=== PATIENT | male | born 1965 | race Caucasian/White ===

== ENCOUNTER 2016-07-07 09:11 | Inpatient (IN) | payer MEDICARE, MEDICAID ==
[~2016-07-07] VITALS: Ht 180.3 cm; Wt 106.8 kg
[2016-07-07] VITALS (17 sets, daily range): BP systolic 130–180; BP diastolic 68–100; PULSE 86–108; RESP 18–20; TEMP 97.9; Ht 180.3 cm; Wt 106.8 kg
[2016-07-07] MEDS ORDERED: ALBUTEROL 0.5% (NEB) 2.5 MG/0.5 ML AMP INH STA (09:30)
[2016-07-07] MEDS ORDERED: ONDANSETRON 4 MG INJ IV STA ×3 (09:30→12:24)
[2016-07-07] MEDS ORDERED: IPRATROPIUM (NEB) 0.5 MG/2.5 ML AMP INH STA (09:30)
--- NOTE | 2016-07-07 09:51 | RADRPT ---
PROCEDURE: XR Chest. CLINICAL INDICATION: Abdominal pain. TECHNIQUE: Single frontal view of the chest was obtained COMPARISON: None FINDINGS: The soft tissues are normal. There are osteophytes in the thoracic spine. The heart is enlarged. cardiomediastinal silhouette and hilar structures are normal. The pulmonary vasculature is increase. Left-sided aorta is ectatic. There are bilateral mixed interstitial perihilar and basilar interstit ial and alveolar infiltrates. There are bilateral pleural effusions. There are clips in the superio r mediastinum possibly related to prior thyroidectomy. IMPRESSION: 1. Cardiomegaly with congestive heart failure and interstitial pulmonary edema with bilateral pleura l effusions. 2. Spondylosis of the thoracic spine. RPTAT:AAJJ Physician Michael Date Time Electronically viewed and signed by Physician Michael on 07/07/2016 09:51 /
[2016-07-07] MEDS ORDERED: CNC30T PO (10:19)
[2016-07-07] MEDS ORDERED: ASPI-664 PO (10:19)
[2016-07-07] MEDS ORDERED: ATOR80TA75 PO (10:19)
[2016-07-07] MEDS ORDERED: CITA10TA84 PO (10:20)
[2016-07-07] MEDS ORDERED: CLOP75TA27 PO (10:20)
[2016-07-07 10:21] LABS: ADD SCAN DIFF NO
[2016-07-07] MEDS ORDERED: DIVA250T4 PO (10:21)
[2016-07-07] MEDS ORDERED: DOCU-159 PO (10:21)
[2016-07-07] MEDS ORDERED: EPOE3000 SC (10:22)
[2016-07-07] MEDS ORDERED: HEPA500021 IJ (10:23)
[2016-07-07] MEDS ORDERED: ADV50050 INHALATION (10:23)
[2016-07-07] MEDS ORDERED: INSU100C SQ (10:25)
[2016-07-07] MEDS ORDERED: ISOS60TA PO (10:25)
[2016-07-07] MEDS ORDERED: LEVE10006 PO (10:26)
[2016-07-07] MEDS ORDERED: LOSA100T7 PO (10:26)
[2016-07-07] MEDS ORDERED: MONT10TA21 PO (10:26)
[2016-07-07] MEDS ORDERED: PANT40TA3 PO (10:27)
[2016-07-07] MEDS ORDERED: PHEN300C2 PO (10:28)
[2016-07-07] MEDS ORDERED: NEPH PO (10:29)
[2016-07-07] MEDS ORDERED: POLY17PO6 PO (10:29)
[2016-07-07] MEDS ORDERED: hydrALAzine 20 MG INJ IV ONE (10:30)
[2016-07-07] MEDS ORDERED: FOLI1CAP PO (10:30)
[2016-07-07] MEDS ORDERED: SEVE800T7 PO (10:31)
[2016-07-07] MEDS ORDERED: TRAZ50TA18 PO (10:32)
[2016-07-07 10:33] LABS: ABNORMAL IP MESSAGE 1; HEMATOCRIT 24.7 % (42.0-52.0); HEMOGLOBIN 7.7 g/dl (14.0-18.0); MEAN CORPUSCULAR HEMOGLOBIN 29.4 pg (29.0-33.0); MEAN CORPUSCULAR HGB CONC 31.2 g/dl (32.0-37.0); MEAN CORPUSCULAR VOLUME 94.3 fl (82.0-101.0); MEAN PLATELET VOLUME 10.6 fl (7.4-10.4); PLATELET COUNT 68 10^3/UL (140-415); RED BLOOD COUNT 2.62 10^6/ul (4.70-6.10); RED CELL DISTRIBUTION WIDTH 16.9 % (11.5-14.5); WHITE BLOOD COUNT 6.8 10^3/ul (4.8-10.8)
[2016-07-07 10:35] LABS: INR 1.14; PARTIAL THROMBOPLASTIN TIME 37.7 Sec (25.0-35.0); PROTIME 14.6 Sec (12.2-14.2); PT RATIO 1.1
[2016-07-07 10:35] LABS: ALBUMIN 4.3 g/dl (3.3-4.9)
[2016-07-07 10:36] LABS: POTASSIUM 5.1 mmol/L (3.5-5.1)
[2016-07-07 10:38] LABS: ALBUMIN/GLOBULIN RATIO 1.1; TOTAL PROTEIN 8.2 g/dl (6.1-8.1)
[2016-07-07] MEDS ORDERED: ACET-2047 PO (10:39)
[2016-07-07] MEDS ORDERED: BISA5TAB6 PO (10:39)
[2016-07-07] MEDS ORDERED: CLON-379 PO (10:41)
[2016-07-07] MEDS ORDERED: BEN25 PO (10:41)
[2016-07-07] MEDS ORDERED: IPRA3AMP INHALATION (10:42)
[2016-07-07] MEDS ORDERED: GLUC1KIT IJ (10:43)
[2016-07-07] MEDS ORDERED: GUAI-637 PO (10:44)
[2016-07-07] MEDS ORDERED: DEXT38GE15 PO (10:44)
[2016-07-07] MEDS ORDERED: TEARS BOTH EYES (10:45)
[2016-07-07] MEDS ORDERED: NIT4 SL (10:46)
[2016-07-07] MEDS ORDERED: LACT20SO2 PO (10:46)
[2016-07-07 10:47] LABS: CREATININE 10.34 mg/dl (0.61-1.24)
--- NOTE | 2016-07-07 10:51 | ERA ---
ER Documentation Chief Complaint Date/Time DATE: 07/07/16 TIME: 10:30 Chief Complaint sob and vomitting since last night, came from board & care HPI This is a 50-year-old -[place]ian male with a known history of end-stage renal disease on hemodialysis every Saturday and Saturday. The patient also has a history of epilepsy, insulin-dependent diabetes mellitus, hypertension and is on Dilantin to treat his diabetes. The patient was recently discharged 24 hours ago on July 05, 2016 from [facility]. He had been admitted on June 11 to [facility] and treated for status epilepticus as well as MRSA. The patient was discharged to [facility] service. The patient was brought into the emergency department today from a staff member at the independent living facility due to severe difficulty in breathing that occurred 2 hours prior to arrival. The patient also had an episode of nonbloody nonbilious emesis at 4 PM yesterday but denied any abdominal pain. 2 hours prior to arrival the patient also complained of chest pressure that was 6 out of 10 in intensity, nonradiating and no associated symptoms of diaphoresis or shortness of breath. The patient's dialysis access site is in the left femoral tunnel catheter. There is been no documentation of fever shaking or chills. The patients post discharge and notes indicate that the patient is to receive dialysis at [facility] and the last run of dialysis was on , 2 days prior to arrival the patient also take Epogen 10,000 units subcutaneously every Saturday and Saturday and the last dose was given on July 04, 2016 during his dialysis. According to medical records that were brought by the patient's independent living staff member his certified travel counselor is Dr. Ann Marie CALVO All systems reviewed and are negative except as per history of present illness. Medications Home Meds Reported Medications Nitroglycerin* (Nitrostat*) 0.4 Mg Tab.subl, 0.4 MG SL Q5MIN Y for CHEST PAIN, BOTTLE 07/07/16 Lactulose* (Lactulose*) 20 Gm/30 Ml Solution, 20 GM PO BID Y for CONSTIPATION, ML 07/07/16 Hypromellose* (Isopto Tears*) 15 Ml Drops, 2 DROP BOTH EYES Q4 Y for DRY EYES, # 1 EA 07/07/16 Guaifenesin* (Robitussin*) 100 Mg/5 Ml Syrup, 300 MG PO Q4H Y for COUGH, ML 07/07/16 Dextrose (Glucose Gel) 38 Gm Gel..gram., 38 GM PO PRN 07/07/16 Glucagon,Human Recombinant (Glucagon Emergency Kit) 1 Mg Kit, 1 MG IJ PRN, KIT 07/07/16 Ipratropium-Albuterol (Ipratropium-Albuterol) 0.5-3 Mg/3 Ml Ampul.neb, 3 ML INHALATION Q4 Y for WHEEZING AND SOB, #30 VIAL 07/07/16 Diphenhydramine Hcl* (Benadryl*) 25 Mg Cap, 25 MG PO Q6H Y for ITCHING, CAP 07/07/16 Clonidine Hcl* (Clonidine Hcl*) 0.1 Mg Tab, 0.1 MG PO Q6 Y for ELEVATED BLOOD PRESSURE, TAB NEEDED FOR BP ABOVE 170 07/07/16 Bisacodyl* (Bisacodyl*) 5 Mg Tablet.dr, 10 MG PO DAILY Y for CONSTIPATION, TAB 07/07/16 Acetaminophen* (Acetaminophen*) 650 Mg Tablet, 650 MG PO Q6H Y for PAIN AND OR ELEVATED TEMP, #30 TAB 07/07/16 Trazodone Hcl* (Trazodone Hcl*) 50 Mg Tablet, 50 MG PO QHS, #30 TAB 07/07/16 Sevelamer Carbonate* (Renvela*) 800 Mg Tablet, 0.16 GM PO WITH MEALS, TAB 07/07/16 Folic Acid/Vitamin B Comp W-C (Nephrocaps Capsule) 1 Mg Capsule, 1 MG PO DAILY, CAP 07/07/16 Multivit/Ca Carb/B Cmplx/Fa* (Etelvina-Paula*) 1 Tab Tab, 1 TAB PO DAILY, TAB 07/07/16 Polyethylene Glycol* (Miralax*) 17 Gm Powd.pack, 17 GM PO BID, #60 PACKET 07/07/16 Phenytoin* Sodium Extended (Dilantin*) 300 Mg Capsule, 300 MG PO HS, CAP 07/07/16 Pantoprazole* (Protonix*) 40 Mg Tablet.dr, 40 MG PO DAILY, TAB 07/07/16 Montelukast Sodium* (Singulair*) 10 Mg Tablet, 10 MG PO QHS, #30 TAB 07/07/16 Losartan Potassium* (Losartan Potassium*) 100 Mg Tablet, 100 MG PO DAILY, TAB 07/07/16 Levetiracetam* (Levetiracetam*) 1,000 Mg Tablet, 1000 MG PO BID, TAB 07/07/16 Isosorbide Mononitrate* (Isosorbide Mononitrate*) 60 Mg Tab.er.24h, 60 MG PO DAILY, TAB 07/07/16 Insulin Lispro (Humalog) 100 Unit/1 Ml Cartridge, 0 SQ AC MEALS AND BEDTIME SLIDING SCALE (NO SCALE GIVEN) 07/07/16 Heparin Sodium,Porcine/Pf (HEPARIN SOD 5,000 UNIT/ 0.5 ML) 5,000 Unit/0.5 Ml Vial, 5000 UNIT IJ Q12, VIAL 07/07/16 Salmeterol Xinaf-Fluticasone* (Advair*) 500/50 Diskus Inhaler, 1 INH INHALATION BID, #1 INHALER 07/07/16 Epoetin francesca* (Epogen*) 3,000 Unit/1 Ml Vial, [address] UNIT SC ENZO PRESSLEY,SAT, VIAL 07/07/16 Docusate Sodium* (Docusate Sodium*) 100 Mg Capsule, 100 MG PO BID, #60 CAP 07/07/16 Divalproex Sodium* (Divalproex Sodium*) 250 Mg Tablet.dr, 750 MG PO Q8, #120 TAB 07/07/16 Clopidogrel Bisulfate (Clopidogrel) 75 Mg Tablet, 75 MG PO DAILY, #30 TAB 07/07/16 Citalopram Hydrobromide* (Citalopram Hydrobromide*) 10 Mg Tablet, 10 MG PO DAILY , #30 TAB 07/07/16 Cinacalcet* (Sensipar*) 30 Mg Tab, 30 MG PO DAILY, TAB 07/07/16 Atorvastatin* (Atorvastatin*) 80 Mg Tablet, 80 MG PO QHS, #30 TAB 07/07/16 Aspirin (Low Dose Aspirin) 81 Mg Tablet.dr, 81 MG PO DAILY, #30 TAB 07/07/16 Allergies Allergies: Coded Allergies: iodine (Unverified Allergy, Unknown, 07/07/16) PMhx/Soc History of Surgery: Yes (DIALYSIS SHUNT PLACEMENT) Anesthesia Reaction: No Hx Neurological Disorder: No Hx Respiratory Disorders: No Hx Cardiac Disorders: Yes (HTN) Hx Psychiatric Problems: No Hx Miscellaneous Medical Probl: Yes (RENAL FAILURE, DM) Hx Alcohol Use: No Hx Substance Use: No Hx Tobacco Use: No Smoking Status: Never smoker Physical Exam Vitals Vital Signs Date Time Temp Pulse Resp B/P Pulse Ox O2 Delivery O2 Flow Rate FiO2 07/07/16 10:00 111 26 182/106 07/07/16 09:50 111 18 96 Nasal Cannula 2.0 07/07/16 09:50 2.0 07/07/16 09:30 Nasal Cannula 2 07/07/16 09:15 97.9 89 18 232/115 89 Physical Exam Constitutional:Well-developed. Well-nourished. In severe respiratory distress and actively vomiting nonbloody nonbilious emesis HEENT:Normocephalic. Atraumatic.Pupils were equal round reactive to light. Moist mucous membranes.No tonsillar exudates. Neck: No nuchal rigidity. No lymphadenopathy. No posterior cervical spine tenderness or step-offs. Respiratory: Patient using accessory muscles of respiration. Rhonchi heard bilaterally. No wheezing on end auscultation bilaterally. Cardiovascular: Regular rate regular rhythm.No murmurs. No rubs were appreciated.S1, S2 normal. Distal pulses are palpable 2+ bilaterally. GI: Abdomen was soft. Nontender. Non Distended. No pulsatile abdominal masses or bruits. No rebound. No guarding. Bowel sounds were present and normal. Muscle skeletal: Full range of motion of both the upper and lower extremities bilaterally.Normal muscle tone.No assymetrical calf tenderness or swelling. Skin: No petechia, no purpura. No lesions on the palms or the soles of the feet. No maculopapular rash. Left tunneled dialysis catheter present in the femoral vein and surrounding skin was clean dry and intact NEURO: Patient was alert, awake, orientated x3.No facial droop. Gait observed and normal with no ataxia.Speech had regular rate and rhythm. No focal neurological deficits. Result Diagram: 07/07/16 1009 07/07/16 1004 Results 24 hrs Laboratory Tests Test 07/07/16 10:04 07/07/16 10:09 Sodium Level 142mmol/L Potassium Level 5.1mmol/L Chloride Level 98mmol/L Carbon Dioxide Level 24mmol/L Anion Gap 25 Blood Urea Nitrogen 107mg/dl Creatinine 10.34mg/dl Glucose Level 98mg/dl Calcium Level 10.0mg/dl Total Bilirubin 0.0mg/dl Direct Bilirubin 0.00mg/dl Indirect Bilirubin 0.0mg/dl Aspartate Amino Transf (AST/SGOT) 46IU/L Alanine Aminotransferase (ALT/SGPT) 29IU/L Alkaline Phosphatase 233IU/L Troponin I 0.153ng/ml Total Protein 8.2g/dl Albumin 4.3g/dl Globulin 3.90g/dl Albumin/Globulin Ratio 1.10 Amylase Level 130U/L Lipase 50U/L White Blood Count 6.810^3/ul Red Blood Count 2.6210^6/ul Hemoglobin 7.7g/dl Hematocrit 24.7% Mean Corpuscular Volume 94.3fl Mean Corpuscular Hemoglobin 29.4pg Mean Corpuscular Hemoglobin Concent 31.2g/dl Red Cell Distribution Width 16.9% Platelet Count 6810^3/UL Mean Platelet Volume 10.6fl Prothrombin Time 14.6Sec Prothrombin Time Ratio 1.1 INR International Normalized Ratio 1.14 Activated Partial Thromboplast Time 37.7Sec Phenytoin (Dilantin) Level < 3.0ug/ml Current Medications Medications (Trade) Dose Ordered Sig/Shawn Route PRN Reason Start Time Stop Time Status Last Admin Dose Admin Ondansetron HCl (Zofran Inj) 4 mg ONCE STAT IV 07/07/16 09:30 07/07/16 09:33 DC 07/07/16 09:57 Albuterol (Proventil 0.5% (Neb)) 10 mg ONCE STAT INH 07/07/16 09:30 07/07/16 09:33 DC 07/07/16 09:50 Ipratropium [place] (Atrovent 0.02% (Neb)) 1 mg ONCE STAT INH 07/07/16 09:30 07/07/16 09:33 DC 07/07/16 09:50 Hydralazine HCl (Apresoline) 10 mg ONCE ONCE IV 07/07/16 10:30 07/07/16 10:31 DC 07/07/16 11:10 Morphine Sulfate (morphine) 4 mg ONCE STAT IV 07/07/16 10:53 07/07/16 10:54 DC 07/07/16 11:10 Ondansetron HCl (Zofran Inj) 4 mg ONCE STAT IV 07/07/16 10:53 07/07/16 10:54 DC 07/07/16 11:09 Ondansetron HCl (Zofran Inj) 4 mg ER BRIDGE PRN IV NAUSEA AND/OR VOMITING 07/07/16 11:30 07/08/16 11:29 Acetaminophen 650 mg 650 mg ER BRIDGE PRN PO MILD PAIN/FEVER 07/07/16 11:30 07/08/16 11:29 Phenytoin/Sodium Chloride (Dilantin/NS) 100 ml @ 200 mls/hr ONCE STAT IVPB 07/07/16 11:32 07/07/16 12:01 Cancel IV Flush (NS 3 ml) 3 ml PER PROTOCOL IV 07/07/16 12:00 Ondansetron HCl (Zofran Inj) 4 mg Q6H PRN IV NAUSEA AND/OR VOMITING 07/07/16 12:00 Acetaminophen (Tylenol Tab) 650 mg Q6H PRN PO PAIN LEVEL 1-3 OR FEVER 07/07/16 12:00 Acetaminophen/ Hydrocodone Bitart ([place] (5/325)) 1 tab Q6H PRN PO MODERATE PAIN LEVEL 4-6 07/07/16 12:00 Morphine Sulfate (morphine) 2 mg Q4H PRN IV SEVERE PAIN LEVEL 7-10 07/07/16 12:00 Docusate Sodium (Colace) 100 mg Q12H PRN PO CONSTIPATION 07/07/16 12:00 Heparin Sodium (Porcine) (Heparin (5000 Units/0.5 ml)) 5,000 unit Q12 SC 07/07/16 21:00 Aspirin (Halfprin) 81 mg DAILY PO 07/08/16 09:00 Atorvastatin Calcium (Lipitor) 80 mg QHS PO 07/07/16 21:00 Bisacodyl (Dulcolax) 10 mg DAILY PRN PO CONSTIPATION 07/07/16 12:00 Cinacalcet (Sensipar) 30 mg DAILY PO 07/08/16 09:00 Citalopram Hydrobromide (Celexa) 10 mg DAILY PO 07/08/16 09:00 Clopidogrel Bisulfate (plaVIX) 75 mg DAILY PO 07/08/16 09:00 Diphenhydramine HCl (Benadryl) 25 mg Q6H PRN PO ITCHING 07/07/16 12:00 Divalproex Sodium (Depakote) 750 mg Q8 PO 07/07/16 14:00 Docusate Sodium (Colace) 100 mg BID PO 07/07/16 21:00 Guaifenesin (Robitussin Liquid Cup) 300 mg Q4H PRN PO COUGH 07/07/16 12:00 Hypromellose (Isopto Tears) 2 drop Q4H PRN BOTH EYES DRY EYES 07/07/16 12:00 Isosorbide Mononitrate (Imdur) 60 mg DAILY PO 07/08/16 09:00 Lactulose (Enulose) 20 gm BID PRN PO CONSTIPATION 07/07/16 12:00 Levetiracetam (Keppra) 1,000 mg BID PO 07/07/16 21:00 Losartan Potassium (Cozaar) 100 mg DAILY PO 07/08/16 09:00 Montelukast Sodium (Singulair) 10 mg QHS PO 07/07/16 21:00 Multivit/Ca Carb/ B Cmplx/FA/Prenat (Etelvina-Paula) 1 tab DAILY PO 07/08/16 09:00 Nitroglycerin (Nitroglycerin (Sl Tab) 0.4 Mg) 1 tab [id number] PRN SL CHEST PAIN 07/07/16 12:00 Pantoprazole (Protonix Tab) 40 mg DAILY@06 PO 07/08/16 06:00 Phenytoin (Dilantin) 300 mg HS PO 07/07/16 21:00 Polyethylene Glycol (Miralax) 17 gm BID PO 07/07/16 21:00 Salmeterol Xinafoate/ Fluticasone (Advair 500/50 Diskus) 1 inh BID INH 07/07/16 21:00 Sevelamer Carbonate (Renvela) 1.6 gm WITH MEALS PO 07/07/16 12:00 Trazodone HCl (Desyrel) 50 mg QHS PO 07/07/16 21:00 Miscellaneous Information 1 mg DAILY PO 07/08/16 09:00 07/08/16 09:00 DC Albuterol/ Ipratropium (Duoneb) 3 ml Q4H RESP THERAPY PRN HHN SHORTNESS OF BREATH 07/07/16 12:00 Morphine Sulfate (morphine) 4 mg ONCE STAT IV 07/07/16 12:24 07/07/16 12:26 DC Ondansetron HCl (Zofran Inj) 4 mg ONCE STAT IV 07/07/16 12:24 07/07/16 12:26 DC Phenytoin (Dilantin) 500 mg ONCE STAT PO 07/07/16 12:24 4 12:26 DC Albuterol (Proventil 0.083% (Neb)) 5 mg ONCE STAT NEB 07/07/16 12:24 07/07/16 12:26 DC Ipratropium [place] (Atrovent 0.02% (Neb)) 0.5 mg ONCE STAT NEB 07/07/16 12:24 4 12:26 DC Procedures/MDM The patient presented to the emergency department with dyspnea. My differential diagnosis included but was not limited to upper airway obstruction, CHF, pulmonary embolism, cardiac ischemia, pneumonia, pneumothorax, anemia, drug overdose, pulmonary edema, COPD or asthma. The patient was in severe respiratory distress and was immediately placed on a director of software engineering continuous pulse oximetry and IV access was established by nursing staff. The patient was given continuous nebulizer treatment of albuterol and Atrovent. The patient has anuria and therefore Lasix was not given as I did feel the patient severe difficulty in breathing was a result of fluid overload at the chest radiograph had pulmonary vascular congestion bilaterally. The patient has a known history of seizure disorder on Dilantin. His Dilantin was subtherapeutic. He was given 500 mg of Dilantin p.o. in the emergency department but had no seizure activity This patient also presented to the emergency department with severely elevated blood pressure. My differential diagnosis included but was not limited to conditions that could end-organ damage such as acute coronary syndrome, acute pulmonary edema, aortic dissection, subarachnoid hemorrhage, intracerebral hemorrhage, cerebral infarction, withdrawal syndromes from beta blockers, or states of catecholamine excess such as pheochromocytoma or drug intoxication. The patient had uncontrolled hypertensive with end-organ damage to suggest hypertensive emergency. The treatment goal was immediate reduction of the mean arterial blood pressure. This was done in a controlled, graded manor, using improvement of the patient's condition as a guide. The patient's blood pressure reduction did not exceed more then a 20-25 percent reduction within the first 30 to 60 minutes. The patient was put on a director of software engineering, continuous pulse oximetry, and IV access was established by nursing staff. The antihypertensive agent used was IV hydralazine. 12 Lead EKG tracing ordered and reviewed by myself showed: Sinus tachycardia at 126 bpm and no arrhythmia. DE interval normal. QRS duration normal. No ST segment elevation No ST segment depression. No changes consistent with acute ischemia. The patient was anemic with a hemoglobin of 7.7. He had no active hemoptysis or hematemesis no melanotic stools. The patient does receive Epogen which will be given just prior to his dialysis. I spoke with Dr. De Los Santos, the admitting nurse at this time a blood transfusion was not given since he will undergo dialysis and has known history of chronic anemia. However type and screen was obtained. The patient's troponin was elevated but he did not complain of any chest pain or pressure at this time. The patient will have serial 12-lead EKG tracings and cardiac set of enzymes obtained. I felt the elevated troponin was likely due to renal failure versus myocardial ischemia therefore aspirin was not given to the patient. Of note there was questionable treatment for MRSA during his month stay at [facility], blood cultures were obtained. There is no leukocytosis no evidence of infection at this time and therefore did not administer antibiotics. The blood cultures will be followed up by the admitting physician The patient was now complaining of abdominal pain after emesis. Repeat abdominal examination showed no peritoneal signs to suggest a surgical abdomen. I did feel this was more likely muscle skeletal from the emesis. He received intravenous morphine and Zofran. His sister had now arrived at 10:39 AM. I spoke in length with her regarding the patient's care. She stated the patient has been in and out of hospitals since May due to complications with dialysis shunt sites. However his temporary placement into the left groin has not caused any recent complications. He was scheduled to receive dialysis this morning according to his sister but due to the patient's complaints he was brought to the hospital at [facility] and will require admission for emergent hemodialysis. The patient will be admitted to the hospitalist Dr. De Los Santos and will go to the telemetry service in serious condition with an anticipated stay of greater than 2 midnights. Given the patient's acute on chronic renal failure with a BUN of 107 creatinine 10.34, the patient will undergo emergent hemodialysis with his certified travel counselor Dr. Jesus. Critical Care: Time: 50 minutes Treatments/Evaluations: Close monitoring and treatment of unstable vital signs, cardiorespiratory, and neurologic status, while maintaining tight balance of fluid, respiratory, and cardiac interventions. Time does not include performing any of the above billable procedures. Departure Diagnosis: Primary Impression: Pulmonary edema with congestive heart failure Additional Impressions: Acute renal failure Qualified Code: N17.9 - Acute renal failure, unspecified acute renal failure type Hypertensive emergency Anemia Qualified Code: D64.9 - Anemia, unspecified type Condition: Serious BETHEL BARNES Jul 07, 2016 10:42
[2016-07-07 10:53] LABS: TROPONIN-I 0.153 ng/ml (0.00-0.12)
[2016-07-07] MEDS ORDERED: morphine 4 MG/ML VIAL IV STA ×2 (10:53→12:24)
[2016-07-07] MEDS ORDERED: ACETAMINOPHEN 325 MG TAB PO PRN (11:30)
[2016-07-07] MEDS ORDERED: ONDANSETRON 4 MG INJ IV PRN (11:30)
[2016-07-07] MEDS ORDERED: PHENYTOIN 1,000 MG in SOD CHLORIDE 0.9% 80 ML IVPB STA (11:32)
[2016-07-07] MEDS ORDERED: GUAIFENESIN 20 MG/ML 5ML CUP PO PRN (12:00)
[2016-07-07] MEDS ORDERED: BISACODYL (EC) 5 MG TAB PO PRN (12:00)
[2016-07-07] MEDS ORDERED: DOCUSATE SODIUM 100 MG CAP PO PRN (12:00)
[2016-07-07] MEDS ORDERED: NACL 0.9% 3 ML SYG IV SCH (12:00)
[2016-07-07] MEDS: SEVELAMER CARBONATE 0.8 GM PKT PO SCH ×2 (12:00→18:05)
[2016-07-07] MEDS ORDERED: LACTULOSE 30ML CUP PO PRN (12:00)
[2016-07-07] MEDS ORDERED: HYPROMELLOSE 0.5% 15 ML OPH BOTH EYES PRN (12:00)
--- NOTE | 2016-07-07 12:21 | HP ---
DATE OF ADMISSION: 07/07/2016 CHIEF COMPLAINT: Shortness of breath, nausea. HISTORY OF PRESENT ILLNESS: The patient is a 50-year-old male with a history of end-stage renal dis ease on dialysis for many years, with multiple issues with the fistula. The patient was living in [facility] and apparently they had issues with his fistula and recommended hospice, but the patient's si ster does not want him in hospice and brought him down to [place]. The patient has history of s eizure disorder, has not had a seizure for 1 month. He is on anti-seizure medications. He has a hi story of CHF. The patient was recently at [facility] where he did have a new fistula placed and d id get his dialysis reinitiated. He went to a board and care facility recently, but was sent over f or shortness of breath and nausea. The patient receives dialysis Tuesdays, and Saturdays and new field agronomist is Dr. Jesus. The patient's last dialysis was reportedly on Saturday. The patient's main complaints at this time are shortness of breath as well as nausea and emesis. He den ies any chest pain. History is obtained by the patient's sister who is at bedside. He has no other complaints at this time. PAST MEDICAL HISTORY: As per HPI. HOME MEDICATIONS: 1. Tylenol. 2. Clonidine. 3. Dextrose. 4. EPO. 5. Albuterol. 6. Heparin. 7. Aspirin. 8. Atorvastatin. 9. Sensipar. 10. Citalopram. 11. Plavix. 12. Benadryl. 13. Depakote. 14. Colace. 15. Imdur. 16. Lactulose. 17. Keppra. 18. Losartan. 19. Nitroglycerin p.r.n. 20. Protonix. 21. Dilantin. 22. Advair. 23. Trazodone. 24. Renvela. ALLERGIES: REPORTEDLY ARE TO IODINE. FAMILY HISTORY: Noncontributory. SOCIAL HISTORY: No alcohol abuse, substance abuse or tobacco abuse. REVIEW OF SYSTEMS: A 12-point review of systems is difficult to obtain as patient is a poor histori an and is nauseous at this time and requiring supplemental oxygen mask. PHYSICAL EXAMINATION: VITAL SIGNS: Temperature is 97.9, pulse 111, respiratory rate 26, blood pressure is 182/106, satura tion 96% on 2 liters. GENERAL: Mild distress, lethargic. HEENT: Normocephalic, atraumatic. LUNGS: Clear to auscultation. CARDIOVASCULAR: Regular rate and rhythm. ABDOMEN: Nondistended, nontender, soft. EXTREMITIES: No clubbing, cyanosis, or edema. LABORATORY DATA: White count 6.8, hemoglobin 7.7, platelets of 68. Chemistry within normal limits except for BUN of 107, creatinine 10.34, anion gap is 25. Troponin 0.153. Alkaline phosphatase 233 . Lipase is 50. Tox: Dilantin level is low at less than 3.0. INR is 1.14. DIAGNOSTIC DATA: Chest x-ray shows cardiomegaly with CHF, interstitial pulmonary edema and bilatera l pleural effusions, spondylosis of the thoracic spine. ASSESSMENT AND PLAN: 1. Acute respiratory distress secondary to pulmonary edema, likely from congestive heart failure as well as his end-stage renal disease. I have already contacted patient's field agronomist. The patient will need hemodialysis for fluid removal. Continue supplemental oxygen. Admit to telemetry. 2. End-stage renal disease. Once again, I have contacted patient's field agronomist, Dr. Zuniga, and the patient will need to have dialysis done today via his fistula. 3. History of congestive heart failure. The patient's baseline ejection fraction is unknown. We w ill obtain a 2D echo. 4. History of seizure disorder. The patient has not had a seizure for a month. We will continue h is home seizure medications. 5. Nausea, vomiting likely secondary to his comorbidities. We will give Zofran p.r.n. 6. Prophylaxis. Heparin. Dictated By: IWONA BARRIOS MD BS/NTS Conf#: [id number] DID#: [id number]
[2016-07-07] MEDS ORDERED: IPRATROPIUM (NEB) 0.5 MG/2.5 ML AMP NEB STA (12:24)
[2016-07-07] MEDS ORDERED: PHENYTOIN 100 MG CAP PO STA (12:24)
[2016-07-07] MEDS ORDERED: ALBUTEROL 0.083% (NEB) 2.5 MG/3 ML AMP NEB STA (12:24)
[2016-07-07 13:00] LABS: EOSINOPHILS # 1.6 10^3/ul (0.0-0.5); LYMPHOCYTES # 0.6 10^3/ul (0.8-2.9); MONOCYTE # 0.5 10^3/ul (0.3-0.9)
[2016-07-07 13:01] LABS: PLATELET ESTIMATE PLT APPEAR DECREASED
[2016-07-07] MEDS: morphine 2 MG INJ IV PRN ×2 (13:08→22:23)
[2016-07-07] MEDS ORDERED: LABETALOL HCL 20MG INJ IV PRN (14:30)
--- NOTE | 2016-07-07 14:38 | CONS ---
DATE OF ADMISSION: 07/07/2016 DATE OF CONSULTATION: 07/07/2016 NEPHROLOGY CONSULTATION REASON FOR CONSULTATION: End-stage renal disease, volume overload. PHYSICIAN REQUESTING CONSULT: Dr. De Los Santos. HISTORY OF PRESENT ILLNESS: This is a 50-year-old male with a past medical history of end-stage josep al disease on hemodialysis for over 10 years, access is a left lower leg AV fistula. The patient on dialysis 4 times weekly, Saturday, , Saturday, Saturday. History of seizure disorder, hist ory of coronary artery disease, history of CVA, history of CHF, history of hypertension, history of mineral bone disorder history of dyslipidemia and history of diabetes who presented to [facility] with shortness of breath and vomiting. The patient stated that he was recently ad mitted to [facility] since 06/11/2016 due to seizures. The patient also was noted to have MRSA pn eumonia. The patient was treated and was eventually discharged approximately 2 days ago to an [facility] facility. The patient since his discharge had hemodialysis on had a hemodialysi s on 07/05/2016. Since that time, the patient is complaining about nausea, nonbloody emesis and abd ominal pain and chest pressure with shortness of breath. As a result, he came into the emergency ro om for evaluation. Upon arrival to the emergency room, the patient had a chest x-ray which showed f indings of cardiomegaly, CHF, interstitial edema, bilateral pleural effusions. LABORATORY DATA: Showed sodium 142, BUN of 107, creatinine 10.34. The patient had a hemoglobin of 7.7, hematocrit 24.7, platelet count 68. In the emergency room, the patient was given Dilantin, neb ulizer therapy, placed on BiPAP. There have been no reports of hemoptysis, hematemesis or hematoch ezia. PAST MEDICAL HISTORY: As stated above, history of end-stage renal disease, history of diabetes, epi lepsy, history of coronary artery disease, history of CVA, history of anemia, mineral bone disorder, hypertension. PAST SURGICAL HISTORY: History of AV fistula placement. ALLERGIES: IODINE. FAMILY HISTORY: Noncontributory. SOCIAL HISTORY: Does not drink, smoke or do drugs. MEDICATIONS: The patient's medications have been reviewed. REVIEW OF SYSTEMS: A 14-point review of systems was conducted. Pertinent positives in HPI, otherwi se negative. PHYSICAL EXAMINATION: VITAL SIGNS: Blood pressure is 182/106, respirations 26, pulse 111, temperature 97.9. HEENT: Head is normocephalic. Pupils are reactive to light. NECK: Supple. HEART: Tachycardic. LUNGS: Show diminished breath sounds at base. Positive crackles. ABDOMEN: Soft, nontender to palpation. No rebound or guarding. EXTREMITIES: Negative for clubbing, cyanosis. Positive edema. DERMATOLOGIC: No rashes. MUSCULOSKELETAL: No joint effusions. NEUROLOGIC: No focal deficits. LABORATORY DATA: Currently shows white count 6.8, hemoglobin 7.7, hematocrit ____.7, platelet count 68, sodium 142, potassium 4.1, chloride 90, BUN 107, creatinine 2.34, troponin 0.153. Chest x-ray as stated in HPI. ASSESSMENT AND PLAN: This is a 50-year-old male who presents with: 1. End-stage renal disease. The patient is on dialysis 4 times weekly. The patient currently is i n need of urgent hemodialysis due to volume overload and respiratory failure. Plan for dialysis for 3-1/2 hours. Will dialyze on a 2K bath, calcium 2.5, ultrafiltrate goal 2 to 3 liters. Anticipate daily dialysis for solute clearance and volume removal. 2. Acute hypoxemic respiratory failure secondary to congestive heart failure. Plan is for dialysis with ultrafiltration of 2 to 3 liters as stated above. Will continue to monitor. Continue BiPAP. Continue nasal cannula supplement and nebulized therapy. 3. Anemia of chronic disease. PLAN: Is to check an iron panel, check stool for occult blood and ferritin level. Will give the pa genaro Epogen ____ following dialysis, monitor. DIAGNOSES: 1. Hypertension. Etiology is in part due to increased intravascular volume. We will continue curr ent blood pressure regimen. Continue ultrafiltration dialysis. 2. History of coronary artery disease. Continue current medical management. 3. Diabetes. Continue Accu-Cheks and sliding scale. 4. Seizure disorder. Continue current medications. 5. Nausea, vomiting. Etiology may be secondary to congestive heart failure and respiratory failure . Continue to monitor. 6. Elevated troponin, possibly due to non- ST elevation myocardial infarction type 2. Continue to monitor. Consider cardiology evaluation, check serial troponins. 7. Mineral bone disorder____ continue phosphate binders. 8. History of chronic kidney disease, medical management. Thank you, Dr. De Los Santos, for this interesting consult. It will be a pleasure to follow the patient w ith you throughout the hospital course. Dictated By: NEHEMIAS DAS/NTS Conf#: [id number] DID#: [id number] CC: IWONA DE LOS SANTOS MD;*EndCC*
[2016-07-07] MEDS: DIVALPROEX (EC) 250 MG TAB PO SCH ×2 (14:58→22:30)
[2016-07-07] MEDS: ONDANSETRON 4 MG INJ IV PRN (15:49)
[2016-07-07] MEDS: DIPHENHYDRAMINE 25 MG CAP PO PRN (17:00)
[2016-07-07 18:51] LABS: IRON 80 ug/dl (35-150)
[2016-07-07 19:00] LABS: TOTAL IRON BINDING CAPACITY 224 ug/dl (241-421)
[2016-07-07] MEDS: DOCUSATE SODIUM 100 MG CAP PO SCH (22:27)
[2016-07-07] MEDS: SALMETEROL/FLUTICASONE 500/50 INHA INH SCH (22:27)
[2016-07-07] MEDS: PHENYTOIN 100 MG CAP PO SCH (22:28)
[2016-07-07] MEDS: ATORVASTATIN 80 MG TAB PO SCH (22:28)
[2016-07-07] MEDS: LEVETIRACETAM 500 MG TAB PO SCH (22:28)
[2016-07-07] MEDS: POLYETHYLENE GLYCOL 17 GM PACKET PO SCH (22:29)
[2016-07-07] MEDS: traZODone 50 MG TAB PO SCH (22:29)
[2016-07-07] MEDS: MONTELUKAST 10 MG TAB PO SCH (22:30)
[2016-07-07] MEDS: HEPARIN 5,000 UNIT/0.5 ML VIAL SC SCH (22:31)
[2016-07-07] MEDS: EPOETIN 4000 UNITS/1 ML INJ (ESRD) SC SCH (23:06)
[2016-07-08] VITALS (19 sets, daily range): BP systolic 90–177; BP diastolic 47–91; PULSE 66–97; RESP 18–20
[2016-07-08] MEDS: DIPHENHYDRAMINE 25 MG CAP PO PRN ×4 (00:22→21:34)
[2016-07-08] MEDS: morphine 2 MG INJ IV PRN ×5 (03:03→21:34)
[2016-07-08] MEDS: DIVALPROEX (EC) 250 MG TAB PO SCH ×3 (07:09→21:34)
[2016-07-08] MEDS: PANTOPRAZOLE (EC) 40 MG TAB PO SCH (07:10)
[2016-07-08 07:35] LABS: ADD SCAN DIFF NO
[2016-07-08 07:53] LABS: ABNORMAL IP MESSAGE 1; HEMATOCRIT 21.7 % (42.0-52.0); MEAN CORPUSCULAR HEMOGLOBIN 30.6 pg (29.0-33.0); MEAN CORPUSCULAR HGB CONC 32.3 g/dl (32.0-37.0); MEAN CORPUSCULAR VOLUME 94.8 fl (82.0-101.0); MEAN PLATELET VOLUME 11.7 fl (7.4-10.4); PLATELET COUNT 58 10^3/UL (140-415); RED BLOOD COUNT 2.29 10^6/ul (4.70-6.10); RED CELL DISTRIBUTION WIDTH 17.1 % (11.5-14.5); WHITE BLOOD COUNT 3.7 10^3/ul (4.8-10.8)
[2016-07-08 08:19] LABS: POTASSIUM 4.5 mmol/L (3.5-5.1)
[2016-07-08 08:21] LABS: CREATININE 8.39 mg/dl (0.61-1.24)
[2016-07-08 08:22] LABS: CALCIUM 9.3 mg/dl (8.4-10.2); PHOSPHORUS 5.7 mg/dl (2.5-4.9)
[2016-07-08] MEDS ORDERED: ASPIRIN (EC) 81 MG TAB PO SCH (09:00)
[2016-07-08] MEDS ORDERED: NON-FORMULARY/PATIENT OWN MED (Folic Acid/Vitamin B Comp W-C (Nephrocaps Capsule) 1 MG) PO SCH (09:00)
[2016-07-08] MEDS: LOSARTAN 50 MG TAB PO SCH (09:00)
[2016-07-08] MEDS: ISOSORBIDE MONONITRATE(SR)60 MG TAB PO SCH (09:00)
[2016-07-08] MEDS: POLYETHYLENE GLYCOL 17 GM PACKET PO SCH ×2 (09:00→20:16)
[2016-07-08] MEDS: MULTIVIT/CA CARB/B CMPLX/FA TAB PO SCH (09:26)
[2016-07-08] MEDS: CINACALCET 30 MG TAB PO SCH (09:26)
[2016-07-08] MEDS: CITALOPRAM 20 MG TAB PO SCH (09:26)
[2016-07-08] MEDS: CLOPIDOGREL 75 MG TAB PO SCH (09:26)
[2016-07-08] MEDS: DOCUSATE SODIUM 100 MG CAP PO SCH ×2 (09:27→20:13)
[2016-07-08] MEDS: SALMETEROL/FLUTICASONE 500/50 INHA INH SCH ×2 (09:27→20:13)
[2016-07-08] MEDS: SEVELAMER CARBONATE 0.8 GM PKT PO SCH ×3 (09:27→17:27)
[2016-07-08] MEDS: LEVETIRACETAM 500 MG TAB PO SCH ×2 (09:28→20:15)
[2016-07-08] MEDS: HEPARIN 5,000 UNIT/0.5 ML VIAL SC SCH (09:31)
[2016-07-08 10:13] LABS: EOSINOPHILS # 0.8 10^3/ul (0.0-0.5); LYMPHOCYTES # 0.8 10^3/ul (0.8-2.9); MONOCYTE # 0.4 10^3/ul (0.3-0.9); NEUTROPHIL # 1.7 10^3/ul (1.6-7.5)
[2016-07-08 10:14] LABS: PLATELET ESTIMATE PLT APPEAR DECREASED
--- NOTE | 2016-07-08 15:11 | RADRPT ---
Echocardiogram Report Patient Name: BECKY CONNOR Gender: Male Date: 1965 Study Date: 08-Jul-2016 [employer]ry Metallurgist: KOURTNEY Location: I Ref. Physician: IWONA BARRIOS Quality: Technically Difficult Study Procedures: Transthoracic echocardiogram with complete 2D, M-Mode, and Doppler examination. Indications: Congestive Heart Failure. 2D/M Mode Doppler Measurement Value Normal Ranges Measurement Value Normal Ranges AoR Diam MM 3.7 cm MILI Vmax 1.5 cm2 LVIDd 2D 4.9 3.5 - 5.6 cm MILI VTI 1.5 cm2 LVIDs 2D 3.3 2.1 - 4.1 cm AV Mean Catalino 1.4 m/sec LVPWd 2D 1.5 0.6 - 1.1 cm AV Mean PG 8.6 mmHg IVSd 2D 1.7 0.6 - 1.1 cm AV Peak Catalino 2.0 m/sec EDV 2D 112.9 cm3 AV Peak PG 15.7 mmHg ESV 2D 34.4 cm3 AV VTI 35.3 cm LA Dimen 2D 4.4 2.3 - 4.0 cm LVOT Mean Catalino 0.7 m/sec LVOT Diam 2.0 cm LVOT Mean PG 2.2 mmHg LVOT Peak Catalino 1.0 m/sec LVOT Peak PG 3.8 mmHg LVOT VTI 21.5 cm MV E Peak Catalino 1.2 m/sec MV A Peak Catalino 1.5 m/sec MV E/A 0.8 MV Decel Time 193 msec MV Decel Jerauld 6 MV E/A 0.8 PV Peak Catalino 1.1 m/sec PV Peak PG 5.0 mmHg Findings Left Ventricle: Normal left ventricular systolic function. Normal left ventricular cavity size. Moderate concentric left ventricular hypertrophy. Ejection fraction is visually estimated at 6065 %. Tissue Doppler/Mitral Doppler indices are consistent with impaired relaxation (Stage I diastolic dysfunction). E/E`=19. Right Ventricle: Normal right ventricular size. Left Atrium: There is mild enlargement of left atrium. Right Atrium: The right atrium is normal in size. Atrial Septum: Normal atrial septum. Mitral Valve: Mild mitral leaflet calcification. Moderate mitral annular calcification. Mild mitral valve regurgitation. Aortic Valve: Aortic valve Max velocity 2.00 m/sec. Max PG 16.00 mmHg. Mean PG 9.00 mmHg. Aortic sclerosis without stenosis. Aortic cusps appear mildly calcified. Tricuspid Valve: Normal appearance of the tricuspid valve. There is trace tricuspid regurgitation. Pulmonic Valve: Normal pulmonic valve appearance. There is trace pulmonic regurgitation. Pericardium: Normal pericardium with no significant pericardial effusion. Aorta: Normal aortic root. IVC: Normal size and normal respiratory collapse consistent with normal right atrial pressure. Pulmonary Artery: Normal pulmonary artery size. Conclusions 1.The left ventricle is normal in size and systolic function. 2.Estimated left ventricular ejection fraction of 60-65%. 3.Moderate concentric left ventricular hypertrophy. Mild left ventricular diastolic dysfunction. Electronically Signed By: Emil Moralez 08-Jul-2016 15:11:17 -0700 Patient Name: BECKY CONNOR Study Date: 08-Jul-2016 [id number]
--- NOTE | 2016-07-08 17:37 | PN ---
Date/Time of Note Date/Time of Note DATE: 07/08/16 TIME: 17:34 Assessment/Plan VTE Prophylaxis VTE Prophylaxis Intervention: heparin Lines/Catheters IV [facility] [place] Assessment/Plan Chief Complaint/Hosp Course 1. Acute respiratory distress secondary to pulmonary edema from end-stage renal disease Continue HD per renal 2. End-stage renal disease HD per renal 3. History of congestive heart failure 2D echo actually shows a normal EF, patient does have some mild diastolic failure 4. History of seizure disorder The patient has not had a seizure for a month, continue home seizure medications. 5. Nausea, vomiting likely secondary to his comorbidities -Continue Zofran p.r.n. 6. Prophylaxis. Heparin. Problems: Subjective 24 Hr Interval Summary Constitutional: no complaints Exam/Review of Systems Vital Signs Vitals Vital Signs Date Time Temp Pulse Resp B/P Pulse Ox O2 Delivery O2 Flow Rate FiO2 07/08/16 16:12 97.6 92 20 152/70 98 07/08/16 08:45 Nasal Cannula 3.0 Intake and Output 07/07/16 07/07/16 07/08/16 15:00 23:00 07:00 Intake Total 300 ml 500 ml Output Total 2800 ml 2500 ml Balance -2500 ml -2000 ml Exam Constitutional: alert, oriented Respiratory: clear to auscultation Cardiovascular: regular rate and rhythm Gastrointestinal: soft, No distended Musculoskeletal: nl extremities to inspection Results Result Diagram: 07/08/16 0655 07/08/16 0655 Results 24 hrs Laboratory Tests Test 07/07/16 18:00 07/08/16 06:55 Iron Level 80 Total Iron Binding Capacity 224 L Percent Iron Saturation 36 Ferritin 953.0 H Troponin I 0.275 *H White Blood Count 3.7 #L Red Blood Count 2.29 L Hemoglobin 7.0 L Hematocrit 21.7 L Mean Corpuscular Volume 94.8 Mean Corpuscular Hemoglobin 30.6 Mean Corpuscular Hemoglobin Concent 32.3 Red Cell Distribution Width 17.1 H Platelet Count 58 L Mean Platelet Volume 11.7 H Neutrophils % 46.0 Band Neutrophils % 1.0 Lymphocytes % 21.0 Monocytes % 11.0 Eosinophils % 21.0 H Neutrophils # 1.7 Lymphocytes # 0.8 Monocytes # 0.4 Eosinophils # 0.8 H Platelet Estimate PLT APPEAR DECREASED Sodium Level 143 Potassium Level 4.5 Chloride Level 97 Carbon Dioxide Level 30 Anion Gap 21 H Blood Urea Nitrogen 77 #H Creatinine 8.39 H Glucose Level 87 Hemoglobin A1c 5.8 Calcium Level 9.3 Phosphorus Level 5.7 H Magnesium Level 2.0 Medications Medications Current Medications Ondansetron HCl (Zofran Inj) 4 mg Q6H PRN IV NAUSEA AND/OR VOMITING Last administered on 07/07/16 15:49; Admin Dose 4 MG; Start 07/07/16 at 12:00 Acetaminophen (Tylenol Tab) 650 mg Q6H PRN PO PAIN LEVEL 1-3 OR FEVER; Start at 12:00 Acetaminophen/ Hydrocodone Bitart ([place] (5/325)) 1 tab Q6H PRN PO MODERATE PAIN LEVEL 4-6; Start 07/07/16 at 12:00 Morphine Sulfate (morphine) 2 mg Q4H PRN IV SEVERE PAIN LEVEL 7-10 Last administered on 07/08/16 16:25; Admin Dose 2 MG; Start 07/07/16 at 12:00 Docusate Sodium (Colace) 100 mg Q12H PRN PO CONSTIPATION; Start 07/07/16 at 12: 00 Heparin Sodium (Porcine) (Heparin (5000 Units/0.5 ml)) 5,000 unit Q12 SC Last administered on 07/08/16 09:31; Admin Dose 5,000 UNIT; Start 07/07/16 at 21:00 Aspirin (Halfprin) 81 mg DAILY PO Last administered on 07/08/16 09:27; Admin Dose 81 MG; Start 07/08/16 at 09:00 Atorvastatin Calcium (Lipitor) 80 mg QHS PO Last administered on 07/07/16 22:28 ; Admin Dose 80 MG; Start 07/07/16 at 21:00 Bisacodyl (Dulcolax) 10 mg DAILY PRN PO CONSTIPATION; Start 07/07/16 at 12:00 Cinacalcet (Sensipar) 30 mg DAILY PO Last administered on 07/08/16 09:26; Admin Dose 30 MG; Start 07/08/16 at 09:00 Citalopram Hydrobromide (Celexa) 10 mg DAILY PO Last administered on 07/08/16 09:26; Admin Dose 10 MG; Start 07/08/16 at 09:00 Clopidogrel Bisulfate (plaVIX) 75 mg DAILY PO Last administered on 07/08/16 09: 26; Admin Dose 75 MG; Start 07/08/16 at 09:00 Diphenhydramine HCl (Benadryl) 25 mg Q6H PRN PO ITCHING Last administered on 12:08; Admin Dose 25 MG; Start 07/07/16 at 12:00 Divalproex Sodium (Depakote) 750 mg Q8 PO Last administered on 07/08/16 14:25; Admin Dose 750 MG; Start 07/07/16 at 14:00 Docusate Sodium (Colace) 100 mg BID PO Last administered on 07/08/16 09:27; Admin Dose 100 MG; Start 07/07/16 at 21:00 Guaifenesin (Robitussin Liquid Cup) 300 mg Q4H PRN PO COUGH; Start 07/07/16 at 12:00 Hypromellose (Isopto Tears) 2 drop Q4H PRN BOTH EYES DRY EYES; Start 07/07/16 at 12:00 Isosorbide Mononitrate (Imdur) 60 mg DAILY PO ; Start 07/08/16 at 09:00 Lactulose (Enulose) 20 gm BID PRN PO CONSTIPATION; Start 07/07/16 at 12:00 Levetiracetam (Keppra) 1,000 mg BID PO Last administered on 07/08/16 09:28; Admin Dose 1,000 MG; Start 07/07/16 at 21:00 Losartan Potassium (Cozaar) 100 mg DAILY PO ; Start 07/08/16 at 09:00 Montelukast Sodium (Singulair) 10 mg QHS PO Last administered on 07/07/16 22:30 ; Admin Dose 10 MG; Start 07/07/16 at 21:00 Multivit/Ca Carb/ B Cmplx/FA/Prenat (Etelv[place]-Paula) 1 tab DAILY PO Last administered on 07/08/16 09:26; Admin Dose 1 TAB; Start 07/08/16 at 09:00 Nitroglycerin (Nitroglycerin (Sl Tab) 0.4 Mg) 1 tab [id number] PRN SL CHEST PAIN ; Start 07/07/16 at 12:00 Pantoprazole (Protonix Tab) 40 mg DAILY@06 PO Last administered on 07/08/16 07: 10; Admin Dose 40 MG; Start 07/08/16 at 06:00 Phenytoin (Dilantin) 300 mg HS PO Last administered on 07/07/16 22:28; Admin Dose 300 MG; Start 07/07/16 at 21:00 Polyethylene Glycol (Miralax) 17 gm BID PO Last administered on 07/07/16 22:29 ; Admin Dose 17 GM; Start 07/07/16 at 21:00 Salmeterol Xinafoate/ Fluticasone (Advair 500/50 Diskus) 1 inh BID INH Last administered on 07/08/16 09:27; Admin Dose 1 INH; Start 07/07/16 at 21:00 Trazodone HCl (Desyrel) 50 mg QHS PO Last administered on 07/07/16 22:29; Admin Dose 50 MG; Start 07/07/16 at 21:00 Labetalol HCl (Labetalol) 20 mg Q2 PRN IV ELEVATED BLOOD PRESSURE Last administered on 07/07/16 14:33; Admin Dose 20 MG; Start 07/07/16 at 14:30 IWONA BARRIOS Jul 08, 2016 17:37
[2016-07-08] MEDS ORDERED: hydrALAzine 20 MG INJ IV PRN (18:00)
--- NOTE | 2016-07-08 18:19 | CONS ---
Date/Time of Note Date/Time of Note DATE: 07/08/16 TIME: 18:05 Assessment/Plan Assessment/Plan Chief Complaint/Hosp Course Assessment: Acute on chronic diastolic heart failure Accelerated hypertension - blood pressures improved NSTEMI - likely type 2 in setting of elevated blood pressure and renal failure Coronary artery disease - myocardial infarction and coronary stenting in 2014 Dyslipidemia End-stage renal disease - on hemodialysis Seizure disorder History of stroke Anemia - planned for pRBC transfusion Thrombocytopenia Recommendations: -echocardiogram showed normal LVEF 60-65%, moderate LVH, mild diastolic dysfunction -serial troponins until downtrending -continue clopidogrel 75mg daily -discontinue aspirin - will take off of dual-antiplatelet therapy as patient is greater than one year from coronary stenting and has thrombocytopenia -add carvedilol 6.25mg BID, up titrate as needed -continue losartan 100mg daily -volume management via hemodialysis per nephrology Problems: Consultation Date/Type/Reason Admit Date/Time Jul 07, 2016 at 11:31 Type of Consultation: Cardiology Reason for Consultation elevated troponin Hx of Present Illness The patient is a 50 year-old male with end-stage renal disease who presents with shortness of breath, nausea, and vomiting. Chest x-ray shows pulmonary edema consistent with volume overload. His initial blood pressure on presentation as elevated at 232/155. His troponin is mildly elevated up to 0.275. He has coronary artery disease and had a myocardial infarction and coronary stent implantation in 2014 up in [facility]. 14 point review of systems negative other than per HPI. Past Medical History Coronary artery disease - myocardial infarction and coronary stenting in 2014 Chronic diastolic heart failure Hypertension Dyslipidemia End-stage renal disease - on hemodialysis Seizure disorder History of stroke Past Surgical History AV fistula placement Partial right foot amputation Cholecystectomy Family History Significant Family History: no pertinent family hx Social History Alcohol Use: none Smoking Status: Never smoker Drug Use: none Exam/Review of Systems Vital Signs Vitals Vital Signs Date Time Temp Pulse Resp B/P Pulse Ox O2 Delivery O2 Flow Rate FiO2 07/08/16 16:12 97.6 92 20 152/70 98 07/08/16 08:45 Nasal Cannula 3.0 Intake and Output 07/07/16 07/07/16 07/08/16 15:00 23:00 07:00 Intake Total 300 ml 500 ml Output Total 2800 ml 2500 ml Balance -2500 ml -2000 ml Exam Constitutional: alert, well developed Psych: nl mood/affect, no complaints Head: atraumatic, normocephalic Eyes: nl conjunctiva, nl lids ENMT: nl external ears & nose, nl nasal mucosa & septum Neck: non-tender, supple Respiratory: crackles/rales, diminished breath sounds, wheezing Cardiovascular: regular rate and rhythm Gastrointestinal: non-tender, soft Musculoskeletal: nl extremities to inspection Extremities: No clubbing, No cyanosis Results Result Diagram: 07/08/16 0655 07/08/16 0655 Results 24 hrs Laboratory Tests Test 07/08/16 06:55 White Blood Count 3.7 #L Red Blood Count 2.29 L Hemoglobin 7.0 L Hematocrit 21.7 L Mean Corpuscular Volume 94.8 Mean Corpuscular Hemoglobin 30.6 Mean Corpuscular Hemoglobin Concent 32.3 Red Cell Distribution Width 17.1 H Platelet Count 58 L Mean Platelet Volume 11.7 H Neutrophils % 46.0 Band Neutrophils % 1.0 Lymphocytes % 21.0 Monocytes % 11.0 Eosinophils % 21.0 H Neutrophils # 1.7 Lymphocytes # 0.8 Monocytes # 0.4 Eosinophils # 0.8 H Platelet Estimate PLT APPEAR DECREASED Sodium Level 143 Potassium Level 4.5 Chloride Level 97 Carbon Dioxide Level 30 Anion Gap 21 H Blood Urea Nitrogen 77 #H Creatinine 8.39 H Glucose Level 87 Hemoglobin A1c 5.8 Calcium Level 9.3 Phosphorus Level 5.7 H Magnesium Level 2.0 Medications Medications Current Medications Ondansetron HCl (Zofran Inj) 4 mg Q6H PRN IV NAUSEA AND/OR VOMITING Last administered on 07/07/16 15:49; Admin Dose 4 MG; Start 07/07/16 at 12:00 Acetaminophen (Tylenol Tab) 650 mg Q6H PRN PO PAIN LEVEL 1-3 OR FEVER; Start at 12:00 Acetaminophen/ Hydrocodone Bitart ([place] (5/325)) 1 tab Q6H PRN PO MODERATE PAIN LEVEL 4-6; Start 07/07/16 at 12:00 Morphine Sulfate (morphine) 2 mg Q4H PRN IV SEVERE PAIN LEVEL 7-10 Last administered on 07/08/16 16:25; Admin Dose 2 MG; Start 07/07/16 at 12:00 Docusate Sodium (Colace) 100 mg Q12H PRN PO CONSTIPATION; Start 07/07/16 at 12: 00 Heparin Sodium (Porcine) (Heparin (5000 Units/0.5 ml)) 5,000 unit Q12 SC Last administered on 07/08/16 09:31; Admin Dose 5,000 UNIT; Start 07/07/16 at 21:00 Aspirin (Halfprin) 81 mg DAILY PO Last administered on 07/08/16 09:27; Admin Dose 81 MG; Start 07/08/16 at 09:00 Atorvastatin Calcium (Lipitor) 80 mg QHS PO Last administered on 07/07/16 22:28 ; Admin Dose 80 MG; Start 07/07/16 at 21:00 Bisacodyl (Dulcolax) 10 mg DAILY PRN PO CONSTIPATION; Start 07/07/16 at 12:00 Cinacalcet (Sensipar) 30 mg DAILY PO Last administered on 07/08/16 09:26; Admin Dose 30 MG; Start 07/08/16 at 09:00 Citalopram Hydrobromide (Celexa) 10 mg DAILY PO Last administered on 07/08/16 09:26; Admin Dose 10 MG; Start 07/08/16 at 09:00 Clopidogrel Bisulfate (plaVIX) 75 mg DAILY PO Last administered on 07/08/16 09: 26; Admin Dose 75 MG; Start 07/08/16 at 09:00 Diphenhydramine HCl (Benadryl) 25 mg Q6H PRN PO ITCHING Last administered on 12:08; Admin Dose 25 MG; Start 07/07/16 at 12:00 Divalproex Sodium (Depakote) 750 mg Q8 PO Last administered on 07/08/16 14:25; Admin Dose 750 MG; Start 07/07/16 at 14:00 Docusate Sodium (Colace) 100 mg BID PO Last administered on 07/08/16 09:27; Admin Dose 100 MG; Start 07/07/16 at 21:00 Guaifenesin (Robitussin Liquid Cup) 300 mg Q4H PRN PO COUGH; Start 07/07/16 at 12:00 Hypromellose (Isopto Tears) 2 drop Q4H PRN BOTH EYES DRY EYES; Start 07/07/16 at 12:00 Isosorbide Mononitrate (Imdur) 60 mg DAILY PO ; Start 07/08/16 at 09:00 Lactulose (Enulose) 20 gm BID PRN PO CONSTIPATION; Start 07/07/16 at 12:00 Levetiracetam (Keppra) 1,000 mg BID PO Last administered on 07/08/16 09:28; Admin Dose 1,000 MG; Start 07/07/16 at 21:00 Losartan Potassium (Cozaar) 100 mg DAILY PO ; Start 07/08/16 at 09:00 Montelukast Sodium (Singulair) 10 mg QHS PO Last administered on 07/07/16 22:30 ; Admin Dose 10 MG; Start 07/07/16 at 21:00 Multivit/Ca Carb/ B Cmplx/FA/Prenat (Etelvina-Paula) 1 tab DAILY PO Last administered on 07/08/16 09:26; Admin Dose 1 TAB; Start 07/08/16 at 09:00 Nitroglycerin (Nitroglycerin (Sl Tab) 0.4 Mg) 1 tab [id number] PRN SL CHEST PAIN ; Start 07/07/16 at 12:00 Pantoprazole (Protonix Tab) 40 mg DAILY@06 PO Last administered on 07/08/16 07: 10; Admin Dose 40 MG; Start 07/08/16 at 06:00 Phenytoin (Dilantin) 300 mg HS PO Last administered on 07/07/16 22:28; Admin Dose 300 MG; Start 07/07/16 at 21:00 Polyethylene Glycol (Miralax) 17 gm BID PO Last administered on 07/07/16 22:29 ; Admin Dose 17 GM; Start 07/07/16 at 21:00 Salmeterol Xinafoate/ Fluticasone (Advair 500/50 Diskus) 1 inh BID INH Last administered on 07/08/16 09:27; Admin Dose 1 INH; Start 07/07/16 at 21:00 Trazodone HCl (Desyrel) 50 mg QHS PO Last administered on 07/07/16 22:29; Admin Dose 50 MG; Start 07/07/16 at 21:00 Labetalol HCl (Labetalol) 20 mg Q2 PRN IV ELEVATED BLOOD PRESSURE Last administered on 07/07/16 14:33; Admin Dose 20 MG; Start 07/07/16 at 14:30 WHITNEY SCHMIDT MD Jul 08, 2016 18:16
[2016-07-08] MEDS: PHENYTOIN 100 MG CAP PO SCH (20:14)
[2016-07-08] MEDS: traZODone 50 MG TAB PO SCH (20:14)
[2016-07-08] MEDS: MONTELUKAST 10 MG TAB PO SCH (20:15)
[2016-07-08] MEDS: ATORVASTATIN 80 MG TAB PO SCH (20:15)
[2016-07-09] VITALS (12 sets, daily range): BP systolic 110–140; BP diastolic 54–76; PULSE 68–93; RESP 18–20
[2016-07-09] MEDS: morphine 2 MG INJ IV PRN ×4 (03:17→19:24)
[2016-07-09] MEDS: PANTOPRAZOLE (EC) 40 MG TAB PO SCH (05:34)
[2016-07-09] MEDS: DIVALPROEX (EC) 250 MG TAB PO SCH ×3 (05:34→21:38)
[2016-07-09 08:00] LABS: ADD SCAN DIFF NO
[2016-07-09 08:05] LABS: ABNORMAL IP MESSAGE 1; HEMATOCRIT 24.7 % (42.0-52.0); HEMOGLOBIN 7.6 g/dl (14.0-18.0); MEAN CORPUSCULAR HEMOGLOBIN 29.7 pg (29.0-33.0); MEAN CORPUSCULAR HGB CONC 30.8 g/dl (32.0-37.0); MEAN CORPUSCULAR VOLUME 96.5 fl (82.0-101.0); MEAN PLATELET VOLUME 11.1 fl (7.4-10.4); PLATELET COUNT 65 10^3/UL (140-415); RED BLOOD COUNT 2.56 10^6/ul (4.70-6.10); RED CELL DISTRIBUTION WIDTH 18.2 % (11.5-14.5); WHITE BLOOD COUNT 3.9 10^3/ul (4.8-10.8)
[2016-07-09] MEDS: SEVELAMER CARBONATE 0.8 GM PKT PO SCH ×3 (08:21→17:32)
[2016-07-09] MEDS: ISOSORBIDE MONONITRATE(SR)60 MG TAB PO SCH (08:21)
[2016-07-09] MEDS: CINACALCET 30 MG TAB PO SCH (08:22)
[2016-07-09] MEDS: LOSARTAN 50 MG TAB PO SCH (08:22)
[2016-07-09] MEDS: LEVETIRACETAM 500 MG TAB PO SCH ×2 (08:22→21:39)
[2016-07-09] MEDS: DOCUSATE SODIUM 100 MG CAP PO SCH ×2 (08:22→21:38)
[2016-07-09] MEDS: CLOPIDOGREL 75 MG TAB PO SCH (08:23)
[2016-07-09] MEDS: MULTIVIT/CA CARB/B CMPLX/FA TAB PO SCH (08:23)
[2016-07-09] MEDS: ACETAMINOPHEN 325 MG TAB PO PRN (08:23)
[2016-07-09] MEDS: POLYETHYLENE GLYCOL 17 GM PACKET PO SCH ×2 (08:24→21:37)
[2016-07-09] MEDS: SALMETEROL/FLUTICASONE 500/50 INHA INH SCH ×2 (08:24→21:37)
[2016-07-09] MEDS: CITALOPRAM 20 MG TAB PO SCH (08:24)
[2016-07-09 08:34] LABS: POTASSIUM 5.1 mmol/L (3.5-5.1)
[2016-07-09 08:37] LABS: CREATININE 7.63 mg/dl (0.61-1.24); PHOSPHORUS 5.9 mg/dl (2.5-4.9)
[2016-07-09 08:38] LABS: CALCIUM 8.9 mg/dl (8.4-10.2); MAGNESIUM 1.9 mg/dl (1.7-2.5)
--- NOTE | 2016-07-09 09:29 | PN ---
DATE: 07/08/2016 SUBJECTIVELY: The patient had hemodialysis yesterday. He tolerated it well, with approximately 2.5 liters removed. The patient continues to complain of some mild shortness of breath. No other even ts noted. OBJECTIVE VITAL SIGNS: Blood pressure is 157/87, respirations 20, pulse 90, temperature 97.6. HEAD, EARS, EYES, NOSE, AND THROAT: Head is normocephalic. NECK: Supple. HEART: Has a regular rate. LUNGS: Show diminished breath sounds at the base. ABDOMEN: Soft and nontender to palpation. No rebound or guarding. EXTREMITIES: Negative for clubbing or cyanosis. Trace edema. DERMATOLOGIC: Negative for any rashes. MUSCULOSKELETAL: No joint effusion. NEUROLOGICAL: No change in exam. MEDICATIONS: The patient's medications reviewed. LABORATORY DATA: Sodium 143, potassium , chloride 97, BUN 77, creatinine , phosphorus 5.7 . White count 3.7, hemoglobin is 7.0, hematocrit 21.7, platelet count is 58. ASSESSMENT AND PLAN 1. End-stage renal disease. The patient is on dialysis 4 times weekly with a left arteriovenous fi stula as access. Plan for dialysis again today and tomorrow for solute clearance and volume removal . 2. Acute hypoxemic respiratory failure, secondary to congestive heart failure. Continue on dialysi s with ultrafiltration. The patient is currently on nasal cannula. 3. Anemia of chronic disease. Continue to monitor hemoglobin and hematocrit levels. The patient h as been given Epogen. Iron panel has been reviewed. Iron stores are replete. Consider a blood tra nsfusion if hemoglobin levels continue to further decline. 4. Hypertension, in part due to increased intravascular volume. Continue ultrafiltration dialysis and current blood pressure regimen. 5. History of coronary artery disease. Continue medical management. 6. Diabetes. Continue Accu-Cheks and sliding scale. 7. Seizure disorder. Continue current medical management. 8. type 2. Continue to monitor. Consider cardiology evaluation. 9. phosphorus levels. Dictated By: NEHEMIAS DAS/NTS Conf#: [id number] DID#: [id number]
[2016-07-09 10:26] LABS: EOSINOPHILS # 1.4 10^3/ul (0.0-0.5); MONOCYTE # 0.2 10^3/ul (0.3-0.9); NEUTROPHIL # 1.3 10^3/ul (1.6-7.5); PLATELET ESTIMATE PLT APPEAR DECREASED
--- NOTE | 2016-07-09 11:37 | PN ---
DATE: SUBJECTIVE: The patient is stable. No acute events noted. The patient is clinically improving, bu t still has some shortness of breath. No other events noted. OBJECTIVE: VITAL SIGNS: Blood pressure 140/76, respirations 20, pulse 86, temperature 98.0. HEENT: Head is normocephalic. NECK: Supple. HEART: Regular rate. LUNGS: Show diminished breath sounds at the base. ABDOMEN: Soft, nontender to palpation without rebound or guarding. EXTREMITIES: Negative for clubbing, cyanosis. Trace edema. DERMATOLOGIC: No rashes. MUSCULOSKELETAL: No joint effusions. NEUROLOGIC: No change in exam. MEDICATIONS: The patient's medications have been reviewed. LABORATORY DATA: Shows sodium 137, potassium 5.1, BUN 69, creatinine 7.63, phosphorus 5.9. White c ount 3.9, hemoglobin 7.6, hematocrit 24.7, platelet count is 65. ASSESSMENT AND PLAN: 1. End-stage renal disease. The patient is on dialysis 4 times weekly. The patient has had 2 sess ions of dialysis to date. We will continue with dialysis again today for 3 hours 2K bath, calcium 2.5, ultrafiltrate as tolerated. 2. Acute hypoxemic respiratory failure secondary to CHF volume overload. Clinically improving. Con tinue ultrafiltration with hemodialysis. 3. Anemia of chronic disease. Continue to monitor H and H levels. Continue Epogen. 4. Hypertension. Blood pressures is improving. Continue current blood pressure regimen. Continue ultrafiltration dialysis. 5. History of coronary artery disease. Continue medical management. 6. Diabetes. Continue Accu-Cheks and sliding scale. 7. Seizure disorder. Continue current medical management. 8. Elevated troponin, possible non-ST elevation myocardial type 2. Continue medical management and follow up with Cardiology. 9. Mineral bone disorder. Continue phos binders. 10. Dyslipidemia. Continue statin therapy. Dictated By: NEHEMIAS DAS/ROSANNA Conf#: [id number] DID#: [id number]
--- NOTE | 2016-07-09 16:55 | CONS ---
Date/Time of Note Date/Time of Note DATE: 07/09/16 TIME: 16:53 Assessment/Plan Assessment/Plan Chief Complaint/Hosp Course Assessment: Acute on chronic diastolic heart failure Accelerated hypertension - blood pressures improved NSTEMI - likely type 2 in setting of elevated blood pressure and renal failure Coronary artery disease - myocardial infarction and coronary stenting in 2014 Dyslipidemia End-stage renal disease - on hemodialysis Seizure disorder History of stroke Anemia - planned for pRBC transfusion Thrombocytopenia Recommendations: -echocardiogram showed normal LVEF 60-65%, moderate LVH, mild diastolic dysfunction -continue clopidogrel 75mg daily -aspirin was discontinued - off of dual-antiplatelet therapy as patient is greater than one year from coronary stenting and has thrombocytopenia -continue carvedilol 6.25mg BID, up titrate as needed -continue losartan 100mg daily -continue atorvastatin -volume management via hemodialysis per nephrology Problems: Consultation Date/Type/Reason Admit Date/Time Jul 07, 2016 at 11:31 Initial Consult Date Type of Consultation: Cardiology 24 HR Interval Summary Free Text/Dictation Still complaining of shortness of breath. Planned for additional hemodialysis today. Detailed Summary Additional Comments 14 point review of systems without changes. Exam/Review of Systems Vital Signs Vitals Vital Signs Date Time Temp Pulse Resp B/P Pulse Ox O2 Delivery O2 Flow Rate FiO2 07/09/16 16:21 82 07/09/16 15:50 97.7 18 123/64 91 07/09/16 08:45 Nasal Cannula 3.0 Intake and Output 07/08/16 07/08/16 07/09/16 14:59 22:59 06:59 Intake Total 500 ml 720 ml 760 ml Output Total 3500 ml 3000 ml Balance -3000 ml -2280 ml 760 ml Exam Constitutional: alert, well developed Psych: nl mood/affect, no complaints Head: atraumatic, normocephalic Eyes: nl conjunctiva, nl lids ENMT: nl external ears & nose, nl nasal mucosa & septum Neck: non-tender, supple Respiratory: crackles/rales, diminished breath sounds, wheezing Cardiovascular: regular rate and rhythm Gastrointestinal: non-tender, soft Musculoskeletal: nl extremities to inspection Extremities: No clubbing, No cyanosis Results Result Diagram: 07/09/16 0658 07/09/16 0658 Results 24 hrs Laboratory Tests Test 07/09/16 06:58 White Blood Count 3.9 L Red Blood Count 2.56 L Hemoglobin 7.6 L Hematocrit 24.7 L Mean Corpuscular Volume 96.5 Mean Corpuscular Hemoglobin 29.7 Mean Corpuscular Hemoglobin Concent 30.8 L Red Cell Distribution Width 18.2 H Platelet Count 65 L Mean Platelet Volume 11.1 H Neutrophils % 33.0 L Lymphocytes % 25.0 Monocytes % 5.0 Eosinophils % 36.0 H Basophils % 1.0 Neutrophils # 1.3 L Lymphocytes # 1.0 Monocytes # 0.2 L Eosinophils # 1.4 H Basophils # 0.0 Platelet Estimate PLT APPEAR DECREASED Sodium Level 136 Potassium Level 5.1 Chloride Level 97 Carbon Dioxide Level 27 Anion Gap 17 H Blood Urea Nitrogen 69 H Creatinine 7.63 H Glucose Level 102 Calcium Level 8.9 Phosphorus Level 5.9 H Magnesium Level 1.9 Troponin I 0.092 Medications Medications Current Medications Ondansetron HCl (Zofran Inj) 4 mg Q6H PRN IV NAUSEA AND/OR VOMITING Last administered on 07/07/16 15:49; Admin Dose 4 MG; Start 07/07/16 at 12:00 Acetaminophen (Tylenol Tab) 650 mg Q6H PRN PO PAIN LEVEL 1-3 OR FEVER Last administered on 07/09/16 08:23; Admin Dose 650 MG; Start 07/07/16 at 12:00 Acetaminophen/ Hydrocodone Bitart ([place] (5/325)) 1 tab Q6H PRN PO MODERATE PAIN LEVEL 4-6; Start 07/07/16 at 12:00 Morphine Sulfate (morphine) 2 mg Q4H PRN IV SEVERE PAIN LEVEL 7-10 Last administered on 07/09/16 13:43; Admin Dose 2 MG; Start 07/07/16 at 12:00 Docusate Sodium (Colace) 100 mg Q12H PRN PO CONSTIPATION; Start 07/07/16 at 12: 00 Atorvastatin Calcium (Lipitor) 80 mg QHS PO Last administered on 07/08/16 20:15 ; Admin Dose 80 MG; Start 07/07/16 at 21:00 Bisacodyl (Dulcolax) 10 mg DAILY PRN PO CONSTIPATION; Start 07/07/16 at 12:00 Cinacalcet (Sensipar) 30 mg DAILY PO Last administered on 07/09/16 08:22; Admin Dose 30 MG; Start 07/08/16 at 09:00 Citalopram Hydrobromide (Celexa) 10 mg DAILY PO Last administered on 07/09/16 08:24; Admin Dose 10 MG; Start 07/08/16 at 09:00 Clopidogrel Bisulfate (plaVIX) 75 mg DAILY PO Last administered on 07/09/16 08: 23; Admin Dose 75 MG; Start 07/08/16 at 09:00 Diphenhydramine HCl (Benadryl) 25 mg Q6H PRN PO ITCHING Last administered on 21:34; Admin Dose 25 MG; Start 07/07/16 at 12:00 Divalproex Sodium (Depakote) 750 mg Q8 PO Last administered on 07/09/16 13:39; Admin Dose 750 MG; Start 07/07/16 at 14:00 Docusate Sodium (Colace) 100 mg BID PO Last administered on 07/09/16 08:22; Admin Dose 100 MG; Start 07/07/16 at 21:00 Guaifenesin (Robitussin Liquid Cup) 300 mg Q4H PRN PO COUGH; Start 07/07/16 at 12:00 Hypromellose (Isopto Tears) 2 drop Q4H PRN BOTH EYES DRY EYES; Start 07/07/16 at 12:00 Isosorbide Mononitrate (Imdur) 60 mg DAILY PO Last administered on 07/09/16 08: 21; Admin Dose 60 MG; Start 07/08/16 at 09:00 Lactulose (Enulose) 20 gm BID PRN PO CONSTIPATION; Start 07/07/16 at 12:00 Levetiracetam (Keppra) 1,000 mg BID PO Last administered on 07/09/16 08:22; Admin Dose 1,000 MG; Start 07/07/16 at 21:00 Losartan Potassium (Cozaar) 100 mg DAILY PO Last administered on 07/09/16 08:22 ; Admin Dose 100 MG; Start 07/08/16 at 09:00 Montelukast Sodium (Singulair) 10 mg QHS PO Last administered on 07/08/16 20:15 ; Admin Dose 10 MG; Start 07/07/16 at 21:00 Multivit/Ca Carb/ B Cmplx/FA/Prenat ([place]) 1 tab DAILY PO Last administered on 07/09/16 08:23; Admin Dose 1 TAB; Start 07/08/16 at 09:00 Nitroglycerin (Nitroglycerin (Sl Tab) 0.4 Mg) 1 tab [id number] PRN SL CHEST PAIN ; Start 07/07/16 at 12:00 Pantoprazole (Protonix Tab) 40 mg DAILY@06 PO Last administered on 07/09/16 05: 34; Admin Dose 40 MG; Start 07/08/16 at 06:00 Phenytoin (Dilantin) 300 mg HS PO Last administered on 07/08/16 20:14; Admin Dose 300 MG; Start 07/07/16 at 21:00 Polyethylene Glycol (Miralax) 17 gm BID PO Last administered on 07/09/16 08:24 ; Admin Dose 17 GM; Start 07/07/16 at 21:00 Salmeterol Xinafoate/ Fluticasone (Advair 500/50 Diskus) 1 inh BID INH Last administered on 07/09/16 08:24; Admin Dose 1 INH; Start 07/07/16 at 21:00 Trazodone HCl (Desyrel) 50 mg QHS PO Last administered on 07/08/16 20:14; Admin Dose 50 MG; Start 07/07/16 at 21:00 Carvedilol (Coreg) 6.25 mg BID PO Last administered on 07/09/16 08:23; Admin Dose 6.25 MG; Start 07/08/16 at 21:00 Hydralazine HCl (Apresoline) 10 mg Q4H PRN IV SBP>160; Start 07/08/16 at 18:00 Ferrous Sulfate (Ferrous Sulfate (Ec)) 325 mg BID PO ; Start 07/09/16 at 21:00 WHITNEY SCHMIDT MD Jul 09, 2016 16:55
--- NOTE | 2016-07-09 16:55 | PN ---
DATE: 07/09/2016 SUBJECTIVE DATA: Complains of dyspnea. Denies any chest pain. OBJECTIVE DATA: VITAL SIGNS: Temperature 97.7, pulse rate 80, respiratory rate 18, blood pressure 122/64, oxygen saturation 91% on room air. GENERAL: This is an obese -[place] male lying in bed in no apparent distress. HEENT: Head normocephalic and atraumatic. Eyes: Anicteric sclerae. Conjunctivae clear. ENT: Nasal septum is midline. Oral mucosa is moist. NECK: Supple. No JVD noticed. RESPIRATORY: Bilaterally diminished breath sounds. A few fine rales heard at the bases. Use of accessory muscles of respiration. CARDIAC: Regular rate and rhythm. S1 and S2 heard. ABDOMEN: Soft, nontender and nondistended. Bowel sounds positive in all 4 quadrants. GENITOURINARY: Deferred. EXTREMITIES: No cyanosis, no clubbing, no edema. Peripheral pulses are diminished. Right foot status post trans-metatarsal amputation. LABORATORY DATA AND DIAGNOSTIC DATA: WBC 3.9, hemoglobin 7.6, hematocrit 24.7, platelet count 65. Sodium 136, potassium 5.1, chloride 97, carbon dioxide 27, anion gap 17, BUN 69, creatinine 0.62, glucose 102, calcium 8.9, phosphorus 5.0 , magnesium 1.9. ASSESSMENT AND PLAN: 1. Acute on chronic diastolic heart failure. Continue hemodialysis as per nephrology. Continue supplemental oxygen. 2. Accelerated hypertension. Continue antihypertensives. Will adjust antihypertensives to obtain optimum blood pressure control. 3. Non-ST elevation myocardial infarction. Type II event in the setting of elevated blood pressure and renal failure. Troponins now normalized. 4. Coronary artery disease. Status post coronary artery stenting in 2014. Currently antiplatelet therapy. Dual antiplatelet therapy has been discontinued because of underlying anemia and thrombocytopenia. 5. Normocytic normochromic anemia. Iron panel showing iron deficiency. Will start the patient on iron supplements. Transfuse as needed. 6. Seizure disorder. The patient will be continued on anticonvulsants. 7. Dyslipidemia. Continue statin. 8. End-stage renal disease, on hemodialysis. Hemodialysis as per nephrology. 9. Pancytopenia. Etiology unclear. Monitor blood counts closely. Transfuse blood components as needed. 10. Fluid, electrolytes and nutrition. Renal diet. 11. Deep vein thrombosis prophylaxis. Bilateral sequential compression devices. 12. Gastrointestinal prophylaxis. Histamine 2 receptor blockers. 13. Gastroesophageal reflux disease prophylaxis with proton pump inhibitors. PLAN: Continue hemodialysis as per nephrology. Optimize cardiac medications, optimize blood pressure control. Monitor H and H closely. The case was discussed with Dr. Doran. JEAN-PAUL DORAN MD, AM/ROSANNA Conf#: [id number] DID#: [id number] MTDD
[2016-07-09] MEDS: MONTELUKAST 10 MG TAB PO SCH (21:00)
[2016-07-09] MEDS: PHENYTOIN 100 MG CAP PO SCH (21:38)
[2016-07-09] MEDS: ATORVASTATIN 80 MG TAB PO SCH (21:38)
[2016-07-09] MEDS: FERROUS SULFATE (EC) 325 MG TAB PO SCH (21:40)
[2016-07-09] MEDS: traZODone 50 MG TAB PO SCH (21:40)
[2016-07-10] VITALS (18 sets, daily range): BP systolic 90–129; BP diastolic 47–78; PULSE 70–93; RESP 17–20
[2016-07-10] MEDS: DIPHENHYDRAMINE 25 MG CAP PO PRN ×2 (00:37→10:57)
[2016-07-10] MEDS ORDERED: morphine 4 MG/ML VIAL IV PRN (01:00)
[2016-07-10] MEDS: morphine 2 MG INJ IV PRN ×3 (03:36→22:40)
[2016-07-10] MEDS: DIVALPROEX (EC) 250 MG TAB PO SCH ×3 (06:17→21:50)
[2016-07-10] MEDS: PANTOPRAZOLE (EC) 40 MG TAB PO SCH (06:17)
[2016-07-10 07:20] LABS: ADD SCAN DIFF NO
[2016-07-10 07:32] LABS: ABNORMAL IP MESSAGE 1; BASOPHILS % 0.2 % (0.0-2.0); EOSINOPHILS # 1.6 10^3/ul (0.0-0.5); EOSINOPHILS % 36.4 % (0.0-7.0); HEMATOCRIT 23.5 % (42.0-52.0); HEMOGLOBIN 7.4 g/dl (14.0-18.0); LYMPHOCYTES # 0.9 10^3/ul (0.8-2.9); LYMPHOCYTES % 20.1 % (15.0-51.0); MEAN CORPUSCULAR HGB CONC 31.5 g/dl (32.0-37.0); MEAN CORPUSCULAR VOLUME 95.1 fl (82.0-101.0); MONOCYTE # 0.5 10^3/ul (0.3-0.9); NEUTROPHIL # 1.5 10^3/ul (1.6-7.5); NEUTROPHILS % 33.1 % (39.0-77.0); PLATELET COUNT 62 10^3/UL (140-415); RED BLOOD COUNT 2.47 10^6/ul (4.70-6.10); RED CELL DISTRIBUTION WIDTH 17.4 % (11.5-14.5); WHITE BLOOD COUNT 4.5 10^3/ul (4.8-10.8)
[2016-07-10 07:54] LABS: CREATININE 9.55 mg/dl (0.61-1.24)
[2016-07-10 07:55] LABS: CALCIUM 8.8 mg/dl (8.4-10.2); PHOSPHORUS 6.3 mg/dl (2.5-4.9)
[2016-07-10 08:01] LABS: POTASSIUM 5.6 mmol/L (3.5-5.1)
[2016-07-10] MEDS: SEVELAMER CARBONATE 0.8 GM PKT PO SCH ×3 (08:03→17:47)
[2016-07-10] MEDS: POLYETHYLENE GLYCOL 17 GM PACKET PO SCH ×2 (08:03→21:47)
[2016-07-10] MEDS: CITALOPRAM 20 MG TAB PO SCH (08:03)
[2016-07-10] MEDS: MULTIVIT/CA CARB/B CMPLX/FA TAB PO SCH (08:03)
[2016-07-10] MEDS: SALMETEROL/FLUTICASONE 500/50 INHA INH SCH ×2 (08:03→21:51)
[2016-07-10] MEDS: FERROUS SULFATE (EC) 325 MG TAB PO SCH ×2 (08:03→21:49)
[2016-07-10] MEDS: CLOPIDOGREL 75 MG TAB PO SCH (08:04)
[2016-07-10] MEDS: CINACALCET 30 MG TAB PO SCH (08:04)
[2016-07-10] MEDS: LEVETIRACETAM 500 MG TAB PO SCH ×2 (08:04→21:49)
[2016-07-10] MEDS: ISOSORBIDE MONONITRATE(SR)60 MG TAB PO SCH (09:00)
[2016-07-10] MEDS: LOSARTAN 50 MG TAB PO SCH (09:00)
[2016-07-10] MEDS: DOCUSATE SODIUM 100 MG CAP PO SCH ×2 (09:00→21:49)
--- NOTE | 2016-07-10 10:01 | PN ---
DATE: 07/10/2016 SUBJECTIVE: The patient is in no acute distress. The patient is scheduled for hemodialysis today. No other events noted. OBJECTIVE: VITAL SIGNS: Blood pressure 119/64, respiration 18, pulse 77, temperature 97.8. HEENT: Head is normocephalic. NECK: Supple. HEART: Regular rate. LUNGS: Show diminished breath sounds at the base. Less crackles. ABDOMEN: Soft, nontender to palpation without rebound or guarding. EXTREMITIES: Negative for clubbing, cyanosis. Positive edema. DERMATOLOGIC: No rashes. MUSCULOSKELETAL: No joint effusions. NEUROLOGIC: No change in exam. MEDICATIONS: The patient's medications have been reviewed. LABORATORY DATA: Shows sodium 137, potassium 5.6, chloride 86, creatinine 9.55. White count 4.5, h emoglobin 7.4, hematocrit 23.5, platelet count is 62. ASSESSMENT AND PLAN: 1. End-stage renal disease. The patient is scheduled for dialysis today for 3 hours, 2K bath, calc ium 2.5. Will ultrafiltrate as tolerated. I also anticipate dialysis tomorrow. 2. Acute hypoxic respiratory failure secondary to congestive heart failure volume overload. Contin ue ultrafiltration dialysis. 3. Anemia of chronic disease. Continue to monitor hemoglobin and hematocrit levels. Continue Epog en. 4. Hypertension. Continue current blood pressure regimen. 5. Coronary artery disease. Continue medical management. 6. Diabetes. Continue Accu-Cheks and sliding scale. 7. Seizure disorder. Continue current medical management. 8. Elevated troponin, nonstemi type 2. Follow up with cardiology. Continue current medical care. 9. Mineral bone disorder. Continue to monitor calcium and phosphorus levels. 10. Dyslipidemia. Continue statin therapy. Dictated By: NEHEMIAS DAS/ROSANNA Conf#: [id number] DID#: [id number]
[2016-07-10] MEDS ORDERED: ALBUMIN HUMAN 25% 100 ML IV ONE (13:00)
[2016-07-10] MEDS: ACETAMINOPHEN 325 MG TAB PO PRN (13:22)
[2016-07-10] MEDS: ONDANSETRON 4 MG INJ IV PRN (13:28)
--- NOTE | 2016-07-10 15:00 | CONS ---
Date/Time of Note Date/Time of Note DATE: 07/10/16 TIME: 14:59 Assessment/Plan Assessment/Plan Chief Complaint/Hosp Course Assessment: Acute on chronic diastolic heart failure Accelerated hypertension - blood pressures improved NSTEMI - likely type 2 in setting of elevated blood pressure and renal failure Coronary artery disease - myocardial infarction and coronary stenting in 2014 Dyslipidemia End-stage renal disease - on hemodialysis Seizure disorder History of stroke Anemia - planned for pRBC transfusion Thrombocytopenia Recommendations: -echocardiogram showed normal LVEF 60-65%, moderate LVH, mild diastolic dysfunction -continue clopidogrel 75mg daily -aspirin was discontinued - off of dual-antiplatelet therapy as patient is greater than one year from coronary stenting and has thrombocytopenia -continue carvedilol 6.25mg BID, up titrate as needed -continue losartan 100mg daily -continue atorvastatin -volume management via hemodialysis per nephrology Problems: Consultation Date/Type/Reason Admit Date/Time Jul 07, 2016 at 11:31 Type of Consultation: Cardiology 24 HR Interval Summary Free Text/Dictation No acute events. Detailed Summary Additional Comments 14 point review of systems without changes. Exam/Review of Systems Vital Signs Vitals Vital Signs Date Time Temp Pulse Resp B/P Pulse Ox O2 Delivery O2 Flow Rate FiO2 07/10/16 12:16 98.2 67 18 124/67 97 07/10/16 08:30 Nasal Cannula 3.0 Intake and Output 07/09/16 07/09/16 07/10/16 15:00 23:00 07:00 Intake Total 1200 ml Output Total 750 ml Balance 450 ml Exam Constitutional: alert, well developed Psych: nl mood/affect, no complaints Head: atraumatic, normocephalic Eyes: nl conjunctiva, nl lids ENMT: nl external ears & nose, nl nasal mucosa & septum Neck: non-tender, supple Respiratory: crackles/rales, diminished breath sounds, wheezing Cardiovascular: regular rate and rhythm Gastrointestinal: non-tender, soft Musculoskeletal: nl extremities to inspection Extremities: No clubbing, No cyanosis Results Result Diagram: 07/10/16 0625 07/10/16 0625 Results 24 hrs Laboratory Tests Test 07/10/16 06:25 White Blood Count 4.5 L Red Blood Count 2.47 L Hemoglobin 7.4 L Hematocrit 23.5 L Mean Corpuscular Volume 95.1 Mean Corpuscular Hemoglobin 30.0 Mean Corpuscular Hemoglobin Concent 31.5 L Red Cell Distribution Width 17.4 H Platelet Count 62 L Mean Platelet Volume 10.0 Neutrophils % 33.1 L Lymphocytes % 20.1 Monocytes % 10.0 Eosinophils % 36.4 H Basophils % 0.2 Nucleated Red Blood Cells % 0.0 Neutrophils # 1.5 L Lymphocytes # 0.9 Monocytes # 0.5 Eosinophils # 1.6 H Basophils # 0.0 Nucleated Red Blood Cells # 0.0 Sodium Level 137 Potassium Level 5.6 H Chloride Level 98 Carbon Dioxide Level 26 Anion Gap 19 H Blood Urea Nitrogen 86 H Creatinine 9.55 H Glucose Level 70 Calcium Level 8.8 Phosphorus Level 6.3 H Magnesium Level 2.0 Medications Medications Current Medications Ondansetron HCl (Zofran Inj) 4 mg Q6H PRN IV NAUSEA AND/OR VOMITING Last administered on 07/10/16 13:28; Admin Dose 4 MG; Start 07/07/16 at 12:00 Acetaminophen (Tylenol Tab) 650 mg Q6H PRN PO PAIN LEVEL 1-3 OR FEVER Last administered on 07/10/16 13:22; Admin Dose 650 MG; Start 07/07/16 at 12:00 Acetaminophen/ Hydrocodone Bitart ([place] (5/325)) 1 tab Q6H PRN PO MODERATE PAIN LEVEL 4-6; Start 07/07/16 at 12:00 Morphine Sulfate (morphine) 2 mg Q4H PRN IV SEVERE PAIN LEVEL 7-10 Last administered on 07/10/16 08:05; Admin Dose 2 MG; Start 07/07/16 at 12:00 Docusate Sodium (Colace) 100 mg Q12H PRN PO CONSTIPATION; Start 07/07/16 at 12: 00 Atorvastatin Calcium (Lipitor) 80 mg QHS PO Last administered on 07/09/16 21:38 ; Admin Dose 80 MG; Start 07/07/16 at 21:00 Bisacodyl (Dulcolax) 10 mg DAILY PRN PO CONSTIPATION; Start 07/07/16 at 12:00 Cinacalcet (Sensipar) 30 mg DAILY PO Last administered on 07/10/16 08:04; Admin Dose 30 MG; Start 07/08/16 at 09:00 Citalopram Hydrobromide (Celexa) 10 mg DAILY PO Last administered on 07/10/16 08:03; Admin Dose 10 MG; Start 07/08/16 at 09:00 Clopidogrel Bisulfate (plaVIX) 75 mg DAILY PO Last administered on 07/10/16 08: 04; Admin Dose 75 MG; Start 07/08/16 at 09:00 Diphenhydramine HCl (Benadryl) 25 mg Q6H PRN PO ITCHING Last administered on 10:57; Admin Dose 25 MG; Start 07/07/16 at 12:00 Divalproex Sodium (Depakote) 750 mg Q8 PO Last administered on 07/10/16 13:22; Admin Dose 750 MG; Start 07/07/16 at 14:00 Docusate Sodium (Colace) 100 mg BID PO Last administered on 07/10/16 09:00; Admin Dose 100 MG; Start 07/07/16 at 21:00 Guaifenesin (Robitussin Liquid Cup) 300 mg Q4H PRN PO COUGH; Start 07/07/16 at 12:00 Hypromellose (Isopto Tears) 2 drop Q4H PRN BOTH EYES DRY EYES; Start 07/07/16 at 12:00 Isosorbide Mononitrate (Imdur) 60 mg DAILY PO Last administered on 07/09/16 08: 21; Admin Dose 60 MG; Start 07/08/16 at 09:00 Lactulose (Enulose) 20 gm BID PRN PO CONSTIPATION; Start 07/07/16 at 12:00 Levetiracetam (Keppra) 1,000 mg BID PO Last administered on 07/10/16 08:04; Admin Dose 1,000 MG; Start 07/07/16 at 21:00 Losartan Potassium (Cozaar) 100 mg DAILY PO Last administered on 07/09/16 08:22 ; Admin Dose 100 MG; Start 07/08/16 at 09:00 Montelukast Sodium (Singulair) 10 mg QHS PO Last administered on 07/09/16 21:00 ; Admin Dose 10 MG; Start 07/07/16 at 21:00 Multivit/Ca Carb/ B Cmplx/FA/Prenat ([place]-Pa[place]) 1 tab DAILY PO Last administered on 07/10/16 08:03; Admin Dose 1 TAB; Start 07/08/16 at 09:00 Nitroglycerin (Nitroglycerin (Sl Tab) 0.4 Mg) 1 tab [id number] PRN SL CHEST PAIN ; Start 07/07/16 at 12:00 Pantoprazole (Protonix Tab) 40 mg DAILY@06 PO Last administered on 07/10/16 06: 17; Admin Dose 40 MG; Start 07/08/16 at 06:00 Phenytoin (Dilantin) 300 mg HS PO Last administered on 07/09/16 21:38; Admin Dose 300 MG; Start 07/07/16 at 21:00 Polyethylene Glycol (Miralax) 17 gm BID PO Last administered on 07/10/16 08:03 ; Admin Dose 17 GM; Start 07/07/16 at 21:00 Salmeterol Xinafoate/ Fluticasone (Advair 500/50 Diskus) 1 inh BID INH Last administered on 07/10/16 08:03; Admin Dose 1 INH; Start 07/07/16 at 21:00 Trazodone HCl (Desyrel) 50 mg QHS PO Last administered on 07/09/16 21:40; Admin Dose 50 MG; Start 07/07/16 at 21:00 Carvedilol (Coreg) 6.25 mg BID PO Last administered on 07/09/16 21:40; Admin Dose 6.25 MG; Start 07/08/16 at 21:00 Hydralazine HCl (Apresoline) 10 mg Q4H PRN IV SBP>160; Start 07/08/16 at 18:00 Ferrous Sulfate (Ferrous Sulfate (Ec)) 325 mg BID PO Last administered on 08:03; Admin Dose 325 MG; Start 07/09/16 at 21:00 WHITNEY SCHMIDT MD Jul 10, 2016 15:00
--- NOTE | 2016-07-10 15:37 | PN ---
Date/Time of Note Date/Time of Note DATE: 07/10/16 TIME: 15:37 Assessment/Plan VTE Prophylaxis VTE Prophylaxis Intervention: SCD's Lines/Catheters IV C[facility]ter Type (from [facility] [place] Urinary Cath still in place: No Assessment/Plan Chief Complaint/Hosp Course 1. Acute on chronic diastolic heart failure. Continue hemodialysis as per nephrology. Continue supplemental oxygen. 2. Accelerated hypertension. Continue antihypertensives. Will adjust antihypertensives to obtain optimum blood pressure control. 3. Non-ST elevation myocardial infarction. Type II event in the setting of elevated blood pressure and worsening kidney function. Troponins now normalized. 4. Coronary artery disease. Status post coronary artery stenting in 2014. Currently on antiplatelet therapy. Dual antiplatelet therapy has been discontinued because of underlying anemia and thrombocytopenia. 5. Normocytic normochromic anemia. Iron panel showing iron deficiency. Continue the patient on iron supplements. Transfuse as needed. 6. Seizure disorder. The patient will be continued on anticonvulsants. 7. Dyslipidemia. Continue statins. 8. Hyperkalemia. Patient is scheduled to get hemodialysis today. Monitor cardiac rhythm. 9. End-stage renal disease, on hemodialysis. Hemodialysis as per nephrology. 10. Pancytopenia. Etiology unclear. Monitor blood counts closely. Transfuse blood components as needed. 11. Fluid, electrolytes and nutrition. Renal diet. 12. Deep vein thrombosis prophylaxis. Bilateral sequential compression devices. 13. Gastroesophageal reflux disease prophylaxis with proton pump inhibitors. PLAN: Continue hemodialysis as per nephrology. Optimize cardiac medications, optimize blood pressure control. Monitor H and H closely. Obtain physical therapy evaluation. The case was discussed with Dr. Carmona. Problems: Subjective 24 Hr Interval Summary Free Text/Dictation Had some nausea earlier today. Complains of some dyspnea and chest discomfort. Exam/Review of Systems Vital Signs Vitals Vital Signs Date Time Temp Pulse Resp B/P Pulse Ox O2 Delivery O2 Flow Rate FiO2 07/10/16 12:30 82 07/10/16 12:30 18 07/10/16 12:16 98.2 124/67 97 07/10/16 08:30 Nasal Cannula 3.0 Intake and Output 07/09/16 07/09/16 07/10/16 15:00 23:00 07:00 Intake Total 1200 ml Output Total 750 ml Balance 450 ml Exam GENERAL: This is an obese -[place]aur[place] male lying in bed in no apparent distress. HEENT: Head normocephalic and atraumatic. Eyes: Anicteric sclerae. Conjunctivae clear. ENT: Nasal septum is midline. Oral mucosa is moist. NECK: Supple. No JVD noticed. RESPIRATORY: Bilaterally diminished breath sounds. A few fine rales heard at the bases. No use of accessory muscles of respiration. CARDIAC: Regular rate and rhythm. S1 and S2 heard. ABDOMEN: Soft, nontender and nondistended. Bowel sounds positive in all 4 quadrants. GENITOURINARY: Deferred. EXTREMITIES: No cyanosis, no clubbing, no edema. Peripheral pulses are diminished. Results Result Diagram: 07/10/16 0625 07/10/16 0625 Results 24 hrs Laboratory Tests Test 07/10/16 06:25 White Blood Count 4.5 L Red Blood Count 2.47 L Hemoglobin 7.4 L Hematocrit 23.5 L Mean Corpuscular Volume 95.1 Mean Corpuscular Hemoglobin 30.0 Mean Corpuscular Hemoglobin Concent 31.5 L Red Cell Distribution Width 17.4 H Platelet Count 62 L Mean Platelet Volume 10.0 Neutrophils % 33.1 L Lymphocytes % 20.1 Monocytes % 10.0 Eosinophils % 36.4 H Basophils % 0.2 Nucleated Red Blood Cells % 0.0 Neutrophils # 1.5 L Lymphocytes # 0.9 Monocytes # 0.5 Eosinophils # 1.6 H Basophils # 0.0 Nucleated Red Blood Cells # 0.0 Sodium Level 137 Potassium Level 5.6 H Chloride Level 98 Carbon Dioxide Level 26 Anion Gap 19 H Blood Urea Nitrogen 86 H Creatinine 9.55 H Glucose Level 70 Calcium Level 8.8 Phosphorus Level 6.3 H Magnesium Level 2.0 Medications Medications Current Medications Ondansetron HCl (Zofran Inj) 4 mg Q6H PRN IV NAUSEA AND/OR VOMITING Last administered on 07/10/16 13:28; Admin Dose 4 MG; Start 07/07/16 at 12:00 Acetaminophen (Tylenol Tab) 650 mg Q6H PRN PO PAIN LEVEL 1-3 OR FEVER Last administered on 07/10/16 13:22; Admin Dose 650 MG; Start 07/07/16 at 12:00 Acetaminophen/ Hydrocodone Bitart ([place] (5/325)) 1 tab Q6H PRN PO MODERATE PAIN LEVEL 4-6; Start 07/07/16 at 12:00 Morphine Sulfate (morphine) 2 mg Q4H PRN IV SEVERE PAIN LEVEL 7-10 Last administered on 07/10/16 08:05; Admin Dose 2 MG; Start 07/07/16 at 12:00 Docusate Sodium (Colace) 100 mg Q12H PRN PO CONSTIPATION; Start 07/07/16 at 12: 00 Atorvastatin Calcium (Lipitor) 80 mg QHS PO Last administered on 07/09/16 21:38 ; Admin Dose 80 MG; Start 07/07/16 at 21:00 Bisacodyl (Dulcolax) 10 mg DAILY PRN PO CONSTIPATION; Start 07/07/16 at 12:00 Cinacalcet (Sensipar) 30 mg DAILY PO Last administered on 07/10/16 08:04; Admin Dose 30 MG; Start 07/08/16 at 09:00 Citalopram Hydrobromide (Celexa) 10 mg DAILY PO Last administered on 07/10/16 08:03; Admin Dose 10 MG; Start 07/08/16 at 09:00 Clopidogrel Bisulfate (plaVIX) 75 mg DAILY PO Last administered on 07/10/16 08: 04; Admin Dose 75 MG; Start 07/08/16 at 09:00 Diphenhydramine HCl (Benadryl) 25 mg Q6H PRN PO ITCHING Last administered on 10:57; Admin Dose 25 MG; Start 07/07/16 at 12:00 Divalproex Sodium (Depakote) 750 mg Q8 PO Last administered on 07/10/16 13:22; Admin Dose 750 MG; Start 07/07/16 at 14:00 Docusate Sodium (Colace) 100 mg BID PO Last administered on 07/10/16 09:00; Admin Dose 100 MG; Start 07/07/16 at 21:00 Guaifenesin (Robitussin Liquid Cup) 300 mg Q4H PRN PO COUGH; Start 07/07/16 at 12:00 Hypromellose (Isopto Tears) 2 drop Q4H PRN BOTH EYES DRY EYES; Start 07/07/16 at 12:00 Isosorbide Mononitrate (Imdur) 60 mg DAILY PO Last administered on 07/09/16 08: 21; Admin Dose 60 MG; Start 07/08/16 at 09:00 Lactulose (Enulose) 20 gm BID PRN PO CONSTIPATION; Start 07/07/16 at 12:00 Levetiracetam (Keppra) 1,000 mg BID PO Last administered on 07/10/16 08:04; Admin Dose 1,000 MG; Start 07/07/16 at 21:00 Losartan Potassium (Cozaar) 100 mg DAILY PO Last administered on 07/09/16 08:22 ; Admin Dose 100 MG; Start 07/08/16 at 09:00 Montelukast Sodium (Singulair) 10 mg QHS PO Last administered on 07/09/16 21:00 ; Admin Dose 10 MG; Start 07/07/16 at 21:00 Multivit/Ca Carb/ B Cmplx/FA/Prenat (Etelvina-Paula) 1 tab DAILY PO Last administered on 07/10/16 08:03; Admin Dose 1 TAB; Start 07/08/16 at 09:00 Nitroglycerin (Nitroglycerin (Sl Tab) 0.4 Mg) 1 tab [id number] PRN SL CHEST PAIN ; Start 07/07/16 at 12:00 Pantoprazole (Protonix Tab) 40 mg DAILY@06 PO Last administered on 07/10/16 06: 17; Admin Dose 40 MG; Start 07/08/16 at 06:00 Phenytoin (Dilantin) 300 mg HS PO Last administered on 07/09/16 21:38; Admin Dose 300 MG; Start 07/07/16 at 21:00 Polyethylene Glycol (Miralax) 17 gm BID PO Last administered on 07/10/16 08:03 ; Admin Dose 17 GM; Start 07/07/16 at 21:00 Salmeterol Xinafoate/ Fluticasone (Advair 500/50 Diskus) 1 inh BID INH Last administered on 07/10/16 08:03; Admin Dose 1 INH; Start 07/07/16 at 21:00 Trazodone HCl (Desyrel) 50 mg QHS PO Last administered on 07/09/16 21:40; Admin Dose 50 MG; Start 07/07/16 at 21:00 Carvedilol (Coreg) 6.25 mg BID PO Last administered on 07/09/16 21:40; Admin Dose 6.25 MG; Start 07/08/16 at 21:00 Hydralazine HCl (Apresoline) 10 mg Q4H PRN IV SBP>160; Start 07/08/16 at 18:00 Ferrous Sulfate (Ferrous Sulfate (Ec)) 325 mg BID PO Last administered on t 08:03; Admin Dose 325 MG; Start 07/09/16 at 21:00 JEAN-PAUL SALDANA NP Jul 10, 2016 15:37
[2016-07-10] MEDS: ATORVASTATIN 80 MG TAB PO SCH (21:48)
[2016-07-10] MEDS: MONTELUKAST 10 MG TAB PO SCH (21:49)
[2016-07-10] MEDS: PHENYTOIN 100 MG CAP PO SCH (21:50)
[2016-07-10] MEDS: traZODone 50 MG TAB PO SCH (21:50)
[2016-07-11] VITALS (24 sets, daily range): BP systolic 90–163; BP diastolic 50–86; PULSE 62–93; RESP 17–18
[2016-07-11] MEDS: ONDANSETRON 4 MG INJ IV PRN (00:03)
[2016-07-11] MEDS: PANTOPRAZOLE (EC) 40 MG TAB PO SCH (05:16)
[2016-07-11] MEDS: morphine 2 MG INJ IV PRN ×3 (05:16→20:38)
[2016-07-11] MEDS: DIVALPROEX (EC) 250 MG TAB PO SCH ×3 (05:16→22:17)
[2016-07-11 06:43] LABS: ADD SCAN DIFF NO
[2016-07-11 06:45] LABS: ABNORMAL IP MESSAGE 1; HEMATOCRIT 25.1 % (42.0-52.0); HEMOGLOBIN 7.8 g/dl (14.0-18.0); MEAN CORPUSCULAR HEMOGLOBIN 29.7 pg (29.0-33.0); MEAN CORPUSCULAR HGB CONC 31.1 g/dl (32.0-37.0); MEAN CORPUSCULAR VOLUME 95.4 fl (82.0-101.0); MEAN PLATELET VOLUME 9.6 fl (7.4-10.4); PLATELET COUNT 69 10^3/UL (140-415); RED BLOOD COUNT 2.63 10^6/ul (4.70-6.10); RED CELL DISTRIBUTION WIDTH 17.1 % (11.5-14.5); WHITE BLOOD COUNT 4.4 10^3/ul (4.8-10.8)
[2016-07-11 07:00] LABS: POTASSIUM 5.2 mmol/L (3.5-5.1)
[2016-07-11 07:02] LABS: CREATININE 7.77 mg/dl (0.61-1.24)
[2016-07-11 07:03] LABS: PHOSPHORUS 6.2 mg/dl (2.5-4.9)
[2016-07-11 07:04] LABS: CALCIUM 8.7 mg/dl (8.4-10.2)
[2016-07-11] MEDS: SEVELAMER CARBONATE 0.8 GM PKT PO SCH ×3 (08:33→18:05)
[2016-07-11] MEDS: POLYETHYLENE GLYCOL 17 GM PACKET PO SCH ×2 (08:33→20:36)
[2016-07-11] MEDS: SALMETEROL/FLUTICASONE 500/50 INHA INH SCH ×2 (08:33→20:36)
[2016-07-11] MEDS: DOCUSATE SODIUM 100 MG CAP PO SCH ×2 (08:34→20:37)
[2016-07-11] MEDS: CITALOPRAM 20 MG TAB PO SCH (08:34)
[2016-07-11] MEDS: HYDROCODONE/APAP (5/325) TAB PO PRN (08:34)
[2016-07-11] MEDS: CINACALCET 30 MG TAB PO SCH (08:34)
[2016-07-11] MEDS: MULTIVIT/CA CARB/B CMPLX/FA TAB PO SCH (08:34)
[2016-07-11] MEDS: FERROUS SULFATE (EC) 325 MG TAB PO SCH ×2 (08:34→20:38)
[2016-07-11] MEDS: LEVETIRACETAM 500 MG TAB PO SCH ×2 (08:34→20:37)
[2016-07-11] MEDS: CLOPIDOGREL 75 MG TAB PO SCH (08:34)
[2016-07-11] MEDS: ISOSORBIDE MONONITRATE(SR)60 MG TAB PO SCH (08:38)
[2016-07-11] MEDS: LOSARTAN 50 MG TAB PO SCH (08:38)
[2016-07-11 10:04] LABS: BURR CELLS FEW; EOSINOPHILS # 1.5 10^3/ul (0.0-0.5); LYMPHOCYTES # 1.5 10^3/ul (0.8-2.9); MONOCYTE # 0.2 10^3/ul (0.3-0.9); NEUTROPHIL # 1.3 10^3/ul (1.6-7.5); OVALOCYTES OCCASIONAL
[2016-07-11 10:05] LABS: PLATELET ESTIMATE PLT APPEAR DECREASED
--- NOTE | 2016-07-11 10:45 | PN ---
DATE: 07/11/2016 SUBJECTIVE: The patient is stable, no acute events overnight. No fevers, chills, nausea, vomiting. The patient had hemodialysis yesterday, tolerated well. OBJECTIVE: VITAL SIGNS: Blood pressure is currently 92/54, respiration 17, pulse 65, temperature 98.1. HEENT: Head is normocephalic. NECK: Supple. HEART: Regular rate. LUNGS: Show diminished breath sounds at base. ABDOMEN: Soft, nontender to palpation. No rebound or guarding. EXTREMITIES: Negative for clubbing, cyanosis. Trace edema. DERMATOLOGIC: No rashes. MUSCULOSKELETAL: No joint effusions. NEUROLOGIC: No change in exam. MEDICATIONS: The patient's medications have been reviewed. LABORATORY DATA: Shows sodium 135, potassium 5.2, chloride 95, BUN 62, creatinine 7.77, phosphorus 6.2. White count 4.4, hemoglobin 7.8, hematocrit 35.1, platelet count is 69. ASSESSMENT AND PLAN: 1. End-stage renal disease. The patient has been on daily dialysis for solute clearance and volume removal. Plan for dialysis again today for 3 hours, 2K bath, calcium 2.5, ultrafiltrate as tolerat ed. 2. Acute hypoxic respiratory failure secondary to congestive heart failure. The patient clinically improving. Continue ultrafiltration dialysis. Continue medical management. 3. Anemia of chronic disease. Continue to monitor H and H levels. Continue Epogen. 4. Hypertension, controlled. Continue current blood pressure regimen and monitor for hypertension. 5. Coronary artery disease. Continue medical management. 6. Diabetes. Continue Accu-Cheks and sliding scale. 7. Seizure disorder. Continue current medical management. 8. Elevated troponins, [id number] myocardial infarction type 2. Continue medical management a nd follow up with Cardiology. 9. Mineral bone disorder. Continue to monitor calcium and phosphorus levels. 10. Dyslipidemia. Continue statin therapy. Dictated By: NEHEMIAS DAS/ROSANNA Conf#: [id number] DID#: [id number]
--- NOTE | 2016-07-11 10:54 | PN ---
Date/Time of Note Date/Time of Note DATE: 07/11/16 TIME: 10:53 Assessment/Plan VTE Prophylaxis VTE Prophylaxis Intervention: SCD's Lines/Catheters IV [facility] (from [facility]): av shunt Urinary Cath still in place: No Assessment/Plan Chief Complaint/Hosp Course 1. Acute on chronic diastolic heart failure. Continue hemodialysis as per nephrology. Continue supplemental oxygen. 2. Accelerated hypertension. Continue antihypertensives. Will adjust antihypertensives to obtain optimum blood pressure control. 3. Non-ST elevation myocardial infarction. Type II event in the setting of elevated blood pressure and worsening kidney function. Troponins now normalized. 4. Coronary artery disease. Status post coronary artery stenting in 2014. Currently on antiplatelet therapy. Dual antiplatelet therapy has been discontinued because of underlying anemia and thrombocytopenia. 5. Normocytic normochromic anemia. Iron panel showing iron deficiency. Continue the patient on iron supplements. Transfuse as needed. 6. Seizure disorder. The patient will be continued on anticonvulsants. 7. Dyslipidemia. Continue statins. 8. Hyperkalemia. Patient is scheduled to get hemodialysis today. Monitor cardiac rhythm. 9. End-stage renal disease, on hemodialysis. Hemodialysis as per nephrology. 10. Pancytopenia. Etiology unclear. Monitor blood counts closely. Transfuse blood components as needed. 11. Fluid, electrolytes and nutrition. Renal diet. 12. Deep vein thrombosis prophylaxis. Bilateral sequential compression devices. 13. Gastroesophageal reflux disease prophylaxis with proton pump inhibitors. PLAN: Continue hemodialysis as per nephrology. Optimize cardiac medications, optimize blood pressure control. Monitor H and H closely. Obtain physical therapy evaluation. The case was discussed with Dr. Carmona. Problems: Subjective 24 Hr Interval Summary Free Text/Dictation Vital signs stable. Exam/Review of Systems Vital Signs Vitals Vital Signs Date Time Temp Pulse Resp B/P Pulse Ox O2 Delivery O2 Flow Rate FiO2 07/11/16 08:39 70 07/11/16 07:42 98.1 17 92/54 91 07/10/16 23:00 3.0 07/10/16 21:45 Nasal Cannula Intake and Output 07/10/16 07/10/16 07/11/16 15:00 23:00 07:00 Intake Total 1750 ml 250 ml 700 ml Output Total 3500 ml Balance -1750 ml 250 ml 700 ml Exam GENERAL: This is an obese -[place] male lying in bed in no apparent distress. HEENT: Head normocephalic and atraumatic. Eyes: Anicteric sclerae. Conjunctivae clear. ENT: Nasal septum is midline. Oral mucosa is moist. NECK: Supple. No JVD noticed. RESPIRATORY: Bilaterally diminished breath sounds. A few fine rales heard at the bases. No use of accessory muscles of respiration. CARDIAC: Regular rate and rhythm. S1 and S2 heard. ABDOMEN: Soft, nontender and nondistended. Bowel sounds positive in all 4 quadrants. GENITOURINARY: Deferred. EXTREMITIES: No cyanosis, no clubbing, no edema. Peripheral pulses are diminished. S/P right foot transmetatarsal amputation. NEUROLOGIC: The patient is awake, alert, and oriented. Results Result Diagram: 07/11/16 0600 07/11/16 0600 Results 24 hrs Laboratory Tests Test 07/11/16 06:00 White Blood Count 4.4 L Red Blood Count 2.63 L Hemoglobin 7.8 L Hematocrit 25.1 L Mean Corpuscular Volume 95.4 Mean Corpuscular Hemoglobin 29.7 Mean Corpuscular Hemoglobin Concent 31.1 L Red Cell Distribution Width 17.1 H Platelet Count 69 L Mean Platelet Volume 9.6 Neutrophils % 30.0 L Lymphocytes % 33.0 Monocytes % 4.0 Eosinophils % 33.0 H Neutrophils # 1.3 L Lymphocytes # 1.5 Monocytes # 0.2 L Eosinophils # 1.5 H Differential Comment MANUAL DIFF Platelet Estimate PLT APPEAR DECREASED Ovalocytes OCCASIONAL Sodium Level 135 Potassium Level 5.2 H Chloride Level 95 L Carbon Dioxide Level 28 Anion Gap 17 H Blood Urea Nitrogen 63 H Creatinine 7.77 H Glucose Level 78 Calcium Level 8.7 Phosphorus Level 6.2 H Magnesium Level 2.0 Medications Medications Current Medications Ondansetron HCl (Zofran Inj) 4 mg Q6H PRN IV NAUSEA AND/OR VOMITING Last administered on 07/11/16 00:03; Admin Dose 4 MG; Start 07/07/16 at 12:00 Acetaminophen (Tylenol Tab) 650 mg Q6H PRN PO PAIN LEVEL 1-3 OR FEVER Last administered on 07/10/16 13:22; Admin Dose 650 MG; Start 07/07/16 at 12:00 Acetaminophen/ Hydrocodone Bitart ([place] (5/325)) 1 tab Q6H PRN PO MODERATE PAIN LEVEL 4-6 Last administered on 07/11/16 08:34; Admin Dose 1 TAB; Start 07/07 at 12:00 Morphine Sulfate (morphine) 2 mg Q4H PRN IV SEVERE PAIN LEVEL 7-10 Last administered on 07/11/16 10:42; Admin Dose 2 MG; Start 07/07/16 at 12:00 Docusate Sodium (Colace) 100 mg Q12H PRN PO CONSTIPATION; Start 07/07/16 at 12: 00 Atorvastatin Calcium (Lipitor) 80 mg QHS PO Last administered on 07/10/16 21:48 ; Admin Dose 80 MG; Start 07/07/16 at 21:00 Bisacodyl (Dulcolax) 10 mg DAILY PRN PO CONSTIPATION; Start 07/07/16 at 12:00 Cinacalcet (Sensipar) 30 mg DAILY PO Last administered on 07/11/16 08:34; Admin Dose 30 MG; Start 07/08/16 at 09:00 Citalopram Hydrobromide (Celexa) 10 mg DAILY PO Last administered on 07/11/16 08:34; Admin Dose 10 MG; Start 07/08/16 at 09:00 Clopidogrel Bisulfate (plaVIX) 75 mg DAILY PO Last administered on 07/11/16 08: 34; Admin Dose 75 MG; Start 07/08/16 at 09:00 Diphenhydramine HCl (Benadryl) 25 mg Q6H PRN PO ITCHING Last administered on 10:57; Admin Dose 25 MG; Start 07/07/16 at 12:00 Divalproex Sodium (Depakote) 750 mg Q8 PO Last administered on 07/11/16 05:16; Admin Dose 750 MG; Start 07/07/16 at 14:00 Docusate Sodium (Colace) 100 mg BID PO Last administered on 07/11/16 08:34; Admin Dose 100 MG; Start 07/07/16 at 21:00 Guaifenesin (Robitussin Liquid Cup) 300 mg Q4H PRN PO COUGH; Start 07/07/16 at 12:00 Hypromellose (Isopto Tears) 2 drop Q4H PRN BOTH EYES DRY EYES; Start 07/07/16 at 12:00 Isosorbide Mononitrate (Imdur) 60 mg DAILY PO Last administered on 07/09/16 08: 21; Admin Dose 60 MG; Start 07/08/16 at 09:00 Lactulose (Enulose) 20 gm BID PRN PO CONSTIPATION; Start 07/07/16 at 12:00 Levetiracetam (Keppra) 1,000 mg BID PO Last administered on 07/11/16 08:34; Admin Dose 1,000 MG; Start 07/07/16 at 21:00 Losartan Potassium (Cozaar) 100 mg DAILY PO Last administered on 07/09/16 08:22 ; Admin Dose 100 MG; Start 07/08/16 at 09:00 Montelukast Sodium (Singulair) 10 mg QHS PO Last administered on 07/10/16 21:49 ; Admin Dose 10 MG; Start 07/07/16 at 21:00 Multivit/Ca Carb/ B Cmplx/FA/Prenat (Etelvina-Paula) 1 tab DAILY PO Last administered on 07/11/16 08:34; Admin Dose 1 TAB; Start 07/08/16 at 09:00 Nitroglycerin (Nitroglycerin (Sl Tab) 0.4 Mg) 1 tab [id number] PRN SL CHEST PAIN ; Start 07/07/16 at 12:00 Pantoprazole (Protonix Tab) 40 mg DAILY@06 PO Last administered on 07/11/16 05: 16; Admin Dose 40 MG; Start 07/08/16 at 06:00 Phenytoin (Dilantin) 300 mg HS PO Last administered on 07/10/16 21:50; Admin Dose 300 MG; Start 07/07/16 at 21:00 Polyethylene Glycol (Miralax) 17 gm BID PO Last administered on 07/11/16 08:33 ; Admin Dose 17 GM; Start 07/07/16 at 21:00 Salmeterol Xinafoate/ Fluticasone (Advair 500/50 Diskus) 1 inh BID INH Last administered on 07/11/16 08:33; Admin Dose 1 INH; Start 07/07/16 at 21:00 Trazodone HCl (Desyrel) 50 mg QHS PO Last administered on 07/10/16 21:50; Admin Dose 50 MG; Start 07/07/16 at 21:00 Carvedilol (Coreg) 6.25 mg BID PO Last administered on 07/10/16 21:51; Admin Dose 6.25 MG; Start 07/08/16 at 21:00 Hydralazine HCl (Apresoline) 10 mg Q4H PRN IV SBP>160; Start 07/08/16 at 18:00 Ferrous Sulfate (Ferrous Sulfate (Ec)) 325 mg BID PO Last administered on 08:34; Admin Dose 325 MG; Start 07/09/16 at 21:00 JEAN-PAUL SALDANA NP Jul 11, 2016 10:54
--- NOTE | 2016-07-11 12:26 | RADRPT ---
PROCEDURE: CHEST 1VW CLINICAL INDICATION: CHF TECHNIQUE: Single frontal view of the chest was obtained COMPARISON: 07/07/2016 FINDINGS: The cardiac size is moderately enlarged, stable. Aortic vascular calcifications are demonstrated. There is stable moderate interstitial edema and pulmonary vascular congestion. The lungs are otherwise clear. No consolidation, effusion, or pneumothorax. Mild degenerative changes of the visualized osseous structures are visualized. IMPRESSION: 1. Stable cardiomegaly with stable moderate pulmonary vascular congestion and interstitial edema. 2. Atherosclerosis. RPTAT:PP .Kaden Boudreaux MD, MD Date Time Electronically viewed and signed by .Kaden Boudreaux MD, MD on 07/11/2016 12:26 .V/
[2016-07-11] MEDS: DIPHENHYDRAMINE 25 MG CAP PO PRN (17:31)
[2016-07-11] MEDS: ATORVASTATIN 80 MG TAB PO SCH (20:37)
[2016-07-11] MEDS: PHENYTOIN 100 MG CAP PO SCH (20:37)
[2016-07-11] MEDS: MONTELUKAST 10 MG TAB PO SCH (20:37)
[2016-07-11] MEDS: traZODone 50 MG TAB PO SCH (20:37)
[2016-07-12] VITALS (20 sets, daily range): BP systolic 101–144; BP diastolic 55–82; PULSE 66–88; RESP 18–19
[2016-07-12] MEDS: morphine 2 MG INJ IV PRN ×4 (03:10→22:54)
[2016-07-12] MEDS: DIVALPROEX (EC) 250 MG TAB PO SCH ×3 (05:14→21:06)
[2016-07-12] MEDS: PANTOPRAZOLE (EC) 40 MG TAB PO SCH (05:14)
[2016-07-12 07:41] LABS: ADD SCAN DIFF NO
[2016-07-12 07:55] LABS: ABNORMAL IP MESSAGE 1; HEMATOCRIT 26.1 % (42.0-52.0); HEMOGLOBIN 8.2 g/dl (14.0-18.0); MEAN CORPUSCULAR HEMOGLOBIN 30.1 pg (29.0-33.0); MEAN CORPUSCULAR HGB CONC 31.4 g/dl (32.0-37.0); MEAN PLATELET VOLUME 10.9 fl (7.4-10.4); RED BLOOD COUNT 2.72 10^6/ul (4.70-6.10); WHITE BLOOD COUNT 4.9 10^3/ul (4.8-10.8)
[2016-07-12 08:03] LABS: PLATELET COUNT 86 10^3/UL (140-415)
[2016-07-12 08:05] LABS: CALCIUM 8.8 mg/dl (8.4-10.2); CREATININE 7.24 mg/dl (0.61-1.24); POTASSIUM 5.1 mmol/L (3.5-5.1)
[2016-07-12] MEDS: ALBUTEROL/IPRATROPIUM (NEB) 3 ML AMP HHN PRN ×2 (08:24→08:26)
[2016-07-12 08:37] LABS: MAGNESIUM 2.1 mg/dl (1.7-2.5); PHOSPHORUS 6.1 mg/dl (2.5-4.9)
[2016-07-12] MEDS: LOSARTAN 50 MG TAB PO SCH (09:00)
[2016-07-12] MEDS: ISOSORBIDE MONONITRATE(SR)60 MG TAB PO SCH (09:00)
[2016-07-12] MEDS: SALMETEROL/FLUTICASONE 500/50 INHA INH SCH ×2 (09:05→20:40)
[2016-07-12] MEDS: CITALOPRAM 20 MG TAB PO SCH (09:10)
[2016-07-12] MEDS: CINACALCET 30 MG TAB PO SCH (09:10)
[2016-07-12] MEDS: SEVELAMER CARBONATE 0.8 GM PKT PO SCH ×3 (09:10→18:08)
[2016-07-12] MEDS: CLOPIDOGREL 75 MG TAB PO SCH (09:10)
[2016-07-12] MEDS: DOCUSATE SODIUM 100 MG CAP PO SCH ×2 (09:10→20:42)
[2016-07-12] MEDS: LEVETIRACETAM 500 MG TAB PO SCH ×2 (09:10→20:42)
[2016-07-12] MEDS: MULTIVIT/CA CARB/B CMPLX/FA TAB PO SCH (09:10)
[2016-07-12] MEDS: FERROUS SULFATE (EC) 325 MG TAB PO SCH ×2 (09:10→20:42)
[2016-07-12] MEDS: POLYETHYLENE GLYCOL 17 GM PACKET PO SCH ×2 (09:12→20:40)
[2016-07-12] MEDS: DIPHENHYDRAMINE 25 MG CAP PO PRN (11:08)
[2016-07-12 11:54] LABS: BASOPHIL # 0.1 10^3/ul (0.0-0.1); EOSINOPHILS # 1.4 10^3/ul (0.0-0.5); LYMPHOCYTES # 1.7 10^3/ul (0.8-2.9); MONOCYTE # 0.6 10^3/ul (0.3-0.9)
[2016-07-12 11:55] LABS: PLATELET ESTIMATE PLT APPEAR DECREASED
--- NOTE | 2016-07-12 16:16 | CONS ---
Date/Time of Note Date/Time of Note DATE: 07/12/16 TIME: 16:10 Consult Date/Type/Reason Admit Date/Time Jul 07, 2016 at 11:31 Initial Consult Date Type of Consultation: neph Subjective The patient is stable, no acute events overnight. No fevers, chills, nausea, vomiting. The patient had hemodialysis yesterday, tolerated well. on hd today without complication. co fatigue after. poc reviewed with dr. hoskins. OBJECTIVE: HEENT: Head is normocephalic. NECK: Supple. HEART: Regular rate. LUNGS: Show diminished breath sounds at base. ABDOMEN: Soft, nontender to palpation. No rebound or guarding. EXTREMITIES: Negative for clubbing, cyanosis. Trace edema. DERMATOLOGIC: No rashes. MUSCULOSKELETAL: No joint effusions. NEUROLOGIC: no focal weakness Objective Vital Signs Date Time Temp Pulse Resp B/P Pulse Ox O2 Delivery O2 Flow Rate FiO2 07/12/16 15:00 98.0 76 19 102/58 94 07/12/16 08:31 2.0 07/12/16 07:40 Nasal Cannula Intake and Output 07/11/16 07/11/16 07/12/16 15:00 23:00 07:00 Intake Total 1300 ml 600 ml Output Total 2700 ml Balance -1400 ml 600 ml Results/Medications Result Diagram: 07/12/16 0654 07/12/16 0654 Results 24 hrs Laboratory Tests Test 07/12/16 06:54 White Blood Count 4.9 Red Blood Count 2.72 L Hemoglobin 8.2 L Hematocrit 26.1 L Mean Corpuscular Volume 96.0 Mean Corpuscular Hemoglobin 30.1 Mean Corpuscular Hemoglobin Concent 31.4 L Red Cell Distribution Width 17.0 H Platelet Count 86 #L Mean Platelet Volume 10.9 H Neutrophils % 20.0 L Band Neutrophils % 2.0 Lymphocytes % 35.0 Monocytes % 12.0 H Eosinophils % 29.0 H Basophils % 2.0 Neutrophils # 1.0 L Lymphocytes # 1.7 Monocytes # 0.6 Eosinophils # 1.4 H Basophils # 0.1 Platelet Estimate PLT APPEAR DECREASED Sodium Level 136 Potassium Level 5.1 Chloride Level 98 Carbon Dioxide Level 27 Anion Gap 16 Blood Urea Nitrogen 58 H Creatinine 7.24 H Glucose Level 71 Calcium Level 8.8 Phosphorus Level 6.1 H Magnesium Level 2.1 Medications Current Medications Ondansetron HCl (Zofran Inj) 4 mg Q6H PRN IV NAUSEA AND/OR VOMITING Last administered on 07/11/16 00:03; Admin Dose 4 MG; Start 07/07/16 at 12:00 Acetaminophen (Tylenol Tab) 650 mg Q6H PRN PO PAIN LEVEL 1-3 OR FEVER Last administered on 07/10/16 13:22; Admin Dose 650 MG; Start 07/07/16 at 12:00 Acetaminophen/ Hydrocodone Bitart ([place] (5/325)) 1 tab Q6H PRN PO MODERATE PAIN LEVEL 4-6 Last administered on 07/11/16 08:34; Admin Dose 1 TAB; Start 07/07 at 12:00 Morphine Sulfate (morphine) 2 mg Q4H PRN IV SEVERE PAIN LEVEL 7-10 Last administered on 07/12/16 09:13; Admin Dose 2 MG; Start 07/07/16 at 12:00 Docusate Sodium (Colace) 100 mg Q12H PRN PO CONSTIPATION; Start 07/07/16 at 12: 00 Atorvastatin Calcium (Lipitor) 80 mg QHS PO Last administered on 07/11/16 20:37 ; Admin Dose 80 MG; Start 07/07/16 at 21:00 Bisacodyl (Dulcolax) 10 mg DAILY PRN PO CONSTIPATION; Start 07/07/16 at 12:00 Cinacalcet (Sensipar) 30 mg DAILY PO Last administered on 07/12/16 09:10; Admin Dose 30 MG; Start 07/08/16 at 09:00 Citalopram Hydrobromide (Celexa) 10 mg DAILY PO Last administered on 07/12/16 09:10; Admin Dose 10 MG; Start 07/08/16 at 09:00 Clopidogrel Bisulfate (plaVIX) 75 mg DAILY PO Last administered on 07/12/16 09: 10; Admin Dose 75 MG; Start 07/08/16 at 09:00 Diphenhydramine HCl (Benadryl) 25 mg Q6H PRN PO ITCHING Last administered on 11:08; Admin Dose 25 MG; Start 07/07/16 at 12:00 Divalproex Sodium (Depakote) 750 mg Q8 PO Last administered on 07/12/16 14:24; Admin Dose 750 MG; Start 07/07/16 at 14:00 Docusate Sodium (Colace) 100 mg BID PO Last administered on 07/12/16 09:10; Admin Dose 100 MG; Start 07/07/16 at 21:00 Guaifenesin (Robitussin Liquid Cup) 300 mg Q4H PRN PO COUGH; Start 07/07/16 at 12:00 Hypromellose (Isopto Tears) 2 drop Q4H PRN BOTH EYES DRY EYES; Start 07/07/16 at 12:00 Isosorbide Mononitrate (Imdur) 60 mg DAILY PO Last administered on 07/09/16 08: 21; Admin Dose 60 MG; Start 07/08/16 at 09:00 Lactulose (Enulose) 20 gm BID PRN PO CONSTIPATION; Start 07/07/16 at 12:00 Levetiracetam (Keppra) 1,000 mg BID PO Last administered on 07/12/16 09:10; Admin Dose 1,000 MG; Start 07/07/16 at 21:00 Losartan Potassium (Cozaar) 100 mg DAILY PO Last administered on 07/09/16 08:22 ; Admin Dose 100 MG; Start 07/08/16 at 09:00 Montelukast Sodium (Singulair) 10 mg QHS PO Last administered on 07/11/16 20:37 ; Admin Dose 10 MG; Start 07/07/16 at 21:00 Multivit/Ca Carb/ B Cmplx/FA/Prenat ([place]) 1 tab DAILY PO Last administered on 07/12/16 09:10; Admin Dose 1 TAB; Start 07/08/16 at 09:00 Nitroglycerin (Nitroglycerin (Sl Tab) 0.4 Mg) 1 tab [id number] PRN SL CHEST PAIN ; Start 07/07/16 at 12:00 Pantoprazole (Protonix Tab) 40 mg DAILY@06 PO Last administered on 07/12/16 05: 14; Admin Dose 40 MG; Start 07/08/16 at 06:00 Phenytoin (Dilantin) 300 mg HS PO Last administered on 07/11/16 20:37; Admin Dose 300 MG; Start 07/07/16 at 21:00 Polyethylene Glycol (Miralax) 17 gm BID PO Last administered on 07/12/16 09:12 ; Admin Dose 17 GM; Start 07/07/16 at 21:00 Salmeterol Xinafoate/ Fluticasone (Advair 500/50 Diskus) 1 inh BID INH Last administered on 07/12/16 09:05; Admin Dose 1 INH; Start 07/07/16 at 21:00 Trazodone HCl (Desyrel) 50 mg QHS PO Last administered on 07/11/16 20:37; Admin Dose 50 MG; Start 07/07/16 at 21:00 Carvedilol (Coreg) 6.25 mg BID PO Last administered on 07/11/16 20:38; Admin Dose 6.25 MG; Start 07/08/16 at 21:00 Hydralazine HCl (Apresoline) 10 mg Q4H PRN IV SBP>160; Start 07/08/16 at 18:00 Ferrous Sulfate (Ferrous Sulfate (Ec)) 325 mg BID PO Last administered on 09:10; Admin Dose 325 MG; Start 07/09/16 at 21:00 Assessment/Plan Chief Complaint/Hosp Course ASSESSMENT AND PLAN: 1. End-stage renal disease. The patient has been on daily dialysis for solute clearance and volume removal. Plan for dialysis again today for 3 hours, 2K bath, calcium 2.5, ultrafiltrate as tolerated. 2. Acute hypoxic respiratory failure secondary to congestive heart failure. The patient clinically improving. Continue ultrafiltration dialysis. Continue medical management. 3. Anemia of chronic disease. Continue to monitor H and H levels. Continue Epogen. 4. Hypertension, controlled. Continue current blood pressure regimen and monitor for hypertension. 5. Coronary artery disease. Continue medical management. 6. Diabetes. Continue Accu-Cheks and sliding scale. 7. Seizure disorder. Continue current medical management. 8. Elevated troponins, [id number] myocardial infarction type 2. Continue medical management and follow up with Cardiology. 9. Mineral bone disorder. Continue to monitor calcium and phosphorus levels. 10. Dyslipidemia. Continue statin therapy. Problems: GONZALES PRITCHETT MD Jul 12, 2016 16:16
--- NOTE | 2016-07-12 16:37 | PN ---
Date/Time of Note Date/Time of Note DATE: 07/12/16 TIME: 16:32 Assessment/Plan VTE Prophylaxis VTE Prophylaxis Intervention: SCD's Lines/Catheters IV [facility]ter Type [facility]from [facility]): AV Shunt Urinary Cath still in place: No Assessment/Plan Chief Complaint/Hosp Course 1. Acute on chronic diastolic heart failure. Continue hemodialysis as per nephrology. Continue supplemental oxygen. 2. COPD. Continue inhaled bronchodilators. 3. Accelerated hypertension. Continue antihypertensives. Will adjust antihypertensives to obtain optimum blood pressure control. 4. Non-ST elevation myocardial infarction. Type II event in the setting of elevated blood pressure and worsening kidney function. Troponins now normalized. 5. Coronary artery disease. Status post coronary artery stenting in 2014. Currently on antiplatelet therapy. Dual antiplatelet therapy has been discontinued because of underlying anemia and thrombocytopenia. 6. Normocytic normochromic anemia. Iron panel showing iron deficiency. Continue the patient on iron supplements. Transfuse as needed. 7. Seizure disorder. The patient will be continued on anticonvulsants. 8. Dyslipidemia. Continue statins. 9. Hyperkalemia. Resolved. 10. End-stage renal disease, on hemodialysis. Hemodialysis as per nephrology. 11. Pancytopenia. Etiology unclear. Monitor blood counts closely. Transfuse blood components as needed. 12. Fluid, electrolytes and nutrition. Renal diet. 13. Deep vein thrombosis prophylaxis. Bilateral sequential compression devices. 14. Gastroesophageal reflux disease prophylaxis with proton pump inhibitors. PLAN: Continue hemodialysis as per nephrology. Optimize cardiac medications. Optimize blood pressure control. Monitor H and H closely. Add antibiotics to treat any underlying tracheobronchitis. The case was discussed with Dr. Carmona. Problems: Subjective 24 Hr Interval Summary Free Text/Dictation Complains of dyspnea and non-productive cough. Exam/Review of Systems Vital Signs Vitals Vital Signs Date Time Temp Pulse Resp B/P Pulse Ox O2 Delivery O2 Flow Rate FiO2 07/12/16 16:00 83 07/12/16 15:00 98.0 19 102/58 94 07/12/16 08:31 2.0 07/12/16 07:40 Nasal Cannula Intake and Output 07/11/16 07/11/16 07/12/16 15:00 23:00 07:00 Intake Total 1300 ml 600 ml Output Total 2700 ml Balance -1400 ml 600 ml Exam GENERAL: This is an obese -[place] male lying in bed in no apparent distress. HEENT: Head normocephalic and atraumatic. Eyes: Anicteric sclerae. Conjunctivae clear. ENT: Nasal septum is midline. Oral mucosa is moist. NECK: Supple. No JVD noticed. RESPIRATORY: Bilaterally diminished breath sounds. A few fine rales heard at the bases. No use of accessory muscles of respiration. CARDIAC: Regular rate and rhythm. S1 and S2 heard. ABDOMEN: Soft, nontender and nondistended. Bowel sounds positive in all 4 quadrants. GENITOURINARY: Deferred. EXTREMITIES: No cyanosis, no clubbing, no edema. Peripheral pulses are diminished. S/P right foot transmetatarsal amputation. NEUROLOGIC: The patient is awake, alert, and oriented. Results Result Diagram: 07/12/16 0654 07/12/16 0654 Results 24 hrs Laboratory Tests Test 07/12/16 06:54 White Blood Count 4.9 Red Blood Count 2.72 L Hemoglobin 8.2 L Hematocrit 26.1 L Mean Corpuscular Volume 96.0 Mean Corpuscular Hemoglobin 30.1 Mean Corpuscular Hemoglobin Concent 31.4 L Red Cell Distribution Width 17.0 H Platelet Count 86 #L Mean Platelet Volume 10.9 H Neutrophils % 20.0 L Band Neutrophils % 2.0 Lymphocytes % 35.0 Monocytes % 12.0 H Eosinophils % 29.0 H Basophils % 2.0 Neutrophils # 1.0 L Lymphocytes # 1.7 Monocytes # 0.6 Eosinophils # 1.4 H Basophils # 0.1 Platelet Estimate PLT APPEAR DECREASED Sodium Level 136 Potassium Level 5.1 Chloride Level 98 Carbon Dioxide Level 27 Anion Gap 16 Blood Urea Nitrogen 58 H Creatinine 7.24 H Glucose Level 71 Calcium Level 8.8 Phosphorus Level 6.1 H Magnesium Level 2.1 Medications Medications Current Medications Ondansetron HCl (Zofran Inj) 4 mg Q6H PRN IV NAUSEA AND/OR VOMITING Last administered on 07/11/16 00:03; Admin Dose 4 MG; Start 07/07/16 at 12:00 Acetaminophen (Tylenol Tab) 650 mg Q6H PRN PO PAIN LEVEL 1-3 OR FEVER Last administered on 07/10/16 13:22; Admin Dose 650 MG; Start 07/07/16 at 12:00 Acetaminophen/ Hydrocodone Bitart ([place] (5/325)) 1 tab Q6H PRN PO MODERATE PAIN LEVEL 4-6 Last administered on 07/11/16 08:34; Admin Dose 1 TAB; Start 07/07 at 12:00 Morphine Sulfate (morphine) 2 mg Q4H PRN IV SEVERE PAIN LEVEL 7-10 Last administered on 07/12/16 09:13; Admin Dose 2 MG; Start 07/07/16 at 12:00 Docusate Sodium (Colace) 100 mg Q12H PRN PO CONSTIPATION; Start 07/07/16 at 12: 00 Atorvastatin Calcium (Lipitor) 80 mg QHS PO Last administered on 07/11/16 20:37 ; Admin Dose 80 MG; Start 07/07/16 at 21:00 Bisacodyl (Dulcolax) 10 mg DAILY PRN PO CONSTIPATION; Start 07/07/16 at 12:00 Cinacalcet (Sensipar) 30 mg DAILY PO Last administered on 07/12/16 09:10; Admin Dose 30 MG; Start 07/08/16 at 09:00 Citalopram Hydrobromide (Celexa) 10 mg DAILY PO Last administered on 07/12/16 09:10; Admin Dose 10 MG; Start 07/08/16 at 09:00 Clopidogrel Bisulfate (plaVIX) 75 mg DAILY PO Last administered on 07/12/16 09: 10; Admin Dose 75 MG; Start 07/08/16 at 09:00 Diphenhydramine HCl (Benadryl) 25 mg Q6H PRN PO ITCHING Last administered on 11:08; Admin Dose 25 MG; Start 07/07/16 at 12:00 Divalproex Sodium (Depakote) 750 mg Q8 PO Last administered on 07/12/16 14:24; Admin Dose 750 MG; Start 07/07/16 at 14:00 Docusate Sodium (Colace) 100 mg BID PO Last administered on 07/12/16 09:10; Admin Dose 100 MG; Start 07/07/16 at 21:00 Guaifenesin (Robitussin Liquid Cup) 300 mg Q4H PRN PO COUGH; Start 07/07/16 at 12:00 Hypromellose (Isopto Tears) 2 drop Q4H PRN BOTH EYES DRY EYES; Start 07/07/16 at 12:00 Isosorbide Mononitrate (Imdur) 60 mg DAILY PO Last administered on 07/09/16 08: 21; Admin Dose 60 MG; Start 07/08/16 at 09:00 Lactulose (Enulose) 20 gm BID PRN PO CONSTIPATION; Start 07/07/16 at 12:00 Levetiracetam (Keppra) 1,000 mg BID PO Last administered on 07/12/16 09:10; Admin Dose 1,000 MG; Start 07/07/16 at 21:00 Losartan Potassium (Cozaar) 100 mg DAILY PO Last administered on 07/09/16 08:22 ; Admin Dose 100 MG; Start 07/08/16 at 09:00 Montelukast Sodium (Singulair) 10 mg QHS PO Last administered on 07/11/16 20:37 ; Admin Dose 10 MG; Start 07/07/16 at 21:00 Multivit/Ca Carb/ B Cmplx/FA/Prenat ([place]) 1 tab DAILY PO Last administered on 07/12/16 09:10; Admin Dose 1 TAB; Start 07/08/16 at 09:00 Nitroglycerin (Nitroglycerin (Sl Tab) 0.4 Mg) 1 tab [id number] PRN SL CHEST PAIN ; Start 07/07/16 at 12:00 Pantoprazole (Protonix Tab) 40 mg DAILY@06 PO Last administered on 07/12/16 05: 14; Admin Dose 40 MG; Start 07/08/16 at 06:00 Phenytoin (Dilantin) 300 mg HS PO Last administered on 07/11/16 20:37; Admin Dose 300 MG; Start 07/07/16 at 21:00 Polyethylene Glycol (Miralax) 17 gm BID PO Last administered on 07/12/16 09:12 ; Admin Dose 17 GM; Start 07/07/16 at 21:00 Salmeterol Xinafoate/ Fluticasone (Advair 500/50 Diskus) 1 inh BID INH Last administered on 07/12/16 09:05; Admin Dose 1 INH; Start 07/07/16 at 21:00 Trazodone HCl (Desyrel) 50 mg QHS PO Last administered on 07/11/16 20:37; Admin Dose 50 MG; Start 07/07/16 at 21:00 Carvedilol (Coreg) 6.25 mg BID PO Last administered on 07/11/16 20:38; Admin Dose 6.25 MG; Start 07/08/16 at 21:00 Hydralazine HCl (Apresoline) 10 mg Q4H PRN IV SBP>160; Start 07/08/16 at 18:00 Ferrous Sulfate (Ferrous Sulfate (Ec)) 325 mg BID PO Last administered on 09:10; Admin Dose 325 MG; Start 07/09/16 at 21:00 JEAN-PAUL SALDANA NP Jul 12, 2016 16:37
[2016-07-12] MEDS: CEFTRIAXONE 1 GM/50 ML (PMX) 50 ML IVPB SCH (17:52)
[2016-07-12] MEDS: AZITHROMYCIN 500MG/NS (PMX) 250 ML IVPB SCH (17:53)
[2016-07-12] MEDS: ONDANSETRON 4 MG INJ IV PRN (18:51)
--- NOTE | 2016-07-12 19:51 | CONS ---
Date/Time of Note Date/Time of Note DATE: 07/12/16 TIME: 19:50 Assessment/Plan Assessment/Plan Chief Complaint/Hosp Course Assessment: Acute on chronic diastolic heart failure Accelerated hypertension - blood pressures improved NSTEMI - likely type 2 in setting of elevated blood pressure and renal failure Coronary artery disease - myocardial infarction and coronary stenting in 2014 Dyslipidemia End-stage renal disease - on hemodialysis Seizure disorder History of stroke Anemia - planned for pRBC transfusion Thrombocytopenia Recommendations: -echocardiogram showed normal LVEF 60-65%, moderate LVH, mild diastolic dysfunction -continue clopidogrel 75mg daily -aspirin was discontinued - off of dual-antiplatelet therapy as patient is greater than one year from coronary stenting and has thrombocytopenia -continue carvedilol 6.25mg BID, up titrate as needed -continue losartan 100mg daily -continue atorvastatin -volume management via hemodialysis per nephrology Problems: Consultation Date/Type/Reason Admit Date/Time Jul 07, 2016 at 11:31 Type of Consultation: Cardiology 24 HR Interval Summary Free Text/Dictation No acute events. Detailed Summary Additional Comments 14 point review of systems without changes. Exam/Review of Systems Vital Signs Vitals Vital Signs Date Time Temp Pulse Resp B/P Pulse Ox O2 Delivery O2 Flow Rate FiO2 07/12/16 16:00 83 07/12/16 15:00 98.0 19 102/58 94 07/12/16 08:31 2.0 07/12/16 07:40 Nasal Cannula Intake and Output 07/11/16 07/11/16 07/12/16 15:00 23:00 07:00 Intake Total 1300 ml 600 ml Output Total 2700 ml Balance -1400 ml 600 ml Exam Constitutional: alert, well developed Psych: nl mood/affect, no complaints Head: atraumatic, normocephalic Eyes: nl conjunctiva, nl lids ENMT: nl external ears & nose, nl nasal mucosa & septum Neck: non-tender, supple Respiratory: crackles/rales, diminished breath sounds, wheezing Cardiovascular: regular rate and rhythm Gastrointestinal: non-tender, soft Musculoskeletal: nl extremities to inspection Extremities: No clubbing, No cyanosis Results Result Diagram: 07/12/16 0654 07/12/16 0654 Results 24 hrs Laboratory Tests Test 07/12/16 06:54 White Blood Count 4.9 Red Blood Count 2.72 L Hemoglobin 8.2 L Hematocrit 26.1 L Mean Corpuscular Volume 96.0 Mean Corpuscular Hemoglobin 30.1 Mean Corpuscular Hemoglobin Concent 31.4 L Red Cell Distribution Width 17.0 H Platelet Count 86 #L Mean Platelet Volume 10.9 H Neutrophils % 20.0 L Band Neutrophils % 2.0 Lymphocytes % 35.0 Monocytes % 12.0 H Eosinophils % 29.0 H Basophils % 2.0 Neutrophils # 1.0 L Lymphocytes # 1.7 Monocytes # 0.6 Eosinophils # 1.4 H Basophils # 0.1 Platelet Estimate PLT APPEAR DECREASED Sodium Level 136 Potassium Level 5.1 Chloride Level 98 Carbon Dioxide Level 27 Anion Gap 16 Blood Urea Nitrogen 58 H Creatinine 7.24 H Glucose Level 71 Calcium Level 8.8 Phosphorus Level 6.1 H Magnesium Level 2.1 Medications Medications Current Medications Ondansetron HCl (Zofran Inj) 4 mg Q6H PRN IV NAUSEA AND/OR VOMITING Last administered on 07/12/16 18:51; Admin Dose 4 MG; Start 07/07/16 at 12:00 Acetaminophen (Tylenol Tab) 650 mg Q6H PRN PO PAIN LEVEL 1-3 OR FEVER Last administered on 07/10/16 13:22; Admin Dose 650 MG; Start 07/07/16 at 12:00 Acetaminophen/ Hydrocodone Bitart ([place] (5/325)) 1 tab Q6H PRN PO MODERATE PAIN LEVEL 4-6 Last administered on 07/11/16 08:34; Admin Dose 1 TAB; Start 07/07 at 12:00 Morphine Sulfate (morphine) 2 mg Q4H PRN IV SEVERE PAIN LEVEL 7-10 Last administered on 07/12/16 18:46; Admin Dose 2 MG; Start 07/07/16 at 12:00 Docusate Sodium (Colace) 100 mg Q12H PRN PO CONSTIPATION; Start 07/07/16 at 12: 00 Atorvastatin Calcium (Lipitor) 80 mg QHS PO Last administered on 07/11/16 20:37 ; Admin Dose 80 MG; Start 07/07/16 at 21:00 Bisacodyl (Dulcolax) 10 mg DAILY PRN PO CONSTIPATION; Start 07/07/16 at 12:00 Cinacalcet (Sensipar) 30 mg DAILY PO Last administered on 07/12/16 09:10; Admin Dose 30 MG; Start 07/08/16 at 09:00 Citalopram Hydrobromide (Celexa) 10 mg DAILY PO Last administered on 07/12/16 09:10; Admin Dose 10 MG; Start 07/08/16 at 09:00 Clopidogrel Bisulfate (plaVIX) 75 mg DAILY PO Last administered on 07/12/16 09: 10; Admin Dose 75 MG; Start 07/08/16 at 09:00 Diphenhydramine HCl (Benadryl) 25 mg Q6H PRN PO ITCHING Last administered on 11:08; Admin Dose 25 MG; Start 07/07/16 at 12:00 Divalproex Sodium (Depakote) 750 mg Q8 PO Last administered on 07/12/16 14:24; Admin Dose 750 MG; Start 07/07/16 at 14:00 Docusate Sodium (Colace) 100 mg BID PO Last administered on 07/12/16 09:10; Admin Dose 100 MG; Start 07/07/16 at 21:00 Guaifenesin (Robitussin Liquid Cup) 300 mg Q4H PRN PO COUGH; Start 07/07/16 at 12:00 Hypromellose (Isopto Tears) 2 drop Q4H PRN BOTH EYES DRY EYES; Start 07/07/16 at 12:00 Isosorbide Mononitrate (Imdur) 60 mg DAILY PO Last administered on 07/09/16 08: 21; Admin Dose 60 MG; Start 07/08/16 at 09:00 Lactulose (Enulose) 20 gm BID PRN PO CONSTIPATION; Start 07/07/16 at 12:00 Levetiracetam (Keppra) 1,000 mg BID PO Last administered on 07/12/16 09:10; Admin Dose 1,000 MG; Start 07/07/16 at 21:00 Losartan Potassium (Cozaar) 100 mg DAILY PO Last administered on 07/09/16 08:22 ; Admin Dose 100 MG; Start 07/08/16 at 09:00 Montelukast Sodium (Singulair) 10 mg QHS PO Last administered on 07/11/16 20:37 ; Admin Dose 10 MG; Start 07/07/16 at 21:00 Multivit/Ca Carb/ B Cmplx/FA/Prenat ([place]) 1 tab DAILY PO Last administered on 07/12/16 09:10; Admin Dose 1 TAB; Start 07/08/16 at 09:00 Nitroglycerin (Nitroglycerin (Sl Tab) 0.4 Mg) 1 tab [id number] PRN SL CHEST PAIN ; Start 07/07/16 at 12:00 Pantoprazole (Protonix Tab) 40 mg DAILY@06 PO Last administered on 07/12/16 05: 14; Admin Dose 40 MG; Start 07/08/16 at 06:00 Phenytoin (Dilantin) 300 mg HS PO Last administered on 07/11/16 20:37; Admin Dose 300 MG; Start 07/07/16 at 21:00 Polyethylene Glycol (Miralax) 17 gm BID PO Last administered on 07/12/16 09:12 ; Admin Dose 17 GM; Start 07/07/16 at 21:00 Salmeterol Xinafoate/ Fluticasone (Advair 500/50 Diskus) 1 inh BID INH Last administered on 07/12/16 09:05; Admin Dose 1 INH; Start 07/07/16 at 21:00 Trazodone HCl (Desyrel) 50 mg QHS PO Last administered on 07/11/16 20:37; Admin Dose 50 MG; Start 07/07/16 at 21:00 Carvedilol (Coreg) 6.25 mg BID PO Last administered on 07/11/16 20:38; Admin Dose 6.25 MG; Start 07/08/16 at 21:00 Hydralazine HCl (Apresoline) 10 mg Q4H PRN IV SBP>160; Start 07/08/16 at 18:00 Ferrous Sulfate 325 mg 325 mg BID PO Last administered on 07/12/16 09:10; Admin Dose 325 MG; Start 07/09/16 at 21:00 Ceftriaxone Sodium 50 ml @ 100 mls/hr Q24H IVPB Last administered on 07/12/16 17:52; Admin Dose 100 MLS/HR; Start 07/12/16 at 17:30 Azithromycin (Zithromax 500mg/ NS (Pmx)) 250 ml @ 250 mls/hr Q24H IVPB Last administered on 07/12/16 17:53; Admin Dose 250 MLS/HR; Start 07/12/16 at 18:00 WHITNEY SCHMIDT MD Jul 12, 2016 19:50
[2016-07-12] MEDS: PHENYTOIN 100 MG CAP PO SCH (20:41)
[2016-07-12] MEDS: MONTELUKAST 10 MG TAB PO SCH (20:42)
[2016-07-12] MEDS: ATORVASTATIN 80 MG TAB PO SCH (20:42)
[2016-07-12] MEDS: traZODone 50 MG TAB PO SCH (20:42)
[2016-07-12] MEDS: ALBUTEROL/IPRATROPIUM (NEB) 3 ML AMP HHN SCH (20:58)
[2016-07-12] MEDS: EPOETIN 4000 UNITS/1 ML INJ (ESRD) SC SCH (22:46)
[2016-07-13] VITALS (18 sets, daily range): BP systolic 104–140; BP diastolic 54–68; PULSE 70–100; RESP 16–19
[2016-07-13] MEDS: DIVALPROEX (EC) 250 MG TAB PO SCH ×3 (05:20→22:45)
[2016-07-13] MEDS: PANTOPRAZOLE (EC) 40 MG TAB PO SCH (05:21)
[2016-07-13] MEDS: ALBUTEROL/IPRATROPIUM (NEB) 3 ML AMP HHN SCH ×3 (07:58→20:00)
[2016-07-13 08:24] LABS: ADD SCAN DIFF NO
[2016-07-13 08:29] LABS: ABNORMAL IP MESSAGE 1; HEMATOCRIT 24.1 % (42.0-52.0); HEMOGLOBIN 7.5 g/dl (14.0-18.0); MEAN CORPUSCULAR HEMOGLOBIN 30.6 pg (29.0-33.0); MEAN CORPUSCULAR HGB CONC 31.1 g/dl (32.0-37.0); MEAN CORPUSCULAR VOLUME 98.4 fl (82.0-101.0); MEAN PLATELET VOLUME 9.6 fl (7.4-10.4); PLATELET COUNT 86 10^3/UL (140-415); RED BLOOD COUNT 2.45 10^6/ul (4.70-6.10); RED CELL DISTRIBUTION WIDTH 16.4 % (11.5-14.5); WHITE BLOOD COUNT 4.5 10^3/ul (4.8-10.8)
[2016-07-13] MEDS: morphine 2 MG INJ IV PRN ×3 (08:37→22:48)
[2016-07-13] MEDS: SEVELAMER CARBONATE 0.8 GM PKT PO SCH ×3 (08:37→18:18)
[2016-07-13] MEDS: MULTIVIT/CA CARB/B CMPLX/FA TAB PO SCH (08:38)
[2016-07-13] MEDS: POLYETHYLENE GLYCOL 17 GM PACKET PO SCH ×2 (08:38→20:44)
[2016-07-13] MEDS: CINACALCET 30 MG TAB PO SCH (08:38)
[2016-07-13] MEDS: CITALOPRAM 20 MG TAB PO SCH (08:39)
[2016-07-13] MEDS: DOCUSATE SODIUM 100 MG CAP PO SCH ×2 (08:39→20:44)
[2016-07-13] MEDS: FERROUS SULFATE (EC) 325 MG TAB PO SCH ×2 (08:39→20:44)
[2016-07-13] MEDS: LEVETIRACETAM 500 MG TAB PO SCH ×2 (08:39→20:45)
[2016-07-13] MEDS: CLOPIDOGREL 75 MG TAB PO SCH (08:39)
[2016-07-13] MEDS: SALMETEROL/FLUTICASONE 500/50 INHA INH SCH ×2 (08:40→20:44)
[2016-07-13 08:47] LABS: CALCIUM 8.6 mg/dl (8.4-10.2); CREATININE 6.83 mg/dl (0.61-1.24); POTASSIUM 4.4 mmol/L (3.5-5.1)
[2016-07-13 08:48] LABS: PHOSPHORUS 6.3 mg/dl (2.5-4.9)
[2016-07-13] MEDS: LOSARTAN 50 MG TAB PO SCH (09:00)
[2016-07-13] MEDS: ISOSORBIDE MONONITRATE(SR)60 MG TAB PO SCH (09:00)
[2016-07-13] MEDS ORDERED: SOD CHLORIDE 0.9% 250 ML IV* ONE (11:16)
--- NOTE | 2016-07-13 11:22 | PN ---
Date/Time of Note Date/Time of Note DATE: 07/13/16 TIME: 11:20 Assessment/Plan VTE Prophylaxis VTE Prophylaxis Intervention: other Lines/Catheters IV Catheter Type (from [facility]): AV Shunt Urinary Cath still in place: No Assessment/Plan Assessment/Plan 1. End-stage renal disease. The patient has been on daily dialysis for solute clearance and volume removal. Plan for dialysis again today and tomorrow. will transfuse with hd 2. Acute hypoxic respiratory failure secondary to congestive heart failure. The patient clinically improving. Continue ultrafiltration dialysis. Continue medical management. 3. Anemia of chronic disease. will transfuse as the patient is symptomatic 4. Hypertension, controlled. Continue current blood pressure regimen and monitor for hypertension. 5. Coronary artery disease. Continue medical management. 6. Diabetes. Continue Accu-Cheks and sliding scale. 7. Seizure disorder. Continue current medical management. 8. Elevated troponins, [id number] myocardial infarction type 2. Continue medical management and follow up with Cardiology. 9. Mineral bone disorder. Continue to monitor calcium and phosphorus levels. 10. Dyslipidemia. Continue statin therapy. Subjective 24 Hr Interval Summary Free Text/Dictation The patient is stable, no acute events overnight. No fevers, chills, nausea, vomiting. Had HD yesterday without complication. co fatigue after. poc reviewed with dr. hoskins. has dyspnea no chest pain, rash, hematochezia, melena, fever I reviewed his labs, imaging studies, previous orders and meds OBJECTIVE: HEENT: Head is normocephalic. NECK: Supple. HEART: Regular rate. LUNGS: Show diminished breath sounds at base. ABDOMEN: Soft, nontender to palpation. No rebound or guarding. EXTREMITIES: Negative for clubbing, cyanosis. Trace edema. DERMATOLOGIC: No rashes. MUSCULOSKELETAL: No joint effusions. NEUROLOGIC: no focal weakness Exam/Review of Systems Vital Signs Vitals Vital Signs Date Time Temp Pulse Resp B/P Pulse Ox O2 Delivery O2 Flow Rate FiO2 07/13/16 11:18 97.9 74 16 104/59 97 07/13/16 00:52 2.0 07/12/16 20:58 Nasal Cannula 96 Intake and Output 07/12/16 07/12/16 07/13/16 15:00 23:00 07:00 Intake Total 500 ml 500 ml 480 ml Output Total 2500 ml 300 ml Balance -2000 ml 200 ml 480 ml Results Result Diagram: 07/13/16 0715 07/13/16 0715 Results 24 hrs Laboratory Tests Test 07/13/16 07:15 White Blood Count 4.5 L Red Blood Count 2.45 L Hemoglobin 7.5 L Hematocrit 24.1 L Mean Corpuscular Volume 98.4 Mean Corpuscular Hemoglobin 30.6 Mean Corpuscular Hemoglobin Concent 31.1 L Red Cell Distribution Width 16.4 H Platelet Count 86 L Mean Platelet Volume 9.6 Sodium Level 136 Potassium Level 4.4 Chloride Level 98 Carbon Dioxide Level 28 Anion Gap 14 Blood Urea Nitrogen 51 H Creatinine 6.83 H Glucose Level 74 Calcium Level 8.6 Phosphorus Level 6.3 H Magnesium Level 2.0 Medications Medications Current Medications Ondansetron HCl (Zofran Inj) 4 mg Q6H PRN IV NAUSEA AND/OR VOMITING Last administered on 07/12/16 18:51; Admin Dose 4 MG; Start 07/07/16 at 12:00 Acetaminophen (Tylenol Tab) 650 mg Q6H PRN PO PAIN LEVEL 1-3 OR FEVER Last administered on 07/10/16 13:22; Admin Dose 650 MG; Start 07/07/16 at 12:00 Acetaminophen/ Hydrocodone Bitart ([place] (5/325)) 1 tab Q6H PRN PO MODERATE PAIN LEVEL 4-6 Last administered on 07/11/16 08:34; Admin Dose 1 TAB; Start 07/07 at 12:00 Morphine Sulfate (morphine) 2 mg Q4H PRN IV SEVERE PAIN LEVEL 7-10 Last administered on 07/13/16 08:37; Admin Dose 2 MG; Start 07/07/16 at 12:00 Docusate Sodium (Colace) 100 mg Q12H PRN PO CONSTIPATION; Start 07/07/16 at 12: 00 Atorvastatin Calcium (Lipitor) 80 mg QHS PO Last administered on 07/12/16 20:42 ; Admin Dose 80 MG; Start 07/07/16 at 21:00 Bisacodyl (Dulcolax) 10 mg DAILY PRN PO CONSTIPATION; Start 07/07/16 at 12:00 Cinacalcet (Sensipar) 30 mg DAILY PO Last administered on 07/13/16 08:38; Admin Dose 30 MG; Start 07/08/16 at 09:00 Citalopram Hydrobromide (Celexa) 10 mg DAILY PO Last administered on 07/13/16 08:39; Admin Dose 10 MG; Start 07/08/16 at 09:00 Clopidogrel Bisulfate (plaVIX) 75 mg DAILY PO Last administered on 07/13/16 08: 39; Admin Dose 75 MG; Start 07/08/16 at 09:00 Diphenhydramine HCl (Benadryl) 25 mg Q6H PRN PO ITCHING Last administered on 11:08; Admin Dose 25 MG; Start 07/07/16 at 12:00 Divalproex Sodium (Depakote) 750 mg Q8 PO Last administered on 07/13/16 05:20; Admin Dose 750 MG; Start 07/07/16 at 14:00 Docusate Sodium (Colace) 100 mg BID PO Last administered on 07/13/16 08:39; Admin Dose 100 MG; Start 07/07/16 at 21:00 Guaifenesin (Robitussin Liquid Cup) 300 mg Q4H PRN PO COUGH; Start 07/07/16 at 12:00 Hypromellose (Isopto Tears) 2 drop Q4H PRN BOTH EYES DRY EYES; Start 07/07/16 at 12:00 Isosorbide Mononitrate (Imdur) 60 mg DAILY PO Last administered on 07/09/16 08: 21; Admin Dose 60 MG; Start 07/08/16 at 09:00 Lactulose (Enulose) 20 gm BID PRN PO CONSTIPATION; Start 07/07/16 at 12:00 Levetiracetam (Keppra) 1,000 mg BID PO Last administered on 07/13/16 08:39; Admin Dose 1,000 MG; Start 07/07/16 at 21:00 Losartan Potassium (Cozaar) 100 mg DAILY PO Last administered on 07/09/16 08:22 ; Admin Dose 100 MG; Start 07/08/16 at 09:00 Montelukast Sodium (Singulair) 10 mg QHS PO Last administered on 07/12/16 20:42 ; Admin Dose 10 MG; Start 07/07/16 at 21:00 Multivit/Ca Carb/ B Cmplx/FA/Prenat ([place]-Paula) 1 tab DAILY PO Last administered on 07/13/16 08:38; Admin Dose 1 TAB; Start 07/08/16 at 09:00 Nitroglycerin (Nitroglycerin (Sl Tab) 0.4 Mg) 1 tab [id number] PRN SL CHEST PAIN ; Start 07/07/16 at 12:00 Pantoprazole (Protonix Tab) 40 mg DAILY@06 PO Last administered on 07/13/16 05: 21; Admin Dose 40 MG; Start 07/08/16 at 06:00 Phenytoin (Dilantin) 300 mg HS PO Last administered on 07/12/16 20:41; Admin Dose 300 MG; Start 07/07/16 at 21:00 Polyethylene Glycol (Miralax) 17 gm BID PO Last administered on 07/13/16 08:38 ; Admin Dose 17 GM; Start 07/07/16 at 21:00 Salmeterol Xinafoate/ Fluticasone (Advair 500/50 Diskus) 1 inh BID INH Last administered on 07/13/16 08:40; Admin Dose 1 INH; Start 07/07/16 at 21:00 Trazodone HCl (Desyrel) 50 mg QHS PO Last administered on 07/12/16 20:42; Admin Dose 50 MG; Start 07/07/16 at 21:00 Carvedilol (Coreg) 6.25 mg BID PO Last administered on 07/12/16 20:42; Admin Dose 6.25 MG; Start 07/08/16 at 21:00 Hydralazine HCl (Apresoline) 10 mg Q4H PRN IV SBP>160; Start 07/08/16 at 18:00 Ferrous Sulfate 325 mg 325 mg BID PO Last administered on 07/13/16 08:39; Admin Dose 325 MG; Start 07/09/16 at 21:00 Ceftriaxone Sodium 50 ml @ 100 mls/hr Q24H IVPB Last administered on 07/12/16 17:52; Admin Dose 100 MLS/HR; Start 07/12/16 at 17:30 Azithromycin (Zithromax 500mg/ NS (Pmx)) 250 ml @ 250 mls/hr Q24H IVPB Last administered on 07/12/16 17:53; Admin Dose 250 MLS/HR; Start 07/12/16 at 18:00 SUMMER HURT DO Jul 13, 2016 11:22
[2016-07-13 12:06] LABS: BURR CELLS 1+; MONOCYTE # 0.1 10^3/ul (0.3-0.9); NEUTROPHIL # 1.4 10^3/ul (1.6-7.5)
[2016-07-13 12:07] LABS: PLATELET ESTIMATE PLT APPEAR DECREASED
--- NOTE | 2016-07-13 14:05 | PN ---
Date/Time of Note Date/Time of Note DATE: 07/13/16 TIME: 14:03 Assessment/Plan VTE Prophylaxis VTE Prophylaxis Intervention: SCD's Lines/Catheters [facility] Urinary Cath still in place: No Assessment/Plan Chief Complaint/Hosp Course 1. Acute on chronic diastolic heart failure. Continue hemodialysis as per nephrology. Continue supplemental oxygen. 2. COPD. Continue inhaled bronchodilators. 3. Accelerated hypertension. Continue antihypertensives. Will adjust antihypertensives to obtain optimum blood pressure control. 4. Non-ST elevation myocardial infarction. Type II event in the setting of elevated blood pressure and worsening kidney function. Troponins now normalized. 5. Coronary artery disease. Status post coronary artery stenting in 2014. Currently on antiplatelet therapy. Dual antiplatelet therapy has been discontinued because of underlying anemia and thrombocytopenia. 6. Normocytic normochromic anemia. Iron panel showing iron deficiency. Continue the patient on iron supplements. Transfuse as needed. 7. Seizure disorder. The patient will be continued on anticonvulsants. 8. Dyslipidemia. Continue statins. 9. Hyperkalemia. Resolved. 10. End-stage renal disease, on hemodialysis. Hemodialysis as per nephrology. 11. Pancytopenia. Etiology unclear. Monitor blood counts closely. Transfuse blood components as needed. 12. Fluid, electrolytes and nutrition. Renal diet. 13. Deep vein thrombosis prophylaxis. Bilateral sequential compression devices. 14. Gastroesophageal reflux disease prophylaxis with proton pump inhibitors. PLAN: Continue hemodialysis as per nephrology. Optimize cardiac medications. Optimize blood pressure control. Monitor H and H closely. Transfuse PRBCs with HD. The case was discussed with Dr. Carmona. Problems: Subjective 24 Hr Interval Summary Free Text/Dictation Vital signs stable. Exam/Review of Systems Vital Signs Vitals Vital Signs Date Time Temp Pulse Resp B/P Pulse Ox O2 Delivery O2 Flow Rate FiO2 07/13/16 12:29 71 07/13/16 11:18 97.9 16 104/59 97 07/13/16 00:52 2.0 07/12/16 20:58 Nasal Cannula 96 Intake and Output 07/12/16 07/12/16 07/13/16 15:00 23:00 07:00 Intake Total 500 ml 500 ml 480 ml Output Total 2500 ml 300 ml Balance -2000 ml 200 ml 480 ml Exam GENERAL: This is an obese -[place] male lying in bed in no apparent distress. HEENT: Head normocephalic and atraumatic. Eyes: Anicteric sclerae. Conjunctivae clear. ENT: Nasal septum is midline. Oral mucosa is moist. NECK: Supple. No JVD noticed. RESPIRATORY: Bilaterally diminished breath sounds. A few fine rales heard at the bases. No use of accessory muscles of respiration. CARDIAC: Regular rate and rhythm. S1 and S2 heard. ABDOMEN: Soft, nontender and nondistended. Bowel sounds positive in all 4 quadrants. GENITOURINARY: Deferred. EXTREMITIES: No cyanosis, no clubbing, no edema. Peripheral pulses are diminished. S/P right foot transmetatarsal amputation. NEUROLOGIC: The patient is awake, alert, and oriented. Results Result Diagram: 07/13/1615 07/13/1615 Results 24 hrs Laboratory Tests Test 07/13/16 07:15 White Blood Count 4.5 L Red Blood Count 2.45 L Hemoglobin 7.5 L Hematocrit 24.1 L Mean Corpuscular Volume 98.4 Mean Corpuscular Hemoglobin 30.6 Mean Corpuscular Hemoglobin Concent 31.1 L Red Cell Distribution Width 16.4 H Platelet Count 86 L Mean Platelet Volume 9.6 Neutrophils % 31.0 L Lymphocytes % 22.0 Monocytes % 3.0 Eosinophils % 44.0 H Neutrophils # 1.4 L Lymphocytes # 1.0 Monocytes # 0.1 L Eosinophils # 2.0 H Differential Comment MANUAL DIFF Platelet Estimate PLT APPEAR DECREASED Sodium Level 136 Potassium Level 4.4 Chloride Level 98 Carbon Dioxide Level 28 Anion Gap 14 Blood Urea Nitrogen 51 H Creatinine 6.83 H Glucose Level 74 Calcium Level 8.6 Phosphorus Level 6.3 H Magnesium Level 2.0 Medications Medications Current Medications Ondansetron HCl (Zofran Inj) 4 mg Q6H PRN IV NAUSEA AND/OR VOMITING Last administered on 07/12/16 18:51; Admin Dose 4 MG; Start 07/07/16 at 12:00 Acetaminophen (Tylenol Tab) 650 mg Q6H PRN PO PAIN LEVEL 1-3 OR FEVER Last administered on 07/10/16 13:22; Admin Dose 650 MG; Start 07/07/16 at 12:00 Acetaminophen/ Hydrocodone Bitart ([place] (5/325)) 1 tab Q6H PRN PO MODERATE PAIN LEVEL 4-6 Last administered on 07/11/16 08:34; Admin Dose 1 TAB; Start 07/07 at 12:00 Morphine Sulfate (morphine) 2 mg Q4H PRN IV SEVERE PAIN LEVEL 7-10 Last administered on 07/13/16 08:37; Admin Dose 2 MG; Start 07/07/16 at 12:00 Docusate Sodium (Colace) 100 mg Q12H PRN PO CONSTIPATION; Start 07/07/16 at 12: 00 Atorvastatin Calcium (Lipitor) 80 mg QHS PO Last administered on 07/12/16 20:42 ; Admin Dose 80 MG; Start 07/07/16 at 21:00 Bisacodyl (Dulcolax) 10 mg DAILY PRN PO CONSTIPATION; Start 07/07/16 at 12:00 Cinacalcet (Sensipar) 30 mg DAILY PO Last administered on 07/13/16 08:38; Admin Dose 30 MG; Start 07/08/16 at 09:00 Citalopram Hydrobromide (Celexa) 10 mg DAILY PO Last administered on 07/13/16 08:39; Admin Dose 10 MG; Start 07/08/16 at 09:00 Clopidogrel Bisulfate (plaVIX) 75 mg DAILY PO Last administered on 07/13/16 08: 39; Admin Dose 75 MG; Start 07/08/16 at 09:00 Diphenhydramine HCl (Benadryl) 25 mg Q6H PRN PO ITCHING Last administered on 11:08; Admin Dose 25 MG; Start 07/07/16 at 12:00 Divalproex Sodium (Depakote) 750 mg Q8 PO Last administered on 07/13/16 05:20; Admin Dose 750 MG; Start 07/07/16 at 14:00 Docusate Sodium (Colace) 100 mg BID PO Last administered on 07/13/16 08:39; Admin Dose 100 MG; Start 07/07/16 at 21:00 Guaifenesin (Robitussin Liquid Cup) 300 mg Q4H PRN PO COUGH; Start 07/07/16 at 12:00 Hypromellose (Isopto Tears) 2 drop Q4H PRN BOTH EYES DRY EYES; Start 07/07/16 at 12:00 Isosorbide Mononitrate (Imdur) 60 mg DAILY PO Last administered on 07/09/16 08: 21; Admin Dose 60 MG; Start 07/08/16 at 09:00 Lactulose (Enulose) 20 gm BID PRN PO CONSTIPATION; Start 07/07/16 at 12:00 Levetiracetam (Keppra) 1,000 mg BID PO Last administered on 07/13/16 08:39; Admin Dose 1,000 MG; Start 07/07/16 at 21:00 Losartan Potassium (Cozaar) 100 mg DAILY PO Last administered on 07/09/16 08:22 ; Admin Dose 100 MG; Start 07/08/16 at 09:00 Montelukast Sodium (Singulair) 10 mg QHS PO Last administered on 07/12/16 20:42 ; Admin Dose 10 MG; Start 07/07/16 at 21:00 Multivit/Ca Carb/ B Cmplx/FA/Prenat ([place]-Paula) 1 tab DAILY PO Last administered on 07/13/16 08:38; Admin Dose 1 TAB; Start 07/08/16 at 09:00 Nitroglycerin (Nitroglycerin (Sl Tab) 0.4 Mg) 1 tab [id number] PRN SL CHEST PAIN ; Start 07/07/16 at 12:00 Pantoprazole (Protonix Tab) 40 mg DAILY@06 PO Last administered on 07/13/16 05: 21; Admin Dose 40 MG; Start 07/08/16 at 06:00 Phenytoin (Dilantin) 300 mg HS PO Last administered on 07/12/16 20:41; Admin Dose 300 MG; Start 07/07/16 at 21:00 Polyethylene Glycol (Miralax) 17 gm BID PO Last administered on 07/13/16 08:38 ; Admin Dose 17 GM; Start 07/07/16 at 21:00 Salmeterol Xinafoate/ Fluticasone (Advair 500/50 Diskus) 1 inh BID INH Last administered on 07/13/16 08:40; Admin Dose 1 INH; Start 07/07/16 at 21:00 Trazodone HCl (Desyrel) 50 mg QHS PO Last administered on 07/12/16 20:42; Admin Dose 50 MG; Start 07/07/16 at 21:00 Carvedilol (Coreg) 6.25 mg BID PO Last administered on 07/12/16 20:42; Admin Dose 6.25 MG; Start 07/08/16 at 21:00 Hydralazine HCl (Apresoline) 10 mg Q4H PRN IV SBP>160; Start 07/08/16 at 18:00 Ferrous Sulfate 325 mg 325 mg BID PO Last administered on 07/13/16 08:39; Admin Dose 325 MG; Start 07/09/16 at 21:00 Ceftriaxone Sodium 50 ml @ 100 mls/hr Q24H IVPB Last administered on 07/12/16 17:52; Admin Dose 100 MLS/HR; Start 07/12/16 at 17:30 Azithromycin (Zithromax 500mg/ NS (Pmx)) 250 ml @ 250 mls/hr Q24H IVPB Last administered on 07/12/16 17:53; Admin Dose 250 MLS/HR; Start 07/12/16 at 18:00 JEAN-PAUL SALDANA NP Jul 13, 2016 14:05
--- NOTE | 2016-07-13 15:35 | CONS ---
Date/Time of Note Date/Time of Note DATE: 07/13/16 TIME: 15:33 Assessment/Plan Assessment/Plan Chief Complaint/Hosp Course Assessment: Acute on chronic diastolic heart failure Accelerated hypertension - blood pressures improved NSTEMI - likely type 2 in setting of elevated blood pressure and renal failure Coronary artery disease - myocardial infarction and coronary stenting in 2014 Dyslipidemia End-stage renal disease - on hemodialysis Seizure disorder History of stroke Anemia - planned for pRBC transfusion Thrombocytopenia Recommendations: -echocardiogram showed normal LVEF 60-65%, moderate LVH, mild diastolic dysfunction -continue clopidogrel 75mg daily -aspirin was discontinued - off of dual-antiplatelet therapy as patient is greater than one year from coronary stenting and has thrombocytopenia -continue carvedilol 6.25mg BID, up titrate as needed -continue losartan 100mg daily -continue atorvastatin -volume management via hemodialysis per nephrology Problems: Consultation Date/Type/Reason Admit Date/Time Jul 07, 2016 at 11:31 Type of Consultation: Cardiology 24 HR Interval Summary Free Text/Dictation No acute events. Detailed Summary Additional Comments 14 point review of systems without changes. Exam/Review of Systems Vital Signs Vitals Vital Signs Date Time Temp Pulse Resp B/P Pulse Ox O2 Delivery O2 Flow Rate FiO2 07/13/16 15:28 97.9 70 18 140/60 98 07/13/16 14:32 Nasal Cannula 2.0 95 Intake and Output 07/12/16 07/12/16 07/13/16 15:00 23:00 07:00 Intake Total 500 ml 500 ml 480 ml Output Total 2500 ml 300 ml Balance -2000 ml 200 ml 480 ml Exam Constitutional: alert, well developed Psych: nl mood/affect, no complaints Head: atraumatic, normocephalic Eyes: nl conjunctiva, nl lids ENMT: nl external ears & nose, nl nasal mucosa & septum Neck: non-tender, supple Respiratory: crackles/rales, diminished breath sounds, wheezing Cardiovascular: regular rate and rhythm Gastrointestinal: non-tender, soft Musculoskeletal: nl extremities to inspection Extremities: No clubbing, No cyanosis Results Result Diagram: 07/13/16 0715 07/13/16 0715 Results 24 hrs Laboratory Tests Test 07/13/16 07:15 White Blood Count 4.5 L Red Blood Count 2.45 L Hemoglobin 7.5 L Hematocrit 24.1 L Mean Corpuscular Volume 98.4 Mean Corpuscular Hemoglobin 30.6 Mean Corpuscular Hemoglobin Concent 31.1 L Red Cell Distribution Width 16.4 H Platelet Count 86 L Mean Platelet Volume 9.6 Neutrophils % 31.0 L Lymphocytes % 22.0 Monocytes % 3.0 Eosinophils % 44.0 H Neutrophils # 1.4 L Lymphocytes # 1.0 Monocytes # 0.1 L Eosinophils # 2.0 H Differential Comment MANUAL DIFF Platelet Estimate PLT APPEAR DECREASED Sodium Level 136 Potassium Level 4.4 Chloride Level 98 Carbon Dioxide Level 28 Anion Gap 14 Blood Urea Nitrogen 51 H Creatinine 6.83 H Glucose Level 74 Calcium Level 8.6 Phosphorus Level 6.3 H Magnesium Level 2.0 Medications Medications Current Medications Ondansetron HCl (Zofran Inj) 4 mg Q6H PRN IV NAUSEA AND/OR VOMITING Last administered on 07/12/16 18:51; Admin Dose 4 MG; Start 07/07/16 at 12:00 Acetaminophen (Tylenol Tab) 650 mg Q6H PRN PO PAIN LEVEL 1-3 OR FEVER Last administered on 07/10/16 13:22; Admin Dose 650 MG; Start 07/07/16 at 12:00 Acetaminophen/ Hydrocodone Bitart ([place] (5/325)) 1 tab Q6H PRN PO MODERATE PAIN LEVEL 4-6 Last administered on 07/11/16 08:34; Admin Dose 1 TAB; Start 07/07 at 12:00 Morphine Sulfate (morphine) 2 mg Q4H PRN IV SEVERE PAIN LEVEL 7-10 Last administered on 07/13/16 08:37; Admin Dose 2 MG; Start 07/07/16 at 12:00 Docusate Sodium (Colace) 100 mg Q12H PRN PO CONSTIPATION; Start 07/07/16 at 12: 00 Atorvastatin Calcium (Lipitor) 80 mg QHS PO Last administered on 07/12/16 20:42 ; Admin Dose 80 MG; Start 07/07/16 at 21:00 Bisacodyl (Dulcolax) 10 mg DAILY PRN PO CONSTIPATION; Start 07/07/16 at 12:00 Cinacalcet (Sensipar) 30 mg DAILY PO Last administered on 07/13/16 08:38; Admin Dose 30 MG; Start 07/08/16 at 09:00 Citalopram Hydrobromide (Celexa) 10 mg DAILY PO Last administered on 07/13/16 08:39; Admin Dose 10 MG; Start 07/08/16 at 09:00 Clopidogrel Bisulfate (plaVIX) 75 mg DAILY PO Last administered on 07/13/16 08: 39; Admin Dose 75 MG; Start 07/08/16 at 09:00 Diphenhydramine HCl (Benadryl) 25 mg Q6H PRN PO ITCHING Last administered on 11:08; Admin Dose 25 MG; Start 07/07/16 at 12:00 Divalproex Sodium (Depakote) 750 mg Q8 PO Last administered on 07/13/16 05:20; Admin Dose 750 MG; Start 07/07/16 at 14:00 Docusate Sodium (Colace) 100 mg BID PO Last administered on 07/13/16 08:39; Admin Dose 100 MG; Start 07/07/16 at 21:00 Guaifenesin (Robitussin Liquid Cup) 300 mg Q4H PRN PO COUGH; Start 07/07/16 at 12:00 Hypromellose (Isopto Tears) 2 drop Q4H PRN BOTH EYES DRY EYES; Start 07/07/16 at 12:00 Isosorbide Mononitrate (Imdur) 60 mg DAILY PO Last administered on 07/09/16 08: 21; Admin Dose 60 MG; Start 07/08/16 at 09:00 Lactulose (Enulose) 20 gm BID PRN PO CONSTIPATION; Start 07/07/16 at 12:00 Levetiracetam (Keppra) 1,000 mg BID PO Last administered on 07/13/16 08:39; Admin Dose 1,000 MG; Start 07/07/16 at 21:00 Losartan Potassium (Cozaar) 100 mg DAILY PO Last administered on 07/09/16 08:22 ; Admin Dose 100 MG; Start 07/08/16 at 09:00 Montelukast Sodium (Singulair) 10 mg QHS PO Last administered on 07/12/16 20:42 ; Admin Dose 10 MG; Start 07/07/16 at 21:00 Multivit/Ca Carb/ B Cmplx/FA/Prenat ([place]-Pa[place]) 1 tab DAILY PO Last administered on 07/13/16 08:38; Admin Dose 1 TAB; Start 07/08/16 at 09:00 Nitroglycerin (Nitroglycerin (Sl Tab) 0.4 Mg) 1 tab [id number] PRN SL CHEST PAIN ; Start 07/07/16 at 12:00 Pantoprazole (Protonix Tab) 40 mg DAILY@06 PO Last administered on 07/13/16 05: 21; Admin Dose 40 MG; Start 07/08/16 at 06:00 Phenytoin (Dilantin) 300 mg HS PO Last administered on 07/12/16 20:41; Admin Dose 300 MG; Start 07/07/16 at 21:00 Polyethylene Glycol (Miralax) 17 gm BID PO Last administered on 07/13/16 08:38 ; Admin Dose 17 GM; Start 07/07/16 at 21:00 Salmeterol Xinafoate/ Fluticasone (Advair 500/50 Diskus) 1 inh BID INH Last administered on 07/13/16 08:40; Admin Dose 1 INH; Start 07/07/16 at 21:00 Trazodone HCl (Desyrel) 50 mg QHS PO Last administered on 07/12/16 20:42; Admin Dose 50 MG; Start 07/07/16 at 21:00 Carvedilol (Coreg) 6.25 mg BID PO Last administered on 07/12/16 20:42; Admin Dose 6.25 MG; Start 07/08/16 at 21:00 Hydralazine HCl (Apresoline) 10 mg Q4H PRN IV SBP>160; Start 07/08/16 at 18:00 Ferrous Sulfate 325 mg 325 mg BID PO Last administered on 07/13/16 08:39; Admin Dose 325 MG; Start 07/09/16 at 21:00 Ceftriaxone Sodium 50 ml @ 100 mls/hr Q24H IVPB Last administered on 07/12/16 17:52; Admin Dose 100 MLS/HR; Start 07/12/16 at 17:30 Azithromycin (Zithromax 500mg/ NS (Pmx)) 250 ml @ 250 mls/hr Q24H IVPB Last administered on 07/12/16 17:53; Admin Dose 250 MLS/HR; Start 07/12/16 at 18:00 WHITNEY SCHMIDT MD Jul 13, 2016 15:35
[2016-07-13] MEDS: CEFTRIAXONE 1 GM/50 ML (PMX) 50 ML IVPB SCH (20:18)
[2016-07-13] MEDS: ATORVASTATIN 80 MG TAB PO SCH (20:44)
[2016-07-13] MEDS: MONTELUKAST 10 MG TAB PO SCH (20:44)
[2016-07-13] MEDS: traZODone 50 MG TAB PO SCH (20:45)
[2016-07-13] MEDS: AZITHROMYCIN 500MG/NS (PMX) 250 ML IVPB SCH (21:10)
[2016-07-13] MEDS: PHENYTOIN 100 MG CAP PO SCH (21:22)
[2016-07-13] MEDS: EPOETIN 4000 UNITS/1 ML INJ (ESRD) SC SCH (22:46)
[2016-07-14] VITALS (21 sets, daily range): BP systolic 110–166; BP diastolic 56–78; PULSE 62–90; RESP 18–20
[2016-07-14] MEDS: ONDANSETRON 4 MG INJ IV PRN (00:20)
[2016-07-14] MEDS: morphine 2 MG INJ IV PRN ×4 (02:47→20:18)
[2016-07-14] MEDS ORDERED: AL HYDROX/MG HYDROX/SIMETH 30 ML CUP PO PRN (04:30)
[2016-07-14] MEDS: PANTOPRAZOLE (EC) 40 MG TAB PO SCH (05:50)
[2016-07-14] MEDS: DIVALPROEX (EC) 250 MG TAB PO SCH ×3 (05:51→22:52)
[2016-07-14 07:36] LABS: ADD SCAN DIFF NO
[2016-07-14 07:39] LABS: ABNORMAL IP MESSAGE 1; BASOPHILS % 0.7 % (0.0-2.0); EOSINOPHILS # 1.6 10^3/ul (0.0-0.5); EOSINOPHILS % 35.1 % (0.0-7.0); HEMATOCRIT 29.4 % (42.0-52.0); LYMPHOCYTES # 0.9 10^3/ul (0.8-2.9); LYMPHOCYTES % 20.3 % (15.0-51.0); MEAN CORPUSCULAR HEMOGLOBIN 29.7 pg (29.0-33.0); MEAN CORPUSCULAR HGB CONC 30.6 g/dl (32.0-37.0); MEAN PLATELET VOLUME 9.7 fl (7.4-10.4); MONOCYTE # 0.4 10^3/ul (0.3-0.9); MONOCYTES % 8.2 % (0.0-11.0); NEUTROPHIL # 1.6 10^3/ul (1.6-7.5); NEUTROPHILS % 35.5 % (39.0-77.0); PLATELET COUNT 86 10^3/UL (140-415); RED BLOOD COUNT 3.03 10^6/ul (4.70-6.10); RED CELL DISTRIBUTION WIDTH 16.8 % (11.5-14.5); WHITE BLOOD COUNT 4.5 10^3/ul (4.8-10.8)
[2016-07-14 07:56] LABS: MAGNESIUM 2.2 mg/dl (1.7-2.5); PHOSPHORUS 5.9 mg/dl (2.5-4.9)
[2016-07-14 08:01] LABS: CALCIUM 9.2 mg/dl (8.4-10.2); CREATININE 6.68 mg/dl (0.61-1.24); POTASSIUM 4.3 mmol/L (3.5-5.1)
[2016-07-14] MEDS: ALBUTEROL/IPRATROPIUM (NEB) 3 ML AMP HHN SCH ×3 (08:41→19:30)
[2016-07-14] MEDS: POLYETHYLENE GLYCOL 17 GM PACKET PO SCH ×2 (08:48→20:20)
[2016-07-14] MEDS: SALMETEROL/FLUTICASONE 500/50 INHA INH SCH ×2 (08:48→21:00)
[2016-07-14] MEDS: SEVELAMER CARBONATE 0.8 GM PKT PO SCH ×3 (08:49→17:29)
[2016-07-14] MEDS: DOCUSATE SODIUM 100 MG CAP PO SCH ×2 (08:49→20:18)
[2016-07-14] MEDS: CINACALCET 30 MG TAB PO SCH (08:49)
[2016-07-14] MEDS: CITALOPRAM 20 MG TAB PO SCH (08:50)
[2016-07-14] MEDS: CLOPIDOGREL 75 MG TAB PO SCH (08:50)
[2016-07-14] MEDS: FERROUS SULFATE (EC) 325 MG TAB PO SCH ×2 (08:50→20:18)
[2016-07-14] MEDS: LEVETIRACETAM 500 MG TAB PO SCH ×2 (08:50→20:19)
[2016-07-14] MEDS: MULTIVIT/CA CARB/B CMPLX/FA TAB PO SCH (08:50)
[2016-07-14] MEDS: LOSARTAN 50 MG TAB PO SCH (09:00)
[2016-07-14] MEDS: ISOSORBIDE MONONITRATE(SR)60 MG TAB PO SCH (09:00)
--- NOTE | 2016-07-14 09:22 | CONS ---
Date/Time of Note Date/Time of Note DATE: 07/14/16 TIME: 09:20 Consult Date/Type/Reason Admit Date/Time Jul 07, 2016 at 11:31 Type of Consultation: neph Subjective The patient is stable, no acute events overnight. No fevers, chills, nausea, vomiting. Had HD yesterday without complication. on hd today. co fatigue after. poc reviewed with dr. hoskins. has dyspnea no chest pain, rash, hematochezia, melena, fever I reviewed his labs, imaging studies, previous orders and meds OBJECTIVE: HEENT: Head is normocephalic. NECK: Supple. HEART: Regular rate. LUNGS: Show diminished breath sounds at base. ABDOMEN: Soft, nontender to palpation. No rebound or guarding. EXTREMITIES: Negative for clubbing, cyanosis. Trace edema. DERMATOLOGIC: No rashes. MUSCULOSKELETAL: No joint effusions. NEUROLOGIC: no focal weakness Objective Vital Signs Date Time Temp Pulse Resp B/P Pulse Ox O2 Delivery O2 Flow Rate FiO2 07/14/16 08:41 78 16 96 Nasal Cannula 2.0 07/14/16 07:36 98.5 111/61 07/13/16 14:32 95 Intake and Output 07/13/16 07/13/16 07/14/16 15:00 23:00 07:00 Intake Total 1300 ml 340 ml Output Total 3400 ml Balance -2100 ml 340 ml Results/Medications Result Diagram: 07/14/16 0715 07/14/16 0715 Results 24 hrs Laboratory Tests Test 07/14/16 07:15 White Blood Count 4.5 L Red Blood Count 3.03 #L Hemoglobin 9.0 L Hematocrit 29.4 #L Mean Corpuscular Volume 97.0 Mean Corpuscular Hemoglobin 29.7 Mean Corpuscular Hemoglobin Concent 30.6 L Red Cell Distribution Width 16.8 H Platelet Count 86 L Mean Platelet Volume 9.7 Neutrophils % 35.5 L Lymphocytes % 20.3 Monocytes % 8.2 Eosinophils % 35.1 H Basophils % 0.7 Nucleated Red Blood Cells % 0.0 Neutrophils # 1.6 Lymphocytes # 0.9 Monocytes # 0.4 Eosinophils # 1.6 H Basophils # 0.0 Nucleated Red Blood Cells # 0.0 Sodium Level 138 Potassium Level 4.3 Chloride Level 100 Carbon Dioxide Level 26 Anion Gap 16 Blood Urea Nitrogen 52 H Creatinine 6.68 H Glucose Level 71 Calcium Level 9.2 Phosphorus Level 5.9 H Magnesium Level 2.2 Medications Current Medications Ondansetron HCl (Zofran Inj) 4 mg Q6H PRN IV NAUSEA AND/OR VOMITING Last administered on 07/14/16 00:20; Admin Dose 4 MG; Start 07/07/16 at 12:00 Acetaminophen (Tylenol Tab) 650 mg Q6H PRN PO PAIN LEVEL 1-3 OR FEVER Last administered on 07/10/16 13:22; Admin Dose 650 MG; Start 07/07/16 at 12:00 Acetaminophen/ Hydrocodone Bitart ([place] (5/325)) 1 tab Q6H PRN PO MODERATE PAIN LEVEL 4-6 Last administered on 07/11/16 08:34; Admin Dose 1 TAB; Start 07/07 at 12:00 Morphine Sulfate (morphine) 2 mg Q4H PRN IV SEVERE PAIN LEVEL 7-10 Last administered on 07/14/16 06:39; Admin Dose 2 MG; Start 07/07/16 at 12:00 Docusate Sodium (Colace) 100 mg Q12H PRN PO CONSTIPATION; Start 07/07/16 at 12: 00 Atorvastatin Calcium (Lipitor) 80 mg QHS PO Last administered on 07/13/16 20:44 ; Admin Dose 80 MG; Start 07/07/16 at 21:00 Bisacodyl (Dulcolax) 10 mg DAILY PRN PO CONSTIPATION; Start 07/07/16 at 12:00 Cinacalcet (Sensipar) 30 mg DAILY PO Last administered on 07/14/16 08:49; Admin Dose 30 MG; Start 07/08/16 at 09:00 Citalopram Hydrobromide (Celexa) 10 mg DAILY PO Last administered on 07/14/16 08:50; Admin Dose 10 MG; Start 07/08/16 at 09:00 Clopidogrel Bisulfate (plaVIX) 75 mg DAILY PO Last administered on 07/14/16 08: 50; Admin Dose 75 MG; Start 07/08/16 at 09:00 Diphenhydramine HCl (Benadryl) 25 mg Q6H PRN PO ITCHING Last administered on 11:08; Admin Dose 25 MG; Start 07/07/16 at 12:00 Divalproex Sodium (Depakote) 750 mg Q8 PO Last administered on 07/14/16 05:51; Admin Dose 750 MG; Start 07/07/16 at 14:00 Docusate Sodium (Colace) 100 mg BID PO Last administered on 07/14/16 08:49; Admin Dose 100 MG; Start 07/07/16 at 21:00 Guaifenesin (Robitussin Liquid Cup) 300 mg Q4H PRN PO COUGH; Start 07/07/16 at 12:00 Hypromellose (Isopto Tears) 2 drop Q4H PRN BOTH EYES DRY EYES; Start 07/07/16 at 12:00 Isosorbide Mononitrate (Imdur) 60 mg DAILY PO Last administered on 07/09/16 08: 21; Admin Dose 60 MG; Start 07/08/16 at 09:00 Lactulose (Enulose) 20 gm BID PRN PO CONSTIPATION; Start 07/07/16 at 12:00 Levetiracetam (Keppra) 1,000 mg BID PO Last administered on 07/14/16 08:50; Admin Dose 1,000 MG; Start 07/07/16 at 21:00 Losartan Potassium (Cozaar) 100 mg DAILY PO Last administered on 07/09/16 08:22 ; Admin Dose 100 MG; Start 07/08/16 at 09:00 Montelukast Sodium (Singulair) 10 mg QHS PO Last administered on 07/13/16 20:44 ; Admin Dose 10 MG; Start 07/07/16 at 21:00 Multivit/Ca Carb/ B Cmplx/FA/Prenat ([place]) 1 tab DAILY PO Last administered on 07/14/16 08:50; Admin Dose 1 TAB; Start 07/08/16 at 09:00 Nitroglycerin (Nitroglycerin (Sl Tab) 0.4 Mg) 1 tab [id number] PRN SL CHEST PAIN ; Start 07/07/16 at 12:00 Pantoprazole (Protonix Tab) 40 mg DAILY@06 PO Last administered on 07/14/16 05: 50; Admin Dose 40 MG; Start 07/08/16 at 06:00 Phenytoin (Dilantin) 300 mg HS PO Last administered on 07/13/16 21:22; Admin Dose 300 MG; Start 07/07/16 at 21:00 Polyethylene Glycol (Miralax) 17 gm BID PO Last administered on 07/14/16 08:48 ; Admin Dose 17 GM; Start 07/07/16 at 21:00 Salmeterol Xinafoate/ Fluticasone (Advair 500/50 Diskus) 1 inh BID INH Last administered on 07/14/16 08:48; Admin Dose 1 INH; Start 07/07/16 at 21:00 Trazodone HCl (Desyrel) 50 mg QHS PO Last administered on 07/13/16 20:45; Admin Dose 50 MG; Start 07/07/16 at 21:00 Carvedilol (Coreg) 6.25 mg BID PO Last administered on 07/13/16 20:45; Admin Dose 6.25 MG; Start 07/08/16 at 21:00 Hydralazine HCl (Apresoline) 10 mg Q4H PRN IV SBP>160; Start 07/08/16 at 18:00 Ferrous Sulfate 325 mg 325 mg BID PO Last administered on 07/14/16 08:50; Admin Dose 325 MG; Start 07/09/16 at 21:00 Ceftriaxone Sodium 50 ml @ 100 mls/hr Q24H IVPB Last administered on 07/13/16 20:18; Admin Dose 100 MLS/HR; Start 07/12/16 at 17:30 Azithromycin (Zithromax 500mg/ NS (Pmx)) 250 ml @ 250 mls/hr Q24H IVPB Last administered on 07/13/16 21:10; Admin Dose 250 MLS/HR; Start 07/12/16 at 18:00 Al Hydrox/Mg Hydrox/Simethicone (Mag-Al Plus) 30 ml Q4H PRN PO GASTROINTESTINAL UPSET Last administered on 07/14/16 04:38; Admin Dose 30 ML; Start 07/14/16 at 04:30 Assessment/Plan Chief Complaint/Hosp Course ASSESSMENT AND PLAN: 1. End-stage renal disease. The patient has been on daily dialysis for solute clearance and volume removal. Plan for dialysis again today for 3 hours, 2K bath, calcium 2.5, ultrafiltrate as tolerated. 2. Acute hypoxic respiratory failure secondary to congestive heart failure. The patient clinically improving. Continue ultrafiltration dialysis. Continue medical management. 3. Anemia of chronic disease. Continue to monitor H and H levels. Continue Epogen. 4. Hypertension, controlled. Continue current blood pressure regimen and monitor for hypertension. 5. Coronary artery disease. Continue medical management. 6. Diabetes. Continue Accu-Cheks and sliding scale. 7. Seizure disorder. Continue current medical management. 8. Elevated troponins, [id number] myocardial infarction type 2. Continue medical management and follow up with Cardiology. 9. Mineral bone disorder. Continue to monitor calcium and phosphorus levels. 10. Dyslipidemia. Continue statin therapy. Problems: GNOZALES PRITCHETT MD Jul 14, 2016 09:22
[2016-07-14] MEDS ORDERED: DIPHENHYDRAMINE 50 MG INJ IV ONE (10:00)
[2016-07-14] MEDS: EPOETIN 4000 UNITS/1 ML INJ (ESRD) SC SCH (10:55)
--- NOTE | 2016-07-14 11:28 | CONS ---
Date/Time of Note Date/Time of Note DATE: 07/14/16 TIME: 11:27 Assessment/Plan Assessment/Plan Chief Complaint/Hosp Course Acute on chronic diastolic heart failure: mild by exam Accelerated hypertension - blood pressures improved NSTEMI - likely type 2 in setting of elevated blood pressure and renal failure Coronary artery disease - myocardial infarction and coronary stenting in 2014 Dyslipidemia End-stage renal disease - on hemodialysis Seizure disorder History of stroke Anemia - s/p transfusion again 07/13 Thrombocytopenia -continue clopidogrel 75mg daily -aspirin was discontinued - off of dual-antiplatelet therapy as patient is greater than one year from coronary stenting and has thrombocytopenia -continue carvedilol 6.25mg BID, up titrate as needed -continue losartan 100mg daily -continue atorvastatin -volume management via hemodialysis per nephrology Problems: Consultation Date/Type/Reason Admit Date/Time Jul 07, 2016 at 11:31 Initial Consult Date Type of Consultation: Cardiology 24 HR Interval Summary Free Text/Dictation No o/n events. HD again this am. Still with SOB. Exam/Review of Systems Vital Signs Vitals Vital Signs Date Time Temp Pulse Resp B/P Pulse Ox O2 Delivery O2 Flow Rate FiO2 07/14/16 11:02 78 07/14/16 08:49 Nasal Cannula 3.0 07/14/16 08:41 16 96 07/14/16 07:36 98.5 111/61 07/13/16 14:32 95 Intake and Output 07/13/16 07/13/16 07/14/16 15:00 23:00 07:00 Intake Total 1300 ml 340 ml Output Total 3400 ml Balance -2100 ml 340 ml Exam Constitutional: alert, oriented Neck: jvd (8cm) Respiratory: No clear to auscultation (mild crackles ) Cardiovascular: edema (1+), regular rate and rhythm Neurological: nl mental status, nl speech Results Result Diagram: 07/14/1615 07/14/1615 Results 24 hrs Laboratory Tests Test 07/14/16 07:15 White Blood Count 4.5 L Red Blood Count 3.03 #L Hemoglobin 9.0 L Hematocrit 29.4 #L Mean Corpuscular Volume 97.0 Mean Corpuscular Hemoglobin 29.7 Mean Corpuscular Hemoglobin Concent 30.6 L Red Cell Distribution Width 16.8 H Platelet Count 86 L Mean Platelet Volume 9.7 Neutrophils % 35.5 L Lymphocytes % 20.3 Monocytes % 8.2 Eosinophils % 35.1 H Basophils % 0.7 Nucleated Red Blood Cells % 0.0 Neutrophils # 1.6 Lymphocytes # 0.9 Monocytes # 0.4 Eosinophils # 1.6 H Basophils # 0.0 Nucleated Red Blood Cells # 0.0 Sodium Level 138 Potassium Level 4.3 Chloride Level 100 Carbon Dioxide Level 26 Anion Gap 16 Blood Urea Nitrogen 52 H Creatinine 6.68 H Glucose Level 71 Calcium Level 9.2 Phosphorus Level 5.9 H Magnesium Level 2.2 Medications Medications Current Medications Ondansetron HCl (Zofran Inj) 4 mg Q6H PRN IV NAUSEA AND/OR VOMITING Last administered on 07/14/16 00:20; Admin Dose 4 MG; Start 07/07/16 at 12:00 Acetaminophen (Tylenol Tab) 650 mg Q6H PRN PO PAIN LEVEL 1-3 OR FEVER Last administered on 07/10/16 13:22; Admin Dose 650 MG; Start 07/07/16 at 12:00 Acetaminophen/ Hydrocodone Bitart ([place] (5/325)) 1 tab Q6H PRN PO MODERATE PAIN LEVEL 4-6 Last administered on 07/11/16 08:34; Admin Dose 1 TAB; Start 07/07 at 12:00 Morphine Sulfate (morphine) 2 mg Q4H PRN IV SEVERE PAIN LEVEL 7-10 Last administered on 07/14/16 06:39; Admin Dose 2 MG; Start 07/07/16 at 12:00 Docusate Sodium (Colace) 100 mg Q12H PRN PO CONSTIPATION; Start 07/07/16 at 12: 00 Atorvastatin Calcium (Lipitor) 80 mg QHS PO Last administered on 07/13/16 20:44 ; Admin Dose 80 MG; Start 07/07/16 at 21:00 Bisacodyl (Dulcolax) 10 mg DAILY PRN PO CONSTIPATION; Start 07/07/16 at 12:00 Cinacalcet (Sensipar) 30 mg DAILY PO Last administered on 07/14/16 08:49; Admin Dose 30 MG; Start 07/08/16 at 09:00 Citalopram Hydrobromide (Celexa) 10 mg DAILY PO Last administered on 07/14/16 08:50; Admin Dose 10 MG; Start 07/08/16 at 09:00 Clopidogrel Bisulfate (plaVIX) 75 mg DAILY PO Last administered on 07/14/16 08: 50; Admin Dose 75 MG; Start 07/08/16 at 09:00 Diphenhydramine HCl (Benadryl) 25 mg Q6H PRN PO ITCHING Last administered on 11:08; Admin Dose 25 MG; Start 07/07/16 at 12:00 Divalproex Sodium (Depakote) 750 mg Q8 PO Last administered on 07/14/16 05:51; Admin Dose 750 MG; Start 07/07/16 at 14:00 Docusate Sodium (Colace) 100 mg BID PO Last administered on 07/14/16 08:49; Admin Dose 100 MG; Start 07/07/16 at 21:00 Guaifenesin (Robitussin Liquid Cup) 300 mg Q4H PRN PO COUGH; Start 07/07/16 at 12:00 Hypromellose (Isopto Tears) 2 drop Q4H PRN BOTH EYES DRY EYES; Start 07/07/16 at 12:00 Isosorbide Mononitrate (Imdur) 60 mg DAILY PO Last administered on 07/09/16 08: 21; Admin Dose 60 MG; Start 07/08/16 at 09:00 Lactulose (Enulose) 20 gm BID PRN PO CONSTIPATION; Start 07/07/16 at 12:00 Levetiracetam (Keppra) 1,000 mg BID PO Last administered on 07/14/16 08:50; Admin Dose 1,000 MG; Start 07/07/16 at 21:00 Losartan Potassium (Cozaar) 100 mg DAILY PO Last administered on 07/09/16 08:22 ; Admin Dose 100 MG; Start 07/08/16 at 09:00 Montelukast Sodium (Singulair) 10 mg QHS PO Last administered on 07/13/16 20:44 ; Admin Dose 10 MG; Start 07/07/16 at 21:00 Multivit/Ca Carb/ B Cmplx/FA/Prenat ([place]-Pa[place]) 1 tab DAILY PO Last administered on 07/14/16 08:50; Admin Dose 1 TAB; Start 07/08/16 at 09:00 Nitroglycerin (Nitroglycerin (Sl Tab) 0.4 Mg) 1 tab [id number] PRN SL CHEST PAIN ; Start 07/07/16 at 12:00 Pantoprazole (Protonix Tab) 40 mg DAILY@06 PO Last administered on 07/14/16 05: 50; Admin Dose 40 MG; Start 07/08/16 at 06:00 Phenytoin (Dilantin) 300 mg HS PO Last administered on 07/13/16 21:22; Admin Dose 300 MG; Start 07/07/16 at 21:00 Polyethylene Glycol (Miralax) 17 gm BID PO Last administered on 07/14/16 08:48 ; Admin Dose 17 GM; Start 07/07/16 at 21:00 Salmeterol Xinafoate/ Fluticasone (Advair 500/50 Diskus) 1 inh BID INH Last administered on 07/14/16 08:48; Admin Dose 1 INH; Start 07/07/16 at 21:00 Trazodone HCl (Desyrel) 50 mg QHS PO Last administered on 07/13/16 20:45; Admin Dose 50 MG; Start 07/07/16 at 21:00 Carvedilol (Coreg) 6.25 mg BID PO Last administered on 07/13/16 20:45; Admin Dose 6.25 MG; Start 07/08/16 at 21:00 Hydralazine HCl (Apresoline) 10 mg Q4H PRN IV SBP>160; Start 07/08/16 at 18:00 Ferrous Sulfate 325 mg 325 mg BID PO Last administered on 07/14/16 08:50; Admin Dose 325 MG; Start 07/09/16 at 21:00 Ceftriaxone Sodium 50 ml @ 100 mls/hr Q24H IVPB Last administered on 07/13/16 20:18; Admin Dose 100 MLS/HR; Start 07/12/16 at 17:30 Azithromycin (Zithromax 500mg/ NS (Pmx)) 250 ml @ 250 mls/hr Q24H IVPB Last administered on 07/13/16 21:10; Admin Dose 250 MLS/HR; Start 07/12/16 at 18:00 Al Hydrox/Mg Hydrox/Simethicone (Mag-Al Plus) 30 ml Q4H PRN PO GASTROINTESTINAL UPSET Last administered on 07/14/16 04:38; Admin Dose 30 ML; Start 07/14/16 at 04:30 MADYSON SHEIKH Jul 14, 2016 11:28
--- NOTE | 2016-07-14 11:41 | PN ---
Date/Time of Note Date/Time of Note DATE: 07/14/16 TIME: 11:40 Assessment/Plan VTE Prophylaxis VTE Prophylaxis Intervention: SCD's Lines/Catheters IV [facility]ter [facility]from [facility] [place] [facility] Urinary Cath still in place: No Assessment/Plan Chief Complaint/Hosp Course 1. Acute on chronic diastolic heart failure. Continue hemodialysis as per nephrology. Continue supplemental oxygen. 2. COPD. Continue inhaled bronchodilators. 3. Accelerated hypertension. Continue antihypertensives. Will adjust antihypertensives to obtain optimum blood pressure control. 4. Non-ST elevation myocardial infarction. Type II event in the setting of elevated blood pressure and worsening kidney function. Troponins now normalized. 5. Coronary artery disease. Status post coronary artery stenting in 2014. Currently on antiplatelet therapy. Dual antiplatelet therapy has been discontinued because of underlying anemia and thrombocytopenia. 6. Normocytic normochromic anemia. Iron panel showing iron deficiency. Continue the patient on iron supplements. Transfuse as needed. Status post blood transfusion on 07/13/2016. 7. Seizure disorder. The patient will be continued on anticonvulsants. 8. Dyslipidemia. Continue statins. 9. Hyperkalemia. Resolved. 10. End-stage renal disease, on hemodialysis. Hemodialysis as per nephrology. 11. Pancytopenia. Etiology unclear. Monitor blood counts closely. Transfuse blood components as needed. 12. Fluid, electrolytes and nutrition. Renal diet. 13. Deep vein thrombosis prophylaxis. Bilateral sequential compression devices. 14. Gastroesophageal reflux disease prophylaxis with proton pump inhibitors. PLAN: Continue hemodialysis as per nephrology. Optimize cardiac medications. Optimize blood pressure control. Monitor H and H closely. Continue physical therapy. May need prison facility placement as per physical therapy. The case was discussed with Dr. Carmona. Problems: Subjective 24 Hr Interval Summary Free Text/Dictation Vital signs stable. Exam/Review of Systems Vital Signs Vitals Vital Signs Date Time Temp Pulse Resp B/P Pulse Ox O2 Delivery O2 Flow Rate FiO2 07/14/16 11:02 78 07/14/16 08:49 Nasal Cannula 3.0 07/14/16 08:41 16 96 07/14/16 07:36 98.5 111/61 07/13/16 14:32 95 Intake and Output 07/13/16 07/13/16 07/14/16 15:00 23:00 07:00 Intake Total 1300 ml 340 ml Output Total 3400 ml Balance -2100 ml 340 ml Exam GENERAL: This is an obese -Hungarian male lying in bed in no apparent distress. HEENT: Head normocephalic and atraumatic. Eyes: Anicteric sclerae. Conjunctivae clear. ENT: Nasal septum is midline. Oral mucosa is moist. NECK: Supple. No JVD noticed. RESPIRATORY: Bilaterally diminished breath sounds. A few fine rales heard at the bases. No use of accessory muscles of respiration. CARDIAC: Regular rate and rhythm. S1 and S2 heard. ABDOMEN: Soft, nontender and nondistended. Bowel sounds positive in all 4 quadrants. GENITOURINARY: Deferred. EXTREMITIES: No cyanosis, no clubbing, no edema. Peripheral pulses are diminished. S/P right foot transmetatarsal amputation. NEUROLOGIC: The patient is awake, alert, and oriented. Results Result Diagram: 07/14/16 0715 07/14/16 0715 Results 24 hrs Laboratory Tests Test 07/14/16 07:15 White Blood Count 4.5 L Red Blood Count 3.03 #L Hemoglobin 9.0 L Hematocrit 29.4 #L Mean Corpuscular Volume 97.0 Mean Corpuscular Hemoglobin 29.7 Mean Corpuscular Hemoglobin Concent 30.6 L Red Cell Distribution Width 16.8 H Platelet Count 86 L Mean Platelet Volume 9.7 Neutrophils % 35.5 L Lymphocytes % 20.3 Monocytes % 8.2 Eosinophils % 35.1 H Basophils % 0.7 Nucleated Red Blood Cells % 0.0 Neutrophils # 1.6 Lymphocytes # 0.9 Monocytes # 0.4 Eosinophils # 1.6 H Basophils # 0.0 Nucleated Red Blood Cells # 0.0 Sodium Level 138 Potassium Level 4.3 Chloride Level 100 Carbon Dioxide Level 26 Anion Gap 16 Blood Urea Nitrogen 52 H Creatinine 6.68 H Glucose Level 71 Calcium Level 9.2 Phosphorus Level 5.9 H Magnesium Level 2.2 Medications Medications Current Medications Ondansetron HCl (Zofran Inj) 4 mg Q6H PRN IV NAUSEA AND/OR VOMITING Last administered on 07/14/16 00:20; Admin Dose 4 MG; Start 07/07/16 at 12:00 Acetaminophen (Tylenol Tab) 650 mg Q6H PRN PO PAIN LEVEL 1-3 OR FEVER Last administered on 07/10/16 13:22; Admin Dose 650 MG; Start 07/07/16 at 12:00 Acetaminophen/ Hydrocodone Bitart ([place] (5/325)) 1 tab Q6H PRN PO MODERATE PAIN LEVEL 4-6 Last administered on 07/11/16 08:34; Admin Dose 1 TAB; Start 07/07 at 12:00 Morphine Sulfate (morphine) 2 mg Q4H PRN IV SEVERE PAIN LEVEL 7-10 Last administered on 07/14/16 06:39; Admin Dose 2 MG; Start 07/07/16 at 12:00 Docusate Sodium (Colace) 100 mg Q12H PRN PO CONSTIPATION; Start 07/07/16 at 12: 00 Atorvastatin Calcium (Lipitor) 80 mg QHS PO Last administered on 07/13/16 20:44 ; Admin Dose 80 MG; Start 07/07/16 at 21:00 Bisacodyl (Dulcolax) 10 mg DAILY PRN PO CONSTIPATION; Start 07/07/16 at 12:00 Cinacalcet (Sensipar) 30 mg DAILY PO Last administered on 07/14/16 08:49; Admin Dose 30 MG; Start 07/08/16 at 09:00 Citalopram Hydrobromide (Celexa) 10 mg DAILY PO Last administered on 07/14/16 08:50; Admin Dose 10 MG; Start 07/08/16 at 09:00 Clopidogrel Bisulfate (plaVIX) 75 mg DAILY PO Last administered on 07/14/16 08: 50; Admin Dose 75 MG; Start 07/08/16 at 09:00 Diphenhydramine HCl (Benadryl) 25 mg Q6H PRN PO ITCHING Last administered on 11:08; Admin Dose 25 MG; Start 07/07/16 at 12:00 Divalproex Sodium (Depakote) 750 mg Q8 PO Last administered on 07/14/16 05:51; Admin Dose 750 MG; Start 07/07/16 at 14:00 Docusate Sodium (Colace) 100 mg BID PO Last administered on 07/14/16 08:49; Admin Dose 100 MG; Start 07/07/16 at 21:00 Guaifenesin (Robitussin Liquid Cup) 300 mg Q4H PRN PO COUGH; Start 07/07/16 at 12:00 Hypromellose (Isopto Tears) 2 drop Q4H PRN BOTH EYES DRY EYES; Start 07/07/16 at 12:00 Isosorbide Mononitrate (Imdur) 60 mg DAILY PO Last administered on 07/09/16 08: 21; Admin Dose 60 MG; Start 07/08/16 at 09:00 Lactulose (Enulose) 20 gm BID PRN PO CONSTIPATION; Start 07/07/16 at 12:00 Levetiracetam (Keppra) 1,000 mg BID PO Last administered on 07/14/16 08:50; Admin Dose 1,000 MG; Start 07/07/16 at 21:00 Losartan Potassium (Cozaar) 100 mg DAILY PO Last administered on 07/09/16 08:22 ; Admin Dose 100 MG; Start 07/08/16 at 09:00 Montelukast Sodium (Singulair) 10 mg QHS PO Last administered on 07/13/16 20:44 ; Admin Dose 10 MG; Start 07/07/16 at 21:00 Multivit/Ca Carb/ B Cmplx/FA/Prenat ([place]) 1 tab DAILY PO Last administered on 07/14/16 08:50; Admin Dose 1 TAB; Start 07/08/16 at 09:00 Nitroglycerin (Nitroglycerin (Sl Tab) 0.4 Mg) 1 tab [id number] PRN SL CHEST PAIN ; Start 07/07/16 at 12:00 Pantoprazole (Protonix Tab) 40 mg DAILY@06 PO Last administered on 07/14/16 05: 50; Admin Dose 40 MG; Start 07/08/16 at 06:00 Phenytoin (Dilantin) 300 mg HS PO Last administered on 07/13/16 21:22; Admin Dose 300 MG; Start 07/07/16 at 21:00 Polyethylene Glycol (Miralax) 17 gm BID PO Last administered on 07/14/16 08:48 ; Admin Dose 17 GM; Start 07/07/16 at 21:00 Salmeterol Xinafoate/ Fluticasone (Advair 500/50 Diskus) 1 inh BID INH Last administered on 07/14/16 08:48; Admin Dose 1 INH; Start 07/07/16 at 21:00 Trazodone HCl (Desyrel) 50 mg QHS PO Last administered on 07/13/16 20:45; Admin Dose 50 MG; Start 07/07/16 at 21:00 Carvedilol (Coreg) 6.25 mg BID PO Last administered on 07/13/16 20:45; Admin Dose 6.25 MG; Start 07/08/16 at 21:00 Hydralazine HCl (Apresoline) 10 mg Q4H PRN IV SBP>160; Start 07/08/16 at 18:00 Ferrous Sulfate 325 mg 325 mg BID PO Last administered on 07/14/16 08:50; Admin Dose 325 MG; Start 07/09/16 at 21:00 Ceftriaxone Sodium 50 ml @ 100 mls/hr Q24H IVPB Last administered on 07/13/16 20:18; Admin Dose 100 MLS/HR; Start 07/12/16 at 17:30 Azithromycin (Zithromax 500mg/ NS (Pmx)) 250 ml @ 250 mls/hr Q24H IVPB Last administered on 07/13/16 21:10; Admin Dose 250 MLS/HR; Start 07/12/16 at 18:00 Al Hydrox/Mg Hydrox/Simethicone (Mag-Al Plus) 30 ml Q4H PRN PO GASTROINTESTINAL UPSET Last administered on 07/14/16 04:38; Admin Dose 30 ML; Start 07/14/16 at 04:30 JEAN-PAUL SALDANA NP Jul 14, 2016 11:41
[2016-07-14] MEDS: CEFTRIAXONE 1 GM/50 ML (PMX) 50 ML IVPB SCH (16:54)
[2016-07-14] MEDS: AZITHROMYCIN 500MG/NS (PMX) 250 ML IVPB SCH (17:32)
[2016-07-14] MEDS: ATORVASTATIN 80 MG TAB PO SCH (20:19)
[2016-07-14] MEDS: PHENYTOIN 100 MG CAP PO SCH (20:19)
[2016-07-14] MEDS: MONTELUKAST 10 MG TAB PO SCH (20:32)
[2016-07-14] MEDS: traZODone 50 MG TAB PO SCH (22:52)
[2016-07-15] VITALS (12 sets, daily range): BP systolic 89–156; BP diastolic 50–86; PULSE 69–85; RESP 18–20
[2016-07-15] MEDS: morphine 2 MG INJ IV PRN ×6 (00:07→21:49)
[2016-07-15] MEDS: PANTOPRAZOLE (EC) 40 MG TAB PO SCH (05:11)
[2016-07-15] MEDS: DIVALPROEX (EC) 250 MG TAB PO SCH ×3 (05:12→22:32)
[2016-07-15 06:50] LABS: ADD SCAN DIFF NO
[2016-07-15 06:52] LABS: ABNORMAL IP MESSAGE 1; BASOPHILS % 0.7 % (0.0-2.0); EOSINOPHILS # 1.6 10^3/ul (0.0-0.5); HEMATOCRIT 27.8 % (42.0-52.0); HEMOGLOBIN 8.7 g/dl (14.0-18.0); LYMPHOCYTES # 1.1 10^3/ul (0.8-2.9); LYMPHOCYTES % 23.4 % (15.0-51.0); MEAN CORPUSCULAR HEMOGLOBIN 30.3 pg (29.0-33.0); MEAN CORPUSCULAR HGB CONC 31.3 g/dl (32.0-37.0); MEAN CORPUSCULAR VOLUME 96.9 fl (82.0-101.0); MEAN PLATELET VOLUME 9.8 fl (7.4-10.4); MONOCYTE # 0.5 10^3/ul (0.3-0.9); MONOCYTES % 10.7 % (0.0-11.0); NEUTROPHIL # 1.3 10^3/ul (1.6-7.5); NEUTROPHILS % 28.6 % (39.0-77.0); PLATELET COUNT 87 10^3/UL (140-415); RED BLOOD COUNT 2.87 10^6/ul (4.70-6.10); RED CELL DISTRIBUTION WIDTH 16.6 % (11.5-14.5); WHITE BLOOD COUNT 4.5 10^3/ul (4.8-10.8)
[2016-07-15 06:59] LABS: EOSINOPHILS % 36.4 % (0.0-7.0)
[2016-07-15 07:08] LABS: POTASSIUM 3.9 mmol/L (3.5-5.1)
[2016-07-15 07:10] LABS: CREATININE 6.67 mg/dl (0.61-1.24)
[2016-07-15 07:11] LABS: CALCIUM 8.9 mg/dl (8.4-10.2)
[2016-07-15 07:19] LABS: MAGNESIUM 2.2 mg/dl (1.7-2.5); PHOSPHORUS 5.5 mg/dl (2.5-4.9)
[2016-07-15] MEDS: ALBUTEROL/IPRATROPIUM (NEB) 3 ML AMP HHN SCH ×4 (08:00→20:23)
[2016-07-15] MEDS: SEVELAMER CARBONATE 0.8 GM PKT PO SCH ×3 (08:26→17:23)
[2016-07-15] MEDS: CLOPIDOGREL 75 MG TAB PO SCH (08:28)
[2016-07-15] MEDS: LOSARTAN 50 MG TAB PO SCH (08:28)
[2016-07-15] MEDS: POLYETHYLENE GLYCOL 17 GM PACKET PO SCH ×2 (08:28→21:00)
[2016-07-15] MEDS: ISOSORBIDE MONONITRATE(SR)60 MG TAB PO SCH (08:28)
[2016-07-15] MEDS: MULTIVIT/CA CARB/B CMPLX/FA TAB PO SCH (08:28)
[2016-07-15] MEDS: CINACALCET 30 MG TAB PO SCH (08:29)
[2016-07-15] MEDS: DOCUSATE SODIUM 100 MG CAP PO SCH ×2 (08:29→21:00)
[2016-07-15] MEDS: LEVETIRACETAM 500 MG TAB PO SCH ×2 (08:29→22:22)
[2016-07-15] MEDS: CITALOPRAM 20 MG TAB PO SCH (08:29)
[2016-07-15] MEDS: FERROUS SULFATE (EC) 325 MG TAB PO SCH ×2 (08:31→22:23)
[2016-07-15] MEDS: SALMETEROL/FLUTICASONE 500/50 INHA INH SCH ×2 (10:08→22:20)
--- NOTE | 2016-07-15 10:21 | CONS ---
Date/Time of Note Date/Time of Note DATE: 07/15/16 TIME: 10:18 Consult Date/Type/Reason Admit Date/Time Jul 07, 2016 at 11:31 Type of Consultation: neph Subjective The patient is stable, no acute events overnight. No fevers, chills, nausea, vomiting. Had last HD without complication. co fatigue after. poc reviewed with dr. hoskins. has dyspnea no chest pain, rash, hematochezia, melena, fever I reviewed his labs, imaging studies, previous orders and meds OBJECTIVE: HEENT: Head is normocephalic. NECK: Supple. HEART: Regular rate. LUNGS: Show diminished breath sounds at base. ABDOMEN: Soft, nontender to palpation. No rebound or guarding. EXTREMITIES: Negative for clubbing, cyanosis. Trace edema. DERMATOLOGIC: No rashes. MUSCULOSKELETAL: No joint effusions. NEUROLOGIC: no focal weakness Objective Vital Signs Date Time Temp Pulse Resp B/P Pulse Ox O2 Delivery O2 Flow Rate FiO2 07/15/16 08:00 69 07/15/16 07:38 98.1 18 115/63 100 07/14/16 19:50 Nasal Cannula 3.0 07/13/16 14:32 95 Intake and Output 07/14/16 07/14/16 07/15/16 15:00 23:00 07:00 Intake Total 400 ml 1050 ml Output Total 3000 ml Balance -2600 ml 1050 ml Results/Medications Result Diagram: 07/15/16 0625 07/15/16 0625 Results 24 hrs Laboratory Tests Test 07/15/16 06:21 07/15/16 06:25 Phosphorus Level 5.5 H Magnesium Level 2.2 White Blood Count 4.5 L Red Blood Count 2.87 L Hemoglobin 8.7 L Hematocrit 27.8 L Mean Corpuscular Volume 96.9 Mean Corpuscular Hemoglobin 30.3 Mean Corpuscular Hemoglobin Concent 31.3 L Red Cell Distribution Width 16.6 H Platelet Count 87 L Mean Platelet Volume 9.8 Neutrophils % 28.6 L Lymphocytes % 23.4 Monocytes % 10.7 Eosinophils % 36.4 H Basophils % 0.7 Nucleated Red Blood Cells % 0.0 Neutrophils # 1.3 L Lymphocytes # 1.1 Monocytes # 0.5 Eosinophils # 1.6 H Basophils # 0.0 Nucleated Red Blood Cells # 0.0 Sodium Level 139 Potassium Level 3.9 Chloride Level 97 Carbon Dioxide Level 27 Anion Gap 19 H Blood Urea Nitrogen 45 H Creatinine 6.67 H Glucose Level 99 Calcium Level 8.9 Medications Current Medications Ondansetron HCl (Zofran Inj) 4 mg Q6H PRN IV NAUSEA AND/OR VOMITING Last administered on 07/14/16 00:20; Admin Dose 4 MG; Start 07/07/16 at 12:00 Acetaminophen (Tylenol Tab) 650 mg Q6H PRN PO PAIN LEVEL 1-3 OR FEVER Last administered on 07/10/16 13:22; Admin Dose 650 MG; Start 07/07/16 at 12:00 Acetaminophen/ Hydrocodone Bitart ([place] (5/325)) 1 tab Q6H PRN PO MODERATE PAIN LEVEL 4-6 Last administered on 07/11/16 08:34; Admin Dose 1 TAB; Start 07/07 at 12:00 Morphine Sulfate (morphine) 2 mg Q4H PRN IV SEVERE PAIN LEVEL 7-10 Last administered on 07/15/16 09:27; Admin Dose 2 MG; Start 07/07/16 at 12:00 Docusate Sodium (Colace) 100 mg Q12H PRN PO CONSTIPATION; Start 07/07/16 at 12: 00 Atorvastatin Calcium (Lipitor) 80 mg QHS PO Last administered on 07/14/16 20:19 ; Admin Dose 80 MG; Start 07/07/16 at 21:00 Bisacodyl (Dulcolax) 10 mg DAILY PRN PO CONSTIPATION; Start 07/07/16 at 12:00 Cinacalcet (Sensipar) 30 mg DAILY PO Last administered on 07/15/16 08:29; Admin Dose 30 MG; Start 07/08/16 at 09:00 Citalopram Hydrobromide (Celexa) 10 mg DAILY PO Last administered on 07/15/16 08:29; Admin Dose 10 MG; Start 07/08/16 at 09:00 Clopidogrel Bisulfate (plaVIX) 75 mg DAILY PO Last administered on 07/15/16 08: 28; Admin Dose 75 MG; Start 07/08/16 at 09:00 Diphenhydramine HCl (Benadryl) 25 mg Q6H PRN PO ITCHING Last administered on 11:08; Admin Dose 25 MG; Start 07/07/16 at 12:00 Divalproex Sodium (Depakote) 750 mg Q8 PO Last administered on 07/15/16 05:12; Admin Dose 750 MG; Start 07/07/16 at 14:00 Docusate Sodium (Colace) 100 mg BID PO Last administered on 07/15/16 08:29; Admin Dose 100 MG; Start 07/07/16 at 21:00 Guaifenesin (Robitussin Liquid Cup) 300 mg Q4H PRN PO COUGH; Start 07/07/16 at 12:00 Hypromellose (Isopto Tears) 2 drop Q4H PRN BOTH EYES DRY EYES; Start 07/07/16 at 12:00 Isosorbide Mononitrate (Imdur) 60 mg DAILY PO Last administered on 07/15/16 08: 28; Admin Dose 60 MG; Start 07/08/16 at 09:00 Lactulose (Enulose) 20 gm BID PRN PO CONSTIPATION; Start 07/07/16 at 12:00 Levetiracetam (Keppra) 1,000 mg BID PO Last administered on 07/15/16 08:29; Admin Dose 1,000 MG; Start 07/07/16 at 21:00 Losartan Potassium (Cozaar) 100 mg DAILY PO Last administered on 07/15/16 08:28 ; Admin Dose 100 MG; Start 07/08/16 at 09:00 Montelukast Sodium (Singulair) 10 mg QHS PO Last administered on 07/14/16 20:32 ; Admin Dose 10 MG; Start 07/07/16 at 21:00 Multivit/Ca Carb/ B Cmplx/FA/Prenat ([place]) 1 tab DAILY PO Last administered on 07/15/16 08:28; Admin Dose 1 TAB; Start 07/08/16 at 09:00 Nitroglycerin (Nitroglycerin (Sl Tab) 0.4 Mg) 1 tab [id number] PRN SL CHEST PAIN ; Start 07/07/16 at 12:00 Pantoprazole (Protonix Tab) 40 mg DAILY@06 PO Last administered on 07/15/16 05: 11; Admin Dose 40 MG; Start 07/08/16 at 06:00 Phenytoin (Dilantin) 300 mg HS PO Last administered on 07/14/16 20:19; Admin Dose 300 MG; Start 07/07/16 at 21:00 Polyethylene Glycol (Miralax) 17 gm BID PO Last administered on 07/14/16 08:48 ; Admin Dose 17 GM; Start 07/07/16 at 21:00 Salmeterol Xinafoate/ Fluticasone (Advair 500/50 Diskus) 1 inh BID INH Last administered on 07/15/16 10:08; Admin Dose 1 INH; Start 07/07/16 at 21:00 Trazodone HCl (Desyrel) 50 mg QHS PO Last administered on 07/14/16 22:52; Admin Dose 50 MG; Start 07/07/16 at 21:00 Carvedilol (Coreg) 6.25 mg BID PO Last administered on 07/15/16 08:29; Admin Dose 6.25 MG; Start 07/08/16 at 21:00 Hydralazine HCl (Apresoline) 10 mg Q4H PRN IV SBP>160; Start 07/08/16 at 18:00 Ferrous Sulfate 325 mg 325 mg BID PO Last administered on 07/15/16 08:31; Admin Dose 325 MG; Start 07/09/16 at 21:00 Ceftriaxone Sodium 50 ml @ 100 mls/hr Q24H IVPB Last administered on 07/14/16 16:54; Admin Dose 100 MLS/HR; Start 07/12/16 at 17:30 Azithromycin (Zithromax 500mg/ NS (Pmx)) 250 ml @ 250 mls/hr Q24H IVPB Last administered on 07/14/16 17:32; Admin Dose 250 MLS/HR; Start 07/12/16 at 18:00 Al Hydrox/Mg Hydrox/Simethicone (Mag-Al Plus) 30 ml Q4H PRN PO GASTROINTESTINAL UPSET Last administered on 07/14/16 04:38; Admin Dose 30 ML; Start 07/14/16 at 04:30 Assessment/Plan Chief Complaint/Hosp Course ASSESSMENT AND PLAN: 1. End-stage renal disease. The patient has been on aggressive dialysis for solute clearance and volume removal. anticipate hd in am. 2. Acute hypoxic respiratory failure secondary to congestive heart failure. The patient clinically improving. Continue ultrafiltration dialysis. Continue medical management. 3. Anemia of chronic disease. Continue to monitor H and H levels. Continue Epogen. 4. Hypertension, controlled. Continue current blood pressure regimen and monitor for hypertension. 5. Coronary artery disease. Continue medical management. 6. Diabetes. Continue Accu-Cheks and sliding scale. 7. Seizure disorder. Continue current medical management. 8. Elevated troponins, [id number] myocardial infarction type 2. Continue medical management and follow up with Cardiology. 9. Mineral bone disorder. Continue to monitor calcium and phosphorus levels. 10. Dyslipidemia. Continue statin therapy. Problems: GONZALES PRITCHETT MD Jul 15, 2016 10:21
--- NOTE | 2016-07-15 10:29 | PN ---
Date/Time of Note Date/Time of Note DATE: 07/15/16 TIME: 10:27 Assessment/Plan VTE Prophylaxis VTE Prophylaxis Intervention: heparin Lines/Catheters IV [facility]ter [facility]from [facility] fistula Urinary Cath still in place: No Assessment/Plan Chief Complaint/Hosp Course 1. Acute on chronic diastolic heart failure. Continue hemodialysis as per nephrology. Continue supplemental oxygen. 2. COPD. Continue inhaled bronchodilators. 3. Accelerated hypertension. Continue antihypertensives. Will adjust antihypertensives to obtain optimum blood pressure control. 4. Non-ST elevation myocardial infarction. Type II event in the setting of elevated blood pressure and worsening kidney function. Troponins now normalized. 5. Coronary artery disease. Status post coronary artery stenting in 2014. Currently on antiplatelet therapy. Dual antiplatelet therapy has been discontinued because of underlying anemia and thrombocytopenia. 6. Normocytic normochromic anemia. Iron panel showing iron deficiency. Continue the patient on iron supplements. Transfuse as needed. Status post blood transfusion on 07/13/2016. 7. Seizure disorder. The patient will be continued on anticonvulsants. 8. Dyslipidemia. Continue statins. 9. Hyperkalemia. Resolved. 10. End-stage renal disease, on hemodialysis. Hemodialysis as per nephrology. 11. Pancytopenia. Etiology unclear. Monitor blood counts closely. Transfuse blood components as needed. 12. Fluid, electrolytes and nutrition. Renal diet. 13. Deep vein thrombosis prophylaxis. Subcutaneous heparin. 14. Gastroesophageal reflux disease prophylaxis with proton pump inhibitors. PLAN: Continue hemodialysis as per nephrology. Optimize cardiac medications. Optimize blood pressure control. Monitor H and H closely. Continue physical therapy. Case management order put in for senior living facility placement. Send stool studies. The case was discussed with Dr. Carmona. Problems: Subjective 24 Hr Interval Summary Free Text/Dictation Complains of dyspnea and diarrhea. Exam/Review of Systems Vital Signs Vitals Vital Signs Date Time Temp Pulse Resp B/P Pulse Ox O2 Delivery O2 Flow Rate FiO2 07/15/16 08:00 69 07/15/16 07:38 98.1 18 115/63 100 07/14/16 19:50 Nasal Cannula 3.0 07/13/16 14:32 95 Intake and Output 07/14/16 07/14/16 07/15/16 15:00 23:00 07:00 Intake Total 400 ml 1050 ml Output Total 3000 ml Balance -2600 ml 1050 ml Exam GENERAL: This is an obese -[place] male lying in bed in no apparent distress. HEENT: Head normocephalic and atraumatic. Eyes: Anicteric sclerae. Conjunctivae clear. ENT: Nasal septum is midline. Oral mucosa is moist. NECK: Supple. No JVD noticed. RESPIRATORY: Bilaterally diminished breath sounds. A few fine rales heard at the bases. No use of accessory muscles of respiration. CARDIAC: Regular rate and rhythm. S1 and S2 heard. ABDOMEN: Soft, nontender and nondistended. Bowel sounds positive in all 4 quadrants. GENITOURINARY: Deferred. EXTREMITIES: No cyanosis, no clubbing, no edema. Peripheral pulses are diminished. S/P right foot transmetatarsal amputation. NEUROLOGIC: The patient is awake, alert, and oriented. Results Result Diagram: 07/15/1662407/15/16624 Results 24 hrs Laboratory Tests Test 07/15/16 06:21 07/15/16 06:25 Phosphorus Level 5.5 H Magnesium Level 2.2 White Blood Count 4.5 L Red Blood Count 2.87 L Hemoglobin 8.7 L Hematocrit 27.8 L Mean Corpuscular Volume 96.9 Mean Corpuscular Hemoglobin 30.3 Mean Corpuscular Hemoglobin Concent 31.3 L Red Cell Distribution Width 16.6 H Platelet Count 87 L Mean Platelet Volume 9.8 Neutrophils % 28.6 L Lymphocytes % 23.4 Monocytes % 10.7 Eosinophils % 36.4 H Basophils % 0.7 Nucleated Red Blood Cells % 0.0 Neutrophils # 1.3 L Lymphocytes # 1.1 Monocytes # 0.5 Eosinophils # 1.6 H Basophils # 0.0 Nucleated Red Blood Cells # 0.0 Sodium Level 139 Potassium Level 3.9 Chloride Level 97 Carbon Dioxide Level 27 Anion Gap 19 H Blood Urea Nitrogen 45 H Creatinine 6.67 H Glucose Level 99 Calcium Level 8.9 Medications Medications Current Medications Ondansetron HCl (Zofran Inj) 4 mg Q6H PRN IV NAUSEA AND/OR VOMITING Last administered on 07/14/16 00:20; Admin Dose 4 MG; Start 07/07/16 at 12:00 Acetaminophen (Tylenol Tab) 650 mg Q6H PRN PO PAIN LEVEL 1-3 OR FEVER Last administered on 07/10/16 13:22; Admin Dose 650 MG; Start 07/07/16 at 12:00 Acetaminophen/ Hydrocodone Bitart ([place] (5/325)) 1 tab Q6H PRN PO MODERATE PAIN LEVEL 4-6 Last administered on 07/11/16 08:34; Admin Dose 1 TAB; Start 07/07 at 12:00 Morphine Sulfate (morphine) 2 mg Q4H PRN IV SEVERE PAIN LEVEL 7-10 Last administered on 07/15/16 09:27; Admin Dose 2 MG; Start 07/07/16 at 12:00 Docusate Sodium (Colace) 100 mg Q12H PRN PO CONSTIPATION; Start 07/07/16 at 12: 00 Atorvastatin Calcium (Lipitor) 80 mg QHS PO Last administered on 07/14/16 20:19 ; Admin Dose 80 MG; Start 07/07/16 at 21:00 Bisacodyl (Dulcolax) 10 mg DAILY PRN PO CONSTIPATION; Start 07/07/16 at 12:00 Cinacalcet (Sensipar) 30 mg DAILY PO Last administered on 07/15/16 08:29; Admin Dose 30 MG; Start 07/08/16 at 09:00 Citalopram Hydrobromide (Celexa) 10 mg DAILY PO Last administered on 07/15/16 08:29; Admin Dose 10 MG; Start 07/08/16 at 09:00 Clopidogrel Bisulfate (plaVIX) 75 mg DAILY PO Last administered on 07/15/16 08: 28; Admin Dose 75 MG; Start 07/08/16 at 09:00 Diphenhydramine HCl (Benadryl) 25 mg Q6H PRN PO ITCHING Last administered on 11:08; Admin Dose 25 MG; Start 07/07/16 at 12:00 Divalproex Sodium (Depakote) 750 mg Q8 PO Last administered on 07/15/16 05:12; Admin Dose 750 MG; Start 07/07/16 at 14:00 Docusate Sodium (Colace) 100 mg BID PO Last administered on 07/15/16 08:29; Admin Dose 100 MG; Start 07/07/16 at 21:00 Guaifenesin (Robitussin Liquid Cup) 300 mg Q4H PRN PO COUGH; Start 07/07/16 at 12:00 Hypromellose (Isopto Tears) 2 drop Q4H PRN BOTH EYES DRY EYES; Start 07/07/16 at 12:00 Isosorbide Mononitrate (Imdur) 60 mg DAILY PO Last administered on 07/15/16 08: 28; Admin Dose 60 MG; Start 07/08/16 at 09:00 Lactulose (Enulose) 20 gm BID PRN PO CONSTIPATION; Start 07/07/16 at 12:00 Levetiracetam (Keppra) 1,000 mg BID PO Last administered on 07/15/16 08:29; Admin Dose 1,000 MG; Start 07/07/16 at 21:00 Losartan Potassium (Cozaar) 100 mg DAILY PO Last administered on 07/15/16 08:28 ; Admin Dose 100 MG; Start 07/08/16 at 09:00 Montelukast Sodium (Singulair) 10 mg QHS PO Last administered on 07/14/16 20:32 ; Admin Dose 10 MG; Start 07/07/16 at 21:00 Multivit/Ca Carb/ B Cmplx/FA/Prenat ([place]-Paual) 1 tab DAILY PO Last administered on 07/15/16 08:28; Admin Dose 1 TAB; Start 07/08/16 at 09:00 Nitroglycerin (Nitroglycerin (Sl Tab) 0.4 Mg) 1 tab [id number] PRN SL CHEST PAIN ; Start 07/07/16 at 12:00 Pantoprazole (Protonix Tab) 40 mg DAILY@06 PO Last administered on 07/15/16 05: 11; Admin Dose 40 MG; Start 07/08/16 at 06:00 Phenytoin (Dilantin) 300 mg HS PO Last administered on 07/14/16 20:19; Admin Dose 300 MG; Start 07/07/16 at 21:00 Polyethylene Glycol (Miralax) 17 gm BID PO Last administered on 07/14/16 08:48 ; Admin Dose 17 GM; Start 07/07/16 at 21:00 Salmeterol Xinafoate/ Fluticasone (Advair 500/50 Diskus) 1 inh BID INH Last administered on 07/15/16 10:08; Admin Dose 1 INH; Start 07/07/16 at 21:00 Trazodone HCl (Desyrel) 50 mg QHS PO Last administered on 07/14/16 22:52; Admin Dose 50 MG; Start 07/07/16 at 21:00 Carvedilol (Coreg) 6.25 mg BID PO Last administered on 07/15/16 08:29; Admin Dose 6.25 MG; Start 07/08/16 at 21:00 Hydralazine HCl (Apresoline) 10 mg Q4H PRN IV SBP>160; Start 07/08/16 at 18:00 Ferrous Sulfate 325 mg 325 mg BID PO Last administered on 07/15/16 08:31; Admin Dose 325 MG; Start 07/09/16 at 21:00 Ceftriaxone Sodium 50 ml @ 100 mls/hr Q24H IVPB Last administered on 07/14/16 16:54; Admin Dose 100 MLS/HR; Start 07/12/16 at 17:30 Azithromycin (Zithromax 500mg/ NS (Pmx)) 250 ml @ 250 mls/hr Q24H IVPB Last administered on 07/14/16 17:32; Admin Dose 250 MLS/HR; Start 07/12/16 at 18:00 Al Hydrox/Mg Hydrox/Simethicone (Mag-Al Plus) 30 ml Q4H PRN PO GASTROINTESTINAL UPSET Last administered on 07/14/16 04:38; Admin Dose 30 ML; Start 07/14/16 at 04:30 JEAN-PAUL SALDANA NP Jul 15, 2016 10:29
--- NOTE | 2016-07-15 11:13 | CONS ---
Date/Time of Note Date/Time of Note DATE: 07/15/16 TIME: 11:12 Assessment/Plan Assessment/Plan Chief Complaint/Hosp Course Acute on chronic diastolic heart failure: mild by exam Accelerated hypertension - blood pressures improved NSTEMI - likely type 2 in setting of elevated blood pressure and renal failure Coronary artery disease - myocardial infarction and coronary stenting in 2014 Dyslipidemia End-stage renal disease - on hemodialysis Seizure disorder History of stroke Anemia - s/p transfusion again 07/13 Thrombocytopenia -continue clopidogrel 75mg daily -aspirin was discontinued - off of dual-antiplatelet therapy as patient is greater than one year from coronary stenting and has thrombocytopenia -continue carvedilol 6.25mg BID, up titrate as needed -continue losartan 100mg daily -continue atorvastatin -volume management via hemodialysis per nephrology Problems: Consultation Date/Type/Reason Admit Date/Time Jul 07, 2016 at 11:31 Type of Consultation: Cardiology 24 HR Interval Summary Free Text/Dictation Still wheezing. No HD planned for today Exam/Review of Systems Vital Signs Vitals Vital Signs Date Time Temp Pulse Resp B/P Pulse Ox O2 Delivery O2 Flow Rate FiO2 07/15/16 11:02 89 20 100 Nasal Cannula 07/15/16 11:01 2.0 07/15/16 07:38 98.1 115/63 07/13/16 14:32 95 Intake and Output 07/14/16 07/14/16 07/15/16 15:00 23:00 07:00 Intake Total 400 ml 1050 ml Output Total 3000 ml Balance -2600 ml 1050 ml Exam Constitutional: alert, oriented Head: atraumatic, normocephalic Neck: jvd (8cm) Respiratory: wheezing, No clear to auscultation Cardiovascular: edema (trace), regular rate and rhythm, No systolic murmur Neurological: nl mental status, nl speech Results Result Diagram: 07/15/16 0625 07/15/16 0625 Results 24 hrs Laboratory Tests Test 07/15/16 06:21 07/15/16 06:25 Phosphorus Level 5.5 H Magnesium Level 2.2 White Blood Count 4.5 L Red Blood Count 2.87 L Hemoglobin 8.7 L Hematocrit 27.8 L Mean Corpuscular Volume 96.9 Mean Corpuscular Hemoglobin 30.3 Mean Corpuscular Hemoglobin Concent 31.3 L Red Cell Distribution Width 16.6 H Platelet Count 87 L Mean Platelet Volume 9.8 Neutrophils % 28.6 L Lymphocytes % 23.4 Monocytes % 10.7 Eosinophils % 36.4 H Basophils % 0.7 Nucleated Red Blood Cells % 0.0 Neutrophils # 1.3 L Lymphocytes # 1.1 Monocytes # 0.5 Eosinophils # 1.6 H Basophils # 0.0 Nucleated Red Blood Cells # 0.0 Sodium Level 139 Potassium Level 3.9 Chloride Level 97 Carbon Dioxide Level 27 Anion Gap 19 H Blood Urea Nitrogen 45 H Creatinine 6.67 H Glucose Level 99 Calcium Level 8.9 Medications Medications Current Medications Ondansetron HCl (Zofran Inj) 4 mg Q6H PRN IV NAUSEA AND/OR VOMITING Last administered on 07/14/16 00:20; Admin Dose 4 MG; Start 07/07/16 at 12:00 Acetaminophen (Tylenol Tab) 650 mg Q6H PRN PO PAIN LEVEL 1-3 OR FEVER Last administered on 07/10/16 13:22; Admin Dose 650 MG; Start 07/07/16 at 12:00 Acetaminophen/ Hydrocodone Bitart ([place] (5/325)) 1 tab Q6H PRN PO MODERATE PAIN LEVEL 4-6 Last administered on 07/11/16 08:34; Admin Dose 1 TAB; Start 07/07 at 12:00 Morphine Sulfate (morphine) 2 mg Q4H PRN IV SEVERE PAIN LEVEL 7-10 Last administered on 07/15/16 09:27; Admin Dose 2 MG; Start 07/07/16 at 12:00 Docusate Sodium (Colace) 100 mg Q12H PRN PO CONSTIPATION; Start 07/07/16 at 12: 00 Atorvastatin Calcium (Lipitor) 80 mg QHS PO Last administered on 07/14/16 20:19 ; Admin Dose 80 MG; Start 07/07/16 at 21:00 Bisacodyl (Dulcolax) 10 mg DAILY PRN PO CONSTIPATION; Start 07/07/16 at 12:00 Cinacalcet (Sensipar) 30 mg DAILY PO Last administered on 07/15/16 08:29; Admin Dose 30 MG; Start 07/08/16 at 09:00 Citalopram Hydrobromide (Celexa) 10 mg DAILY PO Last administered on 07/15/16 08:29; Admin Dose 10 MG; Start 07/08/16 at 09:00 Clopidogrel Bisulfate (plaVIX) 75 mg DAILY PO Last administered on 07/15/16 08: 28; Admin Dose 75 MG; Start 07/08/16 at 09:00 Diphenhydramine HCl (Benadryl) 25 mg Q6H PRN PO ITCHING Last administered on 11:08; Admin Dose 25 MG; Start 07/07/16 at 12:00 Divalproex Sodium (Depakote) 750 mg Q8 PO Last administered on 07/15/16 05:12; Admin Dose 750 MG; Start 07/07/16 at 14:00 Docusate Sodium (Colace) 100 mg BID PO Last administered on 07/15/16 08:29; Admin Dose 100 MG; Start 07/07/16 at 21:00 Guaifenesin (Robitussin Liquid Cup) 300 mg Q4H PRN PO COUGH; Start 07/07/16 at 12:00 Hypromellose (Isopto Tears) 2 drop Q4H PRN BOTH EYES DRY EYES; Start 07/07/16 at 12:00 Isosorbide Mononitrate (Imdur) 60 mg DAILY PO Last administered on 07/15/16 08: 28; Admin Dose 60 MG; Start 07/08/16 at 09:00 Lactulose (Enulose) 20 gm BID PRN PO CONSTIPATION; Start 07/07/16 at 12:00 Levetiracetam (Keppra) 1,000 mg BID PO Last administered on 07/15/16 08:29; Admin Dose 1,000 MG; Start 07/07/16 at 21:00 Losartan Potassium (Cozaar) 100 mg DAILY PO Last administered on 07/15/16 08:28 ; Admin Dose 100 MG; Start 07/08/16 at 09:00 Montelukast Sodium (Singulair) 10 mg QHS PO Last administered on 07/14/16 20:32 ; Admin Dose 10 MG; Start 07/07/16 at 21:00 Multivit/Ca Carb/ B Cmplx/FA/Prenat ([place]-Pa[place]) 1 tab DAILY PO Last administered on 07/15/16 08:28; Admin Dose 1 TAB; Start 07/08/16 at 09:00 Nitroglycerin (Nitroglycerin (Sl Tab) 0.4 Mg) 1 tab [id number] PRN SL CHEST PAIN ; Start 07/07/16 at 12:00 Pantoprazole (Protonix Tab) 40 mg DAILY@06 PO Last administered on 07/15/16 05: 11; Admin Dose 40 MG; Start 07/08/16 at 06:00 Phenytoin (Dilantin) 300 mg HS PO Last administered on 07/14/16 20:19; Admin Dose 300 MG; Start 07/07/16 at 21:00 Polyethylene Glycol (Miralax) 17 gm BID PO Last administered on 07/14/16 08:48 ; Admin Dose 17 GM; Start 07/07/16 at 21:00 Salmeterol Xinafoate/ Fluticasone (Advair 500/50 Diskus) 1 inh BID INH Last administered on 07/15/16 10:08; Admin Dose 1 INH; Start 07/07/16 at 21:00 Trazodone HCl (Desyrel) 50 mg QHS PO Last administered on 07/14/16 22:52; Admin Dose 50 MG; Start 07/07/16 at 21:00 Carvedilol (Coreg) 6.25 mg BID PO Last administered on 07/15/16 08:29; Admin Dose 6.25 MG; Start 07/08/16 at 21:00 Hydralazine HCl (Apresoline) 10 mg Q4H PRN IV SBP>160; Start 07/08/16 at 18:00 Ferrous Sulfate 325 mg 325 mg BID PO Last administered on 07/15/16 08:31; Admin Dose 325 MG; Start 07/09/16 at 21:00 Ceftriaxone Sodium 50 ml @ 100 mls/hr Q24H IVPB Last administered on 07/14/16 16:54; Admin Dose 100 MLS/HR; Start 07/12/16 at 17:30 Azithromycin (Zithromax 500mg/ NS (Pmx)) 250 ml @ 250 mls/hr Q24H IVPB Last administered on 07/14/16 17:32; Admin Dose 250 MLS/HR; Start 07/12/16 at 18:00 Al Hydrox/Mg Hydrox/Simethicone (Mag-Al Plus) 30 ml Q4H PRN PO GASTROINTESTINAL UPSET Last administered on 07/14/16 04:38; Admin Dose 30 ML; Start 07/14/16 at 04:30 Heparin Sodium (Porcine) (Heparin (5000 Units/0.5 ml)) 5,000 unit BID SC ; Start 07/15/16 at 21:00 MADYSON SHEIKH Jul 15, 2016 11:13
[2016-07-15] MEDS: CEFTRIAXONE 1 GM/50 ML (PMX) 50 ML IVPB SCH (17:23)
[2016-07-15] MEDS: AZITHROMYCIN 500MG/NS (PMX) 250 ML IVPB SCH (18:02)
[2016-07-15] MEDS: traZODone 50 MG TAB PO SCH (21:00)
[2016-07-15] MEDS: PHENYTOIN 100 MG CAP PO SCH (22:21)
[2016-07-15] MEDS: ATORVASTATIN 80 MG TAB PO SCH (22:22)
[2016-07-15] MEDS: MONTELUKAST 10 MG TAB PO SCH (22:23)
[2016-07-15] MEDS: HEPARIN 5,000 UNIT/0.5 ML VIAL SC SCH (22:36)
[2016-07-16] VITALS (18 sets, daily range): BP systolic 93–162; BP diastolic 51–82; PULSE 55–95; RESP 18
[2016-07-16] MEDS: ONDANSETRON 4 MG INJ IV PRN (01:47)
[2016-07-16] MEDS ORDERED: morphine 4 MG/ML VIAL IV PRN (02:30)
[2016-07-16] MEDS: PANTOPRAZOLE (EC) 40 MG TAB PO SCH (05:33)
[2016-07-16] MEDS: morphine 2 MG INJ IV PRN ×4 (05:35→20:52)
[2016-07-16] MEDS: DIVALPROEX (EC) 250 MG TAB PO SCH ×3 (05:36→22:00)
[2016-07-16 07:18] LABS: ADD SCAN DIFF NO
[2016-07-16 07:20] LABS: ABNORMAL IP MESSAGE 1; BASOPHILS % 0.4 % (0.0-2.0); EOSINOPHILS # 1.5 10^3/ul (0.0-0.5); HEMATOCRIT 27.7 % (42.0-52.0); HEMOGLOBIN 8.7 g/dl (14.0-18.0); LYMPHOCYTES # 0.9 10^3/ul (0.8-2.9); LYMPHOCYTES % 20.8 % (15.0-51.0); MEAN CORPUSCULAR HEMOGLOBIN 30.5 pg (29.0-33.0); MEAN CORPUSCULAR HGB CONC 31.4 g/dl (32.0-37.0); MEAN CORPUSCULAR VOLUME 97.2 fl (82.0-101.0); MEAN PLATELET VOLUME 9.8 fl (7.4-10.4); MONOCYTE # 0.5 10^3/ul (0.3-0.9); NEUTROPHIL # 1.6 10^3/ul (1.6-7.5); NEUTROPHILS % 34.8 % (39.0-77.0); PLATELET COUNT 99 10^3/UL (140-415); RED BLOOD COUNT 2.85 10^6/ul (4.70-6.10); RED CELL DISTRIBUTION WIDTH 16.8 % (11.5-14.5); WHITE BLOOD COUNT 4.5 10^3/ul (4.8-10.8)
[2016-07-16 07:26] LABS: EOSINOPHILS % 33.6 % (0.0-7.0)
[2016-07-16 07:37] LABS: POTASSIUM 4.4 mmol/L (3.5-5.1)
[2016-07-16 07:40] LABS: CREATININE 8.54 mg/dl (0.61-1.24)
[2016-07-16 07:41] LABS: CALCIUM 9.1 mg/dl (8.4-10.2)
[2016-07-16 07:42] LABS: MAGNESIUM 2.3 mg/dl (1.7-2.5); PHOSPHORUS 6.3 mg/dl (2.5-4.9)
[2016-07-16] MEDS: ALBUTEROL/IPRATROPIUM (NEB) 3 ML AMP HHN SCH ×3 (08:10→19:27)
[2016-07-16] MEDS: LOSARTAN 50 MG TAB PO SCH (09:00)
[2016-07-16] MEDS: ISOSORBIDE MONONITRATE(SR)60 MG TAB PO SCH (09:00)
[2016-07-16] MEDS: DOCUSATE SODIUM 100 MG CAP PO SCH (09:00)
[2016-07-16] MEDS: POLYETHYLENE GLYCOL 17 GM PACKET PO SCH ×2 (09:00→21:00)
[2016-07-16] MEDS: CINACALCET 30 MG TAB PO SCH (09:19)
[2016-07-16] MEDS: MULTIVIT/CA CARB/B CMPLX/FA TAB PO SCH (09:20)
[2016-07-16] MEDS: FERROUS SULFATE (EC) 325 MG TAB PO SCH ×2 (09:20→20:51)
[2016-07-16] MEDS: SEVELAMER CARBONATE 0.8 GM PKT PO SCH ×3 (09:20→17:21)
[2016-07-16] MEDS: CITALOPRAM 20 MG TAB PO SCH (09:20)
[2016-07-16] MEDS: CLOPIDOGREL 75 MG TAB PO SCH (09:20)
[2016-07-16] MEDS: LEVETIRACETAM 500 MG TAB PO SCH ×2 (09:20→20:51)
[2016-07-16] MEDS: HEPARIN 5,000 UNIT/0.5 ML VIAL SC SCH ×2 (09:23→21:02)
[2016-07-16] MEDS: SALMETEROL/FLUTICASONE 500/50 INHA INH SCH (09:24)
--- NOTE | 2016-07-16 10:08 | PN ---
DATE: 07/16/2016 SUBJECTIVE: The patient is stable, no acute events overnight. No fevers, chills, nausea, vomiting. OBJECTIVE: VITAL SIGNS: Blood pressure is 93/51, respiration 18, pulse 69, temperature 98.2. HEENT: Head is normocephalic. NECK: Supple. HEART: Regular rate. LUNGS: Show diminished breath sounds at base. ABDOMEN: Soft, nontender to palpation without rebound or guarding. EXTREMITIES: Negative for clubbing, cyanosis, or edema. DERMATOLOGIC: No rashes. MUSCULOSKELETAL: No joint effusions. NEUROLOGIC: No change in exam. MEDICATIONS: The patient's medications have been reviewed. LABORATORY DATA: Shows sodium 139, potassium 4.4, chloride 96, BUN 62, creatinine 8.54. White coun t 4.5, hemoglobin 8.6, hematocrit 27.7, platelet count 99. ASSESSMENT AND PLAN: 1. End-stage renal disease. The patient will receive hemodialysis today for solute clearance and v olume removal. Plan for dialysis 3 hours, K bath, calcium 2.5, ultrafiltrate as tolerated. 2. Acute hypoxemic respiratory failure secondary to congestive heart failure. The patient is clini juliana improving. Continue ultrafiltration dialysis. 3. Anemia. Continue to monitor hemoglobin and hematocrit levels. Continue Epogen. 4. Hypertension. The patient now hypotensive. Monitor closely with dialysis. Hold blood pressure medication. 5. Coronary artery disease. Continue medical management. 6. Diabetes. Continue Accu-Cheks and sliding scale. 7. Seizure disorder. Continue current medical management. 8. Elevated troponin [id number] myocardial infarction type 2. Continue to monitor. Follow u p with cardiology. 9. Mineral bone disorder, continue to monitor and calcium phosphorus levels. Continue phosphate bi nders, vitamin D analogs and Sensipar. 10. Dyslipidemia. Continue statin therapy. Dictated By: NEHEMIAS DAS/ROSANNA Conf#: [id number] DID#: [id number]
[2016-07-16] MEDS: DIPHENHYDRAMINE 25 MG CAP PO PRN (13:24)
--- NOTE | 2016-07-16 14:33 | CONS ---
Date/Time of Note Date/Time of Note DATE: 07/16/16 TIME: 14:31 Assessment/Plan Assessment/Plan Chief Complaint/Hosp Course Acute on chronic diastolic heart failure: mild by exam, ?viral or bronchitis as no improvement with daily HD Accelerated hypertension - blood pressures improved NSTEMI - likely type 2 in setting of elevated blood pressure and renal failure Coronary artery disease - myocardial infarction and coronary stenting in 2014 Dyslipidemia End-stage renal disease - on hemodialysis Seizure disorder History of stroke Anemia - s/p transfusion again 07/13 Thrombocytopenia -continue clopidogrel 75mg daily as monotherapy -continue carvedilol 6.25mg BID, up titrate as needed -continue losartan 100mg daily -continue atorvastatin -volume management via hemodialysis per nephrology Problems: Consultation Date/Type/Reason Admit Date/Time Jul 07, 2016 at 11:31 Type of Consultation: Cardiology 24 HR Interval Summary Free Text/Dictation Still wheezing. HD this afternoon. Exam/Review of Systems Vital Signs Vitals Vital Signs Date Time Temp Pulse Resp B/P Pulse Ox O2 Delivery O2 Flow Rate FiO2 07/16/16 14:17 79 20 95 Nasal Cannula 2.0 07/16/16 11:50 98.8 115/61 07/13/16 14:32 95 Intake and Output 07/15/16 07/15/16 07/16/16 15:00 23:00 07:00 Intake Total 800 ml Balance 800 ml Exam Constitutional: alert, oriented Neck: No jvd Respiratory: wheezing, No clear to auscultation Cardiovascular: edema (trace), regular rate and rhythm Gastrointestinal: non-tender, soft Neurological: nl mental status, nl speech Results Result Diagram: 07/16/16 0635 07/16/16 0635 Results 24 hrs Laboratory Tests Test 07/16/16 06:35 White Blood Count 4.5 L Red Blood Count 2.85 L Hemoglobin 8.7 L Hematocrit 27.7 L Mean Corpuscular Volume 97.2 Mean Corpuscular Hemoglobin 30.5 Mean Corpuscular Hemoglobin Concent 31.4 L Red Cell Distribution Width 16.8 H Platelet Count 99 L Mean Platelet Volume 9.8 Neutrophils % 34.8 L Lymphocytes % 20.8 Monocytes % 10.0 Eosinophils % 33.6 H Basophils % 0.4 Nucleated Red Blood Cells % 0.0 Neutrophils # 1.6 Lymphocytes # 0.9 Monocytes # 0.5 Eosinophils # 1.5 H Basophils # 0.0 Nucleated Red Blood Cells # 0.0 Sodium Level 139 Potassium Level 4.4 Chloride Level 96 L Carbon Dioxide Level 27 Anion Gap 20 H Blood Urea Nitrogen 62 H Creatinine 8.54 H Glucose Level 124 Calcium Level 9.1 Phosphorus Level 6.3 H Magnesium Level 2.3 Medications Medications Current Medications Ondansetron HCl (Zofran Inj) 4 mg Q6H PRN IV NAUSEA AND/OR VOMITING Last administered on 07/16/16 01:47; Admin Dose 4 MG; Start 07/07/16 at 12:00 Acetaminophen (Tylenol Tab) 650 mg Q6H PRN PO PAIN LEVEL 1-3 OR FEVER Last administered on 07/10/16 13:22; Admin Dose 650 MG; Start 07/07/16 at 12:00 Acetaminophen/ Hydrocodone Bitart ([place] (5/325)) 1 tab Q6H PRN PO MODERATE PAIN LEVEL 4-6 Last administered on 07/11/16 08:34; Admin Dose 1 TAB; Start 07/07 at 12:00 Morphine Sulfate (morphine) 2 mg Q4H PRN IV SEVERE PAIN LEVEL 7-10 Last administered on 07/16/16 13:23; Admin Dose 2 MG; Start 07/07/16 at 12:00 Docusate Sodium (Colace) 100 mg Q12H PRN PO CONSTIPATION; Start 07/07/16 at 12: 00 Atorvastatin Calcium (Lipitor) 80 mg QHS PO Last administered on 07/15/16 22:22 ; Admin Dose 80 MG; Start 07/07/16 at 21:00 Bisacodyl (Dulcolax) 10 mg DAILY PRN PO CONSTIPATION; Start 07/07/16 at 12:00 Cinacalcet (Sensipar) 30 mg DAILY PO Last administered on 07/16/16 09:19; Admin Dose 30 MG; Start 07/08/16 at 09:00 Citalopram Hydrobromide (Celexa) 10 mg DAILY PO Last administered on 07/16/16 09:20; Admin Dose 10 MG; Start 07/08/16 at 09:00 Clopidogrel Bisulfate (plaVIX) 75 mg DAILY PO Last administered on 07/16/16 09 :20; Admin Dose 75 MG; Start 07/08/16 at 09:00 Diphenhydramine HCl (Benadryl) 25 mg Q6H PRN PO ITCHING Last administered on 13:24; Admin Dose 25 MG; Start 07/07/16 at 12:00 Divalproex Sodium (Depakote) 750 mg Q8 PO Last administered on 07/16/16 13:24 ; Admin Dose 750 MG; Start 07/07/16 at 14:00 Docusate Sodium (Colace) 100 mg BID PO Last administered on 07/15/16 08:29; Admin Dose 100 MG; Start 07/07/16 at 21:00 Guaifenesin (Robitussin Liquid Cup) 300 mg Q4H PRN PO COUGH; Start 07/07/16 at 12:00 Hypromellose (Isopto Tears) 2 drop Q4H PRN BOTH EYES DRY EYES; Start 07/07/16 at 12:00 Isosorbide Mononitrate (Imdur) 60 mg DAILY PO Last administered on 07/15/16 08: 28; Admin Dose 60 MG; Start 07/08/16 at 09:00 Lactulose (Enulose) 20 gm BID PRN PO CONSTIPATION; Start 07/07/16 at 12:00 Levetiracetam (Keppra) 1,000 mg BID PO Last administered on 07/16/16 09:20; Admin Dose 1,000 MG; Start 07/07/16 at 21:00 Losartan Potassium (Cozaar) 100 mg DAILY PO Last administered on 07/15/16 08:28 ; Admin Dose 100 MG; Start 07/08/16 at 09:00 Montelukast Sodium (Singulair) 10 mg QHS PO Last administered on 07/15/16 22:23 ; Admin Dose 10 MG; Start 07/07/16 at 21:00 Multivit/Ca Carb/ B Cmplx/FA/Prenat ([place]-Pa[place]) 1 tab DAILY PO Last administered on 07/16/16 09:20; Admin Dose 1 TAB; Start 07/08/16 at 09:00 Nitroglycerin (Nitroglycerin (Sl Tab) 0.4 Mg) 1 tab [id number] PRN SL CHEST PAIN ; Start 07/07/16 at 12:00 Pantoprazole (Protonix Tab) 40 mg DAILY@06 PO Last administered on 07/15/16 05: 11; Admin Dose 40 MG; Start 07/08/16 at 06:00 Phenytoin (Dilantin) 300 mg HS PO Last administered on 07/15/16 22:21; Admin Dose 300 MG; Start 07/07/16 at 21:00 Polyethylene Glycol (Miralax) 17 gm BID PO Last administered on 07/14/16 08:48 ; Admin Dose 17 GM; Start 07/07/16 at 21:00 Salmeterol Xinafoate/ Fluticasone (Advair 500/50 Diskus) 1 inh BID INH Last administered on 07/16/16 09:24; Admin Dose 1 INH; Start 07/07/16 at 21:00 Trazodone HCl (Desyrel) 50 mg QHS PO Last administered on 07/14/16 22:52; Admin Dose 50 MG; Start 07/07/16 at 21:00 Carvedilol (Coreg) 6.25 mg BID PO Last administered on 07/15/16 22:23; Admin Dose 6.25 MG; Start 07/08/16 at 21:00 Hydralazine HCl (Apresoline) 10 mg Q4H PRN IV SBP>160; Start 07/08/16 at 18:00 Ferrous Sulfate 325 mg 325 mg BID PO Last administered on 07/16/16 09:20; Admin Dose 325 MG; Start 07/09/16 at 21:00 Ceftriaxone Sodium 50 ml @ 100 mls/hr Q24H IVPB Last administered on 07/15/16 17:23; Admin Dose 100 MLS/HR; Start 07/12/16 at 17:30 Azithromycin (Zithromax 500mg/ NS (Pmx)) 250 ml @ 250 mls/hr Q24H IVPB Last administered on 07/15/16 18:02; Admin Dose 250 MLS/HR; Start 07/12/16 at 18:00 Al Hydrox/Mg Hydrox/Simethicone (Mag-Al Plus) 30 ml Q4H PRN PO GASTROINTESTINAL UPSET Last administered on 07/14/16 04:38; Admin Dose 30 ML; Start 07/14/16 at 04:30 Heparin Sodium (Porcine) (Heparin (5000 Units/0.5 ml)) 5,000 unit BID SC Last administered on 4/10/17at 09:23; Admin Dose 5,000 UNIT; Start 07/15/16 at 21:00 MADYSON SHEIKH Jul 16, 2016 14:33
--- NOTE | 2016-07-16 16:53 | PN ---
Date/Time of Note Date/Time of Note DATE: 07/16/16 TIME: 16:50 Assessment/Plan VTE Prophylaxis VTE Prophylaxis Intervention: LMWH Lines/Catheters [facility] Peripheral IV Urinary Cath still in place: No Assessment/Plan Chief Complaint/Hosp Course Subjective:. Less edema. Positive cough with pleurisy. Wheezing remains. Good appetite. Objective: Vital signs stable Physical exam No pallor JVD Regular Wheezing no tachypnea Bs positive, nontender, nondistended, no RIG Minimal edema Assessment and plan 1. Dyspnea/ fluid overload. Stable cont HD. 2. Secondary [place]. False positive troponin. Stable cont medical management/asa/ statin 3. Chr seizure disorder. Nothing recently 4. Possible bronchitis/ obstructive lung disease. Add prednisone. 5. Recent MRSA pneumonia. Stable follow 6. Chr DM/metabolic syndrome 7. Anemia 8. CHF? 9. Depression chronic 10. Chr COPD 11. Chr coronary disease/PCI in 2014 12. Ho stroke? Problems: Exam/Review of Systems Vital Signs Vitals Vital Signs Date Time Temp Pulse Resp B/P Pulse Ox O2 Delivery O2 Flow Rate FiO2 07/16/16 16:45 82 07/16/16 16:45 16 07/16/16 14:17 95 Nasal Cannula 2.0 07/16/16 11:50 98.8 115/61 07/13/16 14:32 95 Intake and Output 07/15/16 07/15/16 07/16/16 15:00 23:00 07:00 Intake Total 800 ml Balance 800 ml Results Result Diagram: 07/16/16 0635 07/16/16 0635 Results 24 hrs Laboratory Tests Test 07/16/16 06:35 White Blood Count 4.5 L Red Blood Count 2.85 L Hemoglobin 8.7 L Hematocrit 27.7 L Mean Corpuscular Volume 97.2 Mean Corpuscular Hemoglobin 30.5 Mean Corpuscular Hemoglobin Concent 31.4 L Red Cell Distribution Width 16.8 H Platelet Count 99 L Mean Platelet Volume 9.8 Neutrophils % 34.8 L Lymphocytes % 20.8 Monocytes % 10.0 Eosinophils % 33.6 H Basophils % 0.4 Nucleated Red Blood Cells % 0.0 Neutrophils # 1.6 Lymphocytes # 0.9 Monocytes # 0.5 Eosinophils # 1.5 H Basophils # 0.0 Nucleated Red Blood Cells # 0.0 Sodium Level 139 Potassium Level 4.4 Chloride Level 96 L Carbon Dioxide Level 27 Anion Gap 20 H Blood Urea Nitrogen 62 H Creatinine 8.54 H Glucose Level 124 Calcium Level 9.1 Phosphorus Level 6.3 H Magnesium Level 2.3 Medications Medications Current Medications Ondansetron HCl (Zofran Inj) 4 mg Q6H PRN IV NAUSEA AND/OR VOMITING Last administered on 07/16/16 01:47; Admin Dose 4 MG; Start 07/07/16 at 12:00 Acetaminophen (Tylenol Tab) 650 mg Q6H PRN PO PAIN LEVEL 1-3 OR FEVER Last administered on 07/10/16 13:22; Admin Dose 650 MG; Start 07/07/16 at 12:00 Acetaminophen/ Hydrocodone Bitart ([place] (5/325)) 1 tab Q6H PRN PO MODERATE PAIN LEVEL 4-6 Last administered on 07/11/16 08:34; Admin Dose 1 TAB; Start 07/07 at 12:00 Morphine Sulfate (morphine) 2 mg Q4H PRN IV SEVERE PAIN LEVEL 7-10 Last administered on 07/16/16 13:23; Admin Dose 2 MG; Start 07/07/16 at 12:00 Docusate Sodium (Colace) 100 mg Q12H PRN PO CONSTIPATION; Start 07/07/16 at 12: 00 Atorvastatin Calcium (Lipitor) 80 mg QHS PO Last administered on 07/15/16 22:22 ; Admin Dose 80 MG; Start 07/07/16 at 21:00 Bisacodyl (Dulcolax) 10 mg DAILY PRN PO CONSTIPATION; Start 07/07/16 at 12:00 Cinacalcet (Sensipar) 30 mg DAILY PO Last administered on 07/16/16 09:19; Admin Dose 30 MG; Start 07/08/16 at 09:00 Citalopram Hydrobromide (Celexa) 10 mg DAILY PO Last administered on 07/16/16 09:20; Admin Dose 10 MG; Start 07/08/16 at 09:00 Clopidogrel Bisulfate (plaVIX) 75 mg DAILY PO Last administered on 07/16/16 09 :20; Admin Dose 75 MG; Start 07/08/16 at 09:00 Diphenhydramine HCl (Benadryl) 25 mg Q6H PRN PO ITCHING Last administered on 13:24; Admin Dose 25 MG; Start 07/07/16 at 12:00 Divalproex Sodium (Depakote) 750 mg Q8 PO Last administered on 07/16/16 13:24 ; Admin Dose 750 MG; Start 07/07/16 at 14:00 Guaifenesin (Robitussin Liquid Cup) 300 mg Q4H PRN PO COUGH; Start 07/07/16 at 12:00 Hypromellose (Isopto Tears) 2 drop Q4H PRN BOTH EYES DRY EYES; Start 07/07/16 at 12:00 Isosorbide Mononitrate (Imdur) 60 mg DAILY PO Last administered on 07/15/16 08: 28; Admin Dose 60 MG; Start 07/08/16 at 09:00 Lactulose (Enulose) 20 gm BID PRN PO CONSTIPATION; Start 07/07/16 at 12:00 Levetiracetam (Keppra) 1,000 mg BID PO Last administered on 07/16/16 09:20; Admin Dose 1,000 MG; Start 07/07/16 at 21:00 Losartan Potassium (Cozaar) 100 mg DAILY PO Last administered on 07/15/16 08:28 ; Admin Dose 100 MG; Start 07/08/16 at 09:00 Montelukast Sodium (Singulair) 10 mg QHS PO Last administered on 07/15/16 22:23 ; Admin Dose 10 MG; Start 07/07/16 at 21:00 Multivit/Ca Carb/ B Cmplx/FA/Prenat ([place]elvina-Paula) 1 tab DAILY PO Last administered on 07/16/16 09:20; Admin Dose 1 TAB; Start 07/08/16 at 09:00 Nitroglycerin (Nitroglycerin (Sl Tab) 0.4 Mg) 1 tab [id number] PRN SL CHEST PAIN ; Start 07/07/16 at 12:00 Phenytoin (Dilantin) 300 mg HS PO Last administered on 07/15/16 22:21; Admin Dose 300 MG; Start 07/07/16 at 21:00 Polyethylene Glycol (Miralax) 17 gm BID PO Last administered on 07/14/16 08:48 ; Admin Dose 17 GM; Start 07/07/16 at 21:00 Salmeterol Xinafoate/ Fluticasone (Advair 500/50 Diskus) 1 inh BID INH Last administered on 07/16/16 09:24; Admin Dose 1 INH; Start 07/07/16 at 21:00 Trazodone HCl (Desyrel) 50 mg QHS PO Last administered on 07/14/16 22:52; Admin Dose 50 MG; Start 07/07/16 at 21:00 Carvedilol (Coreg) 6.25 mg BID PO Last administered on 07/15/16 22:23; Admin Dose 6.25 MG; Start 07/08/16 at 21:00 Hydralazine HCl (Apresoline) 10 mg Q4H PRN IV SBP>160; Start 07/08/16 at 18:00 Ferrous Sulfate 325 mg 325 mg BID PO Last administered on 07/16/16 09:20; Admin Dose 325 MG; Start 07/09/16 at 21:00 Ceftriaxone Sodium (Rocephin) 50 ml @ 100 mls/hr Q24H IVPB Last administered on 07/15/16 17:23; Admin Dose 100 MLS/HR; Start 07/12/16 at 17:30 Al Hydrox/Mg Hydrox/Simethicone (Mag-Al Plus) 30 ml Q4H PRN PO GASTROINTESTINAL UPSET Last administered on 07/14/16 04:38; Admin Dose 30 ML; Start 07/14/16 at 04:30 Heparin Sodium (Porcine) (Heparin (5000 Units/0.5 ml)) 5,000 unit BID SC Last administered on 07/16/16 09:23; Admin Dose 5,000 UNIT; Start 07/15/16 at 21:00 Azithromycin (Zithromax) 500 mg DAILY PO ; Start 07/17/16 at 09:00 Miscellaneous Information (* Miscellaneous Pharmacy Order) HYPOGLYCEMIA PROTOCOL w... ONCE ONCE XX ; Start 07/16/16 at 17:00; Stop 07/16/16 at 17:01 Miscellaneous Information (* Miscellaneous Pharmacy Order) Discontinue Glyburide , Glipizide,... ONCE ONCE XX ; Start 07/16/16 at 17:00; Stop 07/16/16 at 17:01 Miscellaneous Information (* Miscellaneous Pharmacy Order) Discontinue all previ... ONCE ONCE XX ; Start 07/16/16 at 17:00; Stop 07/16/16 at 17:01 ARGENIS MCPHERSON MD Jul 16, 2016 16:53
[2016-07-16] MEDS: predniSONE 20 MG TAB PO SCH (17:21)
[2016-07-16] MEDS: CEFTRIAXONE 1 GM/50 ML (PMX) 50 ML IVPB SCH (17:21)
[2016-07-16] MEDS: PHENYTOIN 100 MG CAP PO SCH (20:51)
[2016-07-16] MEDS: MONTELUKAST 10 MG TAB PO SCH (20:51)
[2016-07-16] MEDS: ATORVASTATIN 80 MG TAB PO SCH (20:52)
--- NOTE | 2016-07-16 23:05 | RADRPT ---
PROCEDURE: XR Chest. CLINICAL INDICATION: Shortness of breath. TECHNIQUE: Single frontal view. COMPARISON: 07/11/2016 FINDINGS: Mild pulmonary edema is improved. The lungs are otherwise clear. The heart is enlarged. There is calcification in the aorta consistent with atherosclerosis. There is no pleural effusion. There is no pneumothorax. IMPRESSION: 1. Mild pulmonary edema, improved. 2. Cardiomegaly and atherosclerosis. RPTAT: QQ .Franco Lovett MD, MD Date Time Electronically viewed and signed by .Franco Lovett MD, MD on 07/16/2016 23:04 .R/
[2016-07-16] MEDS: HYDROCODONE/APAP (5/325) TAB PO PRN (23:12)
[2016-07-16] MEDS: traZODone 50 MG TAB PO SCH (23:12)
[2016-07-17] VITALS (13 sets, daily range): BP systolic 140–178; BP diastolic 60–89; PULSE 77–90; RESP 18–22
[2016-07-17] MEDS: SALMETEROL/FLUTICASONE 500/50 INHA INH SCH ×4 (02:50→22:33)
[2016-07-17] MEDS: morphine 2 MG INJ IV PRN ×5 (02:50→22:33)
[2016-07-17] MEDS: HYDROCODONE/APAP (5/325) TAB PO PRN (06:23)
[2016-07-17] MEDS: DIVALPROEX (EC) 250 MG TAB PO SCH ×4 (06:24→22:29)
[2016-07-17] MEDS: ALBUTEROL/IPRATROPIUM (NEB) 3 ML AMP HHN SCH ×3 (08:11→21:16)
[2016-07-17 08:21] LABS: ADD SCAN DIFF NO
[2016-07-17 08:24] LABS: ABNORMAL IP MESSAGE 1; HEMATOCRIT 29.9 % (42.0-52.0); HEMOGLOBIN 9.1 g/dl (14.0-18.0); MEAN CORPUSCULAR HGB CONC 30.4 g/dl (32.0-37.0); MEAN CORPUSCULAR VOLUME 98.7 fl (82.0-101.0); MEAN PLATELET VOLUME 9.4 fl (7.4-10.4); PLATELET COUNT 102 10^3/UL (140-415); RED BLOOD COUNT 3.03 10^6/ul (4.70-6.10); RED CELL DISTRIBUTION WIDTH 16.8 % (11.5-14.5); WHITE BLOOD COUNT 2.5 10^3/ul (4.8-10.8)
[2016-07-17] MEDS: MULTIVIT/CA CARB/B CMPLX/FA TAB PO SCH (08:35)
[2016-07-17] MEDS: predniSONE 20 MG TAB PO SCH (08:35)
[2016-07-17] MEDS: CINACALCET 30 MG TAB PO SCH (08:35)
[2016-07-17] MEDS: AZITHROMYCIN 250 MG TAB PO SCH (08:36)
[2016-07-17] MEDS: ISOSORBIDE MONONITRATE(SR)60 MG TAB PO SCH (08:36)
[2016-07-17] MEDS: FERROUS SULFATE (EC) 325 MG TAB PO SCH ×2 (08:36→21:09)
[2016-07-17] MEDS: LEVETIRACETAM 500 MG TAB PO SCH ×2 (08:36→21:09)
[2016-07-17] MEDS: SEVELAMER CARBONATE 0.8 GM PKT PO SCH ×3 (08:37→18:34)
[2016-07-17] MEDS: POLYETHYLENE GLYCOL 17 GM PACKET PO SCH ×2 (08:37→21:10)
[2016-07-17] MEDS: CITALOPRAM 20 MG TAB PO SCH (08:37)
[2016-07-17] MEDS: LOSARTAN 50 MG TAB PO SCH (08:42)
[2016-07-17] MEDS: CLOPIDOGREL 75 MG TAB PO SCH (08:42)
[2016-07-17] MEDS: HEPARIN 5,000 UNIT/0.5 ML VIAL SC SCH ×2 (08:57→21:12)
[2016-07-17 09:02] LABS: ALBUMIN 3.8 g/dl (3.3-4.9); ALBUMIN/GLOBULIN RATIO 0.92; BILIRUBIN,INDIRECT 0.1 mg/dl (0-1.1); BILIRUBIN,TOTAL 0.1 mg/dl (0.2-1.3); CALCIUM 9.3 mg/dl (8.4-10.2); CREATININE 6.83 mg/dl (0.61-1.24); MAGNESIUM 2.5 mg/dl (1.7-2.5); PHOSPHORUS 5.1 mg/dl (2.5-4.9); POTASSIUM 4.1 mmol/L (3.5-5.1); TOTAL PROTEIN 7.9 g/dl (6.1-8.1)
[2016-07-17 09:14] LABS: VALPROATE 46 ug/ml (50-100)
[2016-07-17 09:30] LABS: THYROID STIMULATING HORMONE 2.13 MIU/L (0.465-4.680)
[2016-07-17 10:44] LABS: LYMPHOCYTES # 0.5 10^3/ul (0.8-2.9); MONOCYTE # 0.3 10^3/ul (0.3-0.9); NEUTROPHIL # 1.7 10^3/ul (1.6-7.5)
--- NOTE | 2016-07-17 10:51 | PN ---
DATE: 07/17/2016 SUBJECTIVE: The patient had hemodialysis yesterday, tolerated it well with 2.5 liters removed. No other events noted. OBJECTIVE: VITAL SIGNS: Blood pressure 159/84, respirations 18, pulse 87, temperature 98.1. HEENT: Head is normocephalic. NECK: Supple. HEART: Regular rate. LUNGS: Show diminished breath sounds at the bases. ABDOMEN: Soft, nontender to palpation. No rebound or guarding. EXTREMITIES: Negative for clubbing, cyanosis. No edema. DERMATOLOGIC: No rashes. MUSCULOSKELETAL: No joint effusions. NEUROLOGIC: No change in exam. MEDICATIONS: The patient's medications have been reviewed. LABORATORY DATA: Shows sodium 142, potassium 4.1, chloride 104, BUN 46, creatinine 6.83, phosphorus 5.1. White count 2.5, hemoglobin 9.4, hematocrit 29.9, platelet count is 102. Chest x-ray on 07/16/2016 shows mild pulmonary edema, improved. ASSESSMENT AND PLAN: 1. End-stage renal disease. The patient had hemodialysis yesterday, tolerated it well. Plan for d ialysis tomorrow for 3 hours and 3 K bath, calcium 2.5, ultrafiltrate as tolerated. 2. Volume overload, clinically improving. Continue ultrafiltration with hemodialysis. 3. Acute hypoxemic respiratory failure secondary to congestive heart failure with possible reactive airway disease. The patient continues to have shortness of breath. We will continue medical manag ement, nebulizer therapy. Continue prednisone. Continue ultrafiltration with hemodialysis. 4. Anemia. Continue to monitor hemoglobin and hematocrit levels. Continue Epogen. 5. Hypertension. Blood pressure well controlled. Continue to monitor. 6. Coronary artery disease. Continue current medical regimen. 7. Diabetes. Continue Accu-Cheks and insulin sliding scale. 8. Seizure disorder. Continue current medical management. 9. Non-ST elevation myocardial infarction type 2. Continue to monitor. Follow up with cardiology. 10. Mineral bone disorder. Continue to monitor calcium and phosphorus levels. Continue phosphate b inders. 11. Dyslipidemia. Continue statin therapy. 12. Pancytopenia, unclear etiology. May consider hematologic evaluation. Dictated By: NEHEMIAS DAS/NTS Conf#: [id number] DID#: [id number]
--- NOTE | 2016-07-17 14:50 | PN ---
Date/Time of Note Date/Time of Note DATE: 07/17/16 TIME: 14:47 Assessment/Plan VTE Prophylaxis VTE Prophylaxis Intervention: LMWH Lines/Catheters [facility] AV SHUNT Urinary Cath still in place: No Assessment/Plan Chief Complaint/Hosp Course S: 07/16- less edema. Positive cough w pleurisy. Wheezing remains. Good appetite. 07/17-dyspnea with some wheezes. Fatigue. O: Vss PE No pallor JVD Reg Wheezing no tachypnea Bs positive, nt nd, no r/r/g Minimal edema A/P 1. Dyspnea/ fluid overload, stable cont HD. 2. Secondary [place]. False positive troponin. Stable cont medical mngmnt/asa/statin 3. Chr seizure disorder. Nothing recently 4. Possible bronchitis/ obstructive lung disease. Add prednisone. 5. Recent MRSA pneumonia. Stable follow 6. Chr DM/metabolic syndrome 7. Anemia 8. CHF? dd- EF=65% 9. Depression chr 10. Chr COPD 11. Chr CAD/PCI in 2014 12. Ho stroke? Problems: Exam/Review of Systems Vital Signs Vitals Vital Signs Date Time Temp Pulse Resp B/P Pulse Ox O2 Delivery O2 Flow Rate FiO2 07/17/16 13:38 2.0 07/17/16 13:38 75 18 95 Nasal Cannula 07/17/16 11:54 97.8 155/74 07/13/16 14:32 95 Intake and Output 07/16/16 07/16/16 07/17/16 15:00 23:00 07:00 Intake Total 540 ml Output Total 2800 ml Balance -2260 ml Results Result Diagram: 07/17/16 0635 07/17/16 0635 Results 24 hrs Laboratory Tests Test 07/17/16 06:35 White Blood Count 2.5 #L Red Blood Count 3.03 L Hemoglobin 9.1 L Hematocrit 29.9 L Mean Corpuscular Volume 98.7 Mean Corpuscular Hemoglobin 30.0 Mean Corpuscular Hemoglobin Concent 30.4 L Red Cell Distribution Width 16.8 H Platelet Count 102 L Mean Platelet Volume 9.4 Neutrophils % 69.0 Band Neutrophils % 1.0 Lymphocytes % 19.0 Monocytes % 10.0 Eosinophils % 1.0 Neutrophils # 1.7 Lymphocytes # 0.5 L Monocytes # 0.3 Eosinophils # 0.0 Sodium Level 142 Potassium Level 4.1 Chloride Level 104 Carbon Dioxide Level 25 Anion Gap 17 H Blood Urea Nitrogen 46 #H Creatinine 6.83 H Glucose Level 125 Hemoglobin A1c 5.5 Calcium Level 9.3 Phosphorus Level 5.1 H Magnesium Level 2.5 Total Bilirubin 0.1 L Direct Bilirubin 0.00 Indirect Bilirubin 0.1 Aspartate Amino Transf (AST/SGOT) 30 Alanine Aminotransferase (ALT/SGPT) 20 Alkaline Phosphatase 238 H Total Protein 7.9 Albumin 3.8 Globulin 4.10 H Albumin/Globulin Ratio 0.92 Thyroid Stimulating Hormone (TSH) 2.130 Phenytoin (Dilantin) Level < 3.0 L Valproic Acid (Depakene) Level 46 L Medications Medications Current Medications Ondansetron HCl (Zofran Inj) 4 mg Q6H PRN IV NAUSEA AND/OR VOMITING Last administered on 07/16/16 01:47; Admin Dose 4 MG; Start 07/07/16 at 12:00 Acetaminophen (Tylenol Tab) 650 mg Q6H PRN PO PAIN LEVEL 1-3 OR FEVER Last administered on 07/10/16 13:22; Admin Dose 650 MG; Start 07/07/16 at 12:00 Acetaminophen/ Hydrocodone Bitart ([place] (5/325)) 1 tab Q6H PRN PO MODERATE PAIN LEVEL 4-6 Last administered on 07/17/16 06:23; Admin Dose 1 TAB; Start 07/07/16 at 12:00 Morphine Sulfate (morphine) 2 mg Q4H PRN IV SEVERE PAIN LEVEL 7-10 Last administered on 07/17/16 13:06; Admin Dose 2 MG; Start 07/07/16 at 12:00 Docusate Sodium (Colace) 100 mg Q12H PRN PO CONSTIPATION; Start 07/07/16 at 12: 00 Atorvastatin Calcium (Lipitor) 80 mg QHS PO Last administered on 07/16/16 20: 52; Admin Dose 80 MG; Start 07/07/16 at 21:00 Bisacodyl (Dulcolax) 10 mg DAILY PRN PO CONSTIPATION; Start 07/07/16 at 12:00 Cinacalcet (Sensipar) 30 mg DAILY PO Last administered on 07/17/16 08:35; Admin Dose 30 MG; Start 07/08/16 at 09:00 Citalopram Hydrobromide (Celexa) 10 mg DAILY PO Last administered on 07/17/16 08:37; Admin Dose 10 MG; Start 07/08/16 at 09:00 Clopidogrel Bisulfate (plaVIX) 75 mg DAILY PO Last administered on 07/17/16 08 :42; Admin Dose 75 MG; Start 07/08/16 at 09:00 Diphenhydramine HCl (Benadryl) 25 mg Q6H PRN PO ITCHING Last administered on 13:24; Admin Dose 25 MG; Start 07/07/16 at 12:00 Divalproex Sodium (Depakote) 750 mg Q8 PO Last administered on 07/17/16 13:05 ; Admin Dose 750 MG; Start 07/07/16 at 14:00 Guaifenesin (Robitussin Liquid Cup) 300 mg Q4H PRN PO COUGH; Start 07/07/16 at 12:00 Hypromellose (Isopto Tears) 2 drop Q4H PRN BOTH EYES DRY EYES; Start 07/07/16 at 12:00 Isosorbide Mononitrate (Imdur) 60 mg DAILY PO Last administered on 07/15/16 08: 28; Admin Dose 60 MG; Start 07/08/16 at 09:00 Lactulose (Enulose) 20 gm BID PRN PO CONSTIPATION; Start 07/07/16 at 12:00 Levetiracetam (Keppra) 1,000 mg BID PO Last administered on 07/17/16 08:36; Admin Dose 1,000 MG; Start 07/07/16 at 21:00 Losartan Potassium (Cozaar) 100 mg DAILY PO Last administered on 07/15/16 08:28 ; Admin Dose 100 MG; Start 07/08/16 at 09:00 Montelukast Sodium (Singulair) 10 mg QHS PO Last administered on 07/16/16 20: 51; Admin Dose 10 MG; Start 07/07/16 at 21:00 Multivit/Ca Carb/ B Cmplx/FA/Prenat ([place]-Pa[place]) 1 tab DAILY PO Last administered on 07/17/16 08:35; Admin Dose 1 TAB; Start 07/08/16 at 09:00 Nitroglycerin (Nitroglycerin (Sl Tab) 0.4 Mg) 1 tab [id number] PRN SL CHEST PAIN ; Start 07/07/16 at 12:00 Phenytoin (Dilantin) 300 mg HS PO Last administered on 07/16/16 20:51; Admin Dose 300 MG; Start 07/07/16 at 21:00 Polyethylene Glycol (Miralax) 17 gm BID PO Last administered on 07/17/16 08:37 ; Admin Dose 17 GM; Start 07/07/16 at 21:00 Salmeterol Xinafoate/ Fluticasone (Advair 500/50 Diskus) 1 inh BID INH Last administered on 07/17/16 08:35; Admin Dose 1 INH; Start 07/07/16 at 21:00 Trazodone HCl (Desyrel) 50 mg QHS PO Last administered on 07/16/16 23:12; Admin Dose 50 MG; Start 07/07/16 at 21:00 Carvedilol (Coreg) 6.25 mg BID PO Last administered on 07/17/16 08:42; Admin Dose 6.25 MG; Start 07/08/16 at 21:00 Hydralazine HCl (Apresoline) 10 mg Q4H PRN IV SBP>160; Start 07/08/16 at 18:00 Ferrous Sulfate 325 mg 325 mg BID PO Last administered on 07/17/16 08:36; Admin Dose 325 MG; Start 07/09/16 at 21:00 Ceftriaxone Sodium (Rocephin) 50 ml @ 100 mls/hr Q24H IVPB Last administered on 07/16/16 17:21; Admin Dose 100 MLS/HR; Start 07/12/16 at 17:30 Al Hydrox/Mg Hydrox/Simethicone (Mag-Al Plus) 30 ml Q4H PRN PO GASTROINTESTINAL UPSET Last administered on 07/14/16 04:38; Admin Dose 30 ML; Start 07/14/16 at 04:30 Heparin Sodium (Porcine) (Heparin (5000 Units/0.5 ml)) 5,000 unit BID SC Last administered on 07/17/16 08:57; Admin Dose 5,000 UNIT; Start 07/15/16 at 21:00 Azithromycin (Zithromax) 500 mg DAILY PO Last administered on 07/17/16 08:36; Admin Dose 500 MG; Start 07/17/16 at 09:00 Prednisone (Prednisone) 60 mg DAILY PO Last administered on 07/17/16t 08:35; Admin Dose 60 MG; Start 07/16/16 at 17:30; Stop 07/21/16 at 17:29 ARGENIS MCPHERSON MD Jul 17, 2016 14:49
--- NOTE | 2016-07-17 16:07 | CONS ---
Date/Time of Note Date/Time of Note DATE: 07/17/16 TIME: 16:06 Assessment/Plan Assessment/Plan Chief Complaint/Hosp Course Acute on chronic diastolic heart failure: mild by exam, ?viral or bronchitis as no improvement with daily HD. Steroids started Accelerated hypertension - blood pressures improved NSTEMI - likely type 2 in setting of elevated blood pressure and renal failure Coronary artery disease - myocardial infarction and coronary stenting in 2014 Dyslipidemia End-stage renal disease - on hemodialysis Seizure disorder History of stroke Anemia - s/p transfusion again 07/13 Thrombocytopenia -continue clopidogrel 75mg daily as monotherapy -continue carvedilol 6.25mg BID, up titrate as needed -continue losartan 100mg daily -continue atorvastatin -volume management via hemodialysis per nephrology Problems: Consultation Date/Type/Reason Admit Date/Time Jul 07, 2016 at 11:31 Type of Consultation: Cardiology 24 HR Interval Summary Free Text/Dictation No o/n events. Still with wheezing Exam/Review of Systems Vital Signs Vitals Vital Signs Date Time Temp Pulse Resp B/P Pulse Ox O2 Delivery O2 Flow Rate FiO2 07/17/16 16:04 98.1 81 18 165/84 98 07/17/16 13:38 2.0 07/17/16 13:38 Nasal Cannula 07/13/16 14:32 95 Intake and Output 07/16/16 07/16/16 07/17/16 15:00 23:00 07:00 Intake Total 540 ml Output Total 2800 ml Balance -2260 ml Exam Constitutional: alert, oriented Head: atraumatic, normocephalic Neck: No jvd Respiratory: diminished breath sounds, wheezing, No clear to auscultation Cardiovascular: regular rate and rhythm, No edema Gastrointestinal: non-tender, soft Neurological: nl mental status, nl speech Results Result Diagram: 07/17/16 0635 07/17/16 0635 Results 24 hrs Laboratory Tests Test 07/17/16 06:35 White Blood Count 2.5 #L Red Blood Count 3.03 L Hemoglobin 9.1 L Hematocrit 29.9 L Mean Corpuscular Volume 98.7 Mean Corpuscular Hemoglobin 30.0 Mean Corpuscular Hemoglobin Concent 30.4 L Red Cell Distribution Width 16.8 H Platelet Count 102 L Mean Platelet Volume 9.4 Neutrophils % 69.0 Band Neutrophils % 1.0 Lymphocytes % 19.0 Monocytes % 10.0 Eosinophils % 1.0 Neutrophils # 1.7 Lymphocytes # 0.5 L Monocytes # 0.3 Eosinophils # 0.0 Sodium Level 142 Potassium Level 4.1 Chloride Level 104 Carbon Dioxide Level 25 Anion Gap 17 H Blood Urea Nitrogen 46 #H Creatinine 6.83 H Glucose Level 125 Hemoglobin A1c 5.5 Calcium Level 9.3 Phosphorus Level 5.1 H Magnesium Level 2.5 Total Bilirubin 0.1 L Direct Bilirubin 0.00 Indirect Bilirubin 0.1 Aspartate Amino Transf (AST/SGOT) 30 Alanine Aminotransferase (ALT/SGPT) 20 Alkaline Phosphatase 238 H Total Protein 7.9 Albumin 3.8 Globulin 4.10 H Albumin/Globulin Ratio 0.92 Thyroid Stimulating Hormone (TSH) 2.130 Phenytoin (Dilantin) Level < 3.0 L Valproic Acid (Depakene) Level 46 L Medications Medications Current Medications Ondansetron HCl (Zofran Inj) 4 mg Q6H PRN IV NAUSEA AND/OR VOMITING Last administered on 07/16/16 01:47; Admin Dose 4 MG; Start 07/07/16 at 12:00 Acetaminophen (Tylenol Tab) 650 mg Q6H PRN PO PAIN LEVEL 1-3 OR FEVER Last administered on 07/10/16 13:22; Admin Dose 650 MG; Start 07/07/16 at 12:00 Acetaminophen/ Hydrocodone Bitart ([place] (5/325)) 1 tab Q6H PRN PO MODERATE PAIN LEVEL 4-6 Last administered on 07/17/16 06:23; Admin Dose 1 TAB; Start 07/07/16 at 12:00 Morphine Sulfate (morphine) 2 mg Q4H PRN IV SEVERE PAIN LEVEL 7-10 Last administered on 07/17/16 13:06; Admin Dose 2 MG; Start 07/07/16 at 12:00 Docusate Sodium (Colace) 100 mg Q12H PRN PO CONSTIPATION; Start 07/07/16 at 12: 00 Atorvastatin Calcium (Lipitor) 80 mg QHS PO Last administered on 07/16/16 20: 52; Admin Dose 80 MG; Start 07/07/16 at 21:00 Bisacodyl (Dulcolax) 10 mg DAILY PRN PO CONSTIPATION; Start 07/07/16 at 12:00 Cinacalcet (Sensipar) 30 mg DAILY PO Last administered on 07/17/16 08:35; Admin Dose 30 MG; Start 07/08/16 at 09:00 Citalopram Hydrobromide (Celexa) 10 mg DAILY PO Last administered on 07/17/16 08:37; Admin Dose 10 MG; Start 07/08/16 at 09:00 Clopidogrel Bisulfate (plaVIX) 75 mg DAILY PO Last administered on 07/17/16 08 :42; Admin Dose 75 MG; Start 07/08/16 at 09:00 Divalproex Sodium (Depakote) 750 mg Q8 PO Last administered on 07/17/16 13:05 ; Admin Dose 750 MG; Start 07/07/16 at 14:00 Guaifenesin (Robitussin Liquid Cup) 300 mg Q4H PRN PO COUGH; Start 07/07/16 at 12:00 Hypromellose (Isopto Tears) 2 drop Q4H PRN BOTH EYES DRY EYES; Start 07/07/16 at 12:00 Isosorbide Mononitrate (Imdur) 60 mg DAILY PO Last administered on 07/15/16 08: 28; Admin Dose 60 MG; Start 07/08/16 at 09:00 Lactulose (Enulose) 20 gm BID PRN PO CONSTIPATION; Start 07/07/16 at 12:00 Levetiracetam (Keppra) 1,000 mg BID PO Last administered on 07/17/16 08:36; Admin Dose 1,000 MG; Start 07/07/16 at 21:00 Losartan Potassium (Cozaar) 100 mg DAILY PO Last administered on 07/15/16 08:28 ; Admin Dose 100 MG; Start 07/08/16 at 09:00 Montelukast Sodium (Singulair) 10 mg QHS PO Last administered on 07/16/16 20: 51; Admin Dose 10 MG; Start 07/07/16 at 21:00 Multivit/Ca Carb/ B Cmplx/FA/Prenat ([place]) 1 tab DAILY PO Last administered on 07/17/16 08:35; Admin Dose 1 TAB; Start 07/08/16 at 09:00 Nitroglycerin (Nitroglycerin (Sl Tab) 0.4 Mg) 1 tab [id number] PRN SL CHEST PAIN ; Start 07/07/16 at 12:00 Phenytoin (Dilantin) 300 mg HS PO Last administered on 07/16/16 20:51; Admin Dose 300 MG; Start 07/07/16 at 21:00 Polyethylene Glycol (Miralax) 17 gm BID PO Last administered on 07/17/16 08:37 ; Admin Dose 17 GM; Start 07/07/16 at 21:00 Salmeterol Xinafoate/ Fluticasone (Advair 500/50 Diskus) 1 inh BID INH Last administered on 07/17/16 08:35; Admin Dose 1 INH; Start 07/07/16 at 21:00 Carvedilol (Coreg) 6.25 mg BID PO Last administered on 07/17/16 08:42; Admin Dose 6.25 MG; Start 07/08/16 at 21:00 Hydralazine HCl (Apresoline) 10 mg Q4H PRN IV SBP>160; Start 07/08/16 at 18:00 Ferrous Sulfate 325 mg 325 mg BID PO Last administered on 07/17/16 08:36; Admin Dose 325 MG; Start 07/09/16 at 21:00 Ceftriaxone Sodium (Rocephin) 50 ml @ 100 mls/hr Q24H IVPB Last administered on 07/16/16 17:21; Admin Dose 100 MLS/HR; Start 07/12/16 at 17:30 Al Hydrox/Mg Hydrox/Simethicone (Mag-Al Plus) 30 ml Q4H PRN PO GASTROINTESTINAL UPSET Last administered on 07/14/16 04:38; Admin Dose 30 ML; Start 07/14/16 at 04:30 Heparin Sodium (Porcine) (Heparin (5000 Units/0.5 ml)) 5,000 unit BID SC Last administered on 07/17/16 08:57; Admin Dose 5,000 UNIT; Start 07/15/16 at 21:00 Azithromycin (Zithromax) 500 mg DAILY PO Last administered on 07/17/16 08:36; Admin Dose 500 MG; Start 07/17/16 at 09:00 Prednisone (Prednisone) 60 mg DAILY PO Last administered on 07/17/16 08:35; Admin Dose 60 MG; Start 07/16/16 at 17:30; Stop 07/21/16 at 17:29 Famotidine (Pepcid) 20 mg DAILY PO ; Start 07/18/16 at 09:00 MADYSON SHEIKH Jul 17, 2016 16:07
[2016-07-17] MEDS: CEFTRIAXONE 1 GM/50 ML (PMX) 50 ML IVPB SCH (18:34)
[2016-07-17] MEDS: ATORVASTATIN 80 MG TAB PO SCH (21:08)
[2016-07-17] MEDS: MONTELUKAST 10 MG TAB PO SCH (21:09)
[2016-07-17] MEDS: PHENYTOIN 100 MG CAP PO SCH (21:09)
[2016-07-18] VITALS (16 sets, daily range): BP systolic 118–171; BP diastolic 55–94; PULSE 77–90; RESP 18–20
[2016-07-18] MEDS: morphine 2 MG INJ IV PRN ×4 (03:54→22:32)
[2016-07-18] MEDS: DIVALPROEX (EC) 500 MG TAB PO SCH ×2 (06:18→15:08)
[2016-07-18] MEDS: DIVALPROEX (EC) 125 MG TAB PO SCH ×2 (06:18→15:08)
[2016-07-18] MEDS: SEVELAMER CARBONATE 0.8 GM PKT PO SCH ×3 (08:15→17:39)
[2016-07-18] MEDS: ALBUTEROL/IPRATROPIUM (NEB) 3 ML AMP HHN SCH ×3 (08:58→19:18)
[2016-07-18] MEDS: CINACALCET 30 MG TAB PO SCH (09:00)
[2016-07-18] MEDS: predniSONE 20 MG TAB PO SCH (09:00)
[2016-07-18] MEDS: CLOPIDOGREL 75 MG TAB PO SCH (09:00)
[2016-07-18] MEDS: FAMOTIDINE 20 MG TAB PO SCH (09:00)
[2016-07-18] MEDS: MULTIVIT/CA CARB/B CMPLX/FA TAB PO SCH (09:00)
[2016-07-18] MEDS: LEVETIRACETAM 500 MG TAB PO SCH ×2 (09:00→20:12)
[2016-07-18] MEDS: AZITHROMYCIN 250 MG TAB PO SCH (09:00)
[2016-07-18] MEDS: POLYETHYLENE GLYCOL 17 GM PACKET PO SCH ×2 (09:00→21:00)
[2016-07-18] MEDS: SALMETEROL/FLUTICASONE 500/50 INHA INH SCH ×2 (09:00→20:11)
[2016-07-18] MEDS: FERROUS SULFATE (EC) 325 MG TAB PO SCH ×2 (09:00→20:12)
[2016-07-18] MEDS: LOSARTAN 50 MG TAB PO SCH (09:00)
[2016-07-18] MEDS: CITALOPRAM 20 MG TAB PO SCH (09:00)
[2016-07-18] MEDS: HEPARIN 5,000 UNIT/0.5 ML VIAL SC SCH ×2 (09:00→20:22)
[2016-07-18] MEDS: ISOSORBIDE MONONITRATE(SR)60 MG TAB PO SCH (09:00)
--- NOTE | 2016-07-18 10:27 | PN ---
DATE: 07/18/2016 SUBJECTIVE: The patient continues to still have some shortness of breath. No other events noted. No hemoptysis, hematemesis, or hematochezia. OBJECTIVE: VITAL SIGNS: Blood pressure 171/80, respiration 18, pulse 79, temperature 97.6. HEENT: Head is normocephalic. NECK: Supple. HEART: Regular rate. LUNGS: Show diminished breath sounds at the base. ABDOMEN: Soft, nontender to palpation without rebound or guarding. EXTREMITIES: Negative for clubbing, cyanosis. No edema. DERMATOLOGIC: No rashes. MUSCULOSKELETAL: No joint effusions. NEUROLOGIC: No change in exam. MEDICATIONS: The patient's medications have been reviewed. LABORATORY DATA: Showed sodium 142, potassium 4.1, chloride 104, BUN 46, creatinine 6.83. White co unt 2.5, hemoglobin 9.1, hematocrit 29.9, platelet count is 102. ASSESSMENT AND PLAN: 1. End-stage renal disease. The patient is on dialysis 4 to 5 times weekly. The patient is schedu led for dialysis today for 3 hours, 3K bath, calcium 2.5. 3. Volume overload, congestive heart failure, clinically improving. Continue ultrafiltration dialy sis. 4. Acute hypoxemic respiratory failure secondary to congestive heart failure and reactive airway di sease. The patient is currently on prednisone, nebulizers, antibiotics. Will continue. Continue u ltrafiltration dialysis. 5. Anemia. Continue to monitor hemoglobin and hematocrit levels. Continue Epogen. 6. Hypertension. Continue current blood pressure regimen. 7. Coronary artery disease. Continue medical management. 8. Diabetes. Continue Accu-Cheks and sliding scale. 9. Seizure disorder. Continue current treatment plan. 10. Non-ST elevation myocardial infarction type 2. Continue to monitor. Follow up with cardiology . 11. Mineral bone disorder. Continue to monitor calcium and phosphorus levels. Continue phos binde rs. 12. Dyslipidemia. Continue statin therapy. 13. Pancytopenia, etiology unclear. Continue to monitor. Follow up with hematology. Dictated By: NEHEMIAS DAS/ROSANNA Conf#: [id number] DID#: [id number]
--- NOTE | 2016-07-18 10:54 | CONS ---
Date/Time of Note Date/Time of Note DATE: 07/18/16 TIME: 10:53 Assessment/Plan Assessment/Plan Chief Complaint/Hosp Course Acute on chronic diastolic heart failure: ~euvolemic, ?viral or bronchitis as no improvement with daily HD. Steroids started Accelerated hypertension - blood pressures improved NSTEMI - likely type 2 in setting of elevated blood pressure and renal failure Coronary artery disease - myocardial infarction and coronary stenting in 2014 Dyslipidemia End-stage renal disease - on hemodialysis Seizure disorder History of stroke Anemia - s/p transfusion again 07/13 Thrombocytopenia -continue clopidogrel 75mg daily as monotherapy -continue carvedilol 6.25mg BID -continue losartan 100mg daily -continue atorvastatin -volume management via hemodialysis per nephrology -will follow as needed Problems: Consultation Date/Type/Reason Admit Date/Time Jul 07, 2016 at 11:31 Type of Consultation: Cardiology 24 HR Interval Summary Free Text/Dictation No o/n events. Still with wheezing Exam/Review of Systems Vital Signs Vitals Vital Signs Date Time Temp Pulse Resp B/P Pulse Ox O2 Delivery O2 Flow Rate FiO2 07/18/16 09:21 2.0 07/18/16 09:18 80 20 95 Nasal Cannula 07/18/16 08:23 97.6 171/80 Intake and Output 07/17/16 07/17/16 07/18/16 15:00 23:00 07:00 Intake Total 50 ml Balance 50 ml Exam Constitutional: alert, oriented Head: atraumatic, normocephalic Neck: No jvd (difficult to examine) Respiratory: wheezing, No clear to auscultation, No crackles/rales Cardiovascular: regular rate and rhythm, No edema, No systolic murmur Gastrointestinal: non-tender, soft Neurological: nl mental status, nl speech Results Result Diagram: 07/17/16 0635 07/17/16 0635 Medications Medications Current Medications Ondansetron HCl (Zofran Inj) 4 mg Q6H PRN IV NAUSEA AND/OR VOMITING Last administered on 07/16/16 01:47; Admin Dose 4 MG; Start 07/07/16 at 12:00 Acetaminophen (Tylenol Tab) 650 mg Q6H PRN PO PAIN LEVEL 1-3 OR FEVER Last administered on 07/10/16 13:22; Admin Dose 650 MG; Start 07/07/16 at 12:00 Acetaminophen/ Hydrocodone Bitart ([place] (5/325)) 1 tab Q6H PRN PO MODERATE PAIN LEVEL 4-6 Last administered on 07/17/16 06:23; Admin Dose 1 TAB; Start 07/07/16 at 12:00 Morphine Sulfate (morphine) 2 mg Q4H PRN IV SEVERE PAIN LEVEL 7-10 Last administered on 07/18/16 08:15; Admin Dose 2 MG; Start 07/07/16 at 12:00 Docusate Sodium (Colace) 100 mg Q12H PRN PO CONSTIPATION; Start 07/07/16 at 12: 00 Atorvastatin Calcium (Lipitor) 80 mg QHS PO Last administered on 07/17/16 21: 08; Admin Dose 80 MG; Start 07/07/16 at 21:00 Bisacodyl (Dulcolax) 10 mg DAILY PRN PO CONSTIPATION; Start 07/07/16 at 12:00 Cinacalcet (Sensipar) 30 mg DAILY PO Last administered on 07/18/16 09:00; Admin Dose 30 MG; Start 07/08/16 at 09:00 Citalopram Hydrobromide (Celexa) 10 mg DAILY PO Last administered on 07/18/16 09:00; Admin Dose 10 MG; Start 07/08/16 at 09:00 Clopidogrel Bisulfate (plaVIX) 75 mg DAILY PO Last administered on 07/18/16 09 :00; Admin Dose 75 MG; Start 07/08/16 at 09:00 Guaifenesin (Robitussin Liquid Cup) 300 mg Q4H PRN PO COUGH; Start 07/07/16 at 12:00 Hypromellose (Isopto Tears) 2 drop Q4H PRN BOTH EYES DRY EYES; Start 07/07/16 at 12:00 Isosorbide Mononitrate (Imdur) 60 mg DAILY PO Last administered on 07/15/16 08: 28; Admin Dose 60 MG; Start 07/08/16 at 09:00 Lactulose (Enulose) 20 gm BID PRN PO CONSTIPATION; Start 07/07/16 at 12:00 Levetiracetam (Keppra) 1,000 mg BID PO Last administered on 07/18/16 09:00; Admin Dose 1,000 MG; Start 07/07/16 at 21:00 Losartan Potassium (Cozaar) 100 mg DAILY PO Last administered on 07/15/16 08:28 ; Admin Dose 100 MG; Start 07/08/16 at 09:00 Montelukast Sodium (Singulair) 10 mg QHS PO Last administered on 07/17/16 21: 09; Admin Dose 10 MG; Start 07/07/16 at 21:00 Multivit/Ca Carb/ B Cmplx/FA/Prenat ([place]) 1 tab DAILY PO Last administered on 07/18/16 09:00; Admin Dose 1 TAB; Start 07/08/16 at 09:00 Nitroglycerin (Nitroglycerin (Sl Tab) 0.4 Mg) 1 tab [id number] PRN SL CHEST PAIN ; Start 07/07/16 at 12:00 Phenytoin (Dilantin) 300 mg HS PO Last administered on 07/17/16 21:09; Admin Dose 300 MG; Start 07/07/16 at 21:00 Polyethylene Glycol (Miralax) 17 gm BID PO Last administered on 07/18/16 09:00 ; Admin Dose 17 GM; Start 07/07/16 at 21:00 Salmeterol Xinafoate/ Fluticasone (Advair 500/50 Diskus) 1 inh BID INH Last administered on 07/18/16 09:00; Admin Dose 1 INH; Start 07/07/16 at 21:00 Carvedilol (Coreg) 6.25 mg BID PO Last administered on 07/17/16 21:08; Admin Dose 6.25 MG; Start 07/08/16 at 21:00 Hydralazine HCl (Apresoline) 10 mg Q4H PRN IV SBP>160; Start 07/08/16 at 18:00 Ferrous Sulfate 325 mg 325 mg BID PO Last administered on 07/18/16 09:00; Admin Dose 325 MG; Start 07/09/16 at 21:00 Ceftriaxone Sodium (Rocephin) 50 ml @ 100 mls/hr Q24H IVPB Last administered on 07/17/16 18:34; Admin Dose 100 MLS/HR; Start 07/12/16 at 17:30 Al Hydrox/Mg Hydrox/Simethicone (Mag-Al Plus) 30 ml Q4H PRN PO GASTROINTESTINAL UPSET Last administered on 07/14/16 04:38; Admin Dose 30 ML; Start 07/14/16 at 04:30 Heparin Sodium (Porcine) (Heparin (5000 Units/0.5 ml)) 5,000 unit BID SC Last administered on 07/18/16 09:00; Admin Dose 5,000 UNIT; Start 07/15/16 at 21:00 Azithromycin (Zithromax) 500 mg DAILY PO Last administered on 07/18/16 09:00; Admin Dose 500 MG; Start 07/17/16 at 09:00 Prednisone (Prednisone) 60 mg DAILY PO Last administered on 07/18/16 09:00; Admin Dose 60 MG; Start 07/16/16 at 17:30; Stop 07/21/16 at 17:29 Famotidine (Pepcid) 20 mg DAILY PO Last administered on 07/18/16 09:00; Admin Dose 20 MG; Start 07/18/16 at 09:00 Divalproex Sodium (Depakote) 500 mg Q8 PO Last administered on 07/18/16 06:18 ; Admin Dose 500 MG; Start 07/18/16 at 06:00; Stop 07/18/16 at 14:01 Divalproex Sodium (Depakote) 250 mg Q8 PO Last administered on 07/18/16 06:18 ; Admin Dose 250 MG; Start 07/18/16 at 06:00; Stop 07/18/16 at 14:01 Divalproex Sodium (Depakote) 750 mg Q8 PO ; Start 07/18/16 at 22:00 MADYSON SHEIKH Jul 18, 2016 10:54
[2016-07-18] MEDS: DIPHENHYDRAMINE 25 MG CAP PO PRN (15:06)
--- NOTE | 2016-07-18 15:13 | PN ---
Date/Time of Note Date/Time of Note DATE: 07/18/16 TIME: 15:12 Assessment/Plan VTE Prophylaxis VTE Prophylaxis Intervention: heparin Lines/Catheters IV Catheter Type (from Nrsg): AV SHUNT Urinary Cath still in place: No Assessment/Plan Chief Complaint/Hosp Course S: 07/16- less edema. Positive cough w pleurisy. Wheezing remains. Good appetite. 07/17-dyspnea with some wheezes. Fatigue. 07/18 no events. No distress. Severe fatigue deconditioning. O: Vss PE No pallor JVD Reg ctab; no tachypnea Bs positive, nt nd, no r/r/g Min edema A/P 1. Dyspnea/ fluid overload, stable cont HD. 2. Secondary NM. False positive troponin. Stable cont medical mngmnt/asa/statin 3. Chr seizure disorder. Nothing recently 4. Possible bronchitis/ obstructive lung disease. Add prednisone. 5. Recent MRSA pneumonia. Stable follow 6. Chr DM/metabolic syndrome 7. Anemia 8. CHF? dd- EF=65% 9. Depression chr 10. Chr COPD 11. Chr CAD/PCI in 2014 12. Ho stroke? 13. Failure to thrive. Deconditioning. Stable discharge to snf for short- term PT OT. Problems: Exam/Review of Systems Vital Signs Vitals Vital Signs Date Time Temp Pulse Resp B/P Pulse Ox O2 Delivery O2 Flow Rate FiO2 07/18/16 14:28 2.0 07/18/16 14:26 82 20 95 07/18/16 09:18 Nasal Cannula 07/18/16 08:23 97.6 171/80 Intake and Output 07/17/16 07/17/16 07/18/16 15:00 23:00 07:00 Intake Total 50 ml Balance 50 ml Results Result Diagram: 07/17/16 0635 07/17/16 0635 Medications Medications Current Medications Ondansetron HCl (Zofran Inj) 4 mg Q6H PRN IV NAUSEA AND/OR VOMITING Last administered on 07/16/16 01:47; Admin Dose 4 MG; Start 07/07/16 at 12:00 Acetaminophen (Tylenol Tab) 650 mg Q6H PRN PO PAIN LEVEL 1-3 OR FEVER Last administered on 07/10/16 13:22; Admin Dose 650 MG; Start 07/07/16 at 12:00 Acetaminophen/ Hydrocodone Bitart ([place] (5/325)) 1 tab Q6H PRN PO MODERATE PAIN LEVEL 4-6 Last administered on 07/17/16 06:23; Admin Dose 1 TAB; Start 07/07/16 at 12:00 Morphine Sulfate (morphine) 2 mg Q4H PRN IV SEVERE PAIN LEVEL 7-10 Last administered on 07/18/16 12:29; Admin Dose 2 MG; Start 07/07/16 at 12:00 Docusate Sodium (Colace) 100 mg Q12H PRN PO CONSTIPATION; Start 07/07/16 at 12: 00 Atorvastatin Calcium (Lipitor) 80 mg QHS PO Last administered on 07/17/16 21: 08; Admin Dose 80 MG; Start 07/07/16 at 21:00 Bisacodyl (Dulcolax) 10 mg DAILY PRN PO CONSTIPATION; Start 07/07/16 at 12:00 Cinacalcet (Sensipar) 30 mg DAILY PO Last administered on 07/18/16 09:00; Admin Dose 30 MG; Start 07/08/16 at 09:00 Citalopram Hydrobromide (Celexa) 10 mg DAILY PO Last administered on 07/18/16 09:00; Admin Dose 10 MG; Start 07/08/16 at 09:00 Clopidogrel Bisulfate (plaVIX) 75 mg DAILY PO Last administered on 07/18/16 09 :00; Admin Dose 75 MG; Start 07/08/16 at 09:00 Guaifenesin (Robitussin Liquid Cup) 300 mg Q4H PRN PO COUGH; Start 07/07/16 at 12:00 Hypromellose (Isopto Tears) 2 drop Q4H PRN BOTH EYES DRY EYES; Start 07/07/16 at 12:00 Isosorbide Mononitrate (Imdur) 60 mg DAILY PO Last administered on 07/15/16 08: 28; Admin Dose 60 MG; Start 07/08/16 at 09:00 Lactulose (Enulose) 20 gm BID PRN PO CONSTIPATION; Start 07/07/16 at 12:00 Levetiracetam (Keppra) 1,000 mg BID PO Last administered on 07/18/16 09:00; Admin Dose 1,000 MG; Start 07/07/16 at 21:00 Losartan Potassium (Cozaar) 100 mg DAILY PO Last administered on 07/15/16 08:28 ; Admin Dose 100 MG; Start 07/08/16 at 09:00 Montelukast Sodium (Singulair) 10 mg QHS PO Last administered on 07/17/16 21: 09; Admin Dose 10 MG; Start 07/07/16 at 21:00 Multivit/Ca Carb/ B Cmplx/FA/Prenat ([place]) 1 tab DAILY PO Last administered on 07/18/16 09:00; Admin Dose 1 TAB; Start 07/08/16 at 09:00 Nitroglycerin (Nitroglycerin (Sl Tab) 0.4 Mg) 1 tab [id number] PRN SL CHEST PAIN ; Start 07/07/16 at 12:00 Phenytoin (Dilantin) 300 mg HS PO Last administered on 07/17/16 21:09; Admin Dose 300 MG; Start 07/07/16 at 21:00 Polyethylene Glycol (Miralax) 17 gm BID PO Last administered on 07/18/16 09:00 ; Admin Dose 17 GM; Start 07/07/16 at 21:00 Salmeterol Xinafoate/ Fluticasone (Advair 500/50 Diskus) 1 inh BID INH Last administered on 07/18/16 09:00; Admin Dose 1 INH; Start 07/07/16 at 21:00 Carvedilol (Coreg) 6.25 mg BID PO Last administered on 07/17/16 21:08; Admin Dose 6.25 MG; Start 07/08/16 at 21:00 Hydralazine HCl (Apresoline) 10 mg Q4H PRN IV SBP>160; Start 07/08/16 at 18:00 Ferrous Sulfate 325 mg 325 mg BID PO Last administered on 07/18/16 09:00; Admin Dose 325 MG; Start 07/09/16 at 21:00 Ceftriaxone Sodium (Rocephin) 50 ml @ 100 mls/hr Q24H IVPB Last administered on 07/17/16 18:34; Admin Dose 100 MLS/HR; Start 07/12/16 at 17:30 Al Hydrox/Mg Hydrox/Simethicone (Mag-Al Plus) 30 ml Q4H PRN PO GASTROINTESTINAL UPSET Last administered on 07/14/16 04:38; Admin Dose 30 ML; Start 07/14/16 at 04:30 Heparin Sodium (Porcine) (Heparin (5000 Units/0.5 ml)) 5,000 unit BID SC Last administered on 07/18/16 09:00; Admin Dose 5,000 UNIT; Start 07/15/16 at 21:00 Azithromycin (Zithromax) 500 mg DAILY PO Last administered on 07/18/16 09:00; Admin Dose 500 MG; Start 07/17/16 at 09:00 Prednisone (Prednisone) 60 mg DAILY PO Last administered on 07/18/16 09:00; Admin Dose 60 MG; Start 07/16/16 at 17:30; Stop 07/21/16 at 17:29 Famotidine (Pepcid) 20 mg DAILY PO Last administered on 07/18/16 09:00; Admin Dose 20 MG; Start 07/18/16 at 09:00 Divalproex Sodium (Depakote) 750 mg Q8 PO ; Start 07/18/16 at 22:00 Diphenhydramine HCl (Benadryl) 25 mg Q6H PRN PO ITCHING Last administered on 15:06; Admin Dose 25 MG; Start 07/18/16 at 15:00 ARGENIS MCPHERSON MD Jul 18, 2016 15:13
--- NOTE | 2016-07-18 15:18 | PDOCDIS ---
Discharge Instructions DIAGNOSIS Discharge Diagnosis: renal failure CONDITION Patient Condition: Stable HOME CARE INSTRUCTIONS: Special Diet: RENAL DIET ACTIVITY: Activity Restrictions: Slowly Increase Activity Do not Drive FOLLOW UP/APPOINTMENTS Appointments Dialysis as instructed Appt PCP 1wk Nephrology 1-2wks pt/ot eval & treat ARGENIS MCPHERSON MD Jul 18, 2016 15:18
[2016-07-18] MEDS ORDERED: PRED20TA PO (15:22)
[2016-07-18] MEDS ORDERED: HEP5KI SC (15:22)
[2016-07-18] MEDS ORDERED: FAMO20TA18 PO (15:22)
[2016-07-18] MEDS ORDERED: CARV6.2579 PO (15:22)
[2016-07-18] MEDS ORDERED: AZIT250T6 PO (15:22)
[2016-07-18] MEDS ORDERED: FER325 PO (15:22)
--- NOTE | 2016-07-18 17:01 | DS ---
DATE OF ADMISSION: 07/07/2016 DATE OF DISCHARGE: 07/18/2016 PRIMARY CARE PHYSICIAN: Unknown. KILN CAR UNLOADER: Dr. Sheikh and Dr. Miller. DIAGNOSES ON ADMISSION: 1. Acute renal failure. 2. Question dyspnea. DIAGNOSES ON DISCHARGE: 1. Dyspnea. 2. Acute renal failure. 3. Seizure disorder. 4. Deconditioning. 5. Recent methicillin-resistant Staphylococcus aureus pneumonia. 6. Recent bronchitis, obstructive lung disease. 7. Secondary myocardial infarction, false positive troponin. 8. Chronic diabetes, metabolic syndrome. 9. Anemia. 10. Depression. 11. Chronic obstructive pulmonary disease. 12. Chronic coronary artery disease, PCI status 2014. 13. Possible history of stroke. 14. Failure to thrive. HOSPITAL COURSE: This is a 50-year-old gentleman who presents from home with shortness of breath, f luid overload, on dialysis. He has had issues with his fistula in the past and access was an issue. He eventually had a new fistula placed in [facility]. He was living in a [facility] and pres ented with fluid overload. His dialysis is usually Saturday, and Saturday. The patient continued dialysis in the hospital. He was seen by cardiology and nephrology. His stat us is fairly compensated and he is stable and fit for discharge. He does have severe deconditioning and recommend to recuperate in a long term facility for juanita rt duration of time. 1. Fluid overload, dyspnea, congestive heart failure, probable diastolic. Ejection fraction is 65. Nonsmoker. Treat blood pressure. Stable, continue outpatient in the office. 2. Secondary myocardial infarction and false positive troponin. Medical management optimized. Chen s not need cardiac catheterization. 3. Chronic seizure disorder. 4. Wheezing, obstructive lung disease, initially sound. Will benefit from aerosols, supportive car e, fluid maintenance status and a short course of prednisone. Consider step up therapy and pulmonar y function tests down the line. 5. Diabetes. Metabolic syndrome, stable. Continue diabetic diet. 6. Depression. May need supportive care. LABORATORY DATA: A 2D echo read as EF of 60 to 65. Moderate concentric LVH. Last x-ray on July 07 shows cardiomegaly with improved pulmonary edema. Blood cultures and MRSA negative. White cell c ount of 2.5. H and H of 9 and 29, MCV 98, platelets of 102. INR of 1.1. Dilantin level of less th an 3, Depakote level of 46, both of which are not unusual. Sodium 142, potassium 4.0, chloride 104, bicarbonate 25, BUN 46, creatinine 6.8, glucose 120. A1c 5.5, calcium 9, magnesium 2, phosphorus 5 . AST and ALT of 30 and 20, alkaline phosphatase of 230, bilirubin 0, protein of 7, albumin of 3. TSH 2.1. Troponin down to 0.09. Iron of 80, binding capacity of 224, percent saturation of 36, jasiel ritin of 950. Troponin was as high as 0.275. TSH of 2.1. DISCHARGE PLAN: The patient will be discharged to the nursing facility. DIET: Low salt, cholesterol. 1800 ADA. ACTIVITY: As tolerated. ALLERGIES: IODINE. DURABLE MEDICAL EQUIPMENT: None. BARRIERS TO DISCHARGE: None. PENDING TESTS: None. FUNCTIONAL STATUS: The patient is awake, alert and aware of care plan and options. CONDITION: Stable. REASON FOR ADMISSION: Fluid overload. Appointment primary in [address] Miller in 1 to 2 weeks. Appointment with cardiolog y as needed. STOPPED MEDICATIONS: 1. Colace. 2. Trazodone. CONTINUED MEDICATIONS: 1. Tylenol every 6 hours as needed. 2. Aspirin 81 daily. 3. Lipitor 80 daily. 4. Dulcolax as needed. 5. Sensipar 30 mg daily. 6. Celexa 10 daily. 7. Clonidine 0.1 every 6 hours as needed. 8. Plavix 75. 9. Insta Glucose p.r.n. 10. Benadryl 25 mg q. 6 hours p.r.n. itching. 11. Depakote 750 mg 3 times daily. 12. Epogen 10,000 units with dialysis Saturday, , Saturday. 13. Folic acid, B complex 1 mg daily. 14. Robitussin 300 every four hours as needed. 15. Heparin 5000 units twice daily. 16. Artificial Tears as needed. 17. Humalog sliding scale before meals and at bedtime. 18. Atrovent every 4 hours as needed. 19. Imdur ER 60 daily. 20. Lactulose 20 grams twice daily as needed. 21. Keppra 1000 b.i.d. 22. Losartan 100 mg. 23. Singulair 10 daily. 24. Etelvina-Paula 1 tablet daily. 25. NitroQuick as needed. 26. Protonix daily. 27. ____ 28. Dilantin 300 mg at bedtime daily. 29. MiraLax 1 packet daily. 30. Advair 500/50 one puff twice daily. 31. Renvela 800 mg with meals. NEW MEDICATIONS: 1. Azithromycin 250 daily for 3 more days. 2. Coreg 6.25 twice daily. 3. Pepcid 20 daily. 4. Iron 325 b.i.d. 5. Subcutaneous heparin as directed. 6. Prednisone 60 mg daily for 3 more days. Dictated By: ARGENIS MCPHERSON MD AC/NTS Conf#: [id number] DID#: [id number] CC: NEHEMIAS MILLER DO; MADYSON SHEIKH MD;*End*
[2016-07-18] MEDS: CEFTRIAXONE 1 GM/50 ML (PMX) 50 ML IVPB SCH (17:39)
[2016-07-18] MEDS: ATORVASTATIN 80 MG TAB PO SCH (20:11)
[2016-07-18] MEDS: PHENYTOIN 100 MG CAP PO SCH (20:11)
[2016-07-18] MEDS: MONTELUKAST 10 MG TAB PO SCH (20:12)
[2016-07-18] MEDS: NITROGLYCERIN (SL) 0.4 MG TAB SL PRN ×3 (21:17→21:28)
[2016-07-18] MEDS ORDERED: LORAZEPAM 2 MG INJ IV PRN (22:00)
[2016-07-18] MEDS: DIVALPROEX (EC) 250 MG TAB PO SCH ×2 (22:00→23:53)
[2016-07-18] MEDS: ONDANSETRON 4 MG INJ IV PRN (22:32)
[2016-07-18] MEDS ORDERED: hydrALAzine 20 MG INJ IM PRN (23:22)
[2016-07-19] VITALS (9 sets, daily range): BP systolic 98–156; BP diastolic 53–88; PULSE 69–76; RESP 16
[2016-07-19] MEDS ORDERED: LORAZEPAM 2 MG INJ ZFS PRN (02:00)
[2016-07-19] MEDS: morphine 2 MG INJ IV PRN ×3 (05:48→15:11)
[2016-07-19] MEDS: DIVALPROEX (EC) 250 MG TAB PO SCH ×2 (05:48→13:43)
[2016-07-19] MEDS: ONDANSETRON 4 MG INJ IV PRN (05:50)
[2016-07-19] MEDS: SEVELAMER CARBONATE 0.8 GM PKT PO SCH ×3 (08:27→17:53)
[2016-07-19] MEDS: ISOSORBIDE MONONITRATE(SR)60 MG TAB PO SCH (08:27)
[2016-07-19] MEDS: POLYETHYLENE GLYCOL 17 GM PACKET PO SCH (08:27)
[2016-07-19] MEDS: LEVETIRACETAM 500 MG TAB PO SCH (08:28)
[2016-07-19] MEDS: MULTIVIT/CA CARB/B CMPLX/FA TAB PO SCH (08:28)
[2016-07-19] MEDS: CLOPIDOGREL 75 MG TAB PO SCH (08:28)
[2016-07-19] MEDS: LOSARTAN 50 MG TAB PO SCH (08:28)
[2016-07-19] MEDS: FERROUS SULFATE (EC) 325 MG TAB PO SCH (08:28)
[2016-07-19] MEDS: predniSONE 20 MG TAB PO SCH (08:28)
[2016-07-19] MEDS: FAMOTIDINE 20 MG TAB PO SCH (08:29)
[2016-07-19] MEDS: CITALOPRAM 20 MG TAB PO SCH (08:29)
[2016-07-19] MEDS: AZITHROMYCIN 250 MG TAB PO SCH (08:29)
[2016-07-19] MEDS: CINACALCET 30 MG TAB PO SCH (08:29)
[2016-07-19] MEDS: DIPHENHYDRAMINE 25 MG CAP PO PRN (08:30)
[2016-07-19] MEDS: SALMETEROL/FLUTICASONE 500/50 INHA INH SCH (08:30)
[2016-07-19] MEDS: HEPARIN 5,000 UNIT/0.5 ML VIAL SC SCH (08:41)
--- NOTE | 2016-07-19 10:23 | PN ---
DATE: 07/19/2016 SUBJECTIVE: The patient is stable, no acute events overnight. The patient is currently receiving h emodialysis. No other events noted. OBJECTIVE: VITAL SIGNS: Blood pressure is 156/88, respirations 18, pulse 79, temperature 97.7. HEENT: Head is normocephalic. NECK: Supple. HEART: Regular rate. LUNGS: Show diminished breath sounds at the bases. ABDOMEN: Soft, nontender to palpation. No rebound or guarding. EXTREMITIES: Negative for clubbing, cyanosis. No edema. DERMATOLOGIC: No rashes. MUSCULOSKELETAL: No joint effusions. NEUROLOGIC: No change in exam. MEDICATIONS: The patient's medications have been reviewed. LABORATORY DATA: Has been reviewed. No new labs. ASSESSMENT AND PLAN: 1. End-stage renal disease. The patient is on dialysis 4 times weekly, currently having hemodialys is. Anticipate dialysis again tomorrow if patient remains in hospital. 2. Volume overload, congestive heart failure, clinically improving. Continue ultrafiltration dialy sis. 3. Acute hypoxic respiratory failure secondary to congestive heart failure and reactive airway dise ase. The patient is improving. Continue current medical management. Continue nebulizers, antibiot ics. 4. Anemia. Continue to monitor hemoglobin and hematocrit levels. Continue Epogen. 5. Hypertension. Continue current blood pressure regimen. 6. Coronary artery disease. Continue medical management. 7. Diabetes. Continue Accu-Cheks and insulin sliding scale. 8. Seizure disorder. Continue current treatment plan. 9. Non-ST elevation myocardial infarction, type 2. Continue to monitor. Follow up with cardiology . 10. Mineral bone disorder. Continue to monitor calcium and phosphorus levels. Continue phosphate binders. 11. Dyslipidemia. Continue statin therapy. 12. Pancytopenia, etiology unclear. Defer to primary team for workup. Dictated By: NEHEMIAS DAS/NTS Conf#: [id number] DID#: [id number]
[2016-07-19] MEDS: ALBUTEROL/IPRATROPIUM (NEB) 3 ML AMP HHN SCH ×2 (10:46→14:16)
--- NOTE | 2016-07-19 14:44 | PN ---
Date/Time of Note Date/Time of Note DATE: 07/19/16 TIME: 14:41 Assessment/Plan VTE Prophylaxis VTE Prophylaxis Intervention: heparin Lines/Catheters IV C[facility]ter [facility]from [facility] Saline Lock Urinary Cath still in place: No Assessment/Plan Chief Complaint/Hosp Course S: 07/16- less edema. Positive cough w pleurisy. Wheezing remains. Good appetite. 07/17-dyspnea with some wheezes. Fatigue. 07/18 no events. No distress. Severe fatigue deconditioning. 07/22- cp/dyspnea last night. no diaphoresis/n/v. today better & no further similar issues. O: Vss; SR- ekg PE No pallor/ JVD Reg ctab; no tachypnea Bs +, nt nd, no r/r/g Min edema, no Malgorzata's A/P 1. CHF-dd; stable cont HD. DC to snf. 2. Secondary NM. False positive troponin. Stable cont medical mngmnt/asa/statin 3. Chr seizure disorder. Nothing recently 4. Possible bronchitis/ obstructive lung disease. Add prednisone. 5. Recent MRSA pneumonia. Stable follow 6. Chr DM/metabolic syndrome 7. Anemia 8. CHF? dd- EF=65% 9. Depression chr 10. Chr COPD 11. Chr CAD/PCI in 2014 12. Ho stroke? 13. Ftt/ Deconditioning. Stable dc to snf for short-term PT/OT. Problems: Exam/Review of Systems Vital Signs Vitals Vital Signs Date Time Temp Pulse Resp B/P Pulse Ox O2 Delivery O2 Flow Rate FiO2 07/19/16 14:18 80 16 90 07/19/16 10:47 Nasal Cannula 2.0 07/19/16 07:50 97.7 156/88 Intake and Output 07/18/16 07/18/16 07/19/16 14:59 22:59 06:59 Intake Total 1100 ml 650 ml 1200 ml Output Total 3500 ml Balance -2400 ml 650 ml 1200 ml Results Result Diagram: 07/17/16 0635 07/17/1635 Results 24 hrs Laboratory Tests Test 07/18/16 22:30 Troponin I 0.139 *H Medications Medications Current Medications Ondansetron HCl (Zofran Inj) 4 mg Q6H PRN IV NAUSEA AND/OR VOMITING Last administered on 07/19/16t 05:50; Admin Dose 4 MG; Start 07/07/16 at 12:00 Acetaminophen (Tylenol Tab) 650 mg Q6H PRN PO PAIN LEVEL 1-3 OR FEVER Last administered on 07/10/16 13:22; Admin Dose 650 MG; Start 07/07/16 at 12:00 Acetaminophen/ Hydrocodone Bitart (Copen (5/325)) 1 tab Q6H PRN PO MODERATE PAIN LEVEL 4-6 Last administered on 07/17/16 06:23; Admin Dose 1 TAB; Start 07/07/16 at 12:00 Morphine Sulfate (morphine) 2 mg Q4H PRN IV SEVERE PAIN LEVEL 7-10 Last administered on 07/19/16 10:29; Admin Dose 2 MG; Start 07/07/16 at 12:00 Docusate Sodium (Colace) 100 mg Q12H PRN PO CONSTIPATION; Start 07/07/16 at 12: 00 Atorvastatin Calcium (Lipitor) 80 mg QHS PO Last administered on 07/18/16 20: 11; Admin Dose 80 MG; Start 07/07/16 at 21:00 Bisacodyl (Dulcolax) 10 mg DAILY PRN PO CONSTIPATION; Start 07/07/16 at 12:00 Cinacalcet (Sensipar) 30 mg DAILY PO Last administered on 07/19/16 08:29; Admin Dose 30 MG; Start 07/08/16 at 09:00 Citalopram Hydrobromide (Celexa) 10 mg DAILY PO Last administered on 07/19/16 08:29; Admin Dose 10 MG; Start 07/08/16 at 09:00 Clopidogrel Bisulfate (plaVIX) 75 mg DAILY PO Last administered on 07/19/16 08 :28; Admin Dose 75 MG; Start 07/08/16 at 09:00 Guaifenesin (Robitussin Liquid Cup) 300 mg Q4H PRN PO COUGH; Start 07/07/16 at 12:00 Hypromellose (Isopto Tears) 2 drop Q4H PRN BOTH EYES DRY EYES; Start 07/07/16 at 12:00 Isosorbide Mononitrate (Imdur) 60 mg DAILY PO Last administered on 07/15/16 08: 28; Admin Dose 60 MG; Start 07/08/16 at 09:00 Lactulose (Enulose) 20 gm BID PRN PO CONSTIPATION; Start 07/07/16 at 12:00 Levetiracetam (Keppra) 1,000 mg BID PO Last administered on 07/19/16 08:28; Admin Dose 1,000 MG; Start 07/07/16 at 21:00 Losartan Potassium (Cozaar) 100 mg DAILY PO Last administered on 07/15/16 08:28 ; Admin Dose 100 MG; Start 07/08/16 at 09:00 Montelukast Sodium (Singulair) 10 mg QHS PO Last administered on 07/18/16 20: 12; Admin Dose 10 MG; Start 07/07/16 at 21:00 Multivit/Ca Carb/ B Cmplx/FA/Prenat (Etelvina-Paula) 1 tab DAILY PO Last administered on 07/19/16 08:28; Admin Dose 1 TAB; Start 07/08/16 at 09:00 Nitroglycerin (Nitroglycerin (Sl Tab) 0.4 Mg) 1 tab [id number] PRN SL CHEST PAIN Last administered on 07/18/16 21:28; Admin Dose 1 TAB; Start 07/07/16 at 12:00 Phenytoin (Dilantin) 300 mg HS PO Last administered on 07/18/16 20:11; Admin Dose 300 MG; Start 07/07/16 at 21:00 Polyethylene Glycol (Miralax) 17 gm BID PO Last administered on 07/19/16 08:27 ; Admin Dose 17 GM; Start 07/07/16 at 21:00 Salmeterol Xinafoate/ Fluticasone (Advair 500/50 Diskus) 1 inh BID INH Last administered on 07/19/16 08:30; Admin Dose 1 INH; Start 07/07/16 at 21:00 Carvedilol (Coreg) 6.25 mg BID PO Last administered on 07/18/16 20:12; Admin Dose 6.25 MG; Start 07/08/16 at 21:00 Ferrous Sulfate 325 mg 325 mg BID PO Last administered on 07/19/16 08:28; Admin Dose 325 MG; Start 07/09/16 at 21:00 Ceftriaxone Sodium (Rocephin) 50 ml @ 100 mls/hr Q24H IVPB Last administered on 07/18/16 17:39; Admin Dose 100 MLS/HR; Start 07/12/16 at 17:30 Al Hydrox/Mg Hydrox/Simethicone (Mag-Al Plus) 30 ml Q4H PRN PO GASTROINTESTINAL UPSET Last administered on 07/14/16 04:38; Admin Dose 30 ML; Start 07/14/16 at 04:30 Heparin Sodium (Porcine) (Heparin (5000 Units/0.5 ml)) 5,000 unit BID SC Last administered on 07/19/16 08:41; Admin Dose 5,000 UNIT; Start 07/15/16 at 21:00 Azithromycin (Zithromax) 500 mg DAILY PO Last administered on 07/19/16 08:29; Admin Dose 500 MG; Start 07/17/16 at 09:00 Prednisone (Prednisone) 60 mg DAILY PO Last administered on 07/19/16 08:28; Admin Dose 60 MG; Start 07/16/16 at 17:30; Stop 07/21/16 at 17:29 Famotidine (Pepcid) 20 mg DAILY PO Last administered on 07/19/16 08:29; Admin Dose 20 MG; Start 07/18/16 at 09:00 Divalproex Sodium (Depakote) 750 mg Q8 PO Last administered on 07/19/16 13:43 ; Admin Dose 750 MG; Start 07/18/16 at 22:00 Diphenhydramine HCl (Benadryl) 25 mg Q6H PRN PO ITCHING Last administered on 08:30; Admin Dose 25 MG; Start 07/18/16 at 15:00 Hydralazine HCl (Apresoline) 10 mg Q4H PRN IM SBP>160; Start 07/18/16 at 23:22 ARGENIS MCPHERSON MD Jul 19, 2016 14:43
[2016-07-19] MEDS ORDERED: ALBUTEROL/IPRATROPIUM (NEB) 3 ML AMP HHN SCH (16:00)
--- NOTE | 2016-07-20 08:12 | DS ---
DATE OF ADMISSION: 07/07/2016 DATE OF DISCHARGE: 07/19/2016 ADDENDUM The patient came to the hospital. Had recurrent shortness of breath and chest pain yesterday evenin g. No nausea, vomiting, diaphoresis. EKG okay; troponin, false positive. After evaluation this afternoon, it appears there are no further episodes, and additionally, he feel s better and he has earlier this week. Does not appear to be acute coronary syndrome or any acute i ntrathoracic new process at this time. He is having pleurisy from his respiratory issues, fluid ove rload. He is stable and fit for discharge. Medical management to continue for all of his comorbidi ties. Please see original discharge dictation summary. Dictated By: ARGENIS PRINCE/ROSANNA Conf#: [id number] DID#: [id number]
--- NOTE | 2016-07-20 20:53 | RADRPT ---
Vent Rate: 98 bpm RR Interval: 0 msec MN Interval: 166 msec QRS Duration: 100 msec QT Interval: 340 msec QTC Interval: 434 msec P-R-T [place]: 58 - 5 - 32 degrees Normal sinus rhythm Low voltage QRS Cannot rule out Anterior infarct , age undetermined Abnormal ECG Electronically Signed By: Mikal Kendall [id number]
== END 2016-07-19 17:45 | DRG 280 ==
LOC: E/R 09:11 → MS4 11:31 → MS2 07-17 16:40
PROVIDERS: ADMIT Internal Medicine; ATTEND Internal Medicine
PROC: 30233N1 Transfusion of Nonautologous Red Blood Cells into Peripheral Vein, Percutaneous Approach (ICD-10-PCS; principal; 2016-07-08)
DX: I13.2 Hypertensive heart and chronic kidney disease with heart failure and with stage 5 chronic kidney disease, or end stage renal disease (principal); I50.33 Acute on chronic diastolic (congestive) heart failure; I21.4 Non-ST elevation (NSTEMI) myocardial infarction; J96.01 Acute respiratory failure with hypoxia; E11.22 Type 2 diabetes mellitus with diabetic chronic kidney disease; N18.6 End stage renal disease; D61.818 Other pancytopenia; J81.0 Acute pulmonary edema; G40.909 Epilepsy, unspecified, not intractable, without status epilepticus; I25.10 Atherosclerotic heart disease of native coronary artery without angina pectoris; Z86.73 Personal history of transient ischemic attack (TIA), and cerebral infarction without residual deficits; E83.9 Disorder of mineral metabolism, unspecified; E78.5 Hyperlipidemia, unspecified; Z99.2 Dependence on renal dialysis; D63.8 Anemia in other chronic diseases classified elsewhere; F32.9 Major depressive disorder, single episode, unspecified; Z86.14 Personal history of Methicillin resistant Staphylococcus aureus infection; J44.9 Chronic obstructive pulmonary disease, unspecified; Z95.5 Presence of coronary angioplasty implant and graft; R62.7 Adult failure to thrive
CPT/HCPCS: 36430; 71010; 80048; 80053; 80164; 80185; 82150; 82306; 82728; 83036; 83540; 83690; 83735; 84100; 84443; 84484; 85025; 85610; 85730; 86850; 86900; 86901; 86920; 87040; 87081; 90935; 93005; 93306; 94640; 94644; 94664; 96374; 96375; 96376; 97116; 97162; 97530; J0360; J0456; J0696; J0886; J1165; J1200; J1644; J2270; J2405; J7040; J7512; P9016; P9047

== ENCOUNTER 2016-09-10 17:14 | Inpatient (IN) | payer MEDICARE, MEDICAID ==
[~2016-09-10] VITALS: Ht 182.9 cm; Wt 136.6 kg
[~2016-09-10 17:14] MED LIST: ACET-2047 PO; ADV50050 INHALATION; ASPI-664 PO; ATOR80TA75 PO; AZIT250T6 PO; BEN25 PO; BISA5TAB6 PO; CARV6.2579 PO; CITA10TA84 PO; CLON-379 PO; CLOP75TA27 PO; CNC30T PO; DEXT38GE15 PO; DIVA250T4 PO; EPOE3000 SC; FAMO20TA18 PO; FER325 PO; FOLI1CAP PO; GLUC1KIT IJ; GUAI-637 PO; HEP5KI SC; HEPA500021 IJ; INSU100C SQ; IPRA3AMP INHALATION; ISOS60TA PO; LACT20SO2 PO; LEVE10006 PO; LOSA100T7 PO; MONT10TA21 PO; NEPH PO; NIT4 SL; PANT40TA3 PO; PHEN300C2 PO; POLY17PO6 PO; PRED20TA PO; SEVE800T7 PO; TEARS BOTH EYES
[2016-09-10 17:35] VITALS: Ht 182.9 cm; Wt 136.6 kg
[2016-09-10] MEDS ORDERED: CEFEPIME 2GM/50 ML (PMX) 50 ML IVPB STA (19:15)
[2016-09-10] MEDS ORDERED: SODIUM CHLORIDE 0.9% 1L BAG IV* STA (19:15)
[2016-09-10] MEDS ORDERED: DICLOFENAC SODIUM 37.5 MG/ML VIAL IV STA (19:23)
[2016-09-10] MEDS ORDERED: ASPIRIN 81 MG TAB PO ONE (19:30)
[2016-09-10] MEDS ORDERED: ONDANSETRON 4 MG INJ ONE (19:47)
[2016-09-10] MEDS ORDERED: ONDANSETRON 4 MG INJ IV STA (19:52)
[2016-09-10 20:17] LABS: ADD SCAN DIFF NO
[2016-09-10 20:19] LABS: ABNORMAL IP MESSAGE 1; HEMATOCRIT 26.6 % (42.0-52.0); HEMOGLOBIN 8.5 g/dl (14.0-18.0); MEAN CORPUSCULAR HEMOGLOBIN 30.4 pg (29.0-33.0); MEAN PLATELET VOLUME 9.7 fl (7.4-10.4); PLATELET COUNT 118 10^3/UL (140-415); RED CELL DISTRIBUTION WIDTH 16.8 % (11.5-14.5); WHITE BLOOD COUNT 3.5 10^3/ul (4.8-10.8)
[2016-09-10] MEDS ORDERED: LABETALOL HCL 20MG INJ IV ONE (20:30)
[2016-09-10 20:37] LABS: INR 0.91; PROTIME 12.2 Sec (12.2-14.2)
[2016-09-10 20:38] LABS: ALBUMIN 4.2 g/dl (3.3-4.9); ALBUMIN/GLOBULIN RATIO 1.55; BILIRUBIN,INDIRECT 0.1 mg/dl (0-1.1); BILIRUBIN,TOTAL 0.1 mg/dl (0.2-1.3); CREATININE 5.67 mg/dl (0.61-1.24); PARTIAL THROMBOPLASTIN TIME 27.6 Sec (25.0-35.0); POTASSIUM 3.8 mmol/L (3.5-5.1); TOTAL PROTEIN 6.9 g/dl (6.1-8.1)
[2016-09-10 20:49] LABS: TROPONIN-I 0.062 ng/ml (0.00-0.12)
[2016-09-10] MEDS ORDERED: TRIMETHOBENZAMIDE 100 MG/ML VIAL IM ONE (21:00)
[2016-09-10] MEDS ORDERED: LORAZEPAM 2 MG INJ IV ONE (21:00)
[2016-09-10] MEDS ORDERED: morphine 10 MG INJ IM ONE (21:00)
--- NOTE | 2016-09-10 21:08 | RADRPT ---
PROCEDURE: XR Chest AP portable CLINICAL INDICATION: Possible sepsis TECHNIQUE: An AP portable radiograph of the chest was submitted. COMPARISON: 07/11/2016 FINDINGS: Support Hardware: None Cardiovascular: The heart remains mildly enlarged and the pulmonary vasculature again appears conges flaca. Lung Carmona: There is again mild interstitial prominence extending from the perihilar regions with n o alveolar infiltrate identified. Pleural Spaces: The right costophrenic angle is mildly blunted suspicious for a small right pleural fluid accumulation. Osseous Structures: Mild degenerative spine changes are noted. Soft Tissues: The soft tissues appear generous. Surgical campbell project through the neck. IMPRESSION: 1. Mild cardiomegaly with persistent pulmonary artery congestion. 2. Interstitial prominence extending from the prior L region suspicious for interstitial edema. 3. Probable small right pleural fluid accumulation, increased over the previous. 4. There is again evidence of previous neck surgery. Physician Brenda Date Time Electronically viewed and signed by Physician Brenda on 09/10/2016 21:08 /
[2016-09-10 21:19] LABS: LYMPHOCYTES # 0.5 10^3/ul (0.8-2.9); MONOCYTE # 0.1 10^3/ul (0.3-0.9); NEUTROPHIL # 2.9 10^3/ul (1.6-7.5)
[2016-09-10] MEDS ORDERED: METOCLOPRAMIDE 10 MG INJ IV ONE (21:30)
[2016-09-10] MEDS ORDERED: ACETAMINOPHEN 325 MG TAB PO PRN (21:30)
--- NOTE | 2016-09-10 22:34 | RADRPT ---
PROCEDURE: CT Abdomen and Pelvis without contrast CLINICAL INDICATION: Intractable vomiting TECHNIQUE: Transaxial images were obtained through the abdomen and pelvis on a multi-slice scanner without the intravenous contrast administration. No oral contrast had previously been given. Sagit rufus and coronal re-formations were subsequently reconstructed. One or more of the following dose reduction techniques were used: - Automated exposure control. - Adjustment of the mA and/or kV according to patient size. - Use of iterative reconstruction technique. Radiation dose: CTDIvol = 19.76 mGy; DLP = 1178.10 mGy-cm. COMPARISON: No prior studies are available for comparison. FINDINGS: Lung bases: Subsegmental atelectasis is seen at the posterior lung bases and there is mild bronchiec tasis seen in the lower lobes and right middle lobe. Coronary artery disease as noted. Liver: The liver is mildly enlarged with no focal lesion evident. Gallbladder: Surgical campbell are seen in the gallbladder fossa. Bile ducts: The intra and extrahepatic bile ducts are normal in caliber. Pancreas: Appears normal with no mass or inflammation evident. Spleen: The spleen is mildly enlarged. Adrenals: Normal with no mass identified. Kidneys, ureters and bladder: The kidneys are small with thinning of the renal cortices. There is n o hydronephrosis. A 1.3 cm cyst is seen extend laterally off the superior pole left kidney. The ure ters are normal in caliber and no ureteroliths are identified. The bladder is poorly distended. Reproductive organs: The prostate is not enlarged. Stomach and bowel: There is a small hiatal hernia and the stomach is mildly distended with fluid. T here is extensive stool seen throughout the colon particularly distally suspicious for constipation. There is no evidence of bowel obstruction or inflammation. Appendix: A normal vermiform appendix is evident. Peritoneum: No free intraperitoneal fluid or air is identified. There is a small fat containing umbi lical hernia. Aorta: There is extensive atherosclerotic vascular calcification but no abdominal aortic aneurysm is evident. There is a left iliac graft and surgical campbell are seen within the U left groin with a left femoral graft also noted. IVC: An inferior vena cava filter is seen to be in place Lymph nodes: Retroperitoneal nodes are evident up to 1 cm in short diameter. Osseous structures: Several Schmorl's nodes are seen within the lumbar spine along with mild degener ative endplate changes. There is increased sclerosis to the osseous elements which likely reflects renal osteodystrophy. Soft tissues: There is stranding within the deep and subcutaneous fat compatible with anasarca. Sup erficial varices are evident. IMPRESSION: 1. Small hiatal hernia with fluid seen within the stomach. Excessive stool is seen throughout the colon particularly distally compatible with constipation. There is no evidence of small bowel obstr uction or bowel inflammation with a normal vermiform appendix evident. 2. Small kidneys with a 1.3 cm cyst extending laterally off the superior pole left kidney. There i s no hydronephrosis compatible with medical renal disease. The bladder is poorly distended. 3. Status post cholecystectomy with no bile duct dilatation evident. 4. Extensive vascular calcification. There is a left iliac stent and a left femoral stent. 5. An inferior vena cava filter is evident. 6. Mild hepatomegaly and splenomegaly. 7. Anasarca with superficial varices noted. There is grade is superficial edema and swelling about the left lateral pelvis and proximal thigh. 8. Subsegmental atelectasis seen within the posterior lung bases with mild bronchiectasis seen in t he lower lobes and right middle lobe along with coronary artery disease. 9. Renal osteodystrophy. Several Schmorl's nodes are seen within the lumbar region along with mild anterior spondylosis. Physician Brenda Date Time Electronically viewed and signed by Physician Brenda on 09/10/2016 22:34 /
--- NOTE | 2016-09-10 23:06 | ERA ---
ER Documentation Chief Complaint Date/Time DATE: 09/10/16 TIME: 22:56 Chief Complaint ALL OVER BODY ACHES WHILE AT DIALYSIS TODAY, ONLY GOT 1/2 OF DIALYSIS TX HPI This 50-year-old male presented from dialysis after half of dialysis was finished because he had generalized body aches. Vital signs were stable at the time. Patient says that he has had chills lately as well as occasional cough. Says that in addition his whole body pain is also includes chest pain. Denies shortness of breath. Does have some nausea with no vomiting peer ROS All systems reviewed and are negative except as per history of present illness. Medications Home Meds Active Scripts Prednisone (Prednisone) 20 Mg Tab, 60 MG PO DAILY for 3 Days, #3 TAB Prov:ARGENIS MCPHERSON MD 07/18/16 Famotidine* (Famotidine*) 20 Mg Tablet, 20 MG PO DAILY for 7 Days, TAB Prov:ARGENIS MCPHERSON MD 07/18/16 Carvedilol* (Carvedilol*) 6.25 Mg Tablet, 6.25 MG PO BID for 14 Days, TAB Prov:ARGENIS MCPHERSON MD 07/18/16 Heparin Sod (Porcine)* (Heparin*) 5,000 Unit/0.5 Ml Soln, 5000 UNIT SC BID for 7 Days Prov:ARGENIS MCPHERSON MD 07/18/16 Ferrous Sulfate* (Ferrous Sulfate*) 325 Mg Tabec, 325 MG PO BID for 10 Days, TAB Prov:ARGENIS MCPHERSON MD 07/18/16 Azithromycin* (Azithromycin*) 250 Mg Tablet, 500 MG PO DAILY for 3 Days, TAB Prov:ARGENIS MCPHERSON MD 07/18/16 Reported Medications Nitroglycerin* (Nitrostat*) 0.4 Mg Tab.subl, 0.4 MG SL Q5MIN Y for CHEST PAIN, BOTTLE 07/07/16 Lactulose* (Lactulose*) 20 Gm/30 Ml Solution, 20 GM PO BID Y for CONSTIPATION, ML 07/07/16 Hypromellose* (Isopto Tears*) 15 Ml Drops, 2 DROP BOTH EYES Q4 Y for DRY EYES, # 1 EA 07/07/16 Guaifenesin* (Robitussin*) 100 Mg/5 Ml Syrup, 300 MG PO Q4H Y for COUGH, ML 07/07/16 Dextrose (Glucose Gel) 38 Gm Gel..gram., 38 GM PO PRN 07/07/16 Glucagon,Human Recombinant (Glucagon Emergency Kit) 1 Mg Kit, 1 MG IJ PRN, KIT 07/07/16 Ipratropium-Albuterol (Ipratropium-Albuterol) 0.5-3 Mg/3 Ml Ampul.neb, 3 ML INHALATION Q4 Y for WHEEZING AND SOB, #30 VIAL 07/07/16 Diphenhydramine Hcl* (Benadryl*) 25 Mg Cap, 25 MG PO Q6H Y for ITCHING, CAP 07/07/16 Clonidine Hcl* (Clonidine Hcl*) 0.1 Mg Tab, 0.1 MG PO Q6 Y for ELEVATED BLOOD PRESSURE, TAB NEEDED FOR BP ABOVE 170 07/07/16 Bisacodyl* (Bisacodyl*) 5 Mg Tablet.dr, 10 MG PO DAILY Y for CONSTIPATION, TAB 07/07/16 Acetaminophen* (Acetaminophen*) 650 Mg Tablet, 650 MG PO Q6H Y for PAIN AND OR ELEVATED TEMP, #30 TAB 07/07/16 Sevelamer Carbonate* (Renvela*) 800 Mg Tablet, 0.16 GM PO WITH MEALS, TAB 07/07/16 Folic Acid/Vitamin B Comp W-C (Nephrocaps Capsule) 1 Mg Capsule, 1 MG PO DAILY, CAP 07/07/16 Multivit/Ca Carb/B Cmplx/Fa* (Etelvina-Paula*) 1 Tab Tab, 1 TAB PO DAILY, TAB 07/07/16 Polyethylene Glycol* (Miralax*) 17 Gm Powd.pack, 17 GM PO BID, #60 PACKET 07/07/16 Phenytoin* Sodium Extended (Dilantin*) 300 Mg Capsule, 300 MG PO HS, CAP 07/07/16 Pantoprazole* (Protonix*) 40 Mg Tablet.dr, 40 MG PO DAILY, TAB 07/07/16 Montelukast Sodium* (Singulair*) 10 Mg Tablet, 10 MG PO QHS, #30 TAB 07/07/16 Losartan Potassium* (Losartan Potassium*) 100 Mg Tablet, 100 MG PO DAILY, TAB 07/07/16 Levetiracetam* (Levetiracetam*) 1,000 Mg Tablet, 1000 MG PO BID, TAB 07/07/16 Isosorbide Mononitrate* (Isosorbide Mononitrate*) 60 Mg Tab.er.24h, 60 MG PO DAILY, TAB 07/07/16 Insulin Lispro (Humalog) 100 Unit/1 Ml Cartridge, 0 SQ AC MEALS AND BEDTIME SLIDING SCALE (NO SCALE GIVEN) 07/07/16 Heparin Sodium,Porcine/Pf (HEPARIN SOD 5,000 UNIT/ 0.5 ML) 5,000 Unit/0.5 Ml Vial, 5000 UNIT IJ Q12, VIAL 07/07/16 Salmeterol Xinaf-Fluticasone* (Advair*) 500/50 Diskus Inhaler, 1 INH INHALATION BID, #1 INHALER 07/07/16 Epoetin francesca* (Epogen*) 3,000 Unit/1 Ml Vial, 68762 UNIT SC TUES,THUR,SAT, VIAL 07/07/16 Divalproex Sodium* (Divalproex Sodium*) 250 Mg Tablet.dr, 750 MG PO Q8, #120 TAB 07/07/16 Clopidogrel Bisulfate (Clopidogrel) 75 Mg Tablet, 75 MG PO DAILY, #30 TAB 07/07/16 Citalopram Hydrobromide* (Citalopram Hydrobromide*) 10 Mg Tablet, 10 MG PO DAILY , #30 TAB 07/07/16 Cinacalcet* (Sensipar*) 30 Mg Tab, 30 MG PO DAILY, TAB 07/07/16 Atorvastatin* (Atorvastatin*) 80 Mg Tablet, 80 MG PO QHS, #30 TAB 07/07/16 Aspirin (Low Dose Aspirin) 81 Mg Tablet.dr, 81 MG PO DAILY, #30 TAB 07/07/16 Allergies Allergies: Coded Allergies: erythromycin base (Verified Allergy, Intermediate, 09/10/16) vancomycin (Verified Allergy, Intermediate, 09/10/16) iodine (Unverified Allergy, Unknown, 07/07/16) PMhx/Soc History of Surgery: Yes (FISTULA INSERTION) Anesthesia Reaction: No Hx Neurological Disorder: Yes (SEIZURES, CVA (2016)) Hx Respiratory Disorders: Yes (COPD) Hx Cardiac Disorders: Yes (HTN, CHF) Hx Psychiatric Problems: No Hx Miscellaneous Medical Probl: Yes (ESRD, dialysis, fistula, CHF) Hx Alcohol Use: No Hx Substance Use: No Hx Tobacco Use: No Smoking Status: Unknown if ever smoked Physical Exam Vitals Vital Signs Date Time Temp Pulse Resp B/P Pulse Ox O2 Delivery O2 Flow Rate FiO2 09/10/16 21:22 80 16 153/85 100 Room Air 09/10/16 20:00 98.2 94 17 216/105 99 Room Air 09/10/16 17:35 97.5 90 20 142/98 98 Physical Exam Const: [] Head: Atraumatic Eyes: Normal Conjunctiva ENT: Normal External Ears, Nose and Mouth. Neck: Full range of motion..~ No meningismus. Resp: Clear to auscultation bilaterally Cardio: Regular rate and rhythm, no murmurs Abd: Soft, non tender, non distended. Normal bowel sounds Skin: No petechiae or rashes Back: No midline or flank tenderness Ext: No cyanosis, or edema Neur: Awake and alert Psych: Normal Mood and Affect Result Diagram: 09/10/16193709/10/161937 Results 24 hrs Laboratory Tests Test 09/10/16 19:38 09/10/16 21:55 White Blood Count 3.510^3/ul Red Blood Count 2.8010^6/ul Hemoglobin 8.5g/dl Hematocrit 26.6% Mean Corpuscular Volume 95.0fl Mean Corpuscular Hemoglobin 30.4pg Mean Corpuscular Hemoglobin Concent 32.0g/dl Red Cell Distribution Width 16.8% Platelet Count 43832^3/UL Mean Platelet Volume 9.7fl Neutrophils % 82.0% Lymphocytes % 13.0% Monocytes % 3.0% Eosinophils % 1.0% Basophils % 1.0% Neutrophils # 2.910^3/ul Lymphocytes # 0.510^3/ul Monocytes # 0.110^3/ul Eosinophils # 0.010^3/ul Basophils # 0.010^3/ul Prothrombin Time 12.2Sec Prothrombin Time Ratio 1.0 INR International Normalized Ratio 0.91 Activated Partial Thromboplast Time 27.6Sec Sodium Level 138mmol/L Potassium Level 3.8mmol/L Chloride Level 98mmol/L Carbon Dioxide Level 29mmol/L Anion Gap 15 Blood Urea Nitrogen 29mg/dl Creatinine 5.67mg/dl Glucose Level 109mg/dl Lactic Acid Level 1.0mmol/L 0.9mmol/L Calcium Level 9.0mg/dl Total Bilirubin 0.1mg/dl Direct Bilirubin 0.00mg/dl Indirect Bilirubin 0.1mg/dl Aspartate Amino Transf (AST/SGOT) 28IU/L Alanine Aminotransferase (ALT/SGPT) 38IU/L Alkaline Phosphatase 157IU/L Troponin I 0.062ng/ml Total Protein 6.9g/dl Albumin 4.2g/dl Globulin 2.70g/dl Albumin/Globulin Ratio 1.55 Current Medications Medications (Trade) Dose Ordered Sig/Shawn Route PRN Reason Start Time Stop Time Status Last Admin Dose Admin Sodium Chloride 4230 ml 4,230 ml BOLUS OVER 2 HOURS STAT IV* 09/10/16 19:15 09/10/16 19:18 DC 09/10/16 19:29 Cefepime HCl (Maxipime 2gm/50 ml (Pmx)) 50 ml @ 100 mls/hr ONCE STAT IVPB 09/10/16 19:15 09/10/16 19:44 DC 09/10/16 19:29 Aspirin (Aspirin) 324 mg ONCE ONCE PO 09/10/16 19:30 09/10/16 19:31 DC 09/10/16 19:28 Diclofenac Sodium (Dyloject) 37.5 mg ONCE STAT IV 09/10/16 19:23 09/10/16 19:24 DC 09/10/16 19:28 Ondansetron HCl (Zofran Inj) 4 mg STK-MED ONCE .ROUTE 09/10/16 19:47 09/10/16 19:48 DC Ondansetron HCl (Zofran Inj) 4 mg ONCE STAT IV 09/10/16 19:52 09/10/16 19:54 DC 09/10/16 19:57 Labetalol HCl (Labetalol) 25 mg ONCE ONCE IV 09/10/16 20:30 09/10/16 20:31 DC 09/10/16 20:36 Morphine Sulfate (morphine) 4 mg ONCE ONCE IM 09/10/16 21:00 09/10/16 21:01 DC 09/10/16 20:46 Lorazepam (Ativan) 1 mg ONCE ONCE IV 09/10/16 21:00 09/10/16 21:01 DC 09/10/16 20:50 Trimethobenzamide HCl (Tigan) 200 mg ONCE ONCE IM 09/10/16 21:00 09/10/16 21:01 DC 09/10/16 20:51 Metoclopramide HCl (Reglan) 10 mg ONCE ONCE IV 09/10/16 21:30 09/10/16 21:39 DC 09/10/16 22:39 Ondansetron HCl (Zofran Inj) 4 mg ER BRIDGE PRN IV NAUSEA AND/OR VOMITING 09/10/16 21:30 09/11/16 21:29 Acetaminophen (Tylenol Tab) 650 mg ER BRIDGE PRN PO MILD PAIN/FEVER 09/10/16 21:30 09/11/16 21:29 Procedures/MDM Intractable nausea vomiting with hypertensive urgency. After the patient was in the emergency room to begin vomiting and retching. This required multiple doses of nausea medication to quiet down. He still states that he has nausea after Zofran, Reglan, Ativan, Tigan. No signs of cardiac ischemia on EKG or troponin. Is a low white blood cell count with pancytopenia otherwise does not meet SIRS criteria. Was empirically given cefepime out of concern for infection from history. Was given labetalol which helped lower his severe hypertension. Given morphine for pain. Patient had been given aspirin. Chest pain resolved with morphine. Is feeling better and will be admitted for trending of troponins as well as likely dialysis as he was given IV fluids for initial concerns for severe infection. Spoke with Dr. Hernandez who agrees to the admission and requested the patient be admitted to Dr. Zuniga. Dr. Ritchie Hernandez had called to ensure that the patient does not accidentally get him admitted to a doctor outside of the group. EKG interpretation: Normal sinus rhythm rate of 91, normal axis incomplete left bundle branch block, no ST or T-wave changes concerning for acute ischemia. freight traffic consultant interpretation: Normal sinus rhythm without arrhythmia Chest x-ray interpretation: Pulmonary vascular congestion with cardiomegaly, no obvious infiltrates, no pneumothorax, no fractures CT abdomen pelvis interpretation: Constipation without other acute process, I see no obstruction, no free air, no abnormal fat stranding, atrophic kidneys, no acute fractures. Care time 31 minutes: This includes treatment of hypertensive urgency, use of vasoactive medication labetalol, very careful fluid administration and dialysis patient, multiple visits the patient's bedside to reassess status, discussion with patient and admitting doctor, chart review. This does not include billable procedures. Departure Diagnosis: Primary Impression: Intractable vomiting Additional Impressions: Hypertensive urgency Constipation Pancytopenia Condition: Stable MIRIAM HINDS DO Sep 10, 2016 23:06
[2016-09-10] MEDS ORDERED: MAGNESIUM CITRATE 300 ML BTL PO ONE (23:30)
[2016-09-11] VITALS (15 sets, daily range): BP systolic 110–205; BP diastolic 39–112; PULSE 72–97; RESP 18–20; TEMP 98.2
[2016-09-11] MEDS ORDERED: morphine 4 MG/ML VIAL IV STA (02:45)
[2016-09-11] MEDS ORDERED: ONDANSETRON 4 MG INJ IV STA (02:45)
[2016-09-11] MEDS: ONDANSETRON 4 MG INJ IV PRN ×2 (04:56→09:15)
[2016-09-11] MEDS ORDERED: morphine 2 MG INJ IV ONE (09:30)
--- NOTE | 2016-09-11 10:01 | CONS ---
Date/Time of Note Date/Time of Note DATE: 09/11/16 TIME: 09:49 Assessment/Plan Assessment/Plan Chief Complaint/Hosp Course Chest pain: Pt was resting comfortably and when I woke him up he started to scream in pain so I am not sure if there is some drug seeking behavior. He does have a h/o CAD and should be ruled out. Initial trop and EKG are unremarkable. Acute on chronic diastolic heart failure: EF normal on echo 07/23. Needs HD HTN urgency: SBP 216 on admission, now 150s. Coronary artery disease - myocardial infarction and coronary stenting in 2014 Dyslipidemia End-stage renal disease - on hemodialysis Seizure disorder History of stroke Anemia Thrombocytopenia -trend trops -continue clopidogrel 75mg daily as monotherapy -continue carvedilol 6.25mg BID -continue losartan 100mg daily -continue atorvastatin -volume management via hemodialysis per nephrology -no need to repeat echo Problems: Consultation Date/Type/Reason Admit Date/Time Date of Consultation: Sep 11, 2016 Type of Consultation: Cardiology Reason for Consultation CHF Referring Provider: NEHEMIAS MILLER DO Hx of Present Illness 50 yo M with a h/o chronic diastolic heart failure, HTN, NSTEMI s/p PCI 2014, ESRD on HD, HTN, HL, Seizure disorder, anemia, thrombocytopenia, who came in for SOB and chest pain. The pt was sleeping comfortably when I walked in but as soon as I woke him up, he started to complain of chest pain. He also notes that he has been having worsening SOB, edema, orthopnea. He last had HD yesterday. Pt has been in and out of hospitals due to his condition. per HPI Past Medical History per HPI Social History Smoking Status: Unknown if ever smoked Exam/Review of Systems Vital Signs Vitals Vital Signs Date Time Temp Pulse Resp B/P Pulse Ox O2 Delivery O2 Flow Rate FiO2 09/11/16 06:30 96 16 170/91 100 Room Air 09/11/16 05:42 98.2 Intake and Output 09/10/16 09/10/16 09/11/16 15:00 23:00 07:00 Intake Total 50 ml Balance 50 ml Exam Constitutional: alert, oriented Psych: anxiety Head: atraumatic, normocephalic Neck: jvd (9cm) Respiratory: crackles/rales, diminished breath sounds, No clear to auscultation Cardiovascular: edema (2+, worse in left leg ), regular rate and rhythm, No systolic murmur Gastrointestinal: non-tender, soft Musculoskeletal: No nl extremities to inspection Neurological: nl mental status, nl speech Skin: No rash or lesions Results sinus, no ST changes Result Diagram: 09/10/16193709/10/161937 Results 24 hrs Laboratory Tests Test 09/10/16 19:38 09/10/16 21:55 09/10/16 23:57 White Blood Count 3.5 #L Red Blood Count 2.80 L Hemoglobin 8.5 L Hematocrit 26.6 L Mean Corpuscular Volume 95.0 Mean Corpuscular Hemoglobin 30.4 Mean Corpuscular Hemoglobin Concent 32.0 Red Cell Distribution Width 16.8 H Platelet Count 118 L Mean Platelet Volume 9.7 Neutrophils % 82.0 H Lymphocytes % 13.0 L Monocytes % 3.0 Eosinophils % 1.0 Basophils % 1.0 Neutrophils # 2.9 Lymphocytes # 0.5 L Monocytes # 0.1 L Eosinophils # 0.0 Basophils # 0.0 Prothrombin Time 12.2 Prothrombin Time Ratio 1.0 INR International Normalized Ratio 0.91 Activated Partial Thromboplast Time 27.6 Sodium Level 138 Potassium Level 3.8 Chloride Level 98 Carbon Dioxide Level 29 Anion Gap 15 Blood Urea Nitrogen 29 H Creatinine 5.67 H Glucose Level 109 Lactic Acid Level 1.0 0.9 0.9 Calcium Level 9.0 Total Bilirubin 0.1 L Direct Bilirubin 0.00 Indirect Bilirubin 0.1 Aspartate Amino Transf (AST/SGOT) 28 Alanine Aminotransferase (ALT/SGPT) 38 Alkaline Phosphatase 157 H Troponin I 0.062 Total Protein 6.9 Albumin 4.2 Globulin 2.70 Albumin/Globulin Ratio 1.55 Medications Medications Current Medications Ondansetron HCl (Zofran Inj) 4 mg Q6H PRN IV NAUSEA AND/OR VOMITING; Start 09/11 at 09:00 Clonidine (Catapres) 0.1 mg Q6H PRN PO Sys > 160 or Beth > 100; Start 09/11/16 at 09:00 Clonidine (Catapres) 0.2 mg Q6 PRN PO Sys > 180; Start 09/11/16 at 09:00 MADYSON SHEIKH Sep 11, 2016 09:59
[2016-09-11] MEDS ORDERED: LACTULOSE 30ML CUP PO PRN (10:30)
[2016-09-11] MEDS ORDERED: GUAIFENESIN 20 MG/ML 5ML CUP PO PRN (10:30)
[2016-09-11] MEDS ORDERED: GLUCOSE GEL 15 GRAM TUBE BUCCAL PRN (10:30)
[2016-09-11] MEDS ORDERED: GLUCAGON 1 MG INJ IM PRN (10:30)
[2016-09-11] MEDS ORDERED: GLUCOSE GEL 15 GRAM TUBE PO SCH (10:30)
[2016-09-11] MEDS ORDERED: EPOETIN ALFA (NESRD) 3,000 UNITS/ML VIAL SC SCH (10:30)
[2016-09-11] MEDS ORDERED: DEXTROSE 50% 50 ML SYRINGE IV PRN ×2 (10:30)
[2016-09-11] MEDS ORDERED: GLUCOSE GEL 15 GRAM TUBE PO PRN ×2 (10:30)
[2016-09-11] MEDS ORDERED: DIPHENHYDRAMINE 25 MG CAP PO PRN (10:30)
[2016-09-11] MEDS ORDERED: BISACODYL (EC) 5 MG TAB PO PRN (10:30)
[2016-09-11] MEDS ORDERED: ALBUTEROL/IPRATROPIUM (NEB) 3 ML AMP NEB PRN (10:30)
[2016-09-11] MEDS ORDERED: HYPROMELLOSE 0.5% 15 ML OPH BOTH EYES PRN (11:30)
[2016-09-11 11:39] LABS: ADD SCAN DIFF NO
[2016-09-11 11:43] LABS: ABNORMAL IP MESSAGE 1; EOSINOPHILS # 0.1 10^3/ul (0.0-0.5); EOSINOPHILS % 1.7 % (0.0-7.0); HEMATOCRIT 26.5 % (42.0-52.0); HEMOGLOBIN 8.5 g/dl (14.0-18.0); LYMPHOCYTES # 0.4 10^3/ul (0.8-2.9); LYMPHOCYTES % 11.4 % (15.0-51.0); MEAN CORPUSCULAR HEMOGLOBIN 30.6 pg (29.0-33.0); MEAN CORPUSCULAR HGB CONC 32.1 g/dl (32.0-37.0); MEAN CORPUSCULAR VOLUME 95.3 fl (82.0-101.0); MEAN PLATELET VOLUME 9.6 fl (7.4-10.4); MONOCYTE # 0.4 10^3/ul (0.3-0.9); MONOCYTES % 10.2 % (0.0-11.0); NEUTROPHIL # 2.8 10^3/ul (1.6-7.5); NEUTROPHILS % 76.7 % (39.0-77.0); PLATELET COUNT 109 10^3/UL (140-415); RED BLOOD COUNT 2.78 10^6/ul (4.70-6.10); RED CELL DISTRIBUTION WIDTH 16.7 % (11.5-14.5); WHITE BLOOD COUNT 3.6 10^3/ul (4.8-10.8)
[2016-09-11] MEDS: SEVELAMER CARBONATE 0.8 GM PKT PO SCH ×2 (12:00→17:47)
[2016-09-11] MEDS: INSULIN ASPART [NOVOLOG] 3 ML PEN SC SCH ×3 (12:00→20:14)
[2016-09-11 12:12] LABS: CALCIUM 9.1 mg/dl (8.4-10.2); CREATININE 6.21 mg/dl (0.61-1.24); POTASSIUM 4.5 mmol/L (3.5-5.1)
[2016-09-11 13:50] LABS: MAGNESIUM 2.5 mg/dl (1.7-2.5); PHOSPHORUS 3.6 mg/dl (2.5-4.9)
[2016-09-11] MEDS ORDERED: DIPHENHYDRAMINE 50 MG INJ IV ONE (14:00)
[2016-09-11] MEDS: LOSARTAN 50 MG TAB PO SCH (16:12)
[2016-09-11] MEDS: EPOETIN 10000 UNITS/1 ML INJ (ESRD) SC SCH (16:36)
[2016-09-11] MEDS: morphine 2 MG INJ IV PRN ×2 (16:45→22:57)
[2016-09-11] MEDS: DIVALPROEX (EC) 250 MG TAB PO SCH ×2 (16:52→22:57)
[2016-09-11] MEDS: MULTIVIT/CA CARB/B CMPLX/FA TAB PO SCH (16:56)
[2016-09-11] MEDS: PANTOPRAZOLE (EC) 40 MG TAB PO SCH (17:47)
[2016-09-11] MEDS: SALMETEROL/FLUTICASONE 500/50 INHA INH SCH (20:13)
[2016-09-11] MEDS: PHENYTOIN 100 MG CAP PO SCH (20:15)
[2016-09-11] MEDS: ATORVASTATIN 80 MG TAB PO SCH (20:15)
[2016-09-11] MEDS: LEVETIRACETAM 500 MG TAB PO SCH (20:15)
[2016-09-11] MEDS: MONTELUKAST 10 MG TAB PO SCH (20:15)
[2016-09-11] MEDS: FERROUS SULFATE (EC) 325 MG TAB PO SCH (20:16)
[2016-09-11] MEDS: POLYETHYLENE GLYCOL 17 GM PACKET PO SCH (20:16)
[2016-09-11] MEDS: ACETAMINOPHEN 325 MG TAB PO PRN (20:24)
[2016-09-11] MEDS: NITROGLYCERIN (SL) 0.4 MG TAB SL PRN ×2 (20:24→22:56)
[2016-09-11] MEDS: HEPARIN 5,000 UNIT/0.5 ML VIAL SC SCH (20:30)
[2016-09-11] MEDS: ACCU-CHEK XX SCH (20:31)
[2016-09-11] MEDS: DIPHENHYDRAMINE 50 MG INJ IV PRN (23:45)
[2016-09-12] VITALS (19 sets, daily range): BP systolic 95–150; BP diastolic 51–85; PULSE 74–90; RESP 17–18
[2016-09-12] MEDS: DIVALPROEX (EC) 250 MG TAB PO SCH ×3 (06:04→21:30)
--- NOTE | 2016-09-12 06:41 | HP ---
DATE OF ADMISSION: 09/10/2016 CHIEF COMPLAINT: Chest pain, shortness of breath. HISTORY OF PRESENT ILLNESS: This is a 50-year-old male with a past medical history of end-stage josep al disease on dialysis 4 times weekly. The patient has access left leg AV fistula. The patient als o has history of seizure disorder, hypertension, coronary artery disease, anemia, dyslipidemia, mine ral bone disorder, history of COPD, who presents to [facility] with generalized pa in, nausea, vomiting, shortness of breath. The patient apparently was on hemodialysis when he devel oped symptoms and dialysis was held. The patient was transferred to intensive care unit. Upon arri cari to the emergency room, the patient was noted to be hypertensive, systolic pressures of 200. The patient's laboratory data also showed chest x-ray with findings of pulmonary congestion and interst itial edema. The patient had a CT scan of the abdomen and pelvis which showed small hiatal hernia, no evidence of obstruction, small kidneys, status post cholecystectomy, IVC, mild hepatomegaly, anas arca. The patient in the emergency room was given antihypertensive medications, labetalol, hydralaz ine IV, was given nebulizer therapy and started on IV antibiotics. The patient was subsequently tra nsferred to telemetry for further evaluation. Upon my evaluation, the patient at this time is currently complains of generalized pain and some juanita rtness of breath. The patient denies any hemoptysis, hematemesis or hematochezia. PAST MEDICAL HISTORY: As stated above, history of end-stage renal disease, seizure disorder, diabet es, coronary artery disease, CVA, anemia, mineral bone disorder, hypertension, COPD. PAST SURGICAL HISTORY: Status post AV fistula placement, status post IVC filter placement, status p ost cholecystectomy. ALLERGIES: IODINE. FAMILY HISTORY: Noncontributory. SOCIAL HISTORY: Does not drink, smoke or do drugs. MEDICATIONS: Patient medications have been reviewed and reconciled. REVIEW OF SYSTEMS: A 14-point review of systems was conducted. Pertinent positives in HPI, otherwi se negative. PHYSICAL EXAMINATION: VITAL SIGNS: Temperature is 179/98, respirations 22, pulse 93, temperature 98.2. HEENT: Head is normocephalic. Pupils are reactive to light. NECK: Supple. HEART: Regular rate. LUNGS: Show diminished breath sounds at base ____ crackles. ABDOMEN: Soft, nontender to palpation. No rebound or guarding. EXTREMITIES: Negative for clubbing, cyanosis. Positive edema. Positive noted lower extremity woun ds. DERMATOLOGIC: No rashes. MUSCULOSKELETAL: No joint effusions. NEUROLOGIC: No focal deficits. LABORATORY DATA: Shows white count 3.5, hemoglobin 8.5, hematocrit 26.6, platelet count 118. Sodiu m 138, potassium ____, chloride 98, BUN 29, creatinine 5.67. Troponins negative x3. IMAGING STUDIES: As stated in HPI. ASSESSMENT AND PLAN: This is a 50-year-old male who presents with: 1. Chest pain. Etiology unclear, possibly cardiac versus pulmonary versus musculoskeletal. The pl an at this point is to have the patient ruled out for acute coronary syndrome by checking serial tro ponins. We will place a cardiology consult, ____ for evaluation. We will continue the patient on current medical management and monitor closely. 2. End-stage renal disease. ____ dialysis 4 times weekly. The patient is currently decompensated. Plan for dialysis today for 3 hours, ____ potassium 2.5, ultrafiltrate as tolerated. 3. ____volume overload. 4. End-stage renal disease, acute congestive heart failure exacerbation. We will continue medical management. Will continue ultrafiltration with hemodialysis. 5. Monitor hemoglobin and hematocrit levels. Will give Epogen with hemodialysis. 6. Pancytopenia. Unclear etiology. We will continue to monitor. Consider a hematology evaluation . 7. Mineral bone disorder. Continue to monitor calcium and phosphorus levels. Continue phos binders . 8. History of recurrent disease. Continue medical management. 9. Hypertensive urgency in part due to increased intravascular volume. Plan for hemodialysis today with goal ultrafiltration 3 liters. Continue current medical management and adjust blood pressure m edications as needed. 10. History of chronic obstructive pulmonary with exacerbation. We will continue medical managemen t with nebulizer therapy, continue azithromycin. Continue prednisone, consider pulmonary evaluation . 11. Seizure disorder. Continue Dilantin and Keppra. 12. Depression. Continue Celexa. 13. Dyslipidemia. Continue statin therapy. 14. Coronary artery disease. Continue current treatment plan. Follow up with cardiology. 15. Constipation. Continue current bowel regimen. 16. Gastrointestinal and deep venous thrombosis prophylaxis. Continue proton pump inhibitor and he carlitos. Please note I spent over 25 minutes [id number] time with the patient. The patient is FULL CODE. Dictated By: NEHEMIAS DAS/ROSANNA Conf#: [id number] DID#: [id number]
--- NOTE | 2016-09-12 07:02 | CONS ---
Date/Time of Note Date/Time of Note DATE: 09/12/16 TIME: 06:59 Assessment/Plan Assessment/Plan Chief Complaint/Hosp Course Chest pain: Trops and EKG are unremarkable. ?drug seeking. May consider stress test Acute on chronic diastolic heart failure: EF normal on echo 07/23. Decompensated HTN urgency: SBP 216 on admission, now better and actually hypotensive overnight Coronary artery disease - myocardial infarction and coronary stenting in 2014 Dyslipidemia End-stage renal disease - on hemodialysis Seizure disorder History of stroke Anemia Thrombocytopenia -continue clopidogrel 75mg daily as monotherapy -continue carvedilol 6.25mg BID -continue losartan 100mg daily -continue atorvastatin -volume management via hemodialysis per nephrology -will consider stress test though doubt cardiac etiology of pain Problems: Consultation Date/Type/Reason Admit Date/Time Sep 10, 2016 at 21:32 Initial Consult Date 09/11/16 Type of Consultation: Cardiology Referring Provider: NEHEMIAS MILLER DO 24 HR Interval Summary Free Text/Dictation No o/n events. Trops negative. Again pt was sleeping comfortably but when he woke up started to complain of chest pain. Exam/Review of Systems Vital Signs Vitals Vital Signs Date Time Temp Pulse Resp B/P Pulse Ox O2 Delivery O2 Flow Rate FiO2 09/12/16 04:22 98.2 72 17 98/52 100 09/11/16 20:00 Nasal Cannula 2.0 Intake and Output 09/11/16 09/11/16 09/12/16 15:00 23:00 07:00 Intake Total 300 ml 120 ml Output Total 4300 ml Balance -4000 ml 120 ml Exam Constitutional: alert, oriented Head: atraumatic, normocephalic Neck: jvd (8cm) Respiratory: crackles/rales, diminished breath sounds, No clear to auscultation Cardiovascular: edema (1-2+), regular rate and rhythm Neurological: nl mental status, nl speech Skin: rash or lesions Results Result Diagram: 09/11/16 1123 09/11/16 1123 Results 24 hrs Laboratory Tests Test 09/11/16 11:23 09/11/16 12:04 09/11/16 12:50 09/11/16 17:46 White Blood Count 3.6 L Red Blood Count 2.78 L Hemoglobin 8.5 L Hematocrit 26.5 L Mean Corpuscular Volume 95.3 Mean Corpuscular Hemoglobin 30.6 Mean Corpuscular Hemoglobin Concent 32.1 Red Cell Distribution Width 16.7 H Platelet Count 109 L Mean Platelet Volume 9.6 Neutrophils % 76.7 Lymphocytes % 11.4 L Monocytes % 10.2 Eosinophils % 1.7 Basophils % 0.0 Nucleated Red Blood Cells % 0.0 Neutrophils # 2.8 Lymphocytes # 0.4 L Monocytes # 0.4 Eosinophils # 0.1 Basophils # 0.0 Nucleated Red Blood Cells # 0.0 Sodium Level 140 Potassium Level 4.5 Chloride Level 101 Carbon Dioxide Level 29 Anion Gap 15 Blood Urea Nitrogen 32 H Creatinine 6.21 H Glucose Level 103 Calcium Level 9.1 Bedside Glucose 102 110 Phosphorus Level 3.6 Magnesium Level 2.5 Troponin I 0.075 Test 09/11/16 18:15 09/11/16 20:14 09/12/16 01:18 Troponin I 0.068 0.067 Bedside Glucose 121 Medications Medications Current Medications Ondansetron HCl (Zofran Inj) 4 mg Q6H PRN IV NAUSEA AND/OR VOMITING; Start 09/11 at 09:00 Acetaminophen (Tylenol Tab) 650 mg Q6H PRN PO PAIN AND OR ELEVATED TEMP Last administered on 09/11/16 20:24; Admin Dose 650 MG; Start 09/11/16 at 10:30 Aspirin (Halfprin) 81 mg DAILY PO ; Start 09/12/16 at 09:00 Atorvastatin Calcium (Lipitor) 80 mg QHS PO Last administered on 09/11/16 20:15 ; Admin Dose 80 MG; Start 09/11/16 at 21:00 Azithromycin (Zithromax) 500 mg DAILY PO ; Start 09/12/16 at 09:00 Bisacodyl (Dulcolax) 10 mg DAILY PRN PO CONSTIPATION; Start 09/11/16 at 10:30 Carvedilol (Coreg) 6.25 mg BID PO Last administered on 09/11/16 20:15; Admin Dose 6.25 MG; Start 09/11/16 at 10:30 Cinacalcet (Sensipar) 30 mg DAILY PO ; Start 09/12/16 at 09:00 Citalopram Hydrobromide (Celexa) 10 mg DAILY PO ; Start 09/12/16 at 09:00 Clonidine (Catapres) 0.1 mg Q6H PRN PO SBP ABOVE 170 Last administered on 16:13; Admin Dose 0.1 MG; Start 09/11/16 at 10:30 Clopidogrel Bisulfate (plaVIX) 75 mg DAILY PO ; Start 09/12/16 at 09:00 Divalproex Sodium (Depakote) 750 mg Q8 PO Last administered on 09/12/16 06:04; Admin Dose 750 MG; Start 09/11/16 at 14:00 Famotidine (Pepcid) 20 mg DAILY PO ; Start 09/12/16 at 09:00 Ferrous Sulfate (Ferrous Sulfate (Ec)) 325 mg BID PO Last administered on 20:16; Admin Dose 325 MG; Start 09/11/16 at 21:00 Guaifenesin (Robitussin Liquid Cup) 300 mg Q4H PRN PO COUGH; Start 09/11/16 at 10:30 Heparin Sodium (Porcine) (Heparin (5000 Units/0.5 ml)) 5,000 unit BID SC Last administered on 09/11/16 20:30; Admin Dose 5,000 UNIT; Start 09/11/16 at 21:00 Hypromellose (Isopto Tears) 2 drop Q4 PRN BOTH EYES DRY EYES; Start 09/11/16 at 11:30 Albuterol/ Ipratropium (Duoneb) 3 ml Q4H PRN NEB WHEEZING AND SOB; Start at 10:30 Isosorbide Mononitrate (Imdur) 60 mg DAILY PO ; Start 09/12/16 at 09:00 Lactulose (Enulose) 20 gm BID PRN PO CONSTIPATION; Start 09/11/16 at 10:30 Levetiracetam (Keppra) 1,000 mg BID PO Last administered on 09/11/16 20:15; Admin Dose 1,000 MG; Start 09/11/16 at 21:00 Losartan Potassium (Cozaar) 100 mg DAILY PO Last administered on 09/11/16 16:12 ; Admin Dose 100 MG; Start 09/11/16 at 10:30 Montelukast Sodium (Singulair) 10 mg QHS PO Last administered on 09/11/16 20:15 ; Admin Dose 10 MG; Start 09/11/16 at 21:00 Multivit/Ca Carb/ B Cmplx/FA/Prenat (Etelvina-Paula) 1 tab DAILY PO Last administered on 09/11/16 16:56; Admin Dose 1 TAB; Start 09/11/16 at 10:30 Nitroglycerin (Nitroglycerin (Sl Tab) 0.4 Mg) 0.4 tab [id number] PRN SL CHEST PAIN Last administered on 09/11/16 22:56; Admin Dose 0.4 TAB; Start 09/11/16 at 10:30 Pantoprazole (Protonix Tab) 40 mg 18 PO Last administered on 09/11/16 17:47; Admin Dose 40 MG; Start 09/11/16 at 18:00 Phenytoin (Dilantin) 300 mg HS PO Last administered on 09/11/16 20:15; Admin Dose 300 MG; Start 09/11/16 at 21:00 Polyethylene Glycol (Miralax) 17 gm BID PO Last administered on 09/11/16 20:16 ; Admin Dose 17 GM; Start 09/11/16 at 21:00 Prednisone (Prednisone) 60 mg DAILY PO ; Start 09/12/16 at 09:00 Salmeterol Xinafoate/ Fluticasone (Advair 500/50 Diskus) 1 inh BID INH Last administered on 09/11/16 20:13; Admin Dose 1 INH; Start 09/11/16 at 21:00 Diagnostic Test (Pha) (Accu-Chek) 1 ea 02 XX ; Start 09/12/16 at 02:00 Miscellaneous Information 1 ea NOTE XX ; Start 09/11/16 at 10:30 Glucose (Glutose) 15 gm Q15M PRN PO DECREASED GLUCOSE; Start 09/11/16 at 10:30 Glucose (Glutose) 22.5 gm Q15M PRN PO DECREASED GLUCOSE; Start 09/11/16 at 10:30 Dextrose (D50w Syringe) 25 ml Q15M PRN IV DECREASED GLUCOSE; Start 09/11/16 at 10:30 Dextrose (D50w Syringe) 50 ml Q15M PRN IV DECREASED GLUCOSE; Start 09/11/16 at 10:30 Glucagon (Glucagen) 1 mg Q15M PRN IM DECREASED GLUCOSE; Start 09/11/16 at 10:30 Glucose (Glutose) 15 gm Q15M PRN BUCCAL DECREASED GLUCOSE; Start 09/11/16 at 10: 30 Morphine Sulfate (morphine) 1 mg Q6H PRN IV PAIN LEVEL 7-10 Last administered on 09/11/16 22:57; Admin Dose 1 MG; Start 09/11/16 at 17:00 Diphenhydramine HCl (Benadryl) 25 mg Q6H PRN IV ITCHING Last administered on 23:45; Admin Dose 25 MG; Start 09/11/16 at 17:30 MADYSON SHEIKH Sep 12, 2016 07:02
[2016-09-12] MEDS: INSULIN ASPART [NOVOLOG] 3 ML PEN SC SCH ×4 (08:00→20:09)
[2016-09-12] MEDS: AZITHROMYCIN 250 MG TAB PO SCH (08:21)
[2016-09-12] MEDS: POLYETHYLENE GLYCOL 17 GM PACKET PO SCH ×2 (08:21→20:10)
[2016-09-12] MEDS: SEVELAMER CARBONATE 0.8 GM PKT PO SCH ×3 (08:21→17:37)
[2016-09-12] MEDS: SALMETEROL/FLUTICASONE 500/50 INHA INH SCH ×2 (08:21→20:07)
[2016-09-12] MEDS: CINACALCET 30 MG TAB PO SCH (08:22)
[2016-09-12] MEDS: CLOPIDOGREL 75 MG TAB PO SCH (08:23)
[2016-09-12] MEDS: LEVETIRACETAM 500 MG TAB PO SCH ×2 (08:23→20:10)
[2016-09-12] MEDS: MULTIVIT/CA CARB/B CMPLX/FA TAB PO SCH (08:24)
[2016-09-12] MEDS: FAMOTIDINE 20 MG TAB PO SCH (08:24)
[2016-09-12] MEDS: CITALOPRAM 20 MG TAB PO SCH (08:24)
[2016-09-12] MEDS: FERROUS SULFATE (EC) 325 MG TAB PO SCH ×2 (08:25→20:10)
[2016-09-12] MEDS: ONDANSETRON 4 MG INJ IV PRN ×2 (08:25→14:14)
[2016-09-12] MEDS: HEPARIN 5,000 UNIT/0.5 ML VIAL SC SCH ×2 (08:26→20:21)
[2016-09-12] MEDS: ISOSORBIDE MONONITRATE(SR)60 MG TAB PO SCH (08:29)
[2016-09-12] MEDS ORDERED: ASPIRIN (EC) 81 MG TAB PO SCH (09:00)
[2016-09-12] MEDS ORDERED: NON-FORMULARY/PATIENT OWN MED (Folic Acid/Vitamin B Comp W-C (Nephrocaps Capsule) 1 MG) PO SCH (09:00)
[2016-09-12] MEDS ORDERED: predniSONE 20 MG TAB PO SCH (09:00)
--- NOTE | 2016-09-12 09:58 | PN ---
DATE: 09/12/2016 SUBJECTIVE: The patient is stable. The patient did have an episode of chest pain this morning and was given nitro with resolution of pain. No other acute events noted. No hemoptysis, hematemesis o r hematochezia. OBJECTIVE: VITAL SIGNS: Blood pressure 117/58, respiration 18, pulse 78, temperature 98.4. HEENT: Head is normocephalic. NECK: Supple. HEART: Regular rate. LUNGS: Show diminished breath sounds at base. ABDOMEN: Soft, nontender to palpation without rebound or guarding. EXTREMITIES: Negative for clubbing, cyanosis. Positive edema. Positive lower extremity wounds. DERMATOLOGIC: No rashes. MUSCULOSKELETAL: No joint effusions. NEUROLOGIC: No change in exam. MEDICATIONS: Reviewed. LABORATORY DATA: Currently pending. ASSESSMENT AND PLAN: 1. Chest pain, etiology is unclear. It does not appear to be cardiac. Other possibilities include pulmonary versus musculoskeletal versus questionable drug seeking. The patient's serial troponins have been negative. We will continue current medical management. Appreciate cardiology evaluation. Possibility of stress test if pain is ongoing. 2. End-stage renal disease. The patient is decompensated. Continue daily dialysis for volume karen cari and solute clearance. Will dialyze again today for 3 hours, 2K bath, calcium 2.5. 3. Volume overload secondary to acute congestive heart failure and end-stage renal disease. Contin ue ultrafiltration dialysis. Continue to monitor. 4. Anemia. Continue to monitor hemoglobin and hematocrit levels. Continue Epogen. 5. Pancytopenia. Etiology is unclear. We will place a hematology consult for evaluation. 6. Mineral bone disorder. Continue to monitor calcium and phosphorus levels. Continue phosphate b inders. 7. Lower extremity wounds, possible cellulitis. We will continue wound care. Place an infectious disease consult for evaluation. 8. Hypertensive urgency, in part due to increased intravascular volume. Continue ultrafiltration d ialysis. Continue current blood pressure regimen. 9. Chronic obstructive pulmonary disease exacerbation. Continue current medical management. Zheng nue nebulizers, continue azithromycin. Continue prednisone. Will place a pulmonary consult for [facility]. 10. Seizure disorder. Continue Dilantin, Keppra. 11. Depression. Continue Celexa. 12. Dyslipidemia. Continue statin therapy. 13. History of coronary artery disease. Continue medical management. 14. Constipation. Continue current bowel regimen. 15. Gastrointestinal and deep venous thrombosis prophylaxis. Continue proton pump inhibitor and he carlitos. Dictated By: NEHEMIAS DAS/ROSANNA Conf#: [id number] DID#: [id number]
[2016-09-12] MEDS: morphine 2 MG INJ IV PRN ×2 (11:34→18:01)
--- NOTE | 2016-09-12 12:55 | CONS ---
DATE OF ADMISSION: 09/10/2016 DATE OF CONSULTATION: 09/12/2016 TYPE OF CONSULTATION: Infectious Disease. REASON FOR CONSULTATION: Antibiotic management. HISTORY OF PRESENT ILLNESS: Martinez Trinh is a 50-year-old male who comes in with chest pain and shortness of breath. His past problems include: 1. End-stage renal disease on hemodialysis 4 times a week. 2. Access left leg, AV fistula. 3. Seizure disorder. 4. Hypertension. 5. Coronary artery disease. 6. Anemia. 7. Dyslipidemia. 8. Mineral bone disorder. 9. COPD. Acutely, the patient presents with generalized pain, nausea, vomiting, shortness of breath. He deve loped these symptoms while on dialysis and he was transferred to the intensive care unit. In the em ergency room, he was hypertensive with a blood pressure of 200. Chest x-ray shows findings of pulmo nary congestion and interstitial edema. A CT scan of the abdomen and pelvis showed small hiatal her sarah, no evidence of obstruction, small kidneys, status post cholecystectomy, IVC filter, mild hepato megaly and anasarca. He was placed on labetalol and hydralazine for antihypertensive medications. He was given nebulizer therapy and started on IV antibiotics. He was then transferred to telemetry for further evaluation. On admission, his white count was 3.5, H and H of 8.5 and 26.6, platelet count 118,000. BUN and cre atinine 25/5.67. Troponins were negative x3. Blood cultures are negative. Chest x-ray: Interstit ial prominence extending from the regions suspicious for interstitial edema. Evidence of prev ious neck surgery. The CT scan of the abdomen and pelvis showed status post cholecystectomy with no bile duct dilatation. There is a left iliac stent, left femoral stent, inferior vena caval filter. HOSPITAL COURSE: The patient had chest pain this morning. The chest pain does not seem to be cardi ac. He has chronic obstructive pulmonary disease. He is placed on nebulizers and azithromycin. Th e patient also has lower extremity wounds, possible cellulitis. Wound care was called and infectiou s disease consult was obtained. PAST MEDICAL HISTORY: Operations as outlined. FAMILY HISTORY: Noncontributory. SOCIAL HISTORY: He does not smoke, drink or abuse drugs. ALLERGIES: NONE TO PENICILLIN, SULFA OR FOODS, BUT HE IS ALLERGIC TO IODINE. MEDICATIONS: Per chart. REVIEW OF SYSTEMS: Noncontributory. PHYSICAL EXAMINATION: GENERAL: The patient is a well-developed, well-nourished male who is chronically ill, alert, respon sive, in no acute distress. VITAL SIGNS: Stable. He is afebrile. SKIN: Without generalized rash. HEENT: Within normal limits. NECK: Supple. LYMPH NODES: None palpable. CHEST: Decreased breath sounds at the bases. HEART: Without murmur or gallop. ABDOMEN: Soft, nontender, without organosplenomegaly or masses. EXTREMITIES: Without cyanosis or clubbing. He has edema. He has lower extremity wounds. RECTAL AND GENITAL: Deferred. NEUROLOGICAL: No focal neurological abnormalities. IMPRESSION AND PLAN: The patient is on azithromycin. We can give him 1 dose of vancomycin for his cellulitis. He has ALLERGIC REACTIONS TO ERYTHROMYCIN BASE, IODINE AND VANCOMYCIN. I think at this point we will observe him. If necessary, we will start him on Zyvox or linezolid if the cellulitis progresses. I will dictate my findings to Dr. Zuniga. Dictated By: JOSÉ MIGUEL TORRES MD, JD/ROSANNA Conf#: [id number] DID#: [id number]
[2016-09-12] MEDS: DIPHENHYDRAMINE 25 MG CAP PO PRN ×2 (15:09→21:30)
[2016-09-12] MEDS: PANTOPRAZOLE (EC) 40 MG TAB PO SCH (17:37)
[2016-09-12] MEDS: LOSARTAN 50 MG TAB PO SCH (17:38)
[2016-09-12] MEDS: MONTELUKAST 10 MG TAB PO SCH (20:10)
[2016-09-12] MEDS: ATORVASTATIN 80 MG TAB PO SCH (20:10)
[2016-09-12] MEDS: PHENYTOIN 100 MG CAP PO SCH (20:10)
[2016-09-12] MEDS: ACETAMINOPHEN 325 MG TAB PO PRN (20:10)
--- NOTE | 2016-09-12 21:57 | CONS ---
Date/Time of Note Date/Time of Note DATE: 09/12/16 TIME: 21:57 Assessment/Plan Assessment/Plan Chief Complaint/Hosp Course Thrombocytopenia per pt he had thrombocytopenia for 15 yr since he was started on HD . He never had any bleeding, never had BMBX I would cont to monitor blood count closely avoid myelosuppressive meds observe for bleeding no indications for platelet transfusion pancytopenia mild cont to monitor Anemia. monitor blood count closely Continue to monitor hemoglobin and hematocrit levels. Continue Epogen. HSM Chest pain, etiology is unclear. It does not appear to be cardiac. Other possibilities include pulmonary versus musculoskeletal versus questionable drug seeking. The patient's serial troponins have been negative. End-stage renal disease. The patient is decompensated. Continue daily dialysis for volume removal and solute clearance. Volume overload secondary to acute congestive heart failure and end-stage renal disease. Continue ultrafiltration dialysis. Continue to monitor. Mineral bone disorder. Continue to monitor calcium and phosphorus levels. Continue phosphate binders. Lower extremity wounds, possible cellulitis. We will continue wound care. Place an infectious disease consult for evaluation. Hypertensive urgency, in part due to increased intravascular volume. Continue ultrafiltration dialysis. Continue current blood pressure regimen. Chronic obstructive pulmonary disease exacerbation. Continue current medical management. Continue nebulizers, continue azithromycin. Continue prednisone. Will place a pulmonary consult for evaluation. Seizure disorder. Continue Dilantin, Keppra. Depression. Continue Celexa. Dyslipidemia. Continue statin therapy. History of coronary artery disease. Continue medical management. Constipation. Continue current bowel regimen. Gastrointestinal and deep venous thrombosis prophylaxis. Continue proton pump inhibitor and heparin. Problems: Consultation Date/Type/Reason Admit Date/Time Sep 10, 2016 at 21:32 Date of Consultation: Sep 12, 2016 [facility] Reason for Consultation thrombocytopenia Referring Provider: NEHEMIAS MILLER DO Hx of Present Illness This is a 50-year-old male with a past medical history of end-stage renal disease on dialysis 4 times weekly. The patient has access left leg AV fistula. The patient also has history of seizure disorder, hypertension, coronary artery disease, anemia, dyslipidemia, mineral bone disorder, history of COPD, who presents to [facility] with generalized pain, nausea, vomiting, shortness of breath. The patient apparently was on hemodialysis when he developed symptoms and dialysis was held. The patient was transferred to intensive care unit. Upon arrival to the emergency room, the patient was noted to be hypertensive, systolic pressures of 200. The patient's laboratory data also showed chest x-ray with findings of pulmonary congestion and interstitial edema. The patient had a CT scan of the abdomen and pelvis which showed small hiatal hernia, no evidence of obstruction, small kidneys, status post cholecystectomy, IVC, mild hepatomegaly, anasarca. The patient in the emergency room was given antihypertensive medications, labetalol, hydralazine IV, was given nebulizer therapy and started on IV antibiotics. The patient was subsequently transferred to telemetry for further evaluation. Upon my evaluation, the patient at this time is currently complains of generalized pain and some shortness of breath. The patient denies any hemoptysis, hematemesis or hematochezia. i was asked to provide [facility] consult re thrombocytopenia per pt he had thrombocytopenia for 15 yr since he was started on HD . He never had any bleeding, never had BMBX PAST MEDICAL HISTORY: As stated above, history of end-stage renal disease, seizure disorder, diabetes, coronary artery disease, CVA, anemia, mineral bone disorder, hypertension, COPD. PAST SURGICAL HISTORY: Status post AV fistula placement, status post IVC filter placement, status post cholecystectomy. ALLERGIES: IODINE. FAMILY HISTORY: Noncontributory. SOCIAL HISTORY: Does not drink, smoke or do drugs. MEDICATIONS: Patient medications have been reviewed and reconciled. REVIEW OF SYSTEMS: A 14-point review of systems was conducted. Pertinent positives in HPI, otherwise negative. Psychological: anxiety Social History Smoking Status: Unknown if ever smoked Exam/Review of Systems Vital Signs Vitals Vital Signs Date Time Temp Pulse Resp B/P Pulse Ox O2 Delivery O2 Flow Rate FiO2 09/12/16 20:20 86 09/12/16 20:00 97.9 18 150/77 100 09/12/16 07:45 Nasal Cannula 2.0 Intake and Output 09/11/16 09/11/16 09/12/16 15:00 23:00 07:00 Intake Total 300 ml 120 ml Output Total 4300 ml Balance -4000 ml 120 ml Exam PHYSICAL EXAMINATION: HEENT: Head is normocephalic. Pupils are reactive to light. NECK: Supple. HEART: Regular rate. LUNGS: Show diminished breath sounds at base ____ crackles. ABDOMEN: Soft, nontender to palpation. No rebound or guarding. EXTREMITIES: Negative for clubbing, cyanosis. Positive edema. Positive noted lower extremity wounds. DERMATOLOGIC: No rashes. MUSCULOSKELETAL: No joint effusions. NEUROLOGIC: No focal deficits. no petechia or hematoma noted Results Result Diagram: 09/11/16 1123 09/11/16 1123 Results 24 hrs Laboratory Tests Test 09/12/16 01:18 09/12/16 08:19 09/12/16 11:38 09/12/16 17:35 Troponin I 0.067 Bedside Glucose 84 107 153 Test 09/12/16 20:08 Bedside Glucose 175 Medications Medications Current Medications Ondansetron HCl (Zofran Inj) 4 mg Q6H PRN IV NAUSEA AND/OR VOMITING Last administered on 09/12/16 14:14; Admin Dose 4 MG; Start 09/11/16 at 09:00 Acetaminophen (Tylenol Tab) 650 mg Q6H PRN PO PAIN AND OR ELEVATED TEMP Last administered on 09/12/16 20:10; Admin Dose 650 MG; Start 09/11/16 at 10:30 Atorvastatin Calcium (Lipitor) 80 mg QHS PO Last administered on 09/12/16 20:10 ; Admin Dose 80 MG; Start 09/11/16 at 21:00 Azithromycin (Zithromax) 500 mg DAILY PO Last administered on 09/12/16 08:21; Admin Dose 500 MG; Start 09/12/16 at 09:00 Bisacodyl (Dulcolax) 10 mg DAILY PRN PO CONSTIPATION; Start 09/11/16 at 10:30 Carvedilol (Coreg) 6.25 mg BID PO Last administered on 09/12/16 20:11; Admin Dose 6.25 MG; Start 09/11/16 at 10:30 Cinacalcet (Sensipar) 30 mg DAILY PO Last administered on 09/12/16 08:22; Admin Dose 30 MG; Start 09/12/16 at 09:00 Citalopram Hydrobromide (Celexa) 10 mg DAILY PO Last administered on 09/12/16 08:24; Admin Dose 10 MG; Start 09/12/16 at 09:00 Clonidine (Catapres) 0.1 mg Q6H PRN PO SBP ABOVE 170 Last administered on 16:13; Admin Dose 0.1 MG; Start 09/11/16 at 10:30 Clopidogrel Bisulfate (plaVIX) 75 mg DAILY PO Last administered on 09/12/16 08: 23; Admin Dose 75 MG; Start 09/12/16 at 09:00 Divalproex Sodium (Depakote) 750 mg Q8 PO Last administered on 09/12/16 21:30; Admin Dose 750 MG; Start 09/11/16 at 14:00 Famotidine (Pepcid) 20 mg DAILY PO Last administered on 09/12/16 08:24; Admin Dose 20 MG; Start 09/12/16 at 09:00 Ferrous Sulfate (Ferrous Sulfate (Ec)) 325 mg BID PO Last administered on 20:10; Admin Dose 325 MG; Start 09/11/16 at 21:00 Guaifenesin (Robitussin Liquid Cup) 300 mg Q4H PRN PO COUGH; Start 09/11/16 at 10:30 Heparin Sodium (Porcine) (Heparin (5000 Units/0.5 ml)) 5,000 unit BID SC Last administered on 09/12/16 20:21; Admin Dose 5,000 UNIT; Start 09/11/16 at 21:00 Hypromellose (Isopto Tears) 2 drop Q4 PRN BOTH EYES DRY EYES; Start 09/11/16 at 11:30 Albuterol/ Ipratropium (Duoneb) 3 ml Q4H PRN NEB WHEEZING AND SOB; Start at 10:30 Isosorbide Mononitrate (Imdur) 60 mg DAILY PO Last administered on 09/12/16 08: 29; Admin Dose 60 MG; Start 09/12/16 at 09:00 Lactulose (Enulose) 20 gm BID PRN PO CONSTIPATION; Start 09/11/16 at 10:30 Levetiracetam (Keppra) 1,000 mg BID PO Last administered on 09/12/16 20:10; Admin Dose 1,000 MG; Start 09/11/16 at 21:00 Losartan Potassium (Cozaar) 100 mg DAILY PO Last administered on 09/12/16 17:38 ; Admin Dose 100 MG; Start 09/11/16 at 10:30 Montelukast Sodium (Singulair) 10 mg QHS PO Last administered on 09/12/16 20:10 ; Admin Dose 10 MG; Start 09/11/16 at 21:00 Multivit/Ca Carb/ B Cmplx/FA/Prenat (Etelvina-Paula) 1 tab DAILY PO Last administered on 09/12/16 08:24; Admin Dose 1 TAB; Start 09/11/16 at 10:30 Nitroglycerin (Nitroglycerin (Sl Tab) 0.4 Mg) 0.4 tab [id number] PRN SL CHEST PAIN Last administered on 09/11/16 22:56; Admin Dose 0.4 TAB; Start 09/11/16 at 10:30 Pantoprazole (Protonix Tab) 40 mg 18 PO Last administered on 09/12/16 17:37; Admin Dose 40 MG; Start 09/11/16 at 18:00 Phenytoin (Dilantin) 300 mg HS PO Last administered on 09/12/16 20:10; Admin Dose 300 MG; Start 09/11/16 at 21:00 Polyethylene Glycol (Miralax) 17 gm BID PO Last administered on 09/12/16 20:10 ; Admin Dose 17 GM; Start 09/11/16 at 21:00 Prednisone (Prednisone) 60 mg DAILY PO Last administered on 09/12/16 08:22; Admin Dose 60 MG; Start 09/12/16 at 09:00 Salmeterol Xinafoate/ Fluticasone (Advair 500/50 Diskus) 1 inh BID INH Last administered on 09/12/16 20:07; Admin Dose 1 INH; Start 09/11/16 at 21:00 Diagnostic Test (Pha) (Accu-Chek) 1 ea 02 XX ; Start 09/12/16 at 02:00 Miscellaneous Information 1 ea NOTE XX ; Start 09/11/16 at 10:30 Glucose (Glutose) 15 gm Q15M PRN PO DECREASED GLUCOSE; Start 09/11/16 at 10:30 Glucose (Glutose) 22.5 gm Q15M PRN PO DECREASED GLUCOSE; Start 09/11/16 at 10:30 Dextrose (D50w Syringe) 25 ml Q15M PRN IV DECREASED GLUCOSE; Start 09/11/16 at 10:30 Dextrose (D50w Syringe) 50 ml Q15M PRN IV DECREASED GLUCOSE; Start 09/11/16 at 10:30 Glucagon (Glucagen) 1 mg Q15M PRN IM DECREASED GLUCOSE; Start 09/11/16 at 10:30 Glucose (Glutose) 15 gm Q15M PRN BUCCAL DECREASED GLUCOSE; Start 09/11/16 at 10: 30 Morphine Sulfate (morphine) 1 mg Q6H PRN IV PAIN LEVEL 7-10 Last administered on 09/12/16 18:01; Admin Dose 1 MG; Start 09/11/16 at 17:00 Diphenhydramine HCl (Benadryl) 25 mg Q6H PRN IV ITCHING Last administered on 23:45; Admin Dose 25 MG; Start 09/11/16 at 17:30 Diphenhydramine HCl (Benadryl) 25 mg Q6H PRN PO ITCHING Last administered on 21:30; Admin Dose 25 MG; Start 09/12/16 at 07:00 Procedures Procedures [place] [address] Radiology Main Line: [phone] DIAGNOSTIC IMAGING REPORT Patient: BECKY CONNOR : 1965 Age: 50 Sex: M MR #: [id number] DOS: 09/10/16 0000 Ordering MD: MIRIAM HINDS DO Location: E/R Room/Bed: PROCEDURE: CT Abdomen and Pelvis without contrast CLINICAL INDICATION: Intractable vomiting TECHNIQUE: Transaxial images were obtained through the abdomen and pelvis on a multi-slice scanner without the intravenous contrast administration. No oral contrast had previously been given. Sagittal and coronal re-formations were subsequently reconstructed. One or more of the following dose reduction techniques were used: - Automated exposure control. - Adjustment of the mA and/or kV according to patient size. - Use of iterative reconstruction technique. Radiation dose: CTDIvol = 19.76 mGy; DLP = 1178.10 mGy-cm. COMPARISON: No prior studies are available for comparison. FINDINGS: Lung bases: Subsegmental atelectasis is seen at the posterior lung bases and there is mild bronchiectasis seen in the lower lobes and right middle lobe. Coronary artery disease as noted. Liver: The liver is mildly enlarged with no focal lesion evident. Gallbladder: Surgical campbell are seen in the gallbladder fossa. Bile ducts: The intra and extrahepatic bile ducts are normal in caliber. Pancreas: Appears normal with no mass or inflammation evident. Spleen: The spleen is mildly enlarged. Adrenals: Normal with no mass identified. Kidneys, ureters and bladder: The kidneys are small with thinning of the renal cortices. There is no hydronephrosis. A 1.3 cm cyst is seen extend laterally off the superior pole left kidney. The ureters are normal in caliber and no ureteroliths are identified. The bladder is poorly distended. Reproductive organs: The prostate is not enlarged. Stomach and bowel: There is a small hiatal hernia and the stomach is mildly distended with fluid. There is extensive stool seen throughout the colon particularly distally suspicious for constipation. There is no evidence of bowel obstruction or inflammation. Appendix: A normal vermiform appendix is evident. Peritoneum: No free intraperitoneal fluid or air is identified. There is a small fat containing umbilical hernia. Aorta: There is extensive atherosclerotic vascular calcification but no abdominal aortic aneurysm is evident. There is a left iliac graft and surgical campbell are seen within the U left groin with a left femoral graft also noted. IVC: An inferior vena cava filter is seen to be in place Lymph nodes: Retroperitoneal nodes are evident up to 1 cm in short diameter. Osseous structures: Several Schmorl's nodes are seen within the lumbar spine along with mild degenerative endplate changes. There is increased sclerosis to the osseous elements which likely reflects renal osteodystrophy. Soft tissues: There is stranding within the deep and subcutaneous fat compatible with anasarca. Superficial varices are evident. IMPRESSION: 1. Small hiatal hernia with fluid seen within the stomach. Excessive stool is seen throughout the colon particularly distally compatible with constipation. There is no evidence of small bowel obstruction or bowel inflammation with a normal vermiform appendix evident. 2. Small kidneys with a 1.3 cm cyst extending laterally off the superior pole left kidney. There is no hydronephrosis compatible with medical renal disease. The bladder is poorly distended. 3. Status post cholecystectomy with no bile duct dilatation evident. 4. Extensive vascular calcification. There is a left iliac stent and a left femoral stent. 5. An inferior vena cava filter is evident. 6. Mild hepatomegaly and splenomegaly. 7. Anasarca with superficial varices noted. There is grade is superficial edema and swelling about the left lateral pelvis and proximal thigh. 8. Subsegmental atelectasis seen within the posterior lung bases with mild bronchiectasis seen in the lower lobes and right middle lobe along with coronary artery disease. 9. Renal osteodystrophy. Several Schmorl's nodes are seen within the lumbar region along with mild anterior spondylosis. Physician Brenda Date Time Electronically viewed and signed by Paco Young Physician on 09/10/2016 22:34 RH/ CC: MIRIAM HINDS VERA M MD Sep 12, 2016 21:57
[2016-09-12] MEDS: ACCU-CHEK XX SCH (22:45)
[2016-09-12 23:15] LABS: PLATELET COUNT 113 10^3/UL (140-415)
[2016-09-12 23:20] LABS: IRON 40 ug/dl (35-150)
[2016-09-12 23:21] LABS: LACTATE DEHYDROGENASE 401 IU/L (313-618)
[2016-09-12 23:22] LABS: PROTIME 14.2 Sec (12.2-14.2); PT RATIO 1.1
[2016-09-12 23:23] LABS: THROMBIN TIME 15.6 SEC (13.8-19.1)
[2016-09-12 23:26] LABS: D-DIMER 2081.91 ng/ml (<460)
[2016-09-12 23:29] LABS: PARTIAL THROMBOPLASTIN TIME 33.6 Sec (25.0-35.0); TOTAL IRON BINDING CAPACITY 173 ug/dl (241-421)
[2016-09-12 23:54] LABS: THYROID STIMULATING HORMONE 0.868 MIU/L (0.465-4.680)
[2016-09-13] VITALS (20 sets, daily range): BP systolic 121–181; BP diastolic 59–94; PULSE 74–86; RESP 17–20
[2016-09-13 00:14] LABS: FIBRIN SPLIT PRODUCT <10 ug/ml (<10)
[2016-09-13 03:23] LABS: FOLATE 16.8 ng/ml (2.8-20.0)
[2016-09-13] MEDS: DIVALPROEX (EC) 250 MG TAB PO SCH ×3 (05:23→22:17)
[2016-09-13 07:40] LABS: ADD SCAN DIFF NO
[2016-09-13 07:44] LABS: ABNORMAL IP MESSAGE 1; BASOPHILS % 0.3 % (0.0-2.0); EOSINOPHILS % 0.8 % (0.0-7.0); HEMATOCRIT 26.1 % (42.0-52.0); LYMPHOCYTES # 0.6 10^3/ul (0.8-2.9); LYMPHOCYTES % 14.9 % (15.0-51.0); MEAN CORPUSCULAR HEMOGLOBIN 29.7 pg (29.0-33.0); MEAN CORPUSCULAR HGB CONC 30.7 g/dl (32.0-37.0); MONOCYTE # 0.3 10^3/ul (0.3-0.9); MONOCYTES % 8.3 % (0.0-11.0); NEUTROPHILS % 75.4 % (39.0-77.0); PLATELET COUNT 141 10^3/UL (140-415); RED BLOOD COUNT 2.69 10^6/ul (4.70-6.10); RED CELL DISTRIBUTION WIDTH 16.8 % (11.5-14.5)
[2016-09-13] MEDS: INSULIN ASPART [NOVOLOG] 3 ML PEN SC SCH ×4 (08:00→20:48)
[2016-09-13 08:05] LABS: CALCIUM 9.1 mg/dl (8.4-10.2); CREATININE 5.35 mg/dl (0.61-1.24); MAGNESIUM 2.5 mg/dl (1.7-2.5); PHOSPHORUS 3.7 mg/dl (2.5-4.9); POTASSIUM 4.3 mmol/L (3.5-5.1)
--- NOTE | 2016-09-13 08:23 | CONS ---
Date/Time of Note Date/Time of Note DATE: 09/13/16 TIME: 08:21 Assessment/Plan Assessment/Plan Chief Complaint/Hosp Course Chest pain: Trops and EKG are unremarkable. Likely MSK as painful to palpation. ?drug seeking. No plan for further testing at this time. Acute on chronic diastolic heart failure: EF normal on echo 07/23. Decompensated but improved HTN urgency: SBP 216 on admission, now better Coronary artery disease - myocardial infarction and coronary stenting in 2014 Dyslipidemia End-stage renal disease - on hemodialysis Seizure disorder History of stroke Anemia Thrombocytopenia -continue clopidogrel 75mg daily as monotherapy -continue carvedilol 6.25mg BID -continue losartan 100mg daily -continue atorvastatin -volume management via hemodialysis per nephrology Problems: Consultation Date/Type/Reason Admit Date/Time Sep 10, 2016 at 21:32 Initial Consult Date 09/11/16 Type of Consultation: Cardiology Referring Provider: NEHEMIAS MILLER DO 24 HR Interval Summary Free Text/Dictation No o/n events. Still with chest pain but painful to touch. Wants more frequent morphine. Exam/Review of Systems Vital Signs Vitals Vital Signs Date Time Temp Pulse Resp B/P Pulse Ox O2 Delivery O2 Flow Rate FiO2 09/13/16 04:30 86 09/13/16 04:00 98.4 18 132/63 98 09/12/16 20:00 Nasal Cannula 2.0 Intake and Output 09/12/16 09/12/16 09/13/16 15:00 23:00 07:00 Intake Total 900 ml 200 ml Output Total 6500 ml Balance -5600 ml 200 ml Exam Constitutional: alert, oriented Head: atraumatic, normocephalic Respiratory: clear to auscultation, diminished breath sounds Cardiovascular: edema (1-2+), regular rate and rhythm, systolic murmur (2/6 BONG ) Gastrointestinal: non-tender, soft Musculoskeletal: other (chest wall pain to palpation ) Neurological: nl mental status, nl speech Results Result Diagram: 09/13/16 0550 09/13/16 0550 Results 24 hrs Laboratory Tests Test 09/12/16 11:38 09/12/16 17:35 09/12/16 20:08 09/12/16 22:34 Bedside Glucose 107 153 175 Platelet Count 113 L Absolute Reticulocyte Count 0.025 Percent Reticulocyte Count 1.0 Prothrombin Time 14.2 Prothrombin Time Ratio 1.1 INR International Normalized Ratio 1.10 Activated Partial Thromboplast Time 33.6 Thrombin Time 15.6 Fibrinogen 431.0 Plasma Fibrin Degradation Products <10 D-Dimer 2081.91 H D-Dimer Comment Uric Acid 3.0 L Iron Level 40 Total Iron Binding Capacity 173 L Percent Iron Saturation 23 Ferritin 639.0 H Lactate Dehydrogenase 401 Vitamin B12 Level 955 H Folate 16.8 Thyroid Stimulating Hormone (TSH) 0.868 HIV (1&2) Antibody NEGATIVE Test 09/13/16 05:50 09/13/16 08:01 White Blood Count 4.0 L Red Blood Count 2.69 L Hemoglobin 8.0 L Hematocrit 26.1 L Mean Corpuscular Volume 97.0 Mean Corpuscular Hemoglobin 29.7 Mean Corpuscular Hemoglobin Concent 30.7 L Red Cell Distribution Width 16.8 H Platelet Count 141 # Mean Platelet Volume 10.0 Neutrophils % 75.4 Lymphocytes % 14.9 L Monocytes % 8.3 Eosinophils % 0.8 Basophils % 0.3 Nucleated Red Blood Cells % 0.0 Neutrophils # 3.0 Lymphocytes # 0.6 L Monocytes # 0.3 Eosinophils # 0.0 Basophils # 0.0 Nucleated Red Blood Cells # 0.0 Sodium Level 143 Potassium Level 4.3 Chloride Level 101 Carbon Dioxide Level 32 H Anion Gap 14 Blood Urea Nitrogen 25 H Creatinine 5.35 H Glucose Level 88 Calcium Level 9.1 Phosphorus Level 3.7 Magnesium Level 2.5 Bedside Glucose 96 Medications Medications Current Medications Ondansetron HCl (Zofran Inj) 4 mg Q6H PRN IV NAUSEA AND/OR VOMITING Last administered on 09/12/16 14:14; Admin Dose 4 MG; Start 09/11/16 at 09:00 Acetaminophen (Tylenol Tab) 650 mg Q6H PRN PO PAIN AND OR ELEVATED TEMP Last administered on 09/12/16 20:10; Admin Dose 650 MG; Start 09/11/16 at 10:30 Atorvastatin Calcium (Lipitor) 80 mg QHS PO Last administered on 09/12/16 20:10 ; Admin Dose 80 MG; Start 09/11/16 at 21:00 Azithromycin (Zithromax) 500 mg DAILY PO Last administered on 09/12/16 08:21; Admin Dose 500 MG; Start 09/12/16 at 09:00 Bisacodyl (Dulcolax) 10 mg DAILY PRN PO CONSTIPATION; Start 09/11/16 at 10:30 Carvedilol (Coreg) 6.25 mg BID PO Last administered on 09/12/16 20:11; Admin Dose 6.25 MG; Start 09/11/16 at 10:30 Cinacalcet (Sensipar) 30 mg DAILY PO Last administered on 09/12/16 08:22; Admin Dose 30 MG; Start 09/12/16 at 09:00 Citalopram Hydrobromide (Celexa) 10 mg DAILY PO Last administered on 09/12/16 08:24; Admin Dose 10 MG; Start 09/12/16 at 09:00 Clonidine (Catapres) 0.1 mg Q6H PRN PO SBP ABOVE 170 Last administered on 16:13; Admin Dose 0.1 MG; Start 09/11/16 at 10:30 Clopidogrel Bisulfate (plaVIX) 75 mg DAILY PO Last administered on 09/12/16 08: 23; Admin Dose 75 MG; Start 09/12/16 at 09:00 Divalproex Sodium (Depakote) 750 mg Q8 PO Last administered on 09/13/16 05:23; Admin Dose 750 MG; Start 09/11/16 at 14:00 Famotidine (Pepcid) 20 mg DAILY PO Last administered on 09/12/16 08:24; Admin Dose 20 MG; Start 09/12/16 at 09:00 Ferrous Sulfate (Ferrous Sulfate (Ec)) 325 mg BID PO Last administered on 20:10; Admin Dose 325 MG; Start 09/11/16 at 21:00 Guaifenesin (Robitussin Liquid Cup) 300 mg Q4H PRN PO COUGH; Start 09/11/16 at 10:30 Heparin Sodium (Porcine) (Heparin (5000 Units/0.5 ml)) 5,000 unit BID SC Last administered on 09/12/16 20:21; Admin Dose 5,000 UNIT; Start 09/11/16 at 21:00 Hypromellose (Isopto Tears) 2 drop Q4 PRN BOTH EYES DRY EYES; Start 09/11/16 at 11:30 Albuterol/ Ipratropium (Duoneb) 3 ml Q4H PRN NEB WHEEZING AND SOB; Start at 10:30 Isosorbide Mononitrate (Imdur) 60 mg DAILY PO Last administered on 09/12/16 08: 29; Admin Dose 60 MG; Start 09/12/16 at 09:00 Lactulose (Enulose) 20 gm BID PRN PO CONSTIPATION; Start 09/11/16 at 10:30 Levetiracetam (Keppra) 1,000 mg BID PO Last administered on 09/12/16 20:10; Admin Dose 1,000 MG; Start 09/11/16 at 21:00 Losartan Potassium (Cozaar) 100 mg DAILY PO Last administered on 09/12/16 17:38 ; Admin Dose 100 MG; Start 09/11/16 at 10:30 Montelukast Sodium (Singulair) 10 mg QHS PO Last administered on 09/12/16 20:10 ; Admin Dose 10 MG; Start 09/11/16 at 21:00 Multivit/Ca Carb/ B Cmplx/FA/Prenat (Etelvina-Paula) 1 tab DAILY PO Last administered on 09/12/16 08:24; Admin Dose 1 TAB; Start 09/11/16 at 10:30 Nitroglycerin (Nitroglycerin (Sl Tab) 0.4 Mg) 0.4 tab [id number] PRN SL CHEST PAIN Last administered on 09/11/16 22:56; Admin Dose 0.4 TAB; Start 09/11/16 at 10:30 Pantoprazole (Protonix Tab) 40 mg 18 PO Last administered on 09/12/16 17:37; Admin Dose 40 MG; Start 09/11/16 at 18:00 Phenytoin (Dilantin) 300 mg HS PO Last administered on 09/12/16 20:10; Admin Dose 300 MG; Start 09/11/16 at 21:00 Polyethylene Glycol (Miralax) 17 gm BID PO Last administered on 09/12/16 20:10 ; Admin Dose 17 GM; Start 09/11/16 at 21:00 Prednisone (Prednisone) 60 mg DAILY PO Last administered on 09/12/16 08:22; Admin Dose 60 MG; Start 09/12/16 at 09:00 Salmeterol Xinafoate/ Fluticasone (Advair 500/50 Diskus) 1 inh BID INH Last administered on 09/12/16 20:07; Admin Dose 1 INH; Start 09/11/16 at 21:00 Diagnostic Test (Pha) (Accu-Chek) 1 ea 02 XX ; Start 09/12/16 at 02:00 Miscellaneous Information 1 ea NOTE XX ; Start 09/11/16 at 10:30 Glucose (Glutose) 15 gm Q15M PRN PO DECREASED GLUCOSE; Start 09/11/16 at 10:30 Glucose (Glutose) 22.5 gm Q15M PRN PO DECREASED GLUCOSE; Start 09/11/16 at 10:30 Dextrose (D50w Syringe) 25 ml Q15M PRN IV DECREASED GLUCOSE; Start 09/11/16 at 10:30 Dextrose (D50w Syringe) 50 ml Q15M PRN IV DECREASED GLUCOSE; Start 09/11/16 at 10:30 Glucagon (Glucagen) 1 mg Q15M PRN IM DECREASED GLUCOSE; Start 09/11/16 at 10:30 Glucose (Glutose) 15 gm Q15M PRN BUCCAL DECREASED GLUCOSE; Start 09/11/16 at 10: 30 Morphine Sulfate (morphine) 1 mg Q6H PRN IV PAIN LEVEL 7-10 Last administered on 09/12/16 18:01; Admin Dose 1 MG; Start 09/11/16 at 17:00 Diphenhydramine HCl (Benadryl) 25 mg Q6H PRN IV ITCHING Last administered on 23:45; Admin Dose 25 MG; Start 09/11/16 at 17:30 Diphenhydramine HCl (Benadryl) 25 mg Q6H PRN PO ITCHING Last administered on 21:30; Admin Dose 25 MG; Start 09/12/16 at 07:00 MADYSON SHEIKH Sep 13, 2016 08:23
[2016-09-13] MEDS: POLYETHYLENE GLYCOL 17 GM PACKET PO SCH ×2 (08:49→20:59)
[2016-09-13] MEDS: CINACALCET 30 MG TAB PO SCH (08:49)
[2016-09-13] MEDS: SEVELAMER CARBONATE 0.8 GM PKT PO SCH ×3 (08:49→17:25)
[2016-09-13] MEDS: SALMETEROL/FLUTICASONE 500/50 INHA INH SCH ×2 (08:49→20:54)
[2016-09-13] MEDS: FAMOTIDINE 20 MG TAB PO SCH (08:50)
[2016-09-13] MEDS: CLOPIDOGREL 75 MG TAB PO SCH (08:50)
[2016-09-13] MEDS: AZITHROMYCIN 250 MG TAB PO SCH (08:50)
[2016-09-13] MEDS: CITALOPRAM 20 MG TAB PO SCH (08:51)
[2016-09-13] MEDS: FERROUS SULFATE (EC) 325 MG TAB PO SCH ×2 (08:52→20:55)
[2016-09-13] MEDS: LEVETIRACETAM 500 MG TAB PO SCH ×2 (08:52→20:55)
[2016-09-13] MEDS: MULTIVIT/CA CARB/B CMPLX/FA TAB PO SCH (08:52)
[2016-09-13] MEDS: morphine 2 MG INJ IV PRN ×2 (08:54→20:47)
[2016-09-13] MEDS: HEPARIN 5,000 UNIT/0.5 ML VIAL SC SCH ×2 (08:55→20:57)
[2016-09-13] MEDS: LOSARTAN 50 MG TAB PO SCH (08:58)
[2016-09-13] MEDS: ISOSORBIDE MONONITRATE(SR)60 MG TAB PO SCH (08:58)
--- NOTE | 2016-09-13 10:09 | PN ---
DATE: 09/13/2016 SUBJECTIVE: The patient is stable, continues to complain about generalized pain. No other acute ev ents noted. No hemoptysis, hematemesis or hematochezia. OBJECTIVE: VITAL SIGNS: Blood pressure 132/63, respirations 18, pulse 72, temperature 98.4. HEENT: Head is normocephalic. NECK: Supple. HEART: Regular rate. LUNGS: Show diminished breath sounds at the bases. ABDOMEN: Soft, nontender to palpation. No rebound or guarding. EXTREMITIES: Positive for edema on her left lower extremity greater than right. There are noted wo unds on the left lower anterior tibial surface. DERMATOLOGIC: No rashes. MUSCULOSKELETAL: No joint effusions. NEUROLOGIC: No change in exam. LABORATORY DATA: Shows sodium 143, potassium 4.2, chloride 101, BUN 25, creatinine 5.35. White cou nt 4.0, hemoglobin 8.0, hematocrit 26.1, platelet count is 144. ASSESSMENT AND PLAN: 1. Chest pain. Etiology is likely musculoskeletal, noncardiac. The patient has been ruled out for acute coronary syndrome. At this point, continue to monitor. Continue medical management. 2. End-stage renal disease. Continue dialysis for 3 hours on 3K bath, calcium 2.5, ultrafiltration as tolerated. 3. Volume overload secondary to congestive heart failure and end-stage renal disease. Continue ult rafiltration dialysis. 4. Left lower extremity edema. Etiology may be secondary to deep venous thrombosis. We will get a Doppler ultrasound. Continue to monitor. 5. Anemia. Continue to monitor hemoglobin and hematocrit levels. Continue Epogen. 6. Pancytopenia. Etiology is unclear. Workup ongoing by hematology. 7. Mineral bone disorder. Continue to monitor calcium and phosphorus levels. Continue phosphate b inders. 8. Lower extremity cellulitis, wounds. Continue wound care. Follow up with infectious disease. 9. Hypertension, improving. Continue current blood pressure regimen. Continue ultrafiltration myesha lysis. 10. Chronic obstructive pulmonary disease exacerbation. Continue current medical management. Cont inue to taper down prednisone. Continue nebulizers, azithromycin. 11. Seizure disorder. Continue Dilantin and Keppra. 12. Depression. Continue Celexa. 13. Dyslipidemia. Continue statin therapy. 14. History of coronary artery disease. 15. Constipation. Continue current bowel regimen. 16. Gastrointestinal and deep venous thrombosis prophylaxis. Continue proton pump inhibitor and he carlitos. Dictated By: NEHEMIAS DAS/ROSANNA Conf#: [id number] DID#: [id number]
--- NOTE | 2016-09-13 10:38 | RADRPT ---
PROCEDURE: US DVT. CLINICAL INDICATION: Left lower extremity pain and swelling. TECHNIQUE: Multiple longitudinal and transverse images of the left lower extremity veins were obta ined with mckinney scale and color Doppler imaging. 2D grayscale measurements with compression, color D oppler flow, and augmentation was performed. The calf veins were interrogated as well. COMPARISON: No prior studies are available for comparison. FINDINGS: The left common femoral, superficial femoral and popliteal veins are normally compressible throughou t. Color flow demonstrates normal filling of the vessel. Normal waveforms are visualized and there is normal response to augmentation. There is an AV fistula with flow into the left common femoral vein. IMPRESSION: 1. No evidence of a deep vein thrombosis involving the left lower extremity. 2. Left groin AV fistula flow in the left common femoral vein. RPTAT: [facility] Physician Marques Date Time Electronically viewed and signed by Physician Marques on 09/13/2016 10:38 /
[2016-09-13] MEDS: ONDANSETRON 4 MG INJ IV PRN ×2 (10:43→20:45)
[2016-09-13] MEDS: DIPHENHYDRAMINE 50 MG INJ IV PRN ×2 (14:18→20:44)
[2016-09-13] MEDS ORDERED: DIGOXIN 500 MCG INJ IV ONE (15:00)
--- NOTE | 2016-09-13 16:21 | PN ---
DATE: 09/13/2016 INFECTIOUS DISEASE PROGRESS NOTE SUBJECTIVE: No events overnight. The patient is in hemodialysis, awake, looks comfortable. No fevers. WBC 4, platelets 141, neutrophils 75.4. INDWELLINGS: Left upper thigh fistula. ANTIMICROBIALS: The patient is on Zithromax. PHYSICAL EXAMINATION: GENERAL: This is a chronically ill-appearing, middle-aged man , who is awake, in no distress. HEENT: Head atraumatic, normocephalic. Sclerae anicteric. Buccal mucosa dry. NECK: Supple. CHEST: Chest rise is symmetrical. Breath sounds diminished. HEART: S1, S2. ABDOMEN: Soft. Bowel tones present. EXTREMITIES: With bilateral lower extremity edema, left more than right. ASSESSMENT: 1. Systemic inflammatory response syndrome. 2. Bronchitis. 3. Left lower extremity edema with excoriation. Ultrasound revealed no evidence of DVT. 4. End-stage renal disease, hemodialysis dependent. 5. Obesity. 7. Hypertension. 8. Coronary artery disease. 9. ALLERGY TO ERYTHROMYCIN AND VANCOMYCIN. PLAN: The patient remains stable. We will continue him on Zithromax. Continue local wound care and panculture p.r.n. if he spikes a fever. Dictated By: MARLENY TUBBS PRODUCT DEVELOPMENT WORKER for JOSÉ MIGUEL BARRAGAN/ROSANNA Conf#: [id number] DID#: [id number] MTDD
[2016-09-13] MEDS: PANTOPRAZOLE (EC) 40 MG TAB PO SCH (17:25)
[2016-09-13] MEDS: ATORVASTATIN 80 MG TAB PO SCH (20:55)
[2016-09-13] MEDS: PHENYTOIN 100 MG CAP PO SCH (21:00)
[2016-09-13] MEDS: MONTELUKAST 10 MG TAB PO SCH (21:01)
[2016-09-13] MEDS ORDERED: ZOLPIDEM 5 MG TAB PO PRN (22:30)
--- NOTE | 2016-09-13 22:52 | CONS ---
Date/Time of Note Date/Time of Note DATE: 09/13/16 TIME: 22:52 Assessment/Plan Assessment/Plan Chief Complaint/Hosp Course Thrombocytopenia per pt he had thrombocytopenia for 15 yr since he was started on HD . He never had any bleeding, never had BMBX I would cont to monitor blood count closely avoid myelosuppressive meds observe for bleeding no indications for platelet transfusion pancytopenia mild cont to monitor Anemia. monitor blood count closely Continue to monitor hemoglobin and hematocrit levels. Continue Epogen. HSM Chest pain, etiology is unclear. It does not appear to be cardiac. Other possibilities include pulmonary versus musculoskeletal versus questionable drug seeking. The patient's serial troponins have been negative. End-stage renal disease. The patient is decompensated. Continue daily dialysis for volume removal and solute clearance. Volume overload secondary to acute congestive heart failure and end-stage renal disease. Continue ultrafiltration dialysis. Continue to monitor. Mineral bone disorder. Continue to monitor calcium and phosphorus levels. Continue phosphate binders. Lower extremity wounds, possible cellulitis. We will continue wound care. Place an infectious disease consult for evaluation. Hypertensive urgency, in part due to increased intravascular volume. Continue ultrafiltration dialysis. Continue current blood pressure regimen. Chronic obstructive pulmonary disease exacerbation. Continue current medical management. Continue nebulizers, continue azithromycin. Continue prednisone. Will place a pulmonary consult for evaluation. Seizure disorder. Continue Dilantin, Keppra. Depression. Continue Celexa. Dyslipidemia. Continue statin therapy. History of coronary artery disease. Continue medical management. Constipation. Continue current bowel regimen. Gastrointestinal and deep venous thrombosis prophylaxis. Continue proton pump inhibitor and heparin. Problems: Consultation Date/Type/Reason Admit Date/Time Sep 10, 2016 at 21:32 Initial Consult Date 09/11/16 Type of Consultation: [facility] [place] Referring Provider: NEHEMIAS MILLER DO 24 HR Interval Summary Free Text/Dictation all noted no new events no bleeding Exam/Review of Systems Vital Signs Vitals Vital Signs Date Time Temp Pulse Resp B/P Pulse Ox O2 Delivery O2 Flow Rate FiO2 09/13/16 22:43 Nasal Cannula 2.0 09/13/16 20:19 98.6 80 20 140/63 100 Intake and Output 09/12/16 09/12/16 09/13/16 15:00 23:00 07:00 Intake Total 900 ml 200 ml Output Total 6500 ml Balance -5600 ml 200 ml Exam HEENT: Head is normocephalic. NECK: Supple. HEART: Regular rate. LUNGS: Show diminished breath sounds at the bases. ABDOMEN: Soft, nontender to palpation. No rebound or guarding. EXTREMITIES: Positive for edema on her left lower extremity greater than right , improved. There are noted wounds on the left lower anterior tibial surface. DERMATOLOGIC: No rashes. MUSCULOSKELETAL: No joint effusions. NEUROLOGIC: No change in exam. Results Result Diagram: 09/13/16 0550 09/13/16 0550 Results 24 hrs Laboratory Tests Test 09/13/16 05:50 09/13/16 08:01 09/13/16 11:55 09/13/16 17:23 White Blood Count 4.0 L Red Blood Count 2.69 L Hemoglobin 8.0 L Hematocrit 26.1 L Mean Corpuscular Volume 97.0 Mean Corpuscular Hemoglobin 29.7 Mean Corpuscular Hemoglobin Concent 30.7 L Red Cell Distribution Width 16.8 H Platelet Count 141 # Mean Platelet Volume 10.0 Neutrophils % 75.4 Lymphocytes % 14.9 L Monocytes % 8.3 Eosinophils % 0.8 Basophils % 0.3 Nucleated Red Blood Cells % 0.0 Neutrophils # 3.0 Lymphocytes # 0.6 L Monocytes # 0.3 Eosinophils # 0.0 Basophils # 0.0 Nucleated Red Blood Cells # 0.0 Sodium Level 143 Potassium Level 4.3 Chloride Level 101 Carbon Dioxide Level 32 H Anion Gap 14 Blood Urea Nitrogen 25 H Creatinine 5.35 H Glucose Level 88 Calcium Level 9.1 Phosphorus Level 3.7 Magnesium Level 2.5 Bedside Glucose 96 126 158 Test 09/13/16 20:44 Bedside Glucose 152 Medications Medications Current Medications Ondansetron HCl (Zofran Inj) 4 mg Q6H PRN IV NAUSEA AND/OR VOMITING Last administered on 09/13/16 20:45; Admin Dose 4 MG; Start 09/11/16 at 09:00 Acetaminophen (Tylenol Tab) 650 mg Q6H PRN PO PAIN AND OR ELEVATED TEMP Last administered on 09/12/16 20:10; Admin Dose 650 MG; Start 09/11/16 at 10:30 Atorvastatin Calcium (Lipitor) 80 mg QHS PO Last administered on 09/13/16 20:55 ; Admin Dose 80 MG; Start 09/11/16 at 21:00 Azithromycin (Zithromax) 500 mg DAILY PO Last administered on 09/13/16 08:50; Admin Dose 500 MG; Start 09/12/16 at 09:00 Bisacodyl (Dulcolax) 10 mg DAILY PRN PO CONSTIPATION; Start 09/11/16 at 10:30 Carvedilol (Coreg) 6.25 mg BID PO Last administered on 09/13/16 21:00; Admin Dose 6.25 MG; Start 09/11/16 at 10:30 Cinacalcet (Sensipar) 30 mg DAILY PO Last administered on 09/13/16 08:49; Admin Dose 30 MG; Start 09/12/16 at 09:00 Citalopram Hydrobromide (Celexa) 10 mg DAILY PO Last administered on 09/13/16 08:51; Admin Dose 10 MG; Start 09/12/16 at 09:00 Clonidine (Catapres) 0.1 mg Q6H PRN PO SBP ABOVE 170 Last administered on 16:13; Admin Dose 0.1 MG; Start 09/11/16 at 10:30 Clopidogrel Bisulfate (plaVIX) 75 mg DAILY PO Last administered on 09/13/16 08: 50; Admin Dose 75 MG; Start 09/12/16 at 09:00 Divalproex Sodium (Depakote) 750 mg Q8 PO Last administered on 09/13/16 22:17; Admin Dose 750 MG; Start 09/11/16 at 14:00 Famotidine (Pepcid) 20 mg DAILY PO Last administered on 09/13/16 08:50; Admin Dose 20 MG; Start 09/12/16 at 09:00 Ferrous Sulfate (Ferrous Sulfate (Ec)) 325 mg BID PO Last administered on 20:55; Admin Dose 325 MG; Start 09/11/16 at 21:00 Guaifenesin (Robitussin Liquid Cup) 300 mg Q4H PRN PO COUGH; Start 09/11/16 at 10:30 Heparin Sodium (Porcine) (Heparin (5000 Units/0.5 ml)) 5,000 unit BID SC Last administered on 09/13/16 20:57; Admin Dose 5,000 UNIT; Start 09/11/16 at 21:00 Hypromellose (Isopto Tears) 2 drop Q4 PRN BOTH EYES DRY EYES; Start 09/11/16 at 11:30 Albuterol/ Ipratropium (Duoneb) 3 ml Q4H PRN NEB WHEEZING AND SOB; Start at 10:30 Isosorbide Mononitrate (Imdur) 60 mg DAILY PO Last administered on 09/12/16 08: 29; Admin Dose 60 MG; Start 09/12/16 at 09:00 Lactulose (Enulose) 20 gm BID PRN PO CONSTIPATION; Start 09/11/16 at 10:30 Levetiracetam (Keppra) 1,000 mg BID PO Last administered on 09/13/16 20:55; Admin Dose 1,000 MG; Start 09/11/16 at 21:00 Losartan Potassium (Cozaar) 100 mg DAILY PO Last administered on 09/12/16 17:38 ; Admin Dose 100 MG; Start 09/11/16 at 10:30 Montelukast Sodium (Singulair) 10 mg QHS PO Last administered on 09/13/16 21:01 ; Admin Dose 10 MG; Start 09/11/16 at 21:00 Multivit/Ca Carb/ B Cmplx/FA/Prenat (Etelvina-Paula) 1 tab DAILY PO Last administered on 09/13/16 08:52; Admin Dose 1 TAB; Start 09/11/16 at 10:30 Nitroglycerin (Nitroglycerin (Sl Tab) 0.4 Mg) 0.4 tab [id number] PRN SL CHEST PAIN Last administered on 09/11/16 22:56; Admin Dose 0.4 TAB; Start 09/11/16 at 10:30 Pantoprazole (Protonix Tab) 40 mg 18 PO Last administered on 09/13/16 17:25; Admin Dose 40 MG; Start 09/11/16 at 18:00 Phenytoin (Dilantin) 300 mg HS PO Last administered on 09/13/16 21:00; Admin Dose 300 MG; Start 09/11/16 at 21:00 Polyethylene Glycol (Miralax) 17 gm BID PO Last administered on 09/13/16 20:59 ; Admin Dose 17 GM; Start 09/11/16 at 21:00 Salmeterol Xinafoate/ Fluticasone (Advair 500/50 Diskus) 1 inh BID INH Last administered on 09/13/16 20:54; Admin Dose 1 INH; Start 09/11/16 at 21:00 Diagnostic Test (Pha) (Accu-Chek) 1 ea 02 XX ; Start 09/12/16 at 02:00 Miscellaneous Information 1 ea NOTE XX ; Start 09/11/16 at 10:30 Glucose (Glutose) 15 gm Q15M PRN PO DECREASED GLUCOSE; Start 09/11/16 at 10:30 Glucose (Glutose) 22.5 gm Q15M PRN PO DECREASED GLUCOSE; Start 09/11/16 at 10:30 Dextrose (D50w Syringe) 25 ml Q15M PRN IV DECREASED GLUCOSE; Start 09/11/16 at 10:30 Dextrose (D50w Syringe) 50 ml Q15M PRN IV DECREASED GLUCOSE; Start 09/11/16 at 10:30 Glucagon (Glucagen) 1 mg Q15M PRN IM DECREASED GLUCOSE; Start 09/11/16 at 10:30 Glucose (Glutose) 15 gm Q15M PRN BUCCAL DECREASED GLUCOSE; Start 09/11/16 at 10: 30 Morphine Sulfate (morphine) 1 mg Q6H PRN IV PAIN LEVEL 7-10 Last administered on 09/13/16 20:47; Admin Dose 1 MG; Start 09/11/16 at 17:00 Diphenhydramine HCl (Benadryl) 25 mg Q6H PRN IV ITCHING Last administered on 20:44; Admin Dose 25 MG; Start 09/11/16 at 17:30 Diphenhydramine HCl (Benadryl) 25 mg Q6H PRN PO ITCHING Last administered on 21:30; Admin Dose 25 MG; Start 09/12/16 at 07:00 Prednisone (Prednisone) 40 mg DAILY PO ; Start 09/14/16 at 09:00 Zolpidem Tartrate (Ambien) 5 mg HS PRN PO INSOMNIA Last administered on 22:27; Admin Dose 5 MG; Start 09/13/16 at 22:30 DEBBIE BANUELOS MD Sep 13, 2016 22:52
[2016-09-14] VITALS (17 sets, daily range): BP systolic 96–165; BP diastolic 54–91; PULSE 64–71; RESP 15–20
[2016-09-14] MEDS: ACCU-CHEK XX SCH (01:46)
[2016-09-14] MEDS: ONDANSETRON 4 MG INJ IV PRN (02:53)
[2016-09-14] MEDS: DIPHENHYDRAMINE 50 MG INJ IV PRN ×3 (02:53→20:58)
[2016-09-14] MEDS: morphine 2 MG INJ IV PRN ×3 (02:55→19:24)
[2016-09-14] MEDS: DIVALPROEX (EC) 250 MG TAB PO SCH ×3 (05:27→21:04)
[2016-09-14 06:05] LABS: PROTEIN, TOTAL 6.2 g/dL (6.1-8.1)
[2016-09-14] MEDS: INSULIN ASPART [NOVOLOG] 3 ML PEN SC SCH ×4 (08:00→21:08)
[2016-09-14 08:08] LABS: ADD SCAN DIFF NO
[2016-09-14 08:14] LABS: ABNORMAL IP MESSAGE 1; BASOPHILS % 0.3 % (0.0-2.0); EOSINOPHILS % 1.1 % (0.0-7.0); HEMATOCRIT 27.2 % (42.0-52.0); HEMOGLOBIN 8.5 g/dl (14.0-18.0); LYMPHOCYTES # 0.6 10^3/ul (0.8-2.9); MEAN CORPUSCULAR HEMOGLOBIN 30.1 pg (29.0-33.0); MEAN CORPUSCULAR HGB CONC 31.3 g/dl (32.0-37.0); MEAN CORPUSCULAR VOLUME 96.5 fl (82.0-101.0); MEAN PLATELET VOLUME 9.9 fl (7.4-10.4); MONOCYTE # 0.2 10^3/ul (0.3-0.9); MONOCYTES % 6.9 % (0.0-11.0); NEUTROPHIL # 2.6 10^3/ul (1.6-7.5); NEUTROPHILS % 74.4 % (39.0-77.0); PLATELET COUNT 135 10^3/UL (140-415); RED BLOOD COUNT 2.82 10^6/ul (4.70-6.10); RED CELL DISTRIBUTION WIDTH 16.5 % (11.5-14.5); WHITE BLOOD COUNT 3.5 10^3/ul (4.8-10.8)
[2016-09-14] MEDS: CINACALCET 30 MG TAB PO SCH (08:29)
[2016-09-14] MEDS: POLYETHYLENE GLYCOL 17 GM PACKET PO SCH ×2 (08:29→21:04)
[2016-09-14] MEDS: MULTIVIT/CA CARB/B CMPLX/FA TAB PO SCH (08:29)
[2016-09-14] MEDS: FERROUS SULFATE (EC) 325 MG TAB PO SCH ×2 (08:29→21:03)
[2016-09-14] MEDS: CITALOPRAM 20 MG TAB PO SCH (08:29)
[2016-09-14] MEDS: LEVETIRACETAM 500 MG TAB PO SCH ×2 (08:29→21:03)
[2016-09-14] MEDS: FAMOTIDINE 20 MG TAB PO SCH (08:30)
[2016-09-14] MEDS: CLOPIDOGREL 75 MG TAB PO SCH (08:30)
[2016-09-14] MEDS: SEVELAMER CARBONATE 0.8 GM PKT PO SCH ×3 (08:30→17:20)
[2016-09-14] MEDS: AZITHROMYCIN 250 MG TAB PO SCH (08:30)
[2016-09-14] MEDS: SALMETEROL/FLUTICASONE 500/50 INHA INH SCH ×2 (08:30→21:04)
[2016-09-14] MEDS: ISOSORBIDE MONONITRATE(SR)60 MG TAB PO SCH (08:31)
[2016-09-14] MEDS: LOSARTAN 50 MG TAB PO SCH (08:31)
[2016-09-14] MEDS: HEPARIN 5,000 UNIT/0.5 ML VIAL SC SCH ×2 (08:34→21:07)
[2016-09-14] MEDS ORDERED: predniSONE 20 MG TAB PO SCH (09:00)
--- NOTE | 2016-09-14 09:08 | PN ---
Date/Time of Note Date/Time of Note DATE: 09/14/16 TIME: 09:05 Assessment/Plan Lines/Catheters IV C[facility]ter Type (from [facility]): Saline [place] Assessment/Plan Assessment/Plan 1. Chest pain. -resolved - Etiology is likely musculoskeletal, noncardiac. The patient has been ruled out for acute coronary syndrome. At this point, continue to monitor. Continue medical management. 2. End-stage renal disease. Continue dialysis for 3 hours on 3K bath, calcium 2.5, ultrafiltration as tolerated. 3. Volume overload secondary to congestive heart failure and end-stage renal disease. Improving, near euvolemic. Continue ultrafiltration dialysis. 4. Left lower extremity edema. We will get a Doppler ultrasound negative for dvt. Continue to monitor. 5. Anemia. Continue to monitor hemoglobin and hematocrit levels. Continue Epogen. 6. Pancytopenia. Etiology is unclear. Workup ongoing by hematology. 7. Mineral bone disorder. Continue to monitor calcium and phosphorus levels. Continue phosphate binders. 8. Lower extremity cellulitis, wounds. Continue wound care. Follow up with infectious disease. 9. Hypertension, improving. Continue current blood pressure regimen. Continue ultrafiltration dialysis. 10. Chronic obstructive pulmonary disease exacerbation. Continue current medical management. Continue to taper down prednisone. Continue nebulizers, azithromycin. 11. Seizure disorder. Continue Dilantin and Keppra. 12. Depression. Continue Celexa. 13. Dyslipidemia. Continue statin therapy. 14. History of coronary artery disease. 15. Constipation. Continue current bowel regimen. 16. Gastrointestinal and deep venous thrombosis prophylaxis. Continue proton pump inhibitor and heparin. Subjective 24 Hr Interval Summary Free Text/Dictation The patient is stable,. No other acute events noted. No hemoptysis, hematemesis or hematochezia. Exam/Review of Systems Vital Signs Vitals Vital Signs Date Time Temp Pulse Resp B/P Pulse Ox O2 Delivery O2 Flow Rate FiO2 09/14/16 08:32 66 09/14/16 07:46 98.8 20 125/62 100 09/13/16 22:43 Nasal Cannula 2.0 Intake and Output 09/13/16 09/13/16 09/14/16 15:00 23:00 07:00 Intake Total 500 ml 480 ml 600 ml Output Total 4500 ml Balance -4000 ml 480 ml 600 ml Exam VITAL SIGNS: Blood pressure 132/63, respirations 18, pulse 72, temperature 98.4. HEENT: Head is normocephalic. NECK: Supple. HEART: Regular rate. LUNGS: Show diminished breath sounds at the bases. ABDOMEN: Soft, nontender to palpation. No rebound or guarding. EXTREMITIES: Positive for edema on her left lower extremity greater than right , improved. There are noted wounds on the left lower anterior tibial surface. DERMATOLOGIC: No rashes. MUSCULOSKELETAL: No joint effusions. NEUROLOGIC: No change in exam. Results Result Diagram: 09/14/16 0640 09/13/16 0550 Results 24 hrs Laboratory Tests Test 09/13/16 11:55 09/13/16 17:23 09/13/16 20:44 09/14/16 06:40 Bedside Glucose 126 158 152 White Blood Count 3.5 L Red Blood Count 2.82 L Hemoglobin 8.5 L Hematocrit 27.2 L Mean Corpuscular Volume 96.5 Mean Corpuscular Hemoglobin 30.1 Mean Corpuscular Hemoglobin Concent 31.3 L Red Cell Distribution Width 16.5 H Platelet Count 135 L Mean Platelet Volume 9.9 Neutrophils % 74.4 Lymphocytes % 17.0 Monocytes % 6.9 Eosinophils % 1.1 Basophils % 0.3 Nucleated Red Blood Cells % 0.0 Neutrophils # 2.6 Lymphocytes # 0.6 L Monocytes # 0.2 L Eosinophils # 0.0 Basophils # 0.0 Nucleated Red Blood Cells # 0.0 Test 09/14/16 08:27 Bedside Glucose 104 Medications Medications Current Medications Ondansetron HCl (Zofran Inj) 4 mg Q6H PRN IV NAUSEA AND/OR VOMITING Last administered on 09/14/16 02:53; Admin Dose 4 MG; Start 09/11/16 at 09:00 Acetaminophen (Tylenol Tab) 650 mg Q6H PRN PO PAIN AND OR ELEVATED TEMP Last administered on 09/12/16 20:10; Admin Dose 650 MG; Start 09/11/16 at 10:30 Atorvastatin Calcium (Lipitor) 80 mg QHS PO Last administered on 09/13/16 20:55 ; Admin Dose 80 MG; Start 09/11/16 at 21:00 Azithromycin (Zithromax) 500 mg DAILY PO Last administered on 09/14/16 08:30; Admin Dose 500 MG; Start 09/12/16 at 09:00 Bisacodyl (Dulcolax) 10 mg DAILY PRN PO CONSTIPATION; Start 09/11/16 at 10:30 Carvedilol (Coreg) 6.25 mg BID PO Last administered on 09/14/16 08:31; Admin Dose 6.25 MG; Start 09/11/16 at 10:30 Cinacalcet (Sensipar) 30 mg DAILY PO Last administered on 09/14/16 08:29; Admin Dose 30 MG; Start 09/12/16 at 09:00 Citalopram Hydrobromide (Celexa) 10 mg DAILY PO Last administered on 09/14/16 08:29; Admin Dose 10 MG; Start 09/12/16 at 09:00 Clonidine (Catapres) 0.1 mg Q6H PRN PO SBP ABOVE 170 Last administered on 16:13; Admin Dose 0.1 MG; Start 09/11/16 at 10:30 Clopidogrel Bisulfate (plaVIX) 75 mg DAILY PO Last administered on 09/14/16 08: 30; Admin Dose 75 MG; Start 09/12/16 at 09:00 Divalproex Sodium (Depakote) 750 mg Q8 PO Last administered on 09/14/16 05:27; Admin Dose 750 MG; Start 09/11/16 at 14:00 Famotidine (Pepcid) 20 mg DAILY PO Last administered on 09/14/16 08:30; Admin Dose 20 MG; Start 09/12/16 at 09:00 Ferrous Sulfate (Ferrous Sulfate (Ec)) 325 mg BID PO Last administered on 08:29; Admin Dose 325 MG; Start 09/11/16 at 21:00 Guaifenesin (Robitussin Liquid Cup) 300 mg Q4H PRN PO COUGH; Start 09/11/16 at 10:30 Heparin Sodium (Porcine) (Heparin (5000 Units/0.5 ml)) 5,000 unit BID SC Last administered on 09/14/16 08:34; Admin Dose 5,000 UNIT; Start 09/11/16 at 21:00 Hypromellose (Isopto Tears) 2 drop Q4 PRN BOTH EYES DRY EYES; Start 09/11/16 at 11:30 Albuterol/ Ipratropium (Duoneb) 3 ml Q4H PRN NEB WHEEZING AND SOB; Start at 10:30 Isosorbide Mononitrate (Imdur) 60 mg DAILY PO Last administered on 09/14/16 08: 31; Admin Dose 60 MG; Start 09/12/16 at 09:00 Lactulose (Enulose) 20 gm BID PRN PO CONSTIPATION; Start 09/11/16 at 10:30 Levetiracetam (Keppra) 1,000 mg BID PO Last administered on 09/14/16 08:29; Admin Dose 1,000 MG; Start 09/11/16 at 21:00 Losartan Potassium (Cozaar) 100 mg DAILY PO Last administered on 09/14/16 08:31 ; Admin Dose 100 MG; Start 09/11/16 at 10:30 Montelukast Sodium (Singulair) 10 mg QHS PO Last administered on 09/13/16 21:01 ; Admin Dose 10 MG; Start 09/11/16 at 21:00 Multivit/Ca Carb/ B Cmplx/FA/Prenat (Etelvina-Paula) 1 tab DAILY PO Last administered on 09/14/16 08:29; Admin Dose 1 TAB; Start 09/11/16 at 10:30 Nitroglycerin (Nitroglycerin (Sl Tab) 0.4 Mg) 0.4 tab [id number] PRN SL CHEST PAIN Last administered on 09/11/16 22:56; Admin Dose 0.4 TAB; Start 09/11/16 at 10:30 Pantoprazole (Protonix Tab) 40 mg 18 PO Last administered on 09/13/16 17:25; Admin Dose 40 MG; Start 09/11/16 at 18:00 Phenytoin (Dilantin) 300 mg HS PO Last administered on 09/13/16 21:00; Admin Dose 300 MG; Start 09/11/16 at 21:00 Polyethylene Glycol (Miralax) 17 gm BID PO Last administered on 09/14/16 08:29 ; Admin Dose 17 GM; Start 09/11/16 at 21:00 Salmeterol Xinafoate/ Fluticasone (Advair 500/50 Diskus) 1 inh BID INH Last administered on 09/14/16 08:30; Admin Dose 1 INH; Start 09/11/16 at 21:00 Diagnostic Test (Pha) (Accu-Chek) 1 ea 02 XX ; Start 09/12/16 at 02:00 Miscellaneous Information 1 ea NOTE XX ; Start 09/11/16 at 10:30 Glucose (Glutose) 15 gm Q15M PRN PO DECREASED GLUCOSE; Start 09/11/16 at 10:30 Glucose (Glutose) 22.5 gm Q15M PRN PO DECREASED GLUCOSE; Start 09/11/16 at 10:30 Dextrose (D50w Syringe) 25 ml Q15M PRN IV DECREASED GLUCOSE; Start 09/11/16 at 10:30 Dextrose (D50w Syringe) 50 ml Q15M PRN IV DECREASED GLUCOSE; Start 09/11/16 at 10:30 Glucagon (Glucagen) 1 mg Q15M PRN IM DECREASED GLUCOSE; Start 09/11/16 at 10:30 Glucose (Glutose) 15 gm Q15M PRN BUCCAL DECREASED GLUCOSE; Start 09/11/16 at 10: 30 Morphine Sulfate (morphine) 1 mg Q6H PRN IV PAIN LEVEL 7-10 Last administered on 09/14/16 02:55; Admin Dose 1 MG; Start 09/11/16 at 17:00 Diphenhydramine HCl (Benadryl) 25 mg Q6H PRN IV ITCHING Last administered on 02:53; Admin Dose 25 MG; Start 09/11/16 at 17:30 Diphenhydramine HCl (Benadryl) 25 mg Q6H PRN PO ITCHING Last administered on 21:30; Admin Dose 25 MG; Start 09/12/16 at 07:00 Prednisone (Prednisone) 40 mg DAILY PO Last administered on 09/14/16 08:42; Admin Dose 40 MG; Start 09/14/16 at 09:00 Zolpidem Tartrate (Ambien) 5 mg HS PRN PO INSOMNIA Last administered on 22:27; Admin Dose 5 MG; Start 09/13/16 at 22:30 NEHEMIAS MILLER DO Sep 14, 2016 09:08
--- NOTE | 2016-09-14 15:34 | CONS ---
Date/Time of Note Date/Time of Note DATE: 09/14/16 TIME: 15:33 Assessment/Plan Assessment/Plan Chief Complaint/Hosp Course SUBJECTIVE: No events overnight. The patient is in hemodialysis, looks comfortable. No fevers. INDWELLINGS: Left upper thigh fistula. ANTIMICROBIALS: The patient is on Zithromax. PHYSICAL EXAMINATION: GENERAL: This is a chronically ill-appearing, middle-aged man , who is awake, in no distress. HEENT: Head atraumatic, normocephalic. Sclerae anicteric. Buccal mucosa dry. NECK: Supple. CHEST: Chest rise is symmetrical. Breath sounds diminished. HEART: S1, S2. ABDOMEN: Soft. Bowel tones present. EXTREMITIES: With bilateral lower extremity edema, left more than right. ASSESSMENT: 1. Systemic inflammatory response syndrome. 2. Bronchitis. 3. Left lower extremity edema with excoriation. Ultrasound revealed no evidence of DVT. 4. End-stage renal disease, hemodialysis dependent. 5. Obesity. 7. Hypertension. 8. Coronary artery disease. 9. ALLERGY TO ERYTHROMYCIN AND VANCOMYCIN. PLAN: The patient remains stable. We will continue him on Zithromax. Continue local wound care and panculture p.r.n. if he spikes a fever. DW staff Problems: Consultation Date/Type/Reason Admit Date/Time Sep 10, 2016 at 21:32 Initial Consult Date 09/11/16 Type of Consultation: ID Referring Provider: NEHEMIAS MILLER DO Exam/Review of Systems Vital Signs Vitals Vital Signs Date Time Temp Pulse Resp B/P Pulse Ox O2 Delivery O2 Flow Rate FiO2 09/14/16 12:22 69 09/14/16 11:56 98.3 20 114/56 100 09/14/16 08:45 Nasal Cannula 2.0 Intake and Output 09/13/16 09/13/16 09/14/16 15:00 23:00 07:00 Intake Total 500 ml 480 ml 600 ml Output Total 4500 ml Balance -4000 ml 480 ml 600 ml Results Result Diagram: 09/14/16 0640 09/13/16 0550 Results 24 hrs Laboratory Tests Test 09/13/16 17:23 09/13/16 20:44 09/14/16 06:40 09/14/16 08:27 Bedside Glucose 158 152 104 White Blood Count 3.5 L Red Blood Count 2.82 L Hemoglobin 8.5 L Hematocrit 27.2 L Mean Corpuscular Volume 96.5 Mean Corpuscular Hemoglobin 30.1 Mean Corpuscular Hemoglobin Concent 31.3 L Red Cell Distribution Width 16.5 H Platelet Count 135 L Mean Platelet Volume 9.9 Neutrophils % 74.4 Lymphocytes % 17.0 Monocytes % 6.9 Eosinophils % 1.1 Basophils % 0.3 Nucleated Red Blood Cells % 0.0 Neutrophils # 2.6 Lymphocytes # 0.6 L Monocytes # 0.2 L Eosinophils # 0.0 Basophils # 0.0 Nucleated Red Blood Cells # 0.0 Test 09/14/16 12:33 Bedside Glucose 134 Medications Medications Current Medications Ondansetron HCl (Zofran Inj) 4 mg Q6H PRN IV NAUSEA AND/OR VOMITING Last administered on 09/14/16 02:53; Admin Dose 4 MG; Start 09/11/16 at 09:00 Acetaminophen (Tylenol Tab) 650 mg Q6H PRN PO PAIN AND OR ELEVATED TEMP Last administered on 09/12/16 20:10; Admin Dose 650 MG; Start 09/11/16 at 10:30 Atorvastatin Calcium (Lipitor) 80 mg QHS PO Last administered on 09/13/16 20:55 ; Admin Dose 80 MG; Start 09/11/16 at 21:00 Azithromycin (Zithromax) 500 mg DAILY PO Last administered on 09/14/16 08:30; Admin Dose 500 MG; Start 09/12/16 at 09:00 Bisacodyl (Dulcolax) 10 mg DAILY PRN PO CONSTIPATION; Start 09/11/16 at 10:30 Carvedilol (Coreg) 6.25 mg BID PO Last administered on 09/14/16 08:31; Admin Dose 6.25 MG; Start 09/11/16 at 10:30 Cinacalcet (Sensipar) 30 mg DAILY PO Last administered on 09/14/16 08:29; Admin Dose 30 MG; Start 09/12/16 at 09:00 Citalopram Hydrobromide (Celexa) 10 mg DAILY PO Last administered on 09/14/16 08:29; Admin Dose 10 MG; Start 09/12/16 at 09:00 Clonidine (Catapres) 0.1 mg Q6H PRN PO SBP ABOVE 170 Last administered on 16:13; Admin Dose 0.1 MG; Start 09/11/16 at 10:30 Clopidogrel Bisulfate (plaVIX) 75 mg DAILY PO Last administered on 09/14/16 08: 30; Admin Dose 75 MG; Start 09/12/16 at 09:00 Divalproex Sodium (Depakote) 750 mg Q8 PO Last administered on 09/14/16 14:21; Admin Dose 750 MG; Start 09/11/16 at 14:00 Famotidine (Pepcid) 20 mg DAILY PO Last administered on 09/14/16 08:30; Admin Dose 20 MG; Start 09/12/16 at 09:00 Ferrous Sulfate (Ferrous Sulfate (Ec)) 325 mg BID PO Last administered on 08:29; Admin Dose 325 MG; Start 09/11/16 at 21:00 Guaifenesin (Robitussin Liquid Cup) 300 mg Q4H PRN PO COUGH; Start 09/11/16 at 10:30 Heparin Sodium (Porcine) (Heparin (5000 Units/0.5 ml)) 5,000 unit BID SC Last administered on 09/14/16 08:34; Admin Dose 5,000 UNIT; Start 09/11/16 at 21:00 Hypromellose (Isopto Tears) 2 drop Q4 PRN BOTH EYES DRY EYES; Start 09/11/16 at 11:30 Albuterol/ Ipratropium (Duoneb) 3 ml Q4H PRN NEB WHEEZING AND SOB; Start at 10:30 Isosorbide Mononitrate (Imdur) 60 mg DAILY PO Last administered on 09/14/16 08: 31; Admin Dose 60 MG; Start 09/12/16 at 09:00 Lactulose (Enulose) 20 gm BID PRN PO CONSTIPATION; Start 09/11/16 at 10:30 Levetiracetam (Keppra) 1,000 mg BID PO Last administered on 09/14/16 08:29; Admin Dose 1,000 MG; Start 09/11/16 at 21:00 Losartan Potassium (Cozaar) 100 mg DAILY PO Last administered on 09/14/16 08:31 ; Admin Dose 100 MG; Start 09/11/16 at 10:30 Montelukast Sodium (Singulair) 10 mg QHS PO Last administered on 09/13/16 21:01 ; Admin Dose 10 MG; Start 09/11/16 at 21:00 Multivit/Ca Carb/ B Cmplx/FA/Prenat (Etelvina-Paula) 1 tab DAILY PO Last administered on 09/14/16 08:29; Admin Dose 1 TAB; Start 09/11/16 at 10:30 Nitroglycerin (Nitroglycerin (Sl Tab) 0.4 Mg) 0.4 tab [id number] PRN SL CHEST PAIN Last administered on 09/11/16 22:56; Admin Dose 0.4 TAB; Start 09/11/16 at 10:30 Pantoprazole (Protonix Tab) 40 mg 18 PO Last administered on 09/13/16 17:25; Admin Dose 40 MG; Start 09/11/16 at 18:00 Phenytoin (Dilantin) 300 mg HS PO Last administered on 09/13/16 21:00; Admin Dose 300 MG; Start 09/11/16 at 21:00 Polyethylene Glycol (Miralax) 17 gm BID PO Last administered on 09/14/16 08:29 ; Admin Dose 17 GM; Start 09/11/16 at 21:00 Salmeterol Xinafoate/ Fluticasone (Advair 500/50 Diskus) 1 inh BID INH Last administered on 09/14/16 08:30; Admin Dose 1 INH; Start 09/11/16 at 21:00 Diagnostic Test (Pha) (Accu-Chek) 1 ea 02 XX ; Start 09/12/16 at 02:00 Miscellaneous Information 1 ea NOTE XX ; Start 09/11/16 at 10:30 Glucose (Glutose) 15 gm Q15M PRN PO DECREASED GLUCOSE; Start 09/11/16 at 10:30 Glucose (Glutose) 22.5 gm Q15M PRN PO DECREASED GLUCOSE; Start 09/11/16 at 10:30 Dextrose (D50w Syringe) 25 ml Q15M PRN IV DECREASED GLUCOSE; Start 09/11/16 at 10:30 Dextrose (D50w Syringe) 50 ml Q15M PRN IV DECREASED GLUCOSE; Start 09/11/16 at 10:30 Glucagon (Glucagen) 1 mg Q15M PRN IM DECREASED GLUCOSE; Start 09/11/16 at 10:30 Glucose (Glutose) 15 gm Q15M PRN BUCCAL DECREASED GLUCOSE; Start 09/11/16 at 10: 30 Morphine Sulfate (morphine) 1 mg Q6H PRN IV PAIN LEVEL 7-10 Last administered on 09/14/16 09:59; Admin Dose 1 MG; Start 09/11/16 at 17:00 Diphenhydramine HCl (Benadryl) 25 mg Q6H PRN IV ITCHING Last administered on 14:24; Admin Dose 25 MG; Start 09/11/16 at 17:30 Diphenhydramine HCl (Benadryl) 25 mg Q6H PRN PO ITCHING Last administered on 21:30; Admin Dose 25 MG; Start 09/12/16 at 07:00 Prednisone (Prednisone) 40 mg DAILY PO Last administered on 09/14/16 08:42; Admin Dose 40 MG; Start 09/14/16 at 09:00 Zolpidem Tartrate (Ambien) 5 mg HS PRN PO INSOMNIA Last administered on 22:27; Admin Dose 5 MG; Start 09/13/16 at 22:30 MARLENY TUBBS NP Sep 14, 2016 15:34
[2016-09-14] MEDS: PANTOPRAZOLE (EC) 40 MG TAB PO SCH (17:20)
[2016-09-14] MEDS: PHENYTOIN 100 MG CAP PO SCH (21:02)
[2016-09-14] MEDS: MONTELUKAST 10 MG TAB PO SCH (21:03)
[2016-09-14] MEDS: ATORVASTATIN 80 MG TAB PO SCH (21:03)
[2016-09-14 22:42] LABS: ALBUMIN 3.5 g/dL (3.8-4.8)
--- NOTE | 2016-09-14 23:40 | CONS ---
Date/Time of Note Date/Time of Note DATE: 09/14/16 TIME: 23:40 Assessment/Plan Assessment/Plan Chief Complaint/Hosp Course Thrombocytopenia per pt he had thrombocytopenia for 15 yr since he was started on HD . He never had any bleeding, never had BMBX I would cont to monitor blood count closely avoid myelosuppressive meds observe for bleeding no indications for platelet transfusion pancytopenia mild cont to monitor Anemia. monitor blood count closely Continue to monitor hemoglobin and hematocrit levels. Continue Epogen. HSM Chest pain, etiology is unclear. It does not appear to be cardiac. Other possibilities include pulmonary versus musculoskeletal versus questionable drug seeking. The patient's serial troponins have been negative. End-stage renal disease. The patient is decompensated. Continue daily dialysis for volume removal and solute clearance. Volume overload secondary to acute congestive heart failure and end-stage renal disease. Continue ultrafiltration dialysis. Continue to monitor. Mineral bone disorder. Continue to monitor calcium and phosphorus levels. Continue phosphate binders. Lower extremity wounds, possible cellulitis. We will continue wound care. Place an infectious disease consult for evaluation. Hypertensive urgency, in part due to increased intravascular volume. Continue ultrafiltration dialysis. Continue current blood pressure regimen. Chronic obstructive pulmonary disease exacerbation. Continue current medical management. Continue nebulizers, continue azithromycin. Continue prednisone. Will place a pulmonary consult for evaluation. Seizure disorder. Continue Dilantin, Keppra. Depression. Continue Celexa. Dyslipidemia. Continue statin therapy. History of coronary artery disease. Continue medical management. Constipation. Continue current bowel regimen. Gastrointestinal and deep venous thrombosis prophylaxis. Continue proton pump inhibitor and heparin. Problems: Consultation Date/Type/Reason Admit Date/Time Sep 10, 2016 at 21:32 Initial Consult Date 09/11/16 Type of Consultation: [facility] Referring Provider: NEHEMIAS MILLER DO 24 HR Interval Summary Free Text/Dictation all noted no bleeding felling better No other acute events noted. No hemoptysis, hematemesis or hematochezia. Exam/Review of Systems Vital Signs Vitals Vital Signs Date Time Temp Pulse Resp B/P Pulse Ox O2 Delivery O2 Flow Rate FiO2 09/14/16 21:08 2.0 09/14/16 20:32 71 09/14/16 19:52 98.0 15 118/59 99 09/14/16 08:45 Nasal Cannula Intake and Output 09/13/16 09/13/16 09/14/16 15:00 23:00 07:00 Intake Total 500 ml 480 ml 600 ml Output Total 4500 ml Balance -4000 ml 480 ml 600 ml Exam HEENT: Head is normocephalic. NECK: Supple. HEART: Regular rate. LUNGS: Show diminished breath sounds at the bases. ABDOMEN: Soft, nontender to palpation. No rebound or guarding. EXTREMITIES: Positive for edema on her left lower extremity greater than right , improved. There are noted wounds on the left lower anterior tibial surface. DERMATOLOGIC: No rashes. MUSCULOSKELETAL: No joint effusions. NEUROLOGIC: No change in exam. Results Result Diagram: 09/14/16 0640 09/13/16 0550 Results 24 hrs Laboratory Tests Test 09/14/16 06:40 09/14/16 08:27 09/14/16 12:33 09/14/16 17:17 White Blood Count 3.5 L Red Blood Count 2.82 L Hemoglobin 8.5 L Hematocrit 27.2 L Mean Corpuscular Volume 96.5 Mean Corpuscular Hemoglobin 30.1 Mean Corpuscular Hemoglobin Concent 31.3 L Red Cell Distribution Width 16.5 H Platelet Count 135 L Mean Platelet Volume 9.9 Neutrophils % 74.4 Lymphocytes % 17.0 Monocytes % 6.9 Eosinophils % 1.1 Basophils % 0.3 Nucleated Red Blood Cells % 0.0 Neutrophils # 2.6 Lymphocytes # 0.6 L Monocytes # 0.2 L Eosinophils # 0.0 Basophils # 0.0 Nucleated Red Blood Cells # 0.0 Bedside Glucose 104 134 236 H Test 09/14/16 21:01 Bedside Glucose 255 H Medications Medications Current Medications Ondansetron HCl (Zofran Inj) 4 mg Q6H PRN IV NAUSEA AND/OR VOMITING Last administered on 09/14/16 02:53; Admin Dose 4 MG; Start 09/11/16 at 09:00 Acetaminophen (Tylenol Tab) 650 mg Q6H PRN PO PAIN AND OR ELEVATED TEMP Last administered on 09/12/16 20:10; Admin Dose 650 MG; Start 09/11/16 at 10:30 Atorvastatin Calcium (Lipitor) 80 mg QHS PO Last administered on 09/14/16 21:03 ; Admin Dose 80 MG; Start 09/11/16 at 21:00 Azithromycin (Zithromax) 500 mg DAILY PO Last administered on 09/14/16 08:30; Admin Dose 500 MG; Start 09/12/16 at 09:00 Bisacodyl (Dulcolax) 10 mg DAILY PRN PO CONSTIPATION; Start 09/11/16 at 10:30 Carvedilol (Coreg) 6.25 mg BID PO Last administered on 09/14/16 21:04; Admin Dose 6.25 MG; Start 09/11/16 at 10:30 Cinacalcet (Sensipar) 30 mg DAILY PO Last administered on 09/14/16 08:29; Admin Dose 30 MG; Start 09/12/16 at 09:00 Citalopram Hydrobromide (Celexa) 10 mg DAILY PO Last administered on 09/14/16 08:29; Admin Dose 10 MG; Start 09/12/16 at 09:00 Clonidine (Catapres) 0.1 mg Q6H PRN PO SBP ABOVE 170 Last administered on 16:13; Admin Dose 0.1 MG; Start 09/11/16 at 10:30 Clopidogrel Bisulfate (plaVIX) 75 mg DAILY PO Last administered on 09/14/16 08: 30; Admin Dose 75 MG; Start 09/12/16 at 09:00 Divalproex Sodium (Depakote) 750 mg Q8 PO Last administered on 09/14/16 21:04; Admin Dose 750 MG; Start 09/11/16 at 14:00 Famotidine (Pepcid) 20 mg DAILY PO Last administered on 09/14/16 08:30; Admin Dose 20 MG; Start 09/12/16 at 09:00 Ferrous Sulfate (Ferrous Sulfate (Ec)) 325 mg BID PO Last administered on 21:03; Admin Dose 325 MG; Start 09/11/16 at 21:00 Guaifenesin (Robitussin Liquid Cup) 300 mg Q4H PRN PO COUGH; Start 09/11/16 at 10:30 Heparin Sodium (Porcine) (Heparin (5000 Units/0.5 ml)) 5,000 unit BID SC Last administered on 09/14/16 21:07; Admin Dose 5,000 UNIT; Start 09/11/16 at 21:00 Hypromellose (Isopto Tears) 2 drop Q4 PRN BOTH EYES DRY EYES; Start 09/11/16 at 11:30 Albuterol/ Ipratropium (Duoneb) 3 ml Q4H PRN NEB WHEEZING AND SOB; Start at 10:30 Isosorbide Mononitrate (Imdur) 60 mg DAILY PO Last administered on 09/14/16 08: 31; Admin Dose 60 MG; Start 09/12/16 at 09:00 Lactulose (Enulose) 20 gm BID PRN PO CONSTIPATION; Start 09/11/16 at 10:30 Levetiracetam (Keppra) 1,000 mg BID PO Last administered on 09/14/16 21:03; Admin Dose 1,000 MG; Start 09/11/16 at 21:00 Losartan Potassium (Cozaar) 100 mg DAILY PO Last administered on 09/14/16 08:31 ; Admin Dose 100 MG; Start 09/11/16 at 10:30 Montelukast Sodium (Singulair) 10 mg QHS PO Last administered on 09/14/16 21:03 ; Admin Dose 10 MG; Start 09/11/16 at 21:00 Multivit/Ca Carb/ B Cmplx/FA/Prenat (Etelvina-Paula) 1 tab DAILY PO Last administered on 09/14/16 08:29; Admin Dose 1 TAB; Start 09/11/16 at 10:30 Nitroglycerin (Nitroglycerin (Sl Tab) 0.4 Mg) 0.4 tab [id number] PRN SL CHEST PAIN Last administered on 09/11/16 22:56; Admin Dose 0.4 TAB; Start 09/11/16 at 10:30 Pantoprazole (Protonix Tab) 40 mg 18 PO Last administered on 09/14/16 17:20; Admin Dose 40 MG; Start 09/11/16 at 18:00 Phenytoin (Dilantin) 300 mg HS PO Last administered on 09/14/16 21:02; Admin Dose 300 MG; Start 09/11/16 at 21:00 Polyethylene Glycol (Miralax) 17 gm BID PO Last administered on 09/14/16 21:04 ; Admin Dose 17 GM; Start 09/11/16 at 21:00 Salmeterol Xinafoate/ Fluticasone (Advair 500/50 Diskus) 1 inh BID INH Last administered on 09/14/16 21:04; Admin Dose 1 INH; Start 09/11/16 at 21:00 Diagnostic Test (Pha) (Accu-Chek) 1 ea 02 XX ; Start 09/12/16 at 02:00 Miscellaneous Information 1 ea NOTE XX ; Start 09/11/16 at 10:30 Glucose (Glutose) 15 gm Q15M PRN PO DECREASED GLUCOSE; Start 09/11/16 at 10:30 Glucose (Glutose) 22.5 gm Q15M PRN PO DECREASED GLUCOSE; Start 09/11/16 at 10:30 Dextrose (D50w Syringe) 25 ml Q15M PRN IV DECREASED GLUCOSE; Start 09/11/16 at 10:30 Dextrose (D50w Syringe) 50 ml Q15M PRN IV DECREASED GLUCOSE; Start 09/11/16 at 10:30 Glucagon (Glucagen) 1 mg Q15M PRN IM DECREASED GLUCOSE; Start 09/11/16 at 10:30 Glucose (Glutose) 15 gm Q15M PRN BUCCAL DECREASED GLUCOSE; Start 09/11/16 at 10: 30 Morphine Sulfate (morphine) 1 mg Q6H PRN IV PAIN LEVEL 7-10 Last administered on 09/14/16 19:24; Admin Dose 1 MG; Start 09/11/16 at 17:00 Diphenhydramine HCl (Benadryl) 25 mg Q6H PRN IV ITCHING Last administered on 20:58; Admin Dose 25 MG; Start 09/11/16 at 17:30 Diphenhydramine HCl (Benadryl) 25 mg Q6H PRN PO ITCHING Last administered on 21:30; Admin Dose 25 MG; Start 09/12/16 at 07:00 Prednisone (Prednisone) 40 mg DAILY PO Last administered on 09/14/16 08:42; Admin Dose 40 MG; Start 09/14/16 at 09:00 Zolpidem Tartrate (Ambien) 5 mg HS PRN PO INSOMNIA Last administered on 22:27; Admin Dose 5 MG; Start 09/13/16 at 22:30 DEBBIE BANUELOS MD Sep 14, 2016 23:40
[2016-09-15] VITALS (19 sets, daily range): BP systolic 91–131; BP diastolic 48–65; PULSE 65–80; RESP 15–21
[2016-09-15] MEDS: EPOETIN 10000 UNITS/1 ML INJ (ESRD) SC SCH ×2 (00:42→21:14)
[2016-09-15] MEDS: ACCU-CHEK XX SCH (02:00)
[2016-09-15] MEDS: morphine 2 MG INJ IV PRN ×4 (02:25→23:57)
[2016-09-15] MEDS: DIPHENHYDRAMINE 50 MG INJ IV PRN ×3 (04:16→23:54)
[2016-09-15] MEDS: DIVALPROEX (EC) 250 MG TAB PO SCH ×3 (05:42→21:14)
[2016-09-15] MEDS: INSULIN ASPART [NOVOLOG] 3 ML PEN SC SCH ×4 (08:00→21:25)
--- NOTE | 2016-09-15 08:27 | PN ---
Date/Time of Note Date/Time of Note DATE: 09/15/16 TIME: 08:24 Assessment/Plan Lines/Catheters IV Catheter Type (from Nrs): Saline Lock Assessment/Plan Assessment/Plan 1. Chest pain. -resolved - Etiology is likely musculoskeletal, noncardiac. The patient has been ruled out for acute coronary syndrome. -At this point, continue to monitor. Continue medical management. 2. End-stage renal disease. Continue dialysis for 3 hours on 3K bath, calcium 2.5, ultrafiltration as tolerated. 3. Volume overload secondary to congestive heart failure and end-stage renal disease. Improving, near euvolemic. Continue ultrafiltration dialysis. 4. Left lower extremity edema. improving. Doppler ultrasound negative for dvt. Continue to monitor. 5. Anemia. Continue to monitor hemoglobin and hematocrit levels. Continue Epogen. 6. Pancytopenia. Etiology is unclear. spoke with hematology, recommendation is to monitor, no plan for bm bx 7. Mineral bone disorder. Continue to monitor calcium and phosphorus levels. Continue phosphate binders. 8. Lower extremity cellulitis, wounds. Continue wound care. Follow up with infectious disease. 9. Hypertension, improving. Continue current blood pressure regimen. Continue ultrafiltration dialysis. 10. Chronic obstructive pulmonary disease exacerbation. Continue current medical management. Continue to taper down prednisone. Continue nebulizers, azithromycin. 11. Seizure disorder. Continue Dilantin and Keppra. 12. Depression. Continue Celexa. 13. Dyslipidemia. Continue statin therapy. 14. History of coronary artery disease. 15. Constipation. Continue current bowel regimen. 16. Gastrointestinal and deep venous thrombosis prophylaxis. Continue proton pump inhibitor and heparin. dispo: d/c planning in am Subjective 24 Hr Interval Summary Free Text/Dictation The patient is stable,. No other acute events noted. No hemoptysis, hematemesis or hematochezia. Exam/Review of Systems Vital Signs Vitals Vital Signs Date Time Temp Pulse Resp B/P Pulse Ox O2 Delivery O2 Flow Rate FiO2 09/15/16 08:17 67 09/15/16 07:40 98.2 20 113/59 99 09/15/16 01:06 2.0 09/14/16 20:00 Nasal Cannula Intake and Output 09/14/16 09/14/16 09/15/16 15:00 23:00 07:00 Intake Total 1020 ml 500 ml Output Total 4800 ml Balance -3780 ml 500 ml Exam HEENT: Head is normocephalic. NECK: Supple. HEART: Regular rate. LUNGS: Show diminished breath sounds at the bases. ABDOMEN: Soft, nontender to palpation. No rebound or guarding. EXTREMITIES: Positive for edema on her left lower extremity greater than right , improved. There are noted wounds on the left lower anterior tibial surface. DERMATOLOGIC: No rashes. MUSCULOSKELETAL: No joint effusions. NEUROLOGIC: No change in exam. Results Result Diagram: 09/14/16 0640 09/13/16 0550 Results 24 hrs Laboratory Tests Test 09/14/16 08:27 09/14/16 12:33 09/14/16 17:17 09/14/16 21:01 Bedside Glucose 104 134 236 H 255 H Test 09/15/16 02:30 09/15/16 08:02 Bedside Glucose 72 95 Medications Medications Current Medications Ondansetron HCl (Zofran Inj) 4 mg Q6H PRN IV NAUSEA AND/OR VOMITING Last administered on 09/14/16 02:53; Admin Dose 4 MG; Start 09/11/16 at 09:00 Acetaminophen (Tylenol Tab) 650 mg Q6H PRN PO PAIN AND OR ELEVATED TEMP Last administered on 09/12/16 20:10; Admin Dose 650 MG; Start 09/11/16 at 10:30 Atorvastatin Calcium (Lipitor) 80 mg QHS PO Last administered on 09/14/16 21:03 ; Admin Dose 80 MG; Start 09/11/16 at 21:00 Azithromycin (Zithromax) 500 mg DAILY PO Last administered on 09/14/16 08:30; Admin Dose 500 MG; Start 09/12/16 at 09:00 Bisacodyl (Dulcolax) 10 mg DAILY PRN PO CONSTIPATION; Start 09/11/16 at 10:30 Carvedilol (Coreg) 6.25 mg BID PO Last administered on 09/14/16 21:04; Admin Dose 6.25 MG; Start 09/11/16 at 10:30 Cinacalcet (Sensipar) 30 mg DAILY PO Last administered on 09/14/16 08:29; Admin Dose 30 MG; Start 09/12/16 at 09:00 Citalopram Hydrobromide (Celexa) 10 mg DAILY PO Last administered on 09/14/16 08:29; Admin Dose 10 MG; Start 09/12/16 at 09:00 Clonidine (Catapres) 0.1 mg Q6H PRN PO SBP ABOVE 170 Last administered on 16:13; Admin Dose 0.1 MG; Start 09/11/16 at 10:30 Clopidogrel Bisulfate (plaVIX) 75 mg DAILY PO Last administered on 09/14/16 08: 30; Admin Dose 75 MG; Start 09/12/16 at 09:00 Divalproex Sodium (Depakote) 750 mg Q8 PO Last administered on 09/15/16 05:42 ; Admin Dose 750 MG; Start 09/11/16 at 14:00 Famotidine (Pepcid) 20 mg DAILY PO Last administered on 09/14/16 08:30; Admin Dose 20 MG; Start 09/12/16 at 09:00 Ferrous Sulfate (Ferrous Sulfate (Ec)) 325 mg BID PO Last administered on 21:03; Admin Dose 325 MG; Start 09/11/16 at 21:00 Guaifenesin (Robitussin Liquid Cup) 300 mg Q4H PRN PO COUGH; Start 09/11/16 at 10:30 Heparin Sodium (Porcine) (Heparin (5000 Units/0.5 ml)) 5,000 unit BID SC Last administered on 09/14/16 21:07; Admin Dose 5,000 UNIT; Start 09/11/16 at 21:00 Hypromellose (Isopto Tears) 2 drop Q4 PRN BOTH EYES DRY EYES; Start 09/11/16 at 11:30 Albuterol/ Ipratropium (Duoneb) 3 ml Q4H PRN NEB WHEEZING AND SOB; Start at 10:30 Isosorbide Mononitrate (Imdur) 60 mg DAILY PO Last administered on 09/14/16 08: 31; Admin Dose 60 MG; Start 09/12/16 at 09:00 Lactulose (Enulose) 20 gm BID PRN PO CONSTIPATION; Start 09/11/16 at 10:30 Levetiracetam (Keppra) 1,000 mg BID PO Last administered on 09/14/16 21:03; Admin Dose 1,000 MG; Start 09/11/16 at 21:00 Losartan Potassium (Cozaar) 100 mg DAILY PO Last administered on 09/14/16 08:31 ; Admin Dose 100 MG; Start 09/11/16 at 10:30 Montelukast Sodium (Singulair) 10 mg QHS PO Last administered on 09/14/16 21:03 ; Admin Dose 10 MG; Start 09/11/16 at 21:00 Multivit/Ca Carb/ B Cmplx/FA/Prenat (Etelvina-Paula) 1 tab DAILY PO Last administered on 09/14/16 08:29; Admin Dose 1 TAB; Start 09/11/16 at 10:30 Nitroglycerin (Nitroglycerin (Sl Tab) 0.4 Mg) 0.4 tab [id number] PRN SL CHEST PAIN Last administered on 09/11/16 22:56; Admin Dose 0.4 TAB; Start 09/11/16 at 10:30 Pantoprazole (Protonix Tab) 40 mg 18 PO Last administered on 09/14/16 17:20; Admin Dose 40 MG; Start 09/11/16 at 18:00 Phenytoin (Dilantin) 300 mg HS PO Last administered on 09/14/16 21:02; Admin Dose 300 MG; Start 09/11/16 at 21:00 Polyethylene Glycol (Miralax) 17 gm BID PO Last administered on 09/14/16 21:04 ; Admin Dose 17 GM; Start 09/11/16 at 21:00 Salmeterol Xinafoate/ Fluticasone (Advair 500/50 Diskus) 1 inh BID INH Last administered on 09/14/16 21:04; Admin Dose 1 INH; Start 09/11/16 at 21:00 Diagnostic Test (Pha) (Accu-Chek) 1 ea 02 XX ; Start 09/12/16 at 02:00 Miscellaneous Information 1 ea NOTE XX ; Start 09/11/16 at 10:30 Glucose (Glutose) 15 gm Q15M PRN PO DECREASED GLUCOSE; Start 09/11/16 at 10:30 Glucose (Glutose) 22.5 gm Q15M PRN PO DECREASED GLUCOSE; Start 09/11/16 at 10:30 Dextrose (D50w Syringe) 25 ml Q15M PRN IV DECREASED GLUCOSE; Start 09/11/16 at 10:30 Dextrose (D50w Syringe) 50 ml Q15M PRN IV DECREASED GLUCOSE; Start 09/11/16 at 10:30 Glucagon (Glucagen) 1 mg Q15M PRN IM DECREASED GLUCOSE; Start 09/11/16 at 10:30 Glucose (Glutose) 15 gm Q15M PRN BUCCAL DECREASED GLUCOSE; Start 09/11/16 at 10: 30 Morphine Sulfate (morphine) 1 mg Q6H PRN IV PAIN LEVEL 7-10 Last administered on 09/15/16 02:25; Admin Dose 1 MG; Start 09/11/16 at 17:00 Diphenhydramine HCl (Benadryl) 25 mg Q6H PRN IV ITCHING Last administered on 04:16; Admin Dose 25 MG; Start 09/11/16 at 17:30 Diphenhydramine HCl (Benadryl) 25 mg Q6H PRN PO ITCHING Last administered on 21:30; Admin Dose 25 MG; Start 09/12/16 at 07:00 Prednisone (Prednisone) 40 mg DAILY PO Last administered on 09/14/16 08:42; Admin Dose 40 MG; Start 09/14/16 at 09:00 Zolpidem Tartrate (Ambien) 5 mg HS PRN PO INSOMNIA Last administered on 22:27; Admin Dose 5 MG; Start 09/13/16 at 22:30 NEHEMIAS MILLER DO Sep 15, 2016 08:27
[2016-09-15 08:31] LABS: ADD SCAN DIFF NO
[2016-09-15 08:34] LABS: BASOPHILS % 0.3 % (0.0-2.0); EOSINOPHILS # 0.1 10^3/ul (0.0-0.5); EOSINOPHILS % 1.8 % (0.0-7.0); HEMATOCRIT 28.2 % (42.0-52.0); HEMOGLOBIN 8.5 g/dl (14.0-18.0); LYMPHOCYTES % 25.8 % (15.0-51.0); MEAN CORPUSCULAR HEMOGLOBIN 29.4 pg (29.0-33.0); MEAN CORPUSCULAR HGB CONC 30.1 g/dl (32.0-37.0); MEAN CORPUSCULAR VOLUME 97.6 fl (82.0-101.0); MEAN PLATELET VOLUME 9.8 fl (7.4-10.4); MONOCYTE # 0.5 10^3/ul (0.3-0.9); NEUTROPHIL # 2.3 10^3/ul (1.6-7.5); NEUTROPHILS % 58.6 % (39.0-77.0); PLATELET COUNT 151 10^3/UL (140-415); RED BLOOD COUNT 2.89 10^6/ul (4.70-6.10); RED CELL DISTRIBUTION WIDTH 16.7 % (11.5-14.5); WHITE BLOOD COUNT 3.8 10^3/ul (4.8-10.8)
[2016-09-15 08:59] LABS: CALCIUM 8.4 mg/dl (8.4-10.2); CREATININE 5.27 mg/dl (0.61-1.24); MAGNESIUM 2.3 mg/dl (1.7-2.5); PHOSPHORUS 3.3 mg/dl (2.5-4.9); POTASSIUM 4.3 mmol/L (3.5-5.1)
[2016-09-15] MEDS: POLYETHYLENE GLYCOL 17 GM PACKET PO SCH ×2 (09:00→21:26)
[2016-09-15] MEDS: AZITHROMYCIN 250 MG TAB PO SCH (09:44)
[2016-09-15] MEDS: LEVETIRACETAM 500 MG TAB PO SCH ×2 (09:44→21:14)
[2016-09-15] MEDS: MULTIVIT/CA CARB/B CMPLX/FA TAB PO SCH (09:44)
[2016-09-15] MEDS: ISOSORBIDE MONONITRATE(SR)60 MG TAB PO SCH (09:44)
[2016-09-15] MEDS: LOSARTAN 50 MG TAB PO SCH (09:45)
[2016-09-15] MEDS: SEVELAMER CARBONATE 0.8 GM PKT PO SCH ×3 (09:45→17:42)
[2016-09-15] MEDS: predniSONE 10 MG TAB PO SCH (09:45)
[2016-09-15] MEDS: FERROUS SULFATE (EC) 325 MG TAB PO SCH ×2 (09:45→21:16)
[2016-09-15] MEDS: FAMOTIDINE 20 MG TAB PO SCH (09:45)
[2016-09-15] MEDS: CITALOPRAM 20 MG TAB PO SCH (09:48)
[2016-09-15] MEDS: CLOPIDOGREL 75 MG TAB PO SCH (09:48)
[2016-09-15] MEDS: CINACALCET 30 MG TAB PO SCH (10:03)
[2016-09-15] MEDS: HEPARIN 5,000 UNIT/0.5 ML VIAL SC SCH ×2 (10:03→21:24)
[2016-09-15] MEDS: SALMETEROL/FLUTICASONE 500/50 INHA INH SCH ×2 (12:06→21:17)
[2016-09-15] MEDS: PANTOPRAZOLE (EC) 40 MG TAB PO SCH (17:40)
--- NOTE | 2016-09-15 18:53 | CONS ---
Date/Time of Note Date/Time of Note DATE: 09/15/16 TIME: 18:52 Assessment/Plan Assessment/Plan Chief Complaint/Hosp Course Thrombocytopenia per pt he had thrombocytopenia for 15 yr since he was started on HD . He never had any bleeding, never had BMBX I would cont to monitor blood count closely avoid myelosuppressive meds observe for bleeding no indications for platelet transfusion pancytopenia mild cont to monitor Anemia. monitor blood count closely Continue to monitor hemoglobin and hematocrit levels. Continue Epogen. HSM Chest pain, etiology is unclear. It does not appear to be cardiac. Other possibilities include pulmonary versus musculoskeletal versus questionable drug seeking. The patient's serial troponins have been negative. End-stage renal disease. The patient is decompensated. Continue daily dialysis for volume removal and solute clearance. Volume overload secondary to acute congestive heart failure and end-stage renal disease. Continue ultrafiltration dialysis. Continue to monitor. Mineral bone disorder. Continue to monitor calcium and phosphorus levels. Continue phosphate binders. Lower extremity wounds, possible cellulitis. We will continue wound care. Place an infectious disease consult for evaluation. Hypertensive urgency, in part due to increased intravascular volume. Continue ultrafiltration dialysis. Continue current blood pressure regimen. Chronic obstructive pulmonary disease exacerbation. Continue current medical management. Continue nebulizers, continue azithromycin. Continue prednisone. Will place a pulmonary consult for evaluation. Seizure disorder. Continue Dilantin, Keppra. Depression. Continue Celexa. Dyslipidemia. Continue statin therapy. History of coronary artery disease. Continue medical management. Constipation. Continue current bowel regimen. Gastrointestinal and deep venous thrombosis prophylaxis. Continue proton pump inhibitor and heparin. Problems: Consultation Date/Type/Reason Admit Date/Time Sep 10, 2016 at 21:32 Initial Consult Date 09/11/16 Type of Consultation: [facility] Referring Provider: NEHEMIAS MILLER DO 24 HR Interval Summary Free Text/Dictation all noted no bleeding no new events count stable Exam/Review of Systems Vital Signs Vitals Vital Signs Date Time Temp Pulse Resp B/P Pulse Ox O2 Delivery O2 Flow Rate FiO2 09/15/16 16:51 2.0 09/15/16 16:23 72 09/15/16 15:44 98.2 20 93/55 100 09/15/16 08:00 Nasal Cannula Intake and Output 09/14/16 09/14/16 09/15/16 15:00 23:00 07:00 Intake Total 1020 ml 500 ml Output Total 4800 ml Balance -3780 ml 500 ml Exam HEENT: Head is normocephalic. NECK: Supple. HEART: Regular rate. LUNGS: Show diminished breath sounds at the bases. ABDOMEN: Soft, nontender to palpation. No rebound or guarding. EXTREMITIES: Positive for edema on her left lower extremity greater than right , improved. There are noted wounds on the left lower anterior tibial surface. DERMATOLOGIC: No rashes. MUSCULOSKELETAL: No joint effusions. NEUROLOGIC: No change in exam. Results Result Diagram: 09/15/16 0809/15/16 08 Results 24 hrs Laboratory Tests Test 09/14/16 21:01 09/15/16 02:30 09/15/16 08:00 09/15/16 08:02 Bedside Glucose 255 H 72 95 White Blood Count 3.8 L Red Blood Count 2.89 L Hemoglobin 8.5 L Hematocrit 28.2 L Mean Corpuscular Volume 97.6 Mean Corpuscular Hemoglobin 29.4 Mean Corpuscular Hemoglobin Concent 30.1 L Red Cell Distribution Width 16.7 H Platelet Count 151 Mean Platelet Volume 9.8 Neutrophils % 58.6 Lymphocytes % 25.8 Monocytes % 13.0 H Eosinophils % 1.8 Basophils % 0.3 Nucleated Red Blood Cells % 0.0 Neutrophils # 2.3 Lymphocytes # 1.0 Monocytes # 0.5 Eosinophils # 0.1 Basophils # 0.0 Nucleated Red Blood Cells # 0.0 Sodium Level 139 Potassium Level 4.3 Chloride Level 99 Carbon Dioxide Level 31 Anion Gap 13 Blood Urea Nitrogen 34 H Creatinine 5.27 H Glucose Level 94 Calcium Level 8.4 Phosphorus Level 3.3 Magnesium Level 2.3 Test 09/15/16 11:58 09/15/16 17:24 Bedside Glucose 182 252 H Medications Medications Current Medications Ondansetron HCl (Zofran Inj) 4 mg Q6H PRN IV NAUSEA AND/OR VOMITING Last administered on 09/14/16 02:53; Admin Dose 4 MG; Start 09/11/16 at 09:00 Acetaminophen (Tylenol Tab) 650 mg Q6H PRN PO PAIN AND OR ELEVATED TEMP Last administered on 09/12/16 20:10; Admin Dose 650 MG; Start 09/11/16 at 10:30 Atorvastatin Calcium (Lipitor) 80 mg QHS PO Last administered on 09/14/16 21:03 ; Admin Dose 80 MG; Start 09/11/16 at 21:00 Azithromycin (Zithromax) 500 mg DAILY PO Last administered on 09/15/16 09:44; Admin Dose 500 MG; Start 09/12/16 at 09:00 Bisacodyl (Dulcolax) 10 mg DAILY PRN PO CONSTIPATION; Start 09/11/16 at 10:30 Carvedilol (Coreg) 6.25 mg BID PO Last administered on 09/15/16 09:46; Admin Dose 6.25 MG; Start 09/11/16 at 10:30 Cinacalcet (Sensipar) 30 mg DAILY PO Last administered on 09/15/16 10:03; Admin Dose 30 MG; Start 09/12/16 at 09:00 Citalopram Hydrobromide (Celexa) 10 mg DAILY PO Last administered on 09/15/16 09:48; Admin Dose 10 MG; Start 09/12/16 at 09:00 Clonidine (Catapres) 0.1 mg Q6H PRN PO SBP ABOVE 170 Last administered on 16:13; Admin Dose 0.1 MG; Start 09/11/16 at 10:30 Clopidogrel Bisulfate (plaVIX) 75 mg DAILY PO Last administered on 09/15/16 09 :48; Admin Dose 75 MG; Start 09/12/16 at 09:00 Divalproex Sodium (Depakote) 750 mg Q8 PO Last administered on 09/15/16 14:31 ; Admin Dose 750 MG; Start 09/11/16 at 14:00 Famotidine (Pepcid) 20 mg DAILY PO Last administered on 09/15/16 09:45; Admin Dose 20 MG; Start 09/12/16 at 09:00 Ferrous Sulfate (Ferrous Sulfate (Ec)) 325 mg BID PO Last administered on 09:45; Admin Dose 325 MG; Start 09/11/16 at 21:00 Guaifenesin (Robitussin Liquid Cup) 300 mg Q4H PRN PO COUGH; Start 09/11/16 at 10:30 Heparin Sodium (Porcine) (Heparin (5000 Units/0.5 ml)) 5,000 unit BID SC Last administered on 09/15/16 10:03; Admin Dose 5,000 UNIT; Start 09/11/16 at 21:00 Hypromellose (Isopto Tears) 2 drop Q4 PRN BOTH EYES DRY EYES; Start 09/11/16 at 11:30 Albuterol/ Ipratropium (Duoneb) 3 ml Q4H PRN NEB WHEEZING AND SOB; Start at 10:30 Isosorbide Mononitrate (Imdur) 60 mg DAILY PO Last administered on 09/15/16 09 :44; Admin Dose 60 MG; Start 09/12/16 at 09:00 Lactulose (Enulose) 20 gm BID PRN PO CONSTIPATION; Start 09/11/16 at 10:30 Levetiracetam (Keppra) 1,000 mg BID PO Last administered on 09/15/16 09:44; Admin Dose 1,000 MG; Start 09/11/16 at 21:00 Losartan Potassium (Cozaar) 100 mg DAILY PO Last administered on 09/15/16 09: 45; Admin Dose 100 MG; Start 09/11/16 at 10:30 Montelukast Sodium (Singulair) 10 mg QHS PO Last administered on 09/14/16 21:03 ; Admin Dose 10 MG; Start 09/11/16 at 21:00 Multivit/Ca Carb/ B Cmplx/FA/Prenat (Etelvina-Paula) 1 tab DAILY PO Last administered on 09/15/16 09:44; Admin Dose 1 TAB; Start 09/11/16 at 10:30 Nitroglycerin (Nitroglycerin (Sl Tab) 0.4 Mg) 0.4 tab [id number] PRN SL CHEST PAIN Last administered on 09/11/16 22:56; Admin Dose 0.4 TAB; Start 09/11/16 at 10:30 Pantoprazole (Protonix Tab) 40 mg 18 PO Last administered on 09/15/16 17:40; Admin Dose 40 MG; Start 09/11/16 at 18:00 Phenytoin (Dilantin) 300 mg HS PO Last administered on 09/14/16 21:02; Admin Dose 300 MG; Start 09/11/16 at 21:00 Polyethylene Glycol (Miralax) 17 gm BID PO Last administered on 09/14/16 21:04 ; Admin Dose 17 GM; Start 09/11/16 at 21:00 Salmeterol Xinafoate/ Fluticasone (Advair 500/50 Diskus) 1 inh BID INH Last administered on 09/15/16 12:06; Admin Dose 1 INH; Start 09/11/16 at 21:00 Diagnostic Test (Pha) (Accu-Chek) 1 ea 02 XX ; Start 09/12/16 at 02:00 Miscellaneous Information 1 ea NOTE XX ; Start 09/11/16 at 10:30 Glucose (Glutose) 15 gm Q15M PRN PO DECREASED GLUCOSE; Start 09/11/16 at 10:30 Glucose (Glutose) 22.5 gm Q15M PRN PO DECREASED GLUCOSE; Start 09/11/16 at 10:30 Dextrose (D50w Syringe) 25 ml Q15M PRN IV DECREASED GLUCOSE; Start 09/11/16 at 10:30 Dextrose (D50w Syringe) 50 ml Q15M PRN IV DECREASED GLUCOSE; Start 09/11/16 at 10:30 Glucagon (Glucagen) 1 mg Q15M PRN IM DECREASED GLUCOSE; Start 09/11/16 at 10:30 Glucose (Glutose) 15 gm Q15M PRN BUCCAL DECREASED GLUCOSE; Start 09/11/16 at 10: 30 Morphine Sulfate (morphine) 1 mg Q6H PRN IV PAIN LEVEL 7-10 Last administered on 09/15/16 14:31; Admin Dose 1 MG; Start 09/11/16 at 17:00 Diphenhydramine HCl (Benadryl) 25 mg Q6H PRN IV ITCHING Last administered on 14:31; Admin Dose 25 MG; Start 09/11/16 at 17:30 Diphenhydramine HCl (Benadryl) 25 mg Q6H PRN PO ITCHING Last administered on 21:30; Admin Dose 25 MG; Start 09/12/16 at 07:00 Zolpidem Tartrate (Ambien) 5 mg HS PRN PO INSOMNIA Last administered on 22:27; Admin Dose 5 MG; Start 09/13/16 at 22:30 Prednisone (Prednisone) 30 mg DAILY PO Last administered on 09/15/16 09:45; Admin Dose 30 MG; Start 09/15/16 at 09:00 DEBBIE BANUELOS MD Sep 15, 2016 18:53
--- NOTE | 2016-09-15 18:57 | CONS ---
Date/Time of Note Date/Time of Note DATE: 09/15/16 TIME: 18:55 Assessment/Plan Assessment/Plan Chief Complaint/Hosp Course SUBJECTIVE: No events overnight. The patient is sleeping, in hemodialysis, looks comfortable. No fevers. INDWELLINGS: Left upper thigh fistula. ANTIMICROBIALS: The patient is on Zithromax #4. PHYSICAL EXAMINATION: GENERAL: This is a chronically ill-appearing, middle-aged man , who is awake, in no distress. HEENT: Head atraumatic, normocephalic. Sclerae anicteric. Buccal mucosa dry. NECK: Supple. CHEST: Chest rise is symmetrical. Breath sounds diminished. HEART: S1, S2. ABDOMEN: Soft. Bowel tones present. EXTREMITIES: With bilateral lower extremity edema, left more than right. ASSESSMENT: 1. Systemic inflammatory response syndrome. 2. Bronchitis. 3. Left lower extremity edema with excoriation. Ultrasound revealed no evidence of DVT. 4. End-stage renal disease, hemodialysis dependent. 5. Obesity. 7. Hypertension. 8. Coronary artery disease. 9. ALLERGY TO ERYTHROMYCIN AND VANCOMYCIN. PLAN: The patient remains stable. We will continue him on Zithromax for one more day. Continue local wound care and panculture p.r.n. if he spikes a fever. DW staff Problems: Consultation Date/Type/Reason Admit Date/Time Sep 10, 2016 at 21:32 Initial Consult Date 09/11/16 Type of Consultation: ID Referring Provider: NEHEMIAS MILLER DO Exam/Review of Systems Vital Signs Vitals Vital Signs Date Time Temp Pulse Resp B/P Pulse Ox O2 Delivery O2 Flow Rate FiO2 09/15/16 16:51 2.0 09/15/16 16:23 72 09/15/16 15:44 98.2 20 93/55 100 09/15/16 08:00 Nasal Cannula Intake and Output 09/14/16 09/14/16 09/15/16 15:00 23:00 07:00 Intake Total 1020 ml 500 ml Output Total 4800 ml Balance -3780 ml 500 ml Results Result Diagram: 09/15/16 0800 09/15/16 0800 Results 24 hrs Laboratory Tests Test 09/14/16 21:01 09/15/16 02:30 09/15/16 08:00 09/15/16 08:02 Bedside Glucose 255 H 72 95 White Blood Count 3.8 L Red Blood Count 2.89 L Hemoglobin 8.5 L Hematocrit 28.2 L Mean Corpuscular Volume 97.6 Mean Corpuscular Hemoglobin 29.4 Mean Corpuscular Hemoglobin Concent 30.1 L Red Cell Distribution Width 16.7 H Platelet Count 151 Mean Platelet Volume 9.8 Neutrophils % 58.6 Lymphocytes % 25.8 Monocytes % 13.0 H Eosinophils % 1.8 Basophils % 0.3 Nucleated Red Blood Cells % 0.0 Neutrophils # 2.3 Lymphocytes # 1.0 Monocytes # 0.5 Eosinophils # 0.1 Basophils # 0.0 Nucleated Red Blood Cells # 0.0 Sodium Level 139 Potassium Level 4.3 Chloride Level 99 Carbon Dioxide Level 31 Anion Gap 13 Blood Urea Nitrogen 34 H Creatinine 5.27 H Glucose Level 94 Calcium Level 8.4 Phosphorus Level 3.3 Magnesium Level 2.3 Test 09/15/16 11:58 09/15/16 17:24 Bedside Glucose 182 252 H Medications Medications Current Medications Ondansetron HCl (Zofran Inj) 4 mg Q6H PRN IV NAUSEA AND/OR VOMITING Last administered on 09/14/16 02:53; Admin Dose 4 MG; Start 09/11/16 at 09:00 Acetaminophen (Tylenol Tab) 650 mg Q6H PRN PO PAIN AND OR ELEVATED TEMP Last administered on 09/12/16 20:10; Admin Dose 650 MG; Start 09/11/16 at 10:30 Atorvastatin Calcium (Lipitor) 80 mg QHS PO Last administered on 09/14/16 21:03 ; Admin Dose 80 MG; Start 09/11/16 at 21:00 Azithromycin (Zithromax) 500 mg DAILY PO Last administered on 09/15/16 09:44; Admin Dose 500 MG; Start 09/12/16 at 09:00 Bisacodyl (Dulcolax) 10 mg DAILY PRN PO CONSTIPATION; Start 09/11/16 at 10:30 Carvedilol (Coreg) 6.25 mg BID PO Last administered on 09/15/16 09:46; Admin Dose 6.25 MG; Start 09/11/16 at 10:30 Cinacalcet (Sensipar) 30 mg DAILY PO Last administered on 09/15/16 10:03; Admin Dose 30 MG; Start 09/12/16 at 09:00 Citalopram Hydrobromide (Celexa) 10 mg DAILY PO Last administered on 09/15/16 09:48; Admin Dose 10 MG; Start 09/12/16 at 09:00 Clonidine (Catapres) 0.1 mg Q6H PRN PO SBP ABOVE 170 Last administered on 16:13; Admin Dose 0.1 MG; Start 09/11/16 at 10:30 Clopidogrel Bisulfate (plaVIX) 75 mg DAILY PO Last administered on 09/15/16 09 :48; Admin Dose 75 MG; Start 09/12/16 at 09:00 Divalproex Sodium (Depakote) 750 mg Q8 PO Last administered on 09/15/16 14:31 ; Admin Dose 750 MG; Start 09/11/16 at 14:00 Famotidine (Pepcid) 20 mg DAILY PO Last administered on 09/15/16 09:45; Admin Dose 20 MG; Start 09/12/16 at 09:00 Ferrous Sulfate (Ferrous Sulfate (Ec)) 325 mg BID PO Last administered on 09:45; Admin Dose 325 MG; Start 09/11/16 at 21:00 Guaifenesin (Robitussin Liquid Cup) 300 mg Q4H PRN PO COUGH; Start 09/11/16 at 10:30 Heparin Sodium (Porcine) (Heparin (5000 Units/0.5 ml)) 5,000 unit BID SC Last administered on 09/15/16 10:03; Admin Dose 5,000 UNIT; Start 09/11/16 at 21:00 Hypromellose (Isopto Tears) 2 drop Q4 PRN BOTH EYES DRY EYES; Start 09/11/16 at 11:30 Albuterol/ Ipratropium (Duoneb) 3 ml Q4H PRN NEB WHEEZING AND SOB; Start at 10:30 Isosorbide Mononitrate (Imdur) 60 mg DAILY PO Last administered on 09/15/16 09 :44; Admin Dose 60 MG; Start 09/12/16 at 09:00 Lactulose (Enulose) 20 gm BID PRN PO CONSTIPATION; Start 09/11/16 at 10:30 Levetiracetam (Keppra) 1,000 mg BID PO Last administered on 09/15/16 09:44; Admin Dose 1,000 MG; Start 09/11/16 at 21:00 Losartan Potassium (Cozaar) 100 mg DAILY PO Last administered on 09/15/16 09: 45; Admin Dose 100 MG; Start 09/11/16 at 10:30 Montelukast Sodium (Singulair) 10 mg QHS PO Last administered on 09/14/16 21:03 ; Admin Dose 10 MG; Start 09/11/16 at 21:00 Multivit/Ca Carb/ B Cmplx/FA/Prenat (Etelvina-Paula) 1 tab DAILY PO Last administered on 09/15/16 09:44; Admin Dose 1 TAB; Start 09/11/16 at 10:30 Nitroglycerin (Nitroglycerin (Sl Tab) 0.4 Mg) 0.4 tab [id number] PRN SL CHEST PAIN Last administered on 09/11/16 22:56; Admin Dose 0.4 TAB; Start 09/11/16 at 10:30 Pantoprazole (Protonix Tab) 40 mg 18 PO Last administered on 09/15/16 17:40; Admin Dose 40 MG; Start 09/11/16 at 18:00 Phenytoin (Dilantin) 300 mg HS PO Last administered on 09/14/16 21:02; Admin Dose 300 MG; Start 09/11/16 at 21:00 Polyethylene Glycol (Miralax) 17 gm BID PO Last administered on 09/14/16 21:04 ; Admin Dose 17 GM; Start 09/11/16 at 21:00 Salmeterol Xinafoate/ Fluticasone (Advair 500/50 Diskus) 1 inh BID INH Last administered on 09/15/16 12:06; Admin Dose 1 INH; Start 09/11/16 at 21:00 Diagnostic Test (Pha) (Accu-Chek) 1 ea 02 XX ; Start 09/12/16 at 02:00 Miscellaneous Information 1 ea NOTE XX ; Start 09/11/16 at 10:30 Glucose (Glutose) 15 gm Q15M PRN PO DECREASED GLUCOSE; Start 09/11/16 at 10:30 Glucose (Glutose) 22.5 gm Q15M PRN PO DECREASED GLUCOSE; Start 09/11/16 at 10:30 Dextrose (D50w Syringe) 25 ml Q15M PRN IV DECREASED GLUCOSE; Start 09/11/16 at 10:30 Dextrose (D50w Syringe) 50 ml Q15M PRN IV DECREASED GLUCOSE; Start 09/11/16 at 10:30 Glucagon (Glucagen) 1 mg Q15M PRN IM DECREASED GLUCOSE; Start 09/11/16 at 10:30 Glucose (Glutose) 15 gm Q15M PRN BUCCAL DECREASED GLUCOSE; Start 09/11/16 at 10: 30 Morphine Sulfate (morphine) 1 mg Q6H PRN IV PAIN LEVEL 7-10 Last administered on 09/15/16 14:31; Admin Dose 1 MG; Start 09/11/16 at 17:00 Diphenhydramine HCl (Benadryl) 25 mg Q6H PRN IV ITCHING Last administered on 14:31; Admin Dose 25 MG; Start 09/11/16 at 17:30 Diphenhydramine HCl (Benadryl) 25 mg Q6H PRN PO ITCHING Last administered on 21:30; Admin Dose 25 MG; Start 09/12/16 at 07:00 Zolpidem Tartrate (Ambien) 5 mg HS PRN PO INSOMNIA Last administered on 22:27; Admin Dose 5 MG; Start 09/13/16 at 22:30 Prednisone (Prednisone) 30 mg DAILY PO Last administered on 09/15/16 09:45; Admin Dose 30 MG; Start 09/15/16 at 09:00 MARLENY TUBBS NP Sep 15, 2016 18:57
[2016-09-15] MEDS: ATORVASTATIN 80 MG TAB PO SCH (21:14)
[2016-09-15] MEDS: PHENYTOIN 100 MG CAP PO SCH (21:15)
[2016-09-15] MEDS: MONTELUKAST 10 MG TAB PO SCH (21:16)
[2016-09-16] VITALS (7 sets, daily range): BP systolic 102–127; BP diastolic 56–64; PULSE 69–77; RESP 18–22
[2016-09-16] MEDS: ACCU-CHEK XX SCH (02:07)
[2016-09-16] MEDS: morphine 2 MG INJ IV PRN (06:05)
[2016-09-16] MEDS: DIPHENHYDRAMINE 50 MG INJ IV PRN (06:05)
[2016-09-16] MEDS: DIVALPROEX (EC) 250 MG TAB PO SCH (06:05)
[2016-09-16] MEDS: INSULIN ASPART [NOVOLOG] 3 ML PEN SC SCH (08:00)
[2016-09-16] MEDS: SALMETEROL/FLUTICASONE 500/50 INHA INH SCH (08:47)
[2016-09-16] MEDS: SEVELAMER CARBONATE 0.8 GM PKT PO SCH (08:47)
[2016-09-16] MEDS: ISOSORBIDE MONONITRATE(SR)60 MG TAB PO SCH (08:48)
[2016-09-16] MEDS: CINACALCET 30 MG TAB PO SCH (08:48)
[2016-09-16] MEDS: MULTIVIT/CA CARB/B CMPLX/FA TAB PO SCH (08:48)
[2016-09-16] MEDS: FERROUS SULFATE (EC) 325 MG TAB PO SCH (08:48)
[2016-09-16] MEDS: CITALOPRAM 20 MG TAB PO SCH (08:49)
[2016-09-16] MEDS: CLOPIDOGREL 75 MG TAB PO SCH (08:49)
[2016-09-16] MEDS: predniSONE 10 MG TAB PO SCH (08:49)
[2016-09-16] MEDS: LOSARTAN 50 MG TAB PO SCH (08:54)
[2016-09-16] MEDS: POLYETHYLENE GLYCOL 17 GM PACKET PO SCH (08:55)
[2016-09-16] MEDS: LEVETIRACETAM 500 MG TAB PO SCH (08:55)
[2016-09-16] MEDS: HEPARIN 5,000 UNIT/0.5 ML VIAL SC SCH (08:59)
[2016-09-16] MEDS: FAMOTIDINE 20 MG TAB PO SCH (09:01)
[2016-09-16] MEDS: AZITHROMYCIN 250 MG TAB PO SCH (09:01)
[2016-09-16 11:41] LABS: ADD SCAN DIFF NO
[2016-09-16 11:43] LABS: BASOPHILS % 0.2 % (0.0-2.0); EOSINOPHILS # 0.1 10^3/ul (0.0-0.5); EOSINOPHILS % 1.7 % (0.0-7.0); HEMATOCRIT 28.6 % (42.0-52.0); HEMOGLOBIN 8.5 g/dl (14.0-18.0); LYMPHOCYTES # 0.7 10^3/ul (0.8-2.9); LYMPHOCYTES % 17.1 % (15.0-51.0); MEAN CORPUSCULAR HEMOGLOBIN 29.5 pg (29.0-33.0); MEAN CORPUSCULAR HGB CONC 29.7 g/dl (32.0-37.0); MEAN CORPUSCULAR VOLUME 99.3 fl (82.0-101.0); MEAN PLATELET VOLUME 9.7 fl (7.4-10.4); MONOCYTE # 0.4 10^3/ul (0.3-0.9); MONOCYTES % 10.4 % (0.0-11.0); NEUTROPHIL # 2.8 10^3/ul (1.6-7.5); NEUTROPHILS % 70.1 % (39.0-77.0); PLATELET COUNT 147 10^3/UL (140-415); RED BLOOD COUNT 2.88 10^6/ul (4.70-6.10); RED CELL DISTRIBUTION WIDTH 17.2 % (11.5-14.5)
--- NOTE | 2016-09-16 15:23 | DS ---
DATE OF ADMISSION: 09/10/2016 DATE OF DISCHARGE: 09/16/2016 HOSPITAL COURSE: This is a 50-year-old male with a past medical history of end-stage renal disease on dialysis 4 times weekly, access left AV fistula, history of seizure disorder, hypertension, chron ic disease, anemia, dyslipidemia, mineral bone disorder and COPD, presents to the [facility] with generalized pain, nausea, vomiting, shortness of breath. The patient was subsequ ently admitted to telemetry for evaluation. In terms of pain, generalized chest pain. The patient was seen by collision center manager, Dr. Capellan. The patient was ruled out for acute coronary syndrome. T he patient's chest pain symptoms subsequently resolved. It was felt to be initially due to musculos keletal, possible costochondritis. The patient also was noted to be grossly volume overload on admi ssion, received daily dialysis and risk, currently euvolemic. The patient also noted to have lower extremity wounds in the left lower extremity and was receiving local wound care. The patient's other medical problems included pancytopenia where he was seen by hematology, Dr. Maryanne ely. The patient has had chronic pancytopenia and per Dr. Pinedo no plan for intervention at his time. No need for immediate bone marrow biopsy. The patient will be followed in an outpatient setting. The patient's other medical problems including COPD, seizure disorder, depression, dyslipi demia, coronary artery disease were stable during the hospital course. The patient also noted to cole ve constipation on admission, but improved after having adjustment of his bowel regimen. The patien t was also being treated for COPD exacerbation and is clinically improving as his prednisone was teodoro ng tapered down. Tapering of the prednisone will continue in outpatient setting. Currently, at [facility] s time, the patient is stable, in no acute distress, will be discharged home and will followup with his primary care physician. At the time of transfer and discharge, the patient is stable, in no acu te distress. FINAL DIAGNOSES: 1. Chest pain, resolved. 2. End-stage renal disease. 3. Volume overload secondary to acute congestive heart failure exacerbation. 4. Anemia. 5. Left lower extremity edema. 6. Pancytopenia. 7. Mineral bone disorder. 8. Lower extremity cellulitis. 9. Hypertension. 10. Chronic obstructive pulmonary disease exacerbation. 11. Seizure disorder. 12. Depression. 13. Dyslipidemia. 14. Coronary artery disease. 15. Constipation. FINAL MEDICATIONS: See reconciliation list. Please note I spent over 40 minutes of time preparing the patient's discharge. Dictated By: NEHEMIAS DAS/ROSANNA Conf#: [id number] DID#: [id number]
--- NOTE | 2016-09-16 23:18 | CONS ---
Date/Time of Note Date/Time of Note DATE: 09/16/16 TIME: 15:17 VK LE Assessment/Plan Assessment/Plan Chief Complaint/Hosp Course Thrombocytopenia per pt he had thrombocytopenia for 15 yr since he was started on HD . He never had any bleeding, never had BMBX I would cont to monitor blood count closely avoid myelosuppressive meds observe for bleeding no indications for platelet transfusion pancytopenia mild cont to monitor Anemia. monitor blood count closely Continue to monitor hemoglobin and hematocrit levels. Continue Epogen. HSM Chest pain, etiology is unclear. It does not appear to be cardiac. Other possibilities include pulmonary versus musculoskeletal versus questionable drug seeking. The patient's serial troponins have been negative. End-stage renal disease. The patient is decompensated. Continue daily dialysis for volume removal and solute clearance. Volume overload secondary to acute congestive heart failure and end-stage renal disease. Continue ultrafiltration dialysis. Continue to monitor. Mineral bone disorder. Continue to monitor calcium and phosphorus levels. Continue phosphate binders. Lower extremity wounds, possible cellulitis. We will continue wound care. Place an infectious disease consult for evaluation. Hypertensive urgency, in part due to increased intravascular volume. Continue ultrafiltration dialysis. Continue current blood pressure regimen. Chronic obstructive pulmonary disease exacerbation. Continue current medical management. Continue nebulizers, continue azithromycin. Continue prednisone. Will place a pulmonary consult for evaluation. Seizure disorder. Continue Dilantin, Keppra. Depression. Continue Celexa. Dyslipidemia. Continue statin therapy. History of coronary artery disease. Continue medical management. Constipation. Continue current bowel regimen. Gastrointestinal and deep venous thrombosis prophylaxis. Continue proton pump inhibitor and heparin. Problems: Consultation Date/Type/Reason Admit Date/Time Sep 10, 2016 at 21:32 Initial Consult Date 09/11/16 Type of Consultation: [facility] [place] Referring Provider: NEHEMIAS MILLER DO 24 HR Interval Summary Free Text/Dictation No events overnight. The patient is sleeping, POST hemodialysis, looks comfortable. No fevers. Exam/Review of Systems Vital Signs Vitals Vital Signs Date Time Temp Pulse Resp B/P Pulse Ox O2 Delivery O2 Flow Rate FiO2 09/16/16 11:31 98.5 76 18 109/56 100 09/16/16 08:00 Nasal Cannula 2.0 Intake and Output 09/15/16 09/15/16 09/16/16 15:00 23:00 07:00 Intake Total 300 ml 1410 ml 150 ml Output Total 1800 ml Balance -1500 ml 1410 ml 150 ml Exam PHYSICAL EXAMINATION: GENERAL: This is a chronically ill-appearing, middle-aged man , who is awake, in no distress. HEENT: Head atraumatic, normocephalic. Sclerae anicteric. Buccal mucosa dry. NECK: Supple. CHEST: Chest rise is symmetrical. Breath sounds diminished. HEART: S1, S2. ABDOMEN: Soft. Bowel tones present. EXTREMITIES: With bilateral lower extremity edema, left more than right. Results Result Diagram: 09/16/16 1117 09/15/16 0800 Results 24 hrs Laboratory Tests Test 09/16/16 02:06 09/16/16 07:52 09/16/16 11:17 Bedside Glucose 206 112 White Blood Count 4.0 L Red Blood Count 2.88 L Hemoglobin 8.5 L Hematocrit 28.6 L Mean Corpuscular Volume 99.3 Mean Corpuscular Hemoglobin 29.5 Mean Corpuscular Hemoglobin Concent 29.7 L Red Cell Distribution Width 17.2 H Platelet Count 147 Mean Platelet Volume 9.7 Neutrophils % 70.1 Lymphocytes % 17.1 Monocytes % 10.4 Eosinophils % 1.7 Basophils % 0.2 Nucleated Red Blood Cells % 0.0 Neutrophils # 2.8 Lymphocytes # 0.7 L Monocytes # 0.4 Eosinophils # 0.1 Basophils # 0.0 Nucleated Red Blood Cells # 0.0 DEBBIE BANUELOS MD Sep 16, 2016 23:18
== END 2016-09-16 11:50 | DRG 291 ==
LOC: E/R 17:14 → MS4 21:32
PROVIDERS: ADMIT Internal Medicine; ATTEND Internal Medicine
PROC: 5A1D60Z (ICD-10-PCS; principal; 2016-09-11)
DX: I13.2 Hypertensive heart and chronic kidney disease with heart failure and with stage 5 chronic kidney disease, or end stage renal disease (principal); N18.6 End stage renal disease; D61.818 Other pancytopenia; E11.22 Type 2 diabetes mellitus with diabetic chronic kidney disease; R65.10 Systemic inflammatory response syndrome (SIRS) of non-infectious origin without acute organ dysfunction; J44.1 Chronic obstructive pulmonary disease with (acute) exacerbation; I50.33 Acute on chronic diastolic (congestive) heart failure; L03.116 Cellulitis of left lower limb; Z68.41 Body mass index [BMI] 40.0-44.9, adult; I16.0 Hypertensive urgency; G40.909 Epilepsy, unspecified, not intractable, without status epilepticus; M94.0 Chondrocostal junction syndrome [Tietze]; I25.10 Atherosclerotic heart disease of native coronary artery without angina pectoris; F32.9 Major depressive disorder, single episode, unspecified; E78.5 Hyperlipidemia, unspecified; K59.00 Constipation, unspecified; E83.9 Disorder of mineral metabolism, unspecified; S80.812A Abrasion, left lower leg, initial encounter; X58.XXXA Exposure to other specified factors, initial encounter; E66.9 Obesity, unspecified; Z86.73 Personal history of transient ischemic attack (TIA), and cerebral infarction without residual deficits; Y92.9 Unspecified place or not applicable; Z99.2 Dependence on renal dialysis
CPT/HCPCS: 71010; 74176; 80048; 80053; 82306; 82607; 82728; 82746; 82962; 83036; 83540; 83605; 83615; 83735; 84100; 84155; 84165; 84443; 84484; 84560; 85025; 85045; 85049; 85362; 85378; 85384; 85610; 85670; 85730; 86703; 87040; 87081; 90935; 93005; 93971; 96365; 96366; 96372; 96375; 96376; J0692; J1200; J1644; J1815; J2060; J2270; J2405; J2765; J3250; J7030; J7512; Q4081

== ENCOUNTER 2016-09-21 11:14 | Emergency (ER) | payer MEDICARE, MEDICAID ==
[~2016-09-21] VITALS: Ht 177.8 cm; Wt 109.0 kg
[~2016-09-21 11:14] MED LIST changes: -PRED20TA PO
[2016-09-21] MEDS ORDERED: METOCLOPRAMIDE 10 MG INJ IV STA (11:19)
[2016-09-21] MEDS ORDERED: FAMOTIDINE 20 MG INJ IV STA (11:19)
[2016-09-21 11:27] VITALS: Ht 177.8 cm; Wt 109.0 kg
[2016-09-21 12:36] LABS: ADD SCAN DIFF NO
[2016-09-21 12:39] LABS: BASOPHILS % 0.3 % (0.0-2.0); EOSINOPHILS # 0.1 10^3/ul (0.0-0.5); EOSINOPHILS % 2.5 % (0.0-7.0); HEMATOCRIT 26.9 % (42.0-52.0); HEMOGLOBIN 8.3 g/dl (14.0-18.0); LYMPHOCYTES # 0.7 10^3/ul (0.8-2.9); LYMPHOCYTES % 20.1 % (15.0-51.0); MEAN CORPUSCULAR HEMOGLOBIN 29.7 pg (29.0-33.0); MEAN CORPUSCULAR HGB CONC 30.9 g/dl (32.0-37.0); MEAN CORPUSCULAR VOLUME 96.4 fl (82.0-101.0); MEAN PLATELET VOLUME 9.2 fl (7.4-10.4); MONOCYTE # 0.7 10^3/ul (0.3-0.9); MONOCYTES % 18.4 % (0.0-11.0); NEUTROPHIL # 2.1 10^3/ul (1.6-7.5); NEUTROPHILS % 58.4 % (39.0-77.0); PLATELET COUNT 223 10^3/UL (140-415); RED BLOOD COUNT 2.79 10^6/ul (4.70-6.10); RED CELL DISTRIBUTION WIDTH 18.6 % (11.5-14.5); WHITE BLOOD COUNT 3.5 10^3/ul (4.8-10.8)
[2016-09-21] MEDS ORDERED: morphine 4 MG/ML VIAL IV STA ×2 (12:55→14:57)
[2016-09-21 12:59] LABS: ALBUMIN 4.2 g/dl (3.3-4.9); ALBUMIN/GLOBULIN RATIO 3.5; BILIRUBIN,INDIRECT 0.1 mg/dl (0-1.1); BILIRUBIN,TOTAL 0.1 mg/dl (0.2-1.3); CALCIUM 9.3 mg/dl (8.4-10.2); CREATININE 6.57 mg/dl (0.61-1.24); POTASSIUM 4.1 mmol/L (3.5-5.1); TOTAL PROTEIN 5.4 g/dl (6.1-8.1)
[2016-09-21 13:04] LABS: PROTIME 13.2 Sec (12.2-14.2)
[2016-09-21 13:05] LABS: PARTIAL THROMBOPLASTIN TIME 35.3 Sec (25.0-35.0)
[2016-09-21 13:10] LABS: TROPONIN-I 0.048 ng/ml (0.00-0.12)
--- NOTE | 2016-09-21 13:24 | ERD ---
ER Documentation Chief Complaint Date/Time DATE: 09/21/16 TIME: 13:22 Chief Complaint ABD PAIN, N/V X12 EPISODES SINCE 0730 TODAY HPI This is a 50-year-old male with a history of hypertension, diabetes and end- stage renal disease who presents to the emergency room for evaluation of abdominal cramping, nausea and vomiting for the past 24 hours. The patient states that his abdomen is cramping and he localizes it to the total portion of his abdomen. He states that he is vomited 12 times and describes his vomit as nonbloody and nonbilious. He denies any diarrhea associated with this and came to the ER for evaluation. Patient is scheduled to undergo dialysis today, and denies any chest pain or shortness of breath. Patient was recently admitted to the hospital for intractable vomiting. ROS All systems reviewed and are negative except as per history of present illness. Medications Home Meds Active Scripts Famotidine* (Famotidine*) 20 Mg Tablet, 20 MG PO DAILY for 7 Days, TAB Prov:ARGENIS MCPHERSON MD 07/18/16 Carvedilol* (Carvedilol*) 6.25 Mg Tablet, 6.25 MG PO BID for 14 Days, TAB Prov:ARGENIS MCPHERSON MD 07/18/16 Heparin Sod (Porcine)* (Heparin*) 5,000 Unit/0.5 Ml Soln, 5000 UNIT SC BID for 7 Days Prov:ARGENIS MCPHERSON MD 07/18/16 Ferrous Sulfate* (Ferrous Sulfate*) 325 Mg Tabec, 325 MG PO BID for 10 Days, TAB Prov:ARGENIS MCPHERSON MD 07/18/16 Azithromycin* (Azithromycin*) 250 Mg Tablet, 500 MG PO DAILY for 3 Days, TAB Prov:ARGENIS MCPHERSON MD 07/18/16 Reported Medications Nitroglycerin* (Nitrostat*) 0.4 Mg Tab.subl, 0.4 MG SL Q5MIN Y for CHEST PAIN, BOTTLE 07/07/16 Lactulose* (Lactulose*) 20 Gm/30 Ml Solution, 20 GM PO BID Y for CONSTIPATION, ML 07/07/16 Hypromellose* (Isopto Tears*) 15 Ml Drops, 2 DROP BOTH EYES Q4 Y for DRY EYES, # 1 EA 07/07/16 Guaifenesin* (Robitussin*) 100 Mg/5 Ml Syrup, 300 MG PO Q4H Y for COUGH, ML 07/07/16 Dextrose (Glucose Gel) 38 Gm Gel..gram., 38 GM PO PRN 07/07/16 Glucagon,Human Recombinant (Glucagon Emergency Kit) 1 Mg Kit, 1 MG IJ PRN, KIT 07/07/16 Ipratropium-Albuterol (Ipratropium-Albuterol) 0.5-3 Mg/3 Ml Ampul.neb, 3 ML INHALATION Q4 Y for WHEEZING AND SOB, #30 VIAL 07/07/16 Diphenhydramine Hcl* (Benadryl*) 25 Mg Cap, 25 MG PO Q6H Y for ITCHING, CAP 07/07/16 Clonidine Hcl* (Clonidine Hcl*) 0.1 Mg Tab, 0.1 MG PO Q6 Y for ELEVATED BLOOD PRESSURE, TAB NEEDED FOR BP ABOVE 170 07/07/16 Bisacodyl* (Bisacodyl*) 5 Mg Tablet.dr, 10 MG PO DAILY Y for CONSTIPATION, TAB 07/07/16 Acetaminophen* (Acetaminophen*) 650 Mg Tablet, 650 MG PO Q6H Y for PAIN AND OR ELEVATED TEMP, #30 TAB 07/07/16 Sevelamer Carbonate* (Renvela*) 800 Mg Tablet, 0.16 GM PO WITH MEALS, TAB 07/07/16 Folic Acid/Vitamin B Comp W-C (Nephrocaps Capsule) 1 Mg Capsule, 1 MG PO DAILY, CAP 07/07/16 Multivit/Ca Carb/B Cmplx/Fa* (Etelvina-Paula*) 1 Tab Tab, 1 TAB PO DAILY, TAB 07/07/16 Polyethylene Glycol* (Miralax*) 17 Gm Powd.pack, 17 GM PO BID, #60 PACKET 07/07/16 Phenytoin* Sodium Extended (Dilantin*) 300 Mg Capsule, 300 MG PO HS, CAP 07/07/16 Pantoprazole* (Protonix*) 40 Mg Tablet.dr, 40 MG PO DAILY, TAB 07/07/16 Montelukast Sodium* (Singulair*) 10 Mg Tablet, 10 MG PO QHS, #30 TAB 07/07/16 Losartan Potassium* (Losartan Potassium*) 100 Mg Tablet, 100 MG PO DAILY, TAB 07/07/16 Levetiracetam* (Levetiracetam*) 1,000 Mg Tablet, 1000 MG PO BID, TAB 07/07/16 Isosorbide Mononitrate* (Isosorbide Mononitrate*) 60 Mg Tab.er.24h, 60 MG PO DAILY, TAB 07/07/16 Insulin Lispro (Humalog) 100 Unit/1 Ml Cartridge, 0 SQ AC MEALS AND BEDTIME SLIDING SCALE (NO SCALE GIVEN) 07/07/16 Heparin Sodium,Porcine/Pf (HEPARIN SOD 5,000 UNIT/ 0.5 ML) 5,000 Unit/0.5 Ml Vial, 5000 UNIT IJ Q12, VIAL 07/07/16 Salmeterol Xinaf-Fluticasone* (Advair*) 500/50 Diskus Inhaler, 1 INH INHALATION BID, #1 INHALER 07/07/16 Epoetin francesca* (Epogen*) 3,000 Unit/1 Ml Vial, 69968 UNIT SC TUES,THUR,SAT, VIAL 07/07/16 Divalproex Sodium* (Divalproex Sodium*) 250 Mg Tablet.dr, 750 MG PO Q8, #120 TAB 07/07/16 Clopidogrel Bisulfate (Clopidogrel) 75 Mg Tablet, 75 MG PO DAILY, #30 TAB 07/07/16 Citalopram Hydrobromide* (Citalopram Hydrobromide*) 10 Mg Tablet, 10 MG PO DAILY , #30 TAB 07/07/16 Cinacalcet* (Sensipar*) 30 Mg Tab, 30 MG PO DAILY, TAB 07/07/16 Atorvastatin* (Atorvastatin*) 80 Mg Tablet, 80 MG PO QHS, #30 TAB 07/07/16 Aspirin (Low Dose Aspirin) 81 Mg Tablet.dr, 81 MG PO DAILY, #30 TAB 07/07/16 Discontinued Scripts Prednisone (Prednisone) 20 Mg Tab, 60 MG PO DAILY for 3 Days, #3 TAB Prov:ARGENIS MCPHERSON MD 07/18/16 Allergies Allergies: Coded Allergies: erythromycin base (Verified Allergy, Intermediate, 09/10/16) vancomycin (Verified Allergy, Intermediate, 09/10/16) iodine (Unverified Allergy, Unknown, 07/07/16) PMhx/Soc History of Surgery: Yes (Coronary Stenting) Anesthesia Reaction: No Hx Neurological Disorder: Yes (Seizure, CVA 2016) Hx Respiratory Disorders: Yes (COPD) Hx Cardiac Disorders: Yes (HTN, CHF; coronary stenting; iliac stent; vena cave filter) Hx Psychiatric Problems: No Hx Miscellaneous Medical Probl: No (Cholecystectomy. ) Hx Alcohol Use: No Hx Substance Use: No Hx Tobacco Use: No Smoking Status: Never smoker Physical Exam Vitals Vital Signs Date Time Temp Pulse Resp B/P Pulse Ox O2 Delivery O2 Flow Rate FiO2 09/21/16 11:27 98.7 78 22 184/92 100 Physical Exam INITIAL VITAL SIGNS: Reviewed by me GENERAL: The patient is well developed and appropriate for usual state of health in no apparent distress HEENT: Pupils equal, round, and reactive to light. EOMI. There is no scleral icterus. NECK: C-spine is soft and supple, there is no meningismus. There is no cervical lymphadenopathy. LUNGS: Clear to auscultation bilaterally. There are no rales, wheezes or rhonchi. HEART: Regular rate and rhythm, no murmurs, clicks, rubs or gallops. ABDOMEN: Soft, non-tender, non-distended. There are bowel sounds in all four quadrants. No rebound or guarding. EXTREMITIES: There is no peripheral cyanosis or edema. No focal swelling or erythema. NEUROLOGICAL: The patient moves all four extremities with 5/5 strength. Cranial nerves II - XII are intact. Normal gait. Alert and oriented SKIN: Left upper extremity AV fistula there is no apparent rash or petechiae. HEME/LYMPHATIC: There is no evidence of excessive bruising or lymphedema. PSYCHIATRIC: The patient does not appear anxious or depressed. Result Diagram: 09/21/16 1230 09/21/16 1230 Results 24 hrs Laboratory Tests Test 09/21/16 12:30 White Blood Count 3.510^3/ul Red Blood Count 2.7910^6/ul Hemoglobin 8.3g/dl Hematocrit 26.9% Mean Corpuscular Volume 96.4fl Mean Corpuscular Hemoglobin 29.7pg Mean Corpuscular Hemoglobin Concent 30.9g/dl Red Cell Distribution Width 18.6% Platelet Count 93005^3/UL Mean Platelet Volume 9.2fl Neutrophils % 58.4% Lymphocytes % 20.1% Monocytes % 18.4% Eosinophils % 2.5% Basophils % 0.3% Nucleated Red Blood Cells % 0.0/100WBC Neutrophils # 2.110^3/ul Lymphocytes # 0.710^3/ul Monocytes # 0.710^3/ul Eosinophils # 0.110^3/ul Basophils # 0.010^3/ul Nucleated Red Blood Cells # 0.010^3/ul Prothrombin Time 13.2Sec Prothrombin Time Ratio 1.0 INR International Normalized Ratio 1.00 Activated Partial Thromboplast Time 35.3Sec Sodium Level 138mmol/L Potassium Level 4.1mmol/L Chloride Level 96mmol/L Carbon Dioxide Level 28mmol/L Anion Gap 18 Blood Urea Nitrogen 48mg/dl Creatinine 6.57mg/dl Glucose Level 92mg/dl Calcium Level 9.3mg/dl Total Bilirubin 0.1mg/dl Direct Bilirubin 0.00mg/dl Indirect Bilirubin 0.1mg/dl Aspartate Amino Transf (AST/SGOT) 38IU/L Alanine Aminotransferase (ALT/SGPT) 34IU/L Alkaline Phosphatase 221IU/L Troponin I 0.048ng/ml Total Protein 5.4g/dl Albumin 4.2g/dl Globulin 1.20g/dl Albumin/Globulin Ratio 3.50 Lipase 51U/L Current Medications Medications (Trade) Dose Ordered Sig/Shawn Route PRN Reason Start Time Stop Time Status Last Admin Dose Admin Metoclopramide HCl (Reglan) 10 mg ONCE STAT IV 09/21/16 11:19 09/21/16 11:20 DC 09/21/16 12:44 Famotidine (Pepcid Iv) 20 mg ONCE STAT IV 09/21/16 11:19 09/21/16 11:20 DC 09/21/16 12:44 Morphine Sulfate (morphine) 4 mg ONCE STAT IV 09/21/16 12:55 09/21/16 12:56 DC 09/21/16 13:05 Procedures/MDM EKG: Rate/Rhythm: [Normal Sinus Rhythm] QRS, ST, T-waves: [No changes consistent w/ acute ischemia] Impression: [No evidence of ischemia or arrhythmia] This 50-year-old male presents to the ER for evaluation of abdominal cramping nausea and vomiting. When I evaluated this patient he did not have any tenderness to palpation on his abdomen. No signs of surgical abdomen or acute abdomen at this time. My suspicion for peritonitis is low. I did obtain lab work which shows normocytic anemia, and chronic renal insufficiency. This patient does not have any elevation in his troponin or lipase. The patient was given Reglan, Pepcid, and 4 mg of morphine. A pulmonary evaluation he states is feeling much better at this time. The patient is hemodynamically stable at this time and will be discharged back to his nursing facility. MATTY DEAL DO Sep 21, 2016 13:24
[2016-09-21 16:10] VITALS: BP 166/89; PULSE 84; RESP 16
== END 2016-09-21 17:20 | disposition home or self-care (01) ==
LOC: E/R 11:14
DX: D64.9 Anemia, unspecified (principal); I12.0 Hypertensive chronic kidney disease with stage 5 chronic kidney disease or end stage renal disease; N18.6 End stage renal disease; E11.22 Type 2 diabetes mellitus with diabetic chronic kidney disease; J44.9 Chronic obstructive pulmonary disease, unspecified; I50.9 Heart failure, unspecified; Z79.4 Long term (current) use of insulin; Z98.61 Coronary angioplasty status; Z79.82 Long term (current) use of aspirin
CPT/HCPCS: 80053; 83690; 84484; 85025; 85610; 85730; 93005; J2270; J2765; 36415; 96374; 96375; 96376

== ENCOUNTER 2016-12-08 17:02 | Emergency (ER) | payer MEDICARE, MEDICAID ==
[~2016-12-08] VITALS: Ht 185.4 cm; Wt 81.0 kg
[2016-12-08] MEDS ORDERED: METOCLOPRAMIDE 10 MG INJ IV STA (17:11)
[2016-12-08] MEDS ORDERED: morphine 4 MG/ML VIAL IV STA (17:11)
[2016-12-08] MEDS ORDERED: FAMOTIDINE 20 MG INJ IV STA (17:11)
[2016-12-08 17:36] LABS: BASOPHILS % 0.8 % (0.0-2.0); EOSINOPHILS # 0.7 10^3/ul (0.0-0.5); EOSINOPHILS % 17.9 % (0.0-7.0); HEMATOCRIT 26.4 % (42.0-52.0); HEMOGLOBIN 8.2 g/dl (14.0-18.0); LYMPHOCYTES # 0.9 10^3/ul (0.8-2.9); LYMPHOCYTES % 22.1 % (15.0-51.0); MEAN CORPUSCULAR HEMOGLOBIN 28.3 pg (29.0-33.0); MEAN CORPUSCULAR HGB CONC 31.1 g/dl (32.0-37.0); MEAN PLATELET VOLUME 10.1 fl (7.4-10.4); MONOCYTE # 0.3 10^3/ul (0.3-0.9); MONOCYTES % 8.5 % (0.0-11.0); NEUTROPHILS % 50.4 % (39.0-77.0); PLATELET COUNT 151 10^3/UL (140-415); RED CELL DISTRIBUTION WIDTH 16.8 % (11.5-14.5); WHITE BLOOD COUNT 3.9 10^3/ul (4.8-10.8)
[2016-12-08 17:58] LABS: ALBUMIN 4.4 g/dl (3.3-4.9); BILIRUBIN,INDIRECT 0.2 mg/dl (0-1.1); BILIRUBIN,TOTAL 0.2 mg/dl (0.2-1.3); CALCIUM 9.6 mg/dl (8.4-10.2); CREATININE 5.63 mg/dl (0.61-1.24); POTASSIUM 4.6 mmol/L (3.5-5.1); TOTAL PROTEIN 8.8 g/dl (6.1-8.1)
[2016-12-08] MEDS ORDERED: BELLADONNA/PHENOBARBITAL TAB PO STA (17:59)
[2016-12-08] MEDS ORDERED: LIDOCAINE/MYLANTA 40 ML BTL PO STA (17:59)
--- NOTE | 2016-12-08 18:08 | RADRPT ---
PROCEDURE: XR Chest. CLINICAL INDICATION: Abdominal pain. TECHNIQUE: Single AP portable chest. COMPARISON: 09/10/2016 Chest x-ray FINDINGS: Moderate to marked cardiomegaly with mild prominence of the pulmonary vascularity. No pneumothora x. The osseous structures and soft tissues are unremarkable. IMPRESSION: 1. Moderate to marked cardiomegaly and prominent pulmonary vascularity. No acute intrathoracic abno rmality. . RPTAT:AAJJ Physician Tucker Date Time Electronically viewed and signed by Physician Tucker on 12/08/2016 18:07 SHAYY/
--- NOTE | 2016-12-08 18:10 | RADRPT ---
PROCEDURE: XR Abdomen. CLINICAL INDICATION: Abdominal Pain TECHNIQUE: AP abdomen x-ray. COMPARISON: CT abdomen 09/10/2016 FINDINGS: There is retained barium within the colon. No evidence of obstruction. Moderate fecal retention wi thin the rectum. No free air. Surgical clips overlie the left inguinal region and right upper quad rant. IMPRESSION: No free air or obstruction. Retained oral contrast within the colon. RPTAT: HH Davon Silverio Physician Date Time Electronically viewed and signed by Davon Silverio Physician on 12/08/2016 18:09 SHAYY/
--- NOTE | 2016-12-08 18:20 | ERD ---
ER Documentation Chief Complaint Date/Time DATE: 12/08/16 TIME: 18:16 Chief Complaint HPI This 51-year-old male presents to the emergency room for evaluation of abdominal pain, and nausea. The patient does state he has a history of gastroparesis. He states that he was in [facility] for 3 days and they "put a camera in my throat". He states that they discharged him and he came to the emergency room today for evaluation of his pain. He localizes the pain to the midportion of the abdomen with no radiation associated with some nausea ROS All systems reviewed and are negative except as per history of present illness. Medications Home Meds Active Scripts Famotidine* (Famotidine*) 20 Mg Tablet, 20 MG PO DAILY for 7 Days, TAB Prov:ARGENIS MCPHERSON MD 07/18/16 Carvedilol* (Carvedilol*) 6.25 Mg Tablet, 6.25 MG PO BID for 14 Days, TAB Prov:ARGENIS MCPHERSON MD 07/18/16 Ferrous Sulfate* (Ferrous Sulfate*) 325 Mg Tabec, 325 MG PO BID for 10 Days, TAB Prov:ARGENIS MCPHERSON MD 07/18/16 Reported Medications Nitroglycerin* (Nitrostat*) 0.4 Mg Tab.subl, 0.4 MG SL Q5MIN Y for CHEST PAIN, BOTTLE 07/07/16 Lactulose* (Lactulose*) 20 Gm/30 Ml Solution, 20 GM PO BID Y for CONSTIPATION, ML 07/07/16 Hypromellose* (Isopto Tears*) 15 Ml Drops, 2 DROP BOTH EYES Q4 Y for DRY EYES, # 1 EA 07/07/16 Guaifenesin* (Robitussin*) 100 Mg/5 Ml Syrup, 300 MG PO Q4H Y for COUGH, ML 07/07/16 Dextrose (Glucose Gel) 38 Gm Gel..gram., 38 GM PO PRN 07/07/16 Glucagon,Human Recombinant (Glucagon Emergency Kit) 1 Mg Kit, 1 MG IJ PRN, KIT 07/07/16 Ipratropium-Albuterol (Ipratropium-Albuterol) 0.5-3 Mg/3 Ml Ampul.neb, 3 ML INHALATION Q4 Y for WHEEZING AND SOB, #30 VIAL 07/07/16 Diphenhydramine Hcl* (Benadryl*) 25 Mg Cap, 25 MG PO Q6H Y for ITCHING, CAP 07/07/16 Clonidine Hcl* (Clonidine Hcl*) 0.1 Mg Tab, 0.1 MG PO Q6 Y for ELEVATED BLOOD PRESSURE, TAB NEEDED FOR BP ABOVE 170 07/07/16 Bisacodyl* (Bisacodyl*) 5 Mg Tablet.dr, 10 MG PO DAILY Y for CONSTIPATION, TAB 07/07/16 Acetaminophen* (Acetaminophen*) 650 Mg Tablet, 650 MG PO Q6H Y for PAIN AND OR ELEVATED TEMP, #30 TAB 07/07/16 Sevelamer Carbonate* (Renvela*) 800 Mg Tablet, 0.16 GM PO WITH MEALS, TAB 07/07/16 Folic Acid/Vitamin B Comp W-C (Nephrocaps Capsule) 1 Mg Capsule, 1 MG PO DAILY, CAP 07/07/16 Multivit/Ca Carb/B Cmplx/Fa* (Etelvina-Paula*) 1 Tab Tab, 1 TAB PO DAILY, TAB 07/07/16 Polyethylene Glycol* (Miralax*) 17 Gm Powd.pack, 17 GM PO BID, #60 PACKET 07/07/16 Phenytoin* Sodium Extended (Dilantin*) 300 Mg Capsule, 300 MG PO HS, CAP 07/07/16 Pantoprazole* (Protonix*) 40 Mg Tablet.dr, 40 MG PO DAILY, TAB 07/07/16 Montelukast Sodium* (Singulair*) 10 Mg Tablet, 10 MG PO QHS, #30 TAB 07/07/16 Losartan Potassium* (Losartan Potassium*) 100 Mg Tablet, 100 MG PO DAILY, TAB 07/07/16 Levetiracetam* (Levetiracetam*) 1,000 Mg Tablet, 1000 MG PO BID, TAB 07/07/16 Isosorbide Mononitrate* (Isosorbide Mononitrate*) 60 Mg Tab.er.24h, 60 MG PO DAILY, TAB 07/07/16 Insulin Lispro (Humalog) 100 Unit/1 Ml Cartridge, 0 SQ AC MEALS AND BEDTIME SLIDING SCALE (NO SCALE GIVEN) 07/07/16 Heparin Sodium,Porcine/Pf (HEPARIN SOD 5,000 UNIT/ 0.5 ML) 5,000 Unit/0.5 Ml Vial, 5000 UNIT IJ Q12, VIAL 07/07/16 Salmeterol Xinaf-Fluticasone* (Advair*) 500/50 Diskus Inhaler, 1 INH INHALATION BID, #1 INHALER 07/07/16 Epoetin francesca* (Epogen*) 3,000 Unit/1 Ml Vial, 65459 UNIT SC TUES,THUR,SAT, VIAL 07/07/16 Divalproex Sodium* (Divalproex Sodium*) 250 Mg Tablet.dr, 750 MG PO Q8, #120 TAB 07/07/16 Clopidogrel Bisulfate (Clopidogrel) 75 Mg Tablet, 75 MG PO DAILY, #30 TAB 07/07/16 Citalopram Hydrobromide* (Citalopram Hydrobromide*) 10 Mg Tablet, 10 MG PO DAILY , #30 TAB 07/07/16 Cinacalcet* (Sensipar*) 30 Mg Tab, 30 MG PO DAILY, TAB 07/07/16 Atorvastatin* (Atorvastatin*) 80 Mg Tablet, 80 MG PO QHS, #30 TAB 07/07/16 Aspirin (Low Dose Aspirin) 81 Mg Tablet.dr, 81 MG PO DAILY, #30 TAB 07/07/16 Discontinued Scripts Heparin Sod (Porcine)* (Heparin*) 5,000 Unit/0.5 Ml Soln, 5000 UNIT SC BID for 7 Days Prov:AREGNIS MCPHERSON MD 07/18/16 Azithromycin* (Azithromycin*) 250 Mg Tablet, 500 MG PO DAILY for 3 Days, TAB Prov:ARGENIS MCPHERSON MD 07/18/16 Allergies Allergies: Coded Allergies: erythromycin base (Verified Allergy, Intermediate, 12/08/16) vancomycin (Verified Allergy, Intermediate, 12/08/16) iodine (Unverified Allergy, Unknown, 12/08/16) PMhx/Soc History of Surgery: Yes (Coronary Stenting) Anesthesia Reaction: No Hx Neurological Disorder: Yes (Seizure, CVA 2015) Hx Respiratory Disorders: Yes (COPD) Hx Cardiac Disorders: Yes (HTN, CHF; coronary stenting; iliac stent; vena cave filter) Hx Psychiatric Problems: No Hx Miscellaneous Medical Probl: No (Cholecystectomy. ) Hx Alcohol Use: No Hx Substance Use: No Hx Tobacco Use: No Smoking Status: Never smoker Physical Exam Vitals Vital Signs Date Time Temp Pulse Resp B/P Pulse Ox O2 Delivery O2 Flow Rate FiO2 12/08/16 17:10 97.0 80 18 113/69 100 Room Air Physical Exam INITIAL VITAL SIGNS: Reviewed by me GENERAL: The patient is well developed and appropriate for usual state of health in no apparent distress HEENT: Pupils equal, round, and reactive to light. EOMI. There is no scleral icterus. NECK: C-spine is soft and supple, there is no meningismus. There is no cervical lymphadenopathy. LUNGS: Clear to auscultation bilaterally. There are no rales, wheezes or rhonchi. HEART: Regular rate and rhythm, no murmurs, clicks, rubs or gallops. ABDOMEN: Epigastric tenderness to palpation, negative Hinojosa sign, non- distended. There are bowel sounds in all four quadrants. No rebound or guarding. EXTREMITIES: There is no peripheral cyanosis or edema. No focal swelling or erythema. NEUROLOGICAL: The patient moves all four extremities with 5/5 strength. Cranial nerves II - XII are intact. Normal gait. Alert and oriented SKIN: There is no apparent rash or petechiae. HEME/LYMPHATIC: There is no evidence of excessive bruising or lymphedema. PSYCHIATRIC: The patient does not appear anxious or depressed. Result Diagram: 12/08/16 1725 12/08/16 1725 Results 24 hrs Laboratory Tests Test 12/08/16 17:25 White Blood Count 3.910^3/ul Red Blood Count 2.9010^6/ul Hemoglobin 8.2g/dl Hematocrit 26.4% Mean Corpuscular Volume 91.0fl Mean Corpuscular Hemoglobin 28.3pg Mean Corpuscular Hemoglobin Concent 31.1g/dl Red Cell Distribution Width 16.8% Platelet Count 99562^3/UL Mean Platelet Volume 10.1fl Neutrophils % 50.4% Lymphocytes % 22.1% Monocytes % 8.5% Eosinophils % 17.9% Basophils % 0.8% Nucleated Red Blood Cells % 0.0/100WBC Neutrophils # (Manual) 2.010^3/ul Lymphocytes # 0.910^3/ul Monocytes # 0.310^3/ul Eosinophils # 0.710^3/ul Basophils # 0.010^3/ul Nucleated Red Blood Cells # 0.010^3/ul Sodium Level 139mmol/L Potassium Level 4.6mmol/L Chloride Level 95mmol/L Carbon Dioxide Level 30mmol/L Anion Gap 19 Blood Urea Nitrogen 31mg/dl Creatinine 5.63mg/dl Glucose Level 90mg/dl Calcium Level 9.6mg/dl Total Bilirubin 0.2mg/dl Direct Bilirubin 0.00mg/dl Indirect Bilirubin 0.2mg/dl Aspartate Amino Transf (AST/SGOT) 28IU/L Alanine Aminotransferase (ALT/SGPT) 23IU/L Alkaline Phosphatase 366IU/L Total Protein 8.8g/dl Albumin 4.4g/dl Globulin 4.40g/dl Albumin/Globulin Ratio 1.00 Lipase 76U/L Current Medications Medications (Trade) Dose Ordered Sig/Shawn Route PRN Reason Start Time Stop Time Status Last Admin Dose Admin Morphine Sulfate (morphine) 6 mg ONCE STAT IV 12/08/16 17:11 12/08/16 17:13 DC 12/08/16 17:34 Metoclopramide HCl (Reglan) 10 mg ONCE STAT IV 12/08/16 17:11 12/08/16 17:13 DC 12/08/16 17:34 Famotidine (Pepcid Iv) 20 mg ONCE STAT IV 12/08/16 17:11 12/08/16 17:13 DC 12/08/16 17:34 Miscellaneous Medication (Gi Cocktail (2)) 40 ml ONCE STAT PO 12/08/16 17:59 12/08/16 18:02 DC Belladonna/ Phenobarbital () 2 tab ONCE STAT PO 12/08/16 17:59 12/08/16 18:02 DC Procedures/MDM Chest X-ray 1V Interpreted by me: Soft Tissue: No acute abnormalities Bones: No acute abnormalities Mediastinum/Cardiac Silhouette/Lungs: [No acute abnormalities] X-ray Abdomen 1V Interpreted by me: Free Air: [None] Bowel Gas: [Nonspecific] Soft Tissue: [Normal] This 16-year-old male presents to the ER for evaluation of abdominal pain. The patient has a history of gastroparesis. He was at a different facility and had an endoscopy done and was discharged. The patient states that he still having pain. He has mild nausea. When I evaluated this patient he was nontoxic appearing, hemodynamically stable and afebrile. Patient did have epigastric tenderness to palpation. The patient was given Reglan, morphine. When I reevaluated this patient he stated he still having some mild pain. The patient was given a second dose of 4 mg intramuscular morphine. He will be discharged home with a prescription for Zofran, and Percocet tab #10. Differential diagnoses entertained was broad with potential high acuity. Patient has been evaluated for appendicitis, cholecystitis, and other high risk medical and surgical causes of abdominal pain. Ultimately the patient's evaluation is nondiagnostic. Based on the patient's lack of risk factors, as well as the patient's clinical, laboratory, and imaging data, the patient appears to be low risk for these high risk causes of abdominal pain. Departure Diagnosis: Primary Impression: Gastritis Additional Impressions: Diabetic gastroparesis Normocytic anemia Condition: Stable MATTY DEAL DO Dec 08, 2016 18:20
[2016-12-08] MEDS ORDERED: RANI150T9 PO (18:21)
[2016-12-08] MEDS ORDERED: OXYC-279 PO (18:21)
[2016-12-08] MEDS ORDERED: HYDROmorphONE 1 MG/ML SYG IM STA (18:22)
[2016-12-08 20:01] VITALS: Ht 185.4 cm; Wt 81.0 kg
[2016-12-08 20:13] VITALS: BP 124/70; PULSE 67; RESP 14; TEMP 98.8
== END 2016-12-08 20:19 | disposition home or self-care (01) ==
LOC: E/R 17:02
DX: K29.70 Gastritis, unspecified, without bleeding (principal); E11.43 Type 2 diabetes mellitus with diabetic autonomic (poly)neuropathy; D64.9 Anemia, unspecified; J44.9 Chronic obstructive pulmonary disease, unspecified; I10 Essential (primary) hypertension; I50.9 Heart failure, unspecified; Z79.82 Long term (current) use of aspirin; Z79.01 Long term (current) use of anticoagulants; Z98.61 Coronary angioplasty status
CPT/HCPCS: 36415; 71010; 74000; 80053; 83690; 85025; 93005; 96372; 96374; 96375; 99284; J1170; J2270; J2765

== ENCOUNTER 2017-05-11 21:49 | Inpatient (IN) | END 2017-05-20 22:20 | DRG 280 ==

== ENCOUNTER 2017-07-08 17:01 | Inpatient (IN) | END 2017-07-09 17:40 | disposition home or self-care (01) | DRG 150 ==